=== PATIENT | female | born 1985 | race Caucasian/White ===

== ENCOUNTER 2024-02-25 13:52 | Inpatient (IN) | payer MEDICAID, SELFPAY ==
[2024-02-25] VITALS (83 sets, daily range): BP systolic 94–161; BP diastolic 60–116; PULSE 75–108; RESP 12–22; TEMP 36.9–37.6; O2SAT 95–100
--- NOTE | 2024-02-25 14:15 | RT.EKG_ITS ---
APPROVED REPORT Exam: Resting ECG Reason for Exam: left arm pain Patient Location: E HR:86 bpm ECG Measurements Heart Rate 86 AXIS VA 134 P 25 QRSd 88 QRS 26 QT 354 T 41 QTc 424 Conclusion Sinus rhythm...normal P axis, V-rate 60- 99 Consider left ventricular hypertrophy...(S V1+R V5/V6) >3.25mV Physician: sinus rhythm, no significant ST elevation or depression. No signs of STEMI.
--- NOTE | 2024-02-25 14:23 | W.ED.GENAD ---
Discharge Plan Disposition Patient Disposition: Admit to [facility] Condition: Improving Discharge Details Chief Complaint: ETOHWithdr Clinical Impression: Alcohol withdrawal, Nodule of left lung Primary Care Provider: Mayra,Local ED Provider: Nicolas Colunga Home Meds and New Rx's Prescriptions: No Action No Known Home Meds HPI General Date/Time Provider Initiated Documentation: 02/25/24 14:04. HPI Narrative: This is a pleasant 38-year-old female who denies any significant past medical history who presents today for evaluation of detox. Patient states that she has had challenges with alcohol throughout her whole life, she started drinking when she was 10 years old with her mother when she should have been going to therapy instead. She usually drinks 6 to 8 ounces of whiskey daily at baseline, however she states that over the last week she has been drinking 3-4 times this per day. Patient states that over the last few days she is drunk about 1.5 gallons of whiskey among some other beverages. Patient states that when she awoke this morning after having gone to bed drinking alcohol she noticed that she was diaphoretic, extremely shaky, twitchy, and felt extremely anxious. She then continued to drink throughout this morning up until the point that she arrived at the emergency department doors. She states that this is all that she can do to help mitigate her symptoms. She has tried to get dry in the past, and has had some notable withdrawals during those episodes. She denies history of seizures though. She denies any vomiting or diarrhea currently. She does admit to mild left-sided shoulder and chest pain that began today as well. She denies fever or chills. No tearing or ripping sensation in her chest. No pleuritic chest pain. No history of cardiac disease. She does smoke both marijuana and tobacco products. She has done cocaine in the past, the most recent episode was about a month ago. No other complaints at this time. No other modifying factors. She denies any homicidal or suicidal ideations. She states that she is here by choice and is seeking help. Related Data Home Medications Medication Instructions Recorded Confirmed Unknown [No Known Home Meds] 02/25/24 02/25/24 Allergies Allergy/AdvReac Type Severity Reaction Status Date / Time bacitracin AdvReac Intermediate Skin Rash Verified 02/25/24 14:06 [From Neosporin ([id number])] neomycin AdvReac Intermediate Skin Rash Verified 02/25/24 14:06 [From Neosporin ([id number])] polymyxin B AdvReac Intermediate Skin Rash Verified 02/25/24 14:06 [From Neosporin ([id number])] General Stated Complaint: ETOHWithdr JORGE: 3 Review of Systems All systems reviewed & are unremarkable except as noted in HPI and below Exam Narrative Exam Narrative: 1.Const: Well-nourished, Well-developed, appearing stated age 2.Eyes: PERRL, no conjunctival injection, and symmetrical lids. 3.ENT: Atraumatic external nose and ears. Moist MM. Neck: Symmetric, trachea midline, No thyromegaly. 4.CVS: +S1/S2, No murmurs or gallops. Peripheral pulses 2+ and equal in all extremities. Brisk capillary refill in all extremities. 5.RESP: Unlabored respiratory effort. Clear to auscultation bilaterally. No wheezes rales or rhonchi 6.GI: Soft, Nontender/Nondistended, No hepatosplenomegaly. No guarding or rebound. 7.MSK: Normocephalic/Atraumatic, Extremities w/o deformity or ttp No cyanosis or clubbing, Normal movement of all extremities. Patient has perceptible tremor of hands and fingertips with outstretched and resting arm. 8.Skin: Warm, Dry. No rashes or lesions. 9.Neuro: flight director II-XII grossly intact. Sensation grossly intact, no focal neurologic deficits. No asterixis. 10.Psych: (AAO) x3. Appropriate mood and affect Course Vital Signs Vital signs: Vital Signs Temperature 36.9 C 02/25/24 13:59 Pulse 104 H 02/25/24 13:59 Respiratory Rate 12 02/25/24 13:59 Blood Pressure 156/116 H 02/25/24 13:59 Pulse Oximetry 97 02/25/24 13:59 Temperature 36.9 C 02/25/24 13:59 Temperature Source Temporal Artery Scan 02/25/24 13:59 Pulse 104 H 02/25/24 13:59 Respiratory Rate 12 02/25/24 13:59 Respiratory Effort Normal, Non-Labored 02/25/24 14:09 Blood Pressure 156/116 H 02/25/24 13:59 Blood Pressure Position Sitting 02/25/24 13:59 Pulse Oximetry 97 02/25/24 13:59 Oxygen Delivery Method Room Air 02/25/24 13:59 Oxygen Flow Rate 0 02/25/24 13:59 Pain Level 0 02/25/24 13:59 Medical Decision Making This is a pleasant 38-year-old female who denies any significant past medical history who presents today for evaluation of detox. Patient states that she has had challenges with alcohol throughout her whole life, she started drinking when she was 10 years old with her mother when she should have been going to therapy instead. She usually drinks 6 to 8 ounces of whiskey daily at baseline, however she states that over the last week she has been drinking 3-4 times this per day. Patient states that over the last few days she is drunk about 1.5 gallons of whiskey among some other beverages. Patient states that when she awoke this morning after having gone to bed drinking alcohol she noticed that she was diaphoretic, extremely shaky, twitchy, and felt extremely anxious. She then continued to drink throughout this morning up until the point that she arrived at the emergency department doors. She states that this is all that she can do to help mitigate her symptoms. She has tried to get dry in the past, and has had some notable withdrawals during those episodes. She denies history of seizures though. She denies any vomiting or diarrhea currently. She does admit to mild left-sided shoulder and chest pain that began today as well. She denies fever or chills. No tearing or ripping sensation in her chest. No pleuritic chest pain. No history of cardiac disease. She does smoke both marijuana and tobacco products. She has done cocaine in the past, the most recent episode was about a month ago. No other complaints at this time. No other modifying factors. She denies any homicidal or suicidal ideations. She states that she is here by choice and is seeking help. Exam demonstrates well-appearing but anxious female, heart rate 104, mildly hypertensive. Patient has a resting tremor, no asterixis. No severe hepatomegaly. Pulses are equal bilaterally. In regards to the patient's alcohol use, she certainly is at risk for notable DTs as well as seizures. We will evaluate for electrolyte abnormalities, give a banana bag, hydrate with lactated Ringer's. I do feel that with her high potential relative risk for seizures and severe DTs that she would be a good candidate for admission especially with her notably excessive alcohol use in the past week predisposing her to significant negative complications. We will start her on phenobarbital protocol. Currently she demonstrates a CIWA between 10 and 20. However I do think that this is slightly blunted secondary to the fact that she has actively been drinking up until this point. We can escalate the phenobarbital dosing later if indicated. Will also give 50 mg of chlordiazepoxide while here to help blunt her current symptomatology. In regards to her chest pain, vascular pulses appear intact, no signs of trauma nor redness of the chest. Differential includes musculoskeletal etiology, less likely ACS, symptoms appear inconsistent clinically with PE. We will evaluate for these etiologies, monitor closely and reassess. Patient's EKG demonstrates sinus rhythm, no significant ST elevation or depression. No signs of STEMI. 6:37 PM Initial and repeat troponin have returned normal, CT scan negative for acute process however there is a 5 x 5 mm nodule in the left upper lobe. I did discuss this with both the patient, her significant other, and the hospitalist and describes the need for follow-up. Patient did have some continued anxiety even with the phenobarbital and chlordiazepoxide. We did give an additional 2 mg of Ativan which brought her to a very stable level needing no additional intervention. Laboratory workup shows minimal white count of 12, however CT of the chest showed no signs of pneumonia, urinalysis negative. Symptoms inconsistent with sepsis. D-dimer was elevated which was the reason the CTA was performed to rule out PE, however CT scan shows no evidence of PE or dissection at this time. Electrolytes stable, magnesium slightly low at 1.7, banana bag has been started. Transaminases slightly elevated with an AST of 62. Lipase normal, ammonia normal. UDS is positive for THC's. Alcohol level 119. At this stage patient is stable for admission. I did contact the hospitalist Dr. Amaral, he agrees with the assessment and plan. I have extensively reviewed the treatment plan with the patient. I have addressed all patient concerns at this time. I have also discussed the plan with the admitting physician and they agree with the current assessment and plan and have agreed to assume responsibility for the patient. All parties demonstrate verbal understanding and agreement with our assessment and plan at this time. The documentation in this chart was dictated using Dragon dictation software. Please excuse any dictation errors. FINDINGS: Pulmonary arteries: No filling defects within the pulmonary arteries are identified to suggest pulmonary embolism. Aorta: Unremarkable. No aortic aneurysm. No aortic dissection. Lungs: There is a 5 x 5 mm noncalcified nodule within the apical posterior segment of the left upper lobe near the left lung apex, as seen on image 65, series 6. Lungs otherwise clear. Pleural spaces: There are no pleural effusions present. There is no evidence of pneumothorax. Heart: Heart size is within normal limits. There is no pericardial effusion. There is no coronary artery calcification. Lymph nodes: There is no evidence of lymphadenopathy. Liver: The liver parenchyma demonstrates diffusely decreased attenuation, suggesting fatty infiltration. Bones/joints: Unremarkable. No acute fracture. Soft tissues: Unremarkable. IMPRESSION: 1. No pulmonary embolism identified. 2. 5 x 5 mm left upper lobe nodule, indeterminate. For patients at low risk (minimal or absent history of smoking and of other known risk factors), no routine follow-up is indicated. For patients at high risk (history of smoking or of other known risk factors), consider optional CT Chest at 12 months. (Reference: Marcela) 3. Mild hepatic steatosis. REFERENCES: Jimbohojosh H, et al. Guidelines for Management of Incidental Pulmonary Nodules Detected on CT Images: From the Fleischner Society 2017. Radiology. 2017;284(1):228-243. Thank you for allowing us to participate in the care of your patient. Dictated and Authenticated by: Matthew Holloway MD 02/25/2024 5:42 PM Eastern Time ([place] & [place]) Quality:SDOH Health Related Social Needs: No Data to Display Critical Care Time Critical Care Time Critical Care Time: Yes Total Critical Care Time: 45 Attestation: Upon my evaluation, this patient had a high probability of imminent or life-threatening deterioration, which required my direct attention, intervention, and personal management. I have personally provided 45 minutes of critical care time exclusive of time spent on separately billable procedures. Time includes review of laboratory data, radiology results, discussion with consultants, and monitoring for potential decompensation. Interventions were performed as documented. PFSH All Active Problems (Updated 02/25/24 @ 18:40 by Nicolas Colunga DO) Nodule of left lung (Acute) Alcohol withdrawal (Acute) Social History Smoking/Tobacco Use Status: Current every day Tobacco Type: cigarettes Smoking risk assessment performed?: Yes Alcohol Intake: current Alcohol Intake frequency: 3 or more drinks per day Alcohol type: hard liquor Drug use: Daily Substance use type: marijuana PAWSS Have you Been Recently Intoxicated or Drunk Within the Last 30 days?: Yes Have you Ever Experienced Previous Episodes of Alcohol Withdrawal?: Yes Have you ever Experienced Withdrawal Seizures?: No Have you ever Experienced Delirium Tremens(DT)s?: Yes Have you ever undergone Alcohol Rehabilitation Treatment (i.e, inpt ot outpatient treatment programs)?: Yes Have you ever Experienced Blackouts?: Yes Have you ever Combined Alcohol with other Downers within the last 90 days?: Yes Have you ever Combined Alcohol with any other Substance of Abuse during the last 90 days?: Yes Positive Blood Alcohol level on Presentation? [PCS.BAL]: Yes Evidence of Increased Autonomic Activity (i.e. HR>120, tremor, sweating, agitation, nausea)?: No Result: 8
[2024-02-25 14:41] LABS: Abs Immature Grans 0.04 10^3/uL (0.0-0.06); Absolute Basophil Count 0.06 10^3/uL (0.0-0.2); Absolute Eosinophil Count 0.02 10^3/uL (0.0-0.7); Absolute Lymphocyte Count 1.61 10^3/uL (1.2-3.4); Absolute Monocyte Count 0.84 10^3/uL (0.1-0.8); Absolute Neutrophil Count 9.46 10^3/uL (1.2-6.7); Basophils % 0.5 %; Eosinophils % 0.2 %; HCT 40.3 % (36.0-46.0); HGB 14.4 g/dL (11.2-15.7); Immature Grans % 0.3 %; Lymphocytes % 13.4 %; MCH 33.6 pg (27.0-33.0); MCHC 35.7 % (32.0-36.0); MCV 94 fL (80-95); MPV 8.9 fL (8.0-11.0); Neutrophils % 78.6 %; Platelet Count 240 10^3/uL (130-400); RBC 4.28 10^6/uL (3.93-5.22); RDW 11.9 % (11.7-14.6); RDW-SD 41.4 fL; WBC 12.03 10^3/uL (4.4-10.8)
[2024-02-25] MEDS: chlordiazePOXIDE 25 MG CAP 50 MG PO (14:45)
[2024-02-25] MEDS: Lactated Ringers 1,000 ML 1000 ML IV (14:45)
[2024-02-25 14:52] LABS: Prothrombin Time 10.2 sec (9.1-11.1)
[2024-02-25 14:53] LABS: ETHANOL BLOOD 119.9 mg/dL (<10); Magnesium 1.7 mg/dL (1.8-2.4)
[2024-02-25 14:56] LABS: Ammonia 19 umol/L (11-32)
[2024-02-25 14:58] LABS: ALT 40 U/L (14-59); AST 62 U/L (15-37); Albumin 4.4 g/dL (3.4-5.0); Alkaline Phosphatase 78 U/L (46-116); BUN 8 mg/dL (7-18); Bilirubin, Total 0.74 mg/dL (0.2-1.0); CREATININE 0.7 mg/dL (0.55-1.02); Calcium 9.1 mg/dL (8.5-10.1); Chloride 98 mmol/L (98-107); Estimated GFR 112.05 (mL/min/1.73m2); Glucose 103 mg/dL (74-106); Lipase 30 U/L (16-77); Potassium 3.9 mmol/L (3.5-5.1); Sodium 136 mmol/L (136-145); Total Protein 8.2 g/dL (6.4-8.2); Troponin I < 50 ng/L (< or =60)
[2024-02-25] MEDS: PHENobarbital 110 MG in Normal Saline 50 ML 100 MG IVPB (15:08)
[2024-02-25 15:10] LABS: PTT Activated 23.7 sec (23.6-32.8)
--- NOTE | 2024-02-25 15:15 | DI.CT_ITS ---
Exam(s) CT CHEST PE CTA EXAM: CT CHEST PE CTA CLINICAL HISTORY: left chest pain, elevated dimer. TECHNIQUE: Imaging Protocol: Axial CT angiography was performed with multi-slice acquisition and mu lti-planar reconstructions as well as axial, coronal and sagittal MIP reconstructions. CONTRAST MATERIAL: Intravenous: Omnipaque 350 Contrast volume:80 ml COMPARISON: No exams were available for comparison FINDINGS: Pulmonary Arteries: No evidence of filling defect to suggest pulmonary emboli. Tracheobronchial tree: No mucous plugging. Mediastinum and Charlette: No dominant adenopathy or fluid collection. Pulmonary parenchyma: No consolidation. 5 millimeter nodule left lung apex. Pleura: No effusion or pneumothorax. Heart: The heart is not dilated. No coronary artery calcifications are seen. Aorta: Thoracic aorta non-dilated. No dissection. Upper abdomen: No acute findings. Bones: Unremarkable for age. Tubes, Catheters, and Lines: None Soft tissues: Unremarkable. IMPRESSION: No evidence of pulmonary embolism or other acute abnormality. 5 millimeter nodule left lung apex. Single solid noncalcified nodules. ???Solid nodules smaller than 6 mm (those 5 mm or smaller) do not require routine follow-up in patients at low risk (grade 1C; strong recommendation, low- or very-low- quality evidence). (Marcela et al., 2017) RADIATION DOSE DELIVERED: Total DLP DATA REPOSITORY: All CT scans at this facility are submitted to the National Radiology Data Registry (NRDR) Dose Index Registry (DIR) with the [employer] (ACR). RADIATION OPTIMIZATION: All CT scans at this facility use at least one of these dose optimization te chniques: automated exposure control; mA and/or kV adjustment per patient size (includes targeted exa ms where dose is matched to clinical indication); or iterative reconstruction.
[2024-02-25 15:19] LABS: D-Dimer 561 ng/mlFEU (<500)
[2024-02-25 15:22] LABS: *AMPHETAMINES SCREEN URINE Negative (Negative); *BARBITURATES SCREEN URINE Negative (Negative); *BENZODIAZEPINES SCREEN URINE Negative (Negative); Cannabinoids THC Positive (Negative); Cocaine Screen,Urine Negative (Negative); METHADONE URINE SCREEN Negative (Negative); OPIATES URINE SCREEN Negative (Negative)
[2024-02-25 15:23] LABS: Tricyclic Antidepressants Negative (Negative)
[2024-02-25] MEDS: MULTIVITAMIN 10 ML, THIAMINE 100 MG, FOLIC ACID 1 MG in DEXTROSE 5%-0.45% SALINE 1,000 ML 42 ML IV (15:25)
[2024-02-25 15:29] LABS: Bilirubin Negative (Negative); Blood Negative (Negative); Clarity Sl Cloudy (Clear); Glucose Negative (Negative); Ketones Negative (Negative); Leukocyte Esterase Negative (Negative); Nitrite Negative (Negative); Urobilinogen 0.2 mg/dL (Up to 0.2)
[2024-02-25] MEDS: Normal Saline - Diluent 50 ML VIAL IJ (15:44)
[2024-02-25] MEDS: Normal Saline Flush 10 ML SYR IVP ×2 (15:44→22:51)
[2024-02-25] MEDS: Omnipaque 350 MG/ML 100 ML BTL IJ (15:45)
[2024-02-25] MEDS: LORazepam 2 MG/ML VIAL IVP (15:56)
[2024-02-25] MEDS: Nicotine 4 MG GUM CH (16:27)
--- NOTE | 2024-02-25 17:42 | DI.VRAD_ITS ---
PROCEDURE INFORMATION: Exam: CTA Chest With Contrast Exam date and time: 02/25/2024 3:48 PM Age: 38 years old Clinical indication: Other: Left chest pain, elevated dimer TECHNIQUE: Imaging protocol: Computed tomographic angiography of the chest with contrast. Exam focused on the arteries. 3D rendering (Not supervised by radiologist): MIP and/or 3D reconstructed images were created by the technologist. Contrast material: OMNIPAQUE 350; Contrast volume: 80 ml; Contrast route: INTRAVENOUS (IV); COMPARISON: No relevant prior studies available. FINDINGS: Pulmonary arteries: No filling defects within the pulmonary arteries are identified to suggest pulmonary embolism. Aorta: Unremarkable. No aortic aneurysm. No aortic dissection. Lungs: There is a 5 x 5 mm noncalcified nodule within the apical posterior segment of the left upper lobe near the left lung apex, as seen on image 65, series 6. Lungs otherwise clear. Pleural spaces: There are no pleural effusions present. There is no evidence of pneumothorax. Heart: Heart size is within normal limits. There is no pericardial effusion. There is no coronary artery calcification. Lymph nodes: There is no evidence of lymphadenopathy. Liver: The liver parenchyma demonstrates diffusely decreased attenuation, suggesting fatty infiltration. Bones/joints: Unremarkable. No acute fracture. Soft tissues: Unremarkable. IMPRESSION: 1. No pulmonary embolism identified. 2. 5 x 5 mm left upper lobe nodule, indeterminate. For patients at low risk (minimal or absent history of smoking and of other known risk factors), no routine follow-up is indicated. For patients at high risk (history of smoking or of other known risk factors), consider optional CT Chest at 12 months. (Reference: Marcela) 3. Mild hepatic steatosis. REFERENCES: Marcela Styles, et al. Guidelines for Management of Incidental Pulmonary Nodules Detected on CT Images: From the Fleischner Society 2017. Radiology. 2017;284(1):228-243. Dictated and Authenticated by: Matthew Holloway MD. Ordering:TRISTIAN Valenzuela MD
[2024-02-25 18:23] LABS: Troponin I < 50 ng/L (< or =60)
--- NOTE | 2024-02-25 19:20 | W.PM.HP.N ---
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 She does drink daily with quitting up to 1 year in the past and weeks to days at times without significant withdrawal. She has never been hospitalized for alcohol withdrawal. Recently she has had increased amounts of whiskey and had symptoms of withdrawal the morning of admission. She presently is feeling better after Librium and then phenobarbital loading dose at only 40% to be used as needed presently with the rest of her loading dose. She does have Ativan orally to take if she has anxiety without scoring on alcohol withdrawal scale. Patient insight is fair does appear to have chronic anxiety with PTSD. She is going to counseling. She was admitted to ICU for alcohol withdrawal and once cleared will be discharged with outpatient services. She already has a counselor who she sees twice weekly. She has a DNR/DNI by Fanny stated that she does not want to live until she is 88 and if a catastrophic medical event happens, she does not want interventions. Qualifiers: Complication of substance-induced condition: with unspecified complication Qualified Code(s): F10.939 - Alcohol use, unspecified with withdrawal, unspecified (2) Polysubstance abuse: Start date: 02/25/24 Status: Chronic Assessment and plan: Patient does self treatment mostly with marijuana recently having used cocaine and LSD in the past. She has never used IV drugs. (3) Tobacco abuse: Status: Chronic Assessment and plan: Nicotine patch while in the hospital with advised to stop smoking altogether in the future. She does not have any respiratory symptoms or chronic inhaler use but with slight wheeze she will be offered albuterol nebulizers as needed. (4) Nodule of left lung: Start date: 02/25/24 Status: Acute Assessment and plan: Incidental finding 5 mm nodule in the lung should be followed up as an outpatient. Smoking cessation would be best. Patient needs to establish with local PCP. History of Present Illness History of Present Illness Chief Complaint: Alcohol withdrawal Narrative: This is a 38-year-old female patient has been drinking alcohol with her mother since she was 10 years old. She stated she has had multiple childhood traumas states that she does self treat her symptoms with alcohol also has used cocaine and LSD but has never had IV drug use or smoked crack cocaine. She does snort and rarely shares devices. Patient has been in counseling recently when moving up locally. 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 She feels her landlord as abandoned her with the plans and had moved and working. She is with her partner now is very supportive. She recently increased her drinking continued with the from 1/5 of alcohol lasting her a week to drinking 3/5 of the same weekly. Did awaken the morning of admission with sweats and nausea as well as severe tremors. She did drink some alcohol which helped the symptoms but came to the hospital for alcohol withdrawal. She is a smoker and does have urges to smoke presently excepting nicotine patch. As stated she is in counseling recently and has increased the frequency because of her increased stress and poor coping. She has good insight. She does wish to be a DNR/DNI by choice and has had suicidal ideation in the past but never acted on her plans and has had no suicidal ideation recently. She seems clear on her decision. She has had withdrawals in the past but no alcohol withdrawal seizures. He reported to the ED and did receive Librium and then phenobarbital protocol with a small dose of Ativan for her anxiety at 2 mg IV which was palpable. She is doing better and will continue hospitalization in the ICU for alcohol withdrawal on the phenobarbital protocol. She has slight low magnesium but no elevation of her liver function test and will receive magnesium supplements Will IV vitamin banana bag per protocol. She is a DNR/DNI as above Review of Systems Narrative: 13 point review of systems otherwise unrevealing or stable. PFSH All Active Problems (Updated 02/25/24 @ 22:11 by Wayne Amaral) Tobacco abuse (Chronic) Polysubstance abuse (Chronic) Nodule of left lung (Acute) Alcohol withdrawal (Acute) Social History Smoking/Tobacco Use Status: Current every day Tobacco Type: cigarettes Smoking risk assessment performed?: Yes Alcohol Intake: current Alcohol Intake frequency: 3 or more drinks per day Alcohol type: hard liquor Drug use: Daily Substance use type: marijuana Housing: apartment Meds Allergies and Home Medications Allergies Allergy/AdvReac Type Severity Reaction Status Date / Time bacitracin AdvReac Intermediate Skin Rash Verified 02/25/24 14:06 [From Neosporin ([id number])] neomycin AdvReac Intermediate Skin Rash Verified 02/25/24 14:06 [From Neosporin ([id number])] polymyxin B AdvReac Intermediate Skin Rash Verified 02/25/24 14:06 [From Neosporin ([id number])] Home Medications Medication Instructions Recorded Confirmed Type Unknown [No Known Home Meds] 02/25/24 02/25/24 History Exam Narrative Exam Narrative: General: Patient appears appropriate for age, slightly flattened affect but good eye contact. Alert and oriented x 3. She is in no acute distress. HEENT: Normocephalic, pupils equal and reactive to light symmetrically, extraocular movement intact and sclera anicteric. Oral mucosa moist with clear mentation. Neck: Supple without JVD. Back: Normal posture without CVA tenderness. Lungs:Clear to auscultation. No focal rales or rhonchi. Occasional crackle with expiratory wheeze sparsely. Bronchovesicular breath sounds diffusely. Breast: Exam deferred. Heart: Regular rate and rhythm with systolic flow murmur admittedly, otherwise no gallops or rubs. Abdomen: Normal contour, soft and nontender to palpation with no palpable hepatosplenomegaly. Bowel sounds positive all quadrants. No guarding or rebound. Genitalia/rectal: Exam deferred. Extremities: No clubbing, cyanosis or pitting edema. Peripheral pulses intact. Skin: Normal color, warm and dry with multiple tattoos. Neuro: Cranial nerves II through XII gross intact, no focal motor deficits. No tremor. Psych: Flattened affect with depressed mood. Slow monotonous tone to voice. No abnormal thought processes. Remote and recent memory intact. Results Imaging Imaging Studies: Exam: CTA Chest With Contrast Exam date and time: 02/25/2024 3:48 PM Age: 38 years old Clinical indication: Other: Left chest pain, elevated dimer TECHNIQUE: Imaging protocol: Computed tomographic angiography of the chest with contrast. Exam focused on the arteries. 3D rendering (Not supervised by radiologist): MIP and/or 3D reconstructed images were created by the technologist. Contrast material: OMNIPAQUE 350; Contrast volume: 80 ml; Contrast route: INTRAVENOUS (IV); COMPARISON: No relevant prior studies available. FINDINGS: Pulmonary arteries: No filling defects within the pulmonary arteries are identified to suggest pulmonary embolism. Aorta: Unremarkable. No aortic aneurysm. No aortic dissection. Lungs: There is a 5 x 5 mm noncalcified nodule within the apical posterior segment of the left upper lobe near the left lung apex, as seen on image 65, series 6. Lungs otherwise clear. Pleural spaces: There are no pleural effusions present. There is no evidence of pneumothorax. Heart: Heart size is within normal limits. There is no pericardial effusion. There is no coronary artery calcification. Lymph nodes: There is no evidence of lymphadenopathy. Liver: The liver parenchyma demonstrates diffusely decreased attenuation, suggesting fatty infiltration. Bones/joints: Unremarkable. No acute fracture. Soft tissues: Unremarkable. IMPRESSION: 1. No pulmonary embolism identified. 2. 5 x 5 mm left upper lobe nodule, indeterminate. For patients at low risk (minimal or absent history of smoking and of other known risk factors), no routine follow-up is indicated. For patients at high risk (history of smoking or of other known risk factors), consider optional CT Chest at 12 months. (Reference: Marcela) 3. Mild hepatic steatosis. Labs 02/25/24 14:30 02/25/24 14:30 Labs: Laboratory Results - last 24 hr 02/25/24 02/25/24 02/25/24 14:30 14:39 15:00 WBC 12.03 H RBC 4.28 Hgb 14.4 Hct 40.3 MCV 94 MCH 33.6 H MCHC 35.7 RDW 11.9 Plt Count 240 MPV 8.9 Immature Gran % 0.3 Neutrophils % 78.6 Lymphocytes % 13.4 Monocytes % 7.0 Eosinophils % 0.2 Basophils % 0.5 Nucleated RBC % 0.0 Absolute Neutrophils 9.46 H Absolute Lymphocytes 1.61 Absolute Monocytes 0.84 H Absolute Eosinophils 0.02 Absolute Basophils 0.06 PT 10.2 INR 1.0 APTT 23.7 D-Dimer 561 H Sodium 136 Potassium 3.9 Chloride 98 Carbon Dioxide 25.0 Anion Gap 13.0 H BUN 8 Creatinine 0.7 Est GFR (CKD-EPI 2020) 112.05 Glucose 103 Calcium 9.1 Magnesium 1.7 L Total Bilirubin 0.74 AST 62 H ALT 40 Alkaline Phosphatase 78 Ammonia 19 Troponin I < 50 Total Protein 8.2 Albumin 4.4 Lipase 30 Urine Color Yellow Urine Clarity Sl Cloudy Urine pH 7.0 Ur Specific [place] 1.010 Urine Protein Negative Urine Ketones Negative Urine Blood Negative Urine Nitrite Negative Urine Bilirubin Negative Urine Urobilinogen 0.2 Ur Leukocyte Esterase Negative Urine Glucose Negative Urine Opiates Screen Negative Urine Methadone Screen Negative Ur Barbiturates Screen Negative Ur Tricyclics Screen Negative Ur Amphetamines Screen Negative U Benzodiazepines Scrn Negative Urine Cocaine Screen Negative Ur THC Screen Positive A Ethyl Alcohol 119.9 H 02/25/24 17:35 WBC RBC Hgb Hct MCV MCH MCHC RDW Plt Count MPV Immature Gran % Neutrophils % Lymphocytes % Monocytes % Eosinophils % Basophils % Nucleated RBC % Absolute Neutrophils Absolute Lymphocytes Absolute Monocytes Absolute Eosinophils Absolute Basophils PT INR APTT D-Dimer Sodium Potassium Chloride Carbon Dioxide Anion Gap BUN Creatinine Est GFR (CKD-EPI 2020) Glucose Calcium Magnesium Total Bilirubin AST ALT Alkaline Phosphatase Ammonia Troponin I < 50 Total Protein Albumin Lipase Urine Color Urine Clarity Urine pH Ur Specific [place] Urine Protein Urine Ketones Urine Blood Urine Nitrite Urine Bilirubin Urine Urobilinogen Ur Leukocyte Esterase Urine Glucose Urine Opiates Screen Urine Methadone Screen Ur Barbiturates Screen Ur Tricyclics Screen Ur Amphetamines Screen U Benzodiazepines Scrn Urine Cocaine Screen Ur THC Screen Ethyl Alcohol Last Vital Signs Temp 36.9 C 02/25/24 13:59 Pulse 104 H 02/25/24 19:00 Resp 12 02/25/24 13:59 BP 114/62 02/25/24 19:00 Pulse Ox 96 02/25/24 19:16 PAWSS Have you Been Recently Intoxicated or Drunk Within the Last 30 days?: Yes Have you Ever Experienced Previous Episodes of Alcohol Withdrawal?: Yes Have you ever Experienced Withdrawal Seizures?: No Have you ever Experienced Delirium Tremens(DT)s?: Yes Have you ever undergone Alcohol Rehabilitation Treatment (i.e, inpt ot outpatient treatment programs)?: Yes Have you ever Experienced Blackouts?: Yes Have you ever Combined Alcohol with other Downers within the last 90 days?: Yes Have you ever Combined Alcohol with any other Substance of Abuse during the last 90 days?: Yes Positive Blood Alcohol level on Presentation? [PCS.BAL]: Yes Evidence of Increased Autonomic Activity (i.e. HR>120, tremor, sweating, agitation, nausea)?: No Result: 8 Time Spent Time spent with Patient: >75 minutes Time was spent: preparing to see the patient(eg.review tests), obtaining and/or reviewing separately otained hiistory, ordering medications,tests, procedures, indepentently interpreting results, counseling the patient and care coordination
--- NOTE | 2024-02-25 20:06 | W.PC.ACHO ---
Registration Status: REG ER Primary Language: Preferred Language: ED Information & Data Chief Complaint ETOHWithdr 02/25/24 14:28 Triage Note patient thinks she was in 02/25/24 13:59 detox as she woke up this am ill. patient states she has been drinking from morning til night. States she has L arm pain radiating to shoulder. Most Recent Vital Signs Temperature 36.9 C 02/25/24 13:59 Temperature Source Temporal Artery Scan 02/25/24 13:59 Pulse 104 H 02/25/24 19:00 Respiratory Rate 12 02/25/24 13:59 Respiratory Effort Normal, Non-Labored 02/25/24 14:09 Blood Pressure 114/62 02/25/24 19:00 Blood Pressure Mean 86 02/25/24 18:30 Blood Pressure Position Sitting 02/25/24 13:59 Pulse Oximetry 96 02/25/24 19:16 Oxygen Delivery Method Room Air 02/25/24 13:59 Oxygen Flow Rate 0 02/25/24 13:59 Pain Level 0 02/25/24 13:59 Allergies bacitracin [From Neosporin ([id number])] Adverse Reaction (Intermediate, Verified 02/25/24 14:06) Skin Rash neomycin [From Neosporin ([id number])] Adverse Reaction (Intermediate, Verified 02/25/24 14:06) Skin Rash polymyxin B [From Neosporin ([id number])] Adverse Reaction (Intermediate, Verified 02/25/24 14:06) Skin Rash Precautions Isolation Standard precaution 02/25/24 14:09 Active Medications Generic Name Dose Route Start Last Admin Trade Name Freq PRN Reason Stop Dose Admin Multivitamins 10 ml/ Thiamine 1,011.2 mls @ 42 mls/hr 02/25/24 15:00 02/25/24 15:25 HCl 100 mg/ Folic Acid 1 mg/ IV 42 mls/hr Dextrose/Sodium Chloride Q24H MATT Administration Iohexol 100 ml 02/25/24 15:45 02/25/24 15:45 Omnipaque 350 Mg/Ml 100 Ml Btl IJ 03/26/24 23:59 100 ml DIRECTED MATT Administration Nicotine 4 mg 02/25/24 16:25 02/25/24 16:27 Nicotine 4 Mg Gum CH 4 mg Q2H PRN PRN Administration Sodium Chloride 50 ml 02/25/24 15:45 02/25/24 15:44 Normal Saline - Diluent 50 Ml Vial IJ 50 ml .FOR DI USE MATT Administration Sodium Chloride 0 ml 02/25/24 15:44 02/25/24 15:44 Normal Saline Flush 10 Ml Syr IVP 10 ml PRN PRN Administration IV IV Catheter Type [Right Hand] Peripheral IV IV Catheter Type [Right Peripheral IV Antecubital] Diet Orders Category Date Time Status Regular/Normal [DIET] Nutrition 02/26/24 Breakfast Ordered Diagnostics 02/25/24 02/25/24 02/25/24 Range/Units 19:29 17:35 15:00 WBC (4.4-10.8) 10^3/uL RBC (3.93-5.22) 10^6/uL Hgb (11.2-15.7) g/dL Hct (36.0-46.0) % MCV (80-95) fL MCH (27.0-33.0) pg MCHC (32.0-36.0) % RDW (11.7-14.6) % Plt Count (130-400) 10^3/uL MPV (8.0-11.0) fL Immature Gran % % Neutrophils % % Lymphocytes % % Monocytes % % Eosinophils % % Basophils % % Nucleated RBC % (0.0-0.3) % Absolute Neutrophils (1.2-6.7) 10^3/uL Absolute Lymphocytes (1.2-3.4) 10^3/uL Absolute Monocytes (0.1-0.8) 10^3/uL Absolute Eosinophils (0.0-0.7) 10^3/uL Absolute Basophils (0.0-0.2) 10^3/uL PT Pending (9.1-11.1) sec INR Pending (0.9-1.1) APTT (23.6-32.8) sec D-Dimer (<500) ng/mlFEU Sodium (136-145) mmol/L Potassium (3.5-5.1) mmol/L Chloride (98-107) mmol/L Carbon Dioxide (21.0-32.0) mmol/L Anion Gap (3-11) mmol/L BUN (7-18) mg/dL Creatinine (0.55-1.02) mg/dL Est GFR (CKD-EPI 2020) (mL/min/1.73m2) Glucose (74-106) mg/dL Calcium (8.5-10.1) mg/dL Magnesium (1.8-2.4) mg/dL Total Bilirubin (0.2-1.0) mg/dL AST (15-37) U/L ALT (14-59) U/L Alkaline Phosphatase (46-116) U/L Ammonia (11-32) umol/L Troponin I < 50 (< or =60) ng/L Total Protein (6.4-8.2) g/dL Albumin (3.4-5.0) g/dL Lipase (16-77) U/L TSH Pending Urine Color Yellow (Yellow) Urine Clarity Sl Cloudy (Clear) Urine pH 7.0 (5-8) Ur Specific [place] 1.010 (1.005-1.025) Urine Protein Negative (Neg-Trace) mg/dL Urine Ketones Negative (Negative) mg/dL Urine Blood Negative (Negative) Urine Nitrite Negative (Negative) Urine Bilirubin Negative (Negative) Urine Urobilinogen 0.2 (Up to 0.2) mg/dL Ur Leukocyte Esterase Negative (Negative) Urine Glucose Negative (Negative) mg/dL Urine Opiates Screen Negative (Negative) Urine Methadone Screen Negative (Negative) Ur Barbiturates Screen Negative (Negative) Ur Tricyclics Screen Negative (Negative) Ur Amphetamines Screen Negative (Negative) U Benzodiazepines Scrn Negative (Negative) Urine Cocaine Screen Negative (Negative) Ur THC Screen Positive A (Negative) Ethyl Alcohol (<10) mg/dL 02/25/24 02/25/24 Range/Units 14:39 14:30 WBC 12.03 H (4.4-10.8) 10^3/uL RBC 4.28 (3.93-5.22) 10^6/uL Hgb 14.4 (11.2-15.7) g/dL Hct 40.3 (36.0-46.0) % MCV 94 (80-95) fL MCH 33.6 H (27.0-33.0) pg MCHC 35.7 (32.0-36.0) % RDW 11.9 (11.7-14.6) % Plt Count 240 (130-400) 10^3/uL MPV 8.9 (8.0-11.0) fL Immature Gran % 0.3 % Neutrophils % 78.6 % Lymphocytes % 13.4 % Monocytes % 7.0 % Eosinophils % 0.2 % Basophils % 0.5 % Nucleated RBC % 0.0 (0.0-0.3) % Absolute Neutrophils 9.46 H (1.2-6.7) 10^3/uL Absolute Lymphocytes 1.61 (1.2-3.4) 10^3/uL Absolute Monocytes 0.84 H (0.1-0.8) 10^3/uL Absolute Eosinophils 0.02 (0.0-0.7) 10^3/uL Absolute Basophils 0.06 (0.0-0.2) 10^3/uL PT 10.2 (9.1-11.1) sec INR 1.0 (0.9-1.1) APTT 23.7 (23.6-32.8) sec D-Dimer 561 H (<500) ng/mlFEU Sodium 136 (136-145) mmol/L Potassium 3.9 (3.5-5.1) mmol/L Chloride 98 (98-107) mmol/L Carbon Dioxide 25.0 (21.0-32.0) mmol/L Anion Gap 13.0 H (3-11) mmol/L BUN 8 (7-18) mg/dL Creatinine 0.7 (0.55-1.02) mg/dL Est GFR (CKD-EPI 2020) 112.05 (mL/min/1.73m2) Glucose 103 (74-106) mg/dL Calcium 9.1 (8.5-10.1) mg/dL Magnesium 1.7 L (1.8-2.4) mg/dL Total Bilirubin 0.74 (0.2-1.0) mg/dL AST 62 H (15-37) U/L ALT 40 (14-59) U/L Alkaline Phosphatase 78 (46-116) U/L Ammonia 19 (11-32) umol/L Troponin I < 50 (< or =60) ng/L Total Protein 8.2 (6.4-8.2) g/dL Albumin 4.4 (3.4-5.0) g/dL Lipase 30 (16-77) U/L TSH Urine Color (Yellow) Urine Clarity (Clear) Urine pH (5-8) Ur Specific [place] (1.005-1.025) Urine Protein (Neg-Trace) mg/dL Urine Ketones (Negative) mg/dL Urine Blood (Negative) Urine Nitrite (Negative) Urine Bilirubin (Negative) Urine Urobilinogen (Up to 0.2) mg/dL Ur Leukocyte Esterase (Negative) Urine Glucose (Negative) mg/dL Urine Opiates Screen (Negative) Urine Methadone Screen (Negative) Ur Barbiturates Screen (Negative) Ur Tricyclics Screen (Negative) Ur Amphetamines Screen (Negative) U Benzodiazepines Scrn (Negative) Urine Cocaine Screen (Negative) Ur THC Screen (Negative) Ethyl Alcohol 119.9 H (<10) mg/dL [id number] Documentation POC Urine Test Start: 02/25/24 14:19 Freq: .Urine Test Status: Active Protocol: Activity Type Activity Date Activity User E-sign Co-sign Detail Recorded Client Recorded Date Recorded By Document 02/25/24 15:43 YIN [id number] 02/25/24 15:43 YIN Intake and Output - 24 Hour Total 02/25/24 13:52 thru 02/25/24 18:32 Intake Total 1050.8462 Balance 1050.8462 Weight 61.235 kg Intake: IV 1050.8462 Falls Risk Assessment History of Falls No History 02/25/24 14:13 Ambulatory Aids Independent 02/25/24 14:13 Tubes/Lines None 02/25/24 14:13 Gait Evaluation No gait disturbance 02/25/24 14:13 Cognition No cognitive impairment 02/25/24 14:13 Fall Total Score 0 02/25/24 14:13 Level of Risk Standard/Low Risk 02/25/24 14:13 Problems (Last Reviewed 02/25/24 @ 19:22 by Wayne Amaral) Tobacco abuse (Chronic) Polysubstance abuse (Acute) Nodule of left lung (Acute) Alcohol withdrawal (Acute) v v v v v v v v v Sending and/or Receiving Nurses: Please use comment section below to note any information pertinent to the patient hand-off not included above. Information / Comments: Pt pleasant. Has good support system. History of sobriety. Relapsed. Wants to return to sobriety. CIWA max 10. Most recent CIWA 2. Hx DT's in the past. Report received from: Familia Dhaliwal RN
[2024-02-25 21:57] LABS: TSH 5.18 uIU/Ml (0.36-3.74)
[2024-02-25] MEDS: LORazepam 1 MG TAB 2 MG PO (22:50)
[2024-02-25] MEDS: Enoxaparin 40 MG/0.4 ML SYR SC (22:50)
[2024-02-26] VITALS (32 sets, daily range): BP systolic 88–118; BP diastolic 62–87; PULSE 56–108; RESP 12–32; TEMP 36.6–37.1; O2SAT 96–99
[2024-02-26] MEDS: LORazepam 1 MG TAB 2 MG PO (05:51)
[2024-02-26] MEDS: Nicotine 14 MG/24 HR PATCH TD (05:52)
[2024-02-26 06:05] LABS: HCT 35.7 % (36.0-46.0); HGB 12.6 g/dL (11.2-15.7); MCH 33.6 pg (27.0-33.0); MCHC 35.3 % (32.0-36.0); MCV 95 fL (80-95); MPV 9.5 fL (8.0-11.0); Platelet Count 178 10^3/uL (130-400); RBC 3.75 10^6/uL (3.93-5.22); RDW 11.9 % (11.7-14.6); RDW-SD 41.7 fL; WBC 4.53 10^3/uL (4.4-10.8)
[2024-02-26 06:20] LABS: Magnesium 1.7 mg/dL (1.8-2.4)
[2024-02-26 06:26] LABS: ALT 31 U/L (14-59); AST 48 U/L (15-37); Albumin 3.2 g/dL (3.4-5.0); Alkaline Phosphatase 58 U/L (46-116); Anion Gap 9.2 mmol/L (3-11); BUN 10 mg/dL (7-18); Bilirubin, Total 1.06 mg/dL (0.2-1.0); CO2 26.8 mmol/L (21.0-32.0); CREATININE 0.6 mg/dL (0.55-1.02); Calcium 8.7 mg/dL (8.5-10.1); Chloride 103 mmol/L (98-107); Glucose 91 mg/dL (74-106); Potassium 3.6 mmol/L (3.5-5.1); Sodium 139 mmol/L (136-145); Total Protein 6.2 g/dL (6.4-8.2)
[2024-02-26] MEDS: MAGNESIUM SULFATE 2 GM/50 ML BAG IVINF (08:12)
[2024-02-26] MEDS: Normal Saline Flush 10 ML SYR IVP ×3 (08:13→23:33)
[2024-02-26] MEDS: PHENobarbital 130 MG/ML VIAL IVP ×3 (08:13→23:31)
--- NOTE | 2024-02-26 08:30 | PDOC.CMIN ---
Date of service: 02/26/24 Time of Service: 08:30 Care Management Initial Assmt Initial Assessment Reason for Hospitalization: Alcohol Withdrawal Functional Status/Living Situation Patient Presentation: Remains in ICU, pleasant in interaction, seeking support services. [facility] [place] [place] Resides with: Spouse Instrumental Activities of Daily Living (ADLs): Independent Medications Medication Management: No Issues/Barriers identified Advance Directives Advance Directives: Do you have an Advance Directive: N 02/25/24 13:59 AD On File at [facility]: N 02/25/24 13:59 Date Asked 02/25/24 02/25/24 13:59 AD Date Reviewed COLST On File at [facility] No 02/25/24 16:19 COLST Date Scanned Code Status Resuscitation Status DNR/DNI Portal Pt does not currently have a portal and education provided: Yes Insurance Coverage/Financial Issues Insurance: Self Pay: [facility] Referral ACO Member: No Care Team Visit Care Team Role Provider Type Local No Primary Care Provider NON-[facility] STAFF PHYSICIAN Nicolas Colunga, DO Emergency Provider [facility] STAFF PHYSICIAN Wayne Amaral Admit Provider NON-[facility] STAFF PHYSICIAN Attending Provider Discharge Potential Discharge Needs: PCP F/U Appt (T-Doc: [facility] Anthony) Anticipated Barriers to Discharge: Medical Status and SDOH (Insurance, PCP attainment, ETOH W/D: [facility]) Patient/Family Education Needs: Review discharge instructions, discuss Ask Me Three Transportation: Private vehicle Plan: Michelle will be treated for ETOH withdrawal, referrals completed to [facility], T-Doc appointment request and [facility] consult to be initiated as well. CM following. PFSH All Active Problems (Updated 02/26/24 @ 09:32 by Matthew Mckenzie) DVT prophylaxis (Acute) Alcohol use disorder (Acute) Anxiety disorder (Acute) Tobacco abuse (Chronic) Polysubstance abuse (Chronic) Nodule of left lung (Acute) Alcohol withdrawal (Acute) Social History Smoking/Tobacco Use Status: Current every day Tobacco Type: cigarettes Smoking risk assessment performed?: Yes Alcohol Intake: current Alcohol Intake frequency: 3 or more drinks per day Alcohol type: hard liquor Drug use: Daily Substance use type: marijuana Housing: apartment SDOH(Care Management) Screening Will the Patient Participate in the Screening?: Declined to provide Interventions Care Management Referrals: [facility] (Insurance Navigation), PCP [facility] (T-Doc Referral) and Other ([facility])
--- NOTE | 2024-02-26 09:14 | PGE_ITS ---
Date of Service Date of service: 02/26/24 Time of Service: 09:14 Assessment and Plan Assessment and plan (1) Alcohol withdrawal: Start date: 02/25/24 Status: Acute Assessment and plan: Admitted for alcohol withdrawal. Will finish phenobarbitol loading this morning, stick with this and avoid additional benzodiazepines. No history of severe withdrawal/seizures Continue withdrawal protocol Qualifiers: Complication of substance-induced condition: with unspecified complication Qualified Code(s): F10.939 - Alcohol use, unspecified with withdrawal, unspecified (2) Alcohol use disorder: Status: Acute Assessment and plan: We discussed options, she has been on disulfuram in the past. I would consider naltrexone on discharge, denies opioid use. (3) Nodule of left lung: Start date: 02/25/24 Status: Acute Assessment and plan: Incidental finding 5 mm nodule in the lung should be followed up as an outpatient. Smoking cessation would be best. Patient needs to establish with local PCP. (4) Tobacco abuse: Status: Chronic Assessment and plan: Nicotine patch while in the hospital, advised to stop smoking altogether in the future. She does not have any respiratory symptoms or chronic inhaler use but with slight wheeze on admission she was be offered albuterol nebulizers as needed. (5) Anxiety disorder: Status: Acute Assessment and plan: She endorses a long history of anxiety, depression, PTSD. She does not remember medications that have helped her, but doesn't want to be on sedating medication penitentiary. She denies history of cedric, thinks her issues are related to multiple traumas from childhood and adulthood. She does have a trauma-focused therapist. We will start SSRI, hydroxyzine prn just short term. Avoid benzos. Will need PCP f/u. Qualifiers: Anxiety disorder type: unspecified anxiety disorder Qualified Code(s): F41.9 - Anxiety disorder, unspecified (6) DVT prophylaxis: Status: Acute Assessment and plan: She is low risk per Donato score given age and ambulatory status until last night. Stop LMWH. Subjective Subjective Patient reports: no new complaints and voiding w/o difficulty; denies diarrhea, nausea, vomiting, shortness of breath or fever Interval history since last seen: Events: Given initial phenobarbitol 40% loading only. Feels okay this monring other than feeling anxious. She is interested in treatment for anxiety/depression/PTSD along with alcohol use disorder, has been using alcohol to self medicate. Had some fluids, would like to eat real food. Exam Narrative Exam Narrative: General: Patient appears appropriate for age, slightly flattened affect but good eye contact. Alert and oriented x 3. She is in no acute distress. Lungs:Clear to auscultation. No focal rales or rhonchi. Occasional crackle with expiratory wheeze sparsely. Bronchovesicular breath sounds diffusely. Heart: Regular rate and rhythm with systolic flow murmur admittedly, otherwise no gallops or rubs. Abdomen: Normal contour, soft and nontender to palpation Extremities: No clubbing, cyanosis or edema. Peripheral pulses intact. Neuro: very mild tremor with hands extended, none at rest Psych: mildly flattened affect and depressed mood, normal speech. No abnormal thought processes. Remote and recent memory intact. Objective Last Vital Signs Temp 37.1 C 02/26/24 08:40 Pulse 78 02/26/24 08:40 Resp 18 02/26/24 08:40 BP 100/72 02/26/24 06:01 Pulse Ox 96 02/26/24 08:40 Laboratory Results - last 24 hr 02/25/24 02/25/24 02/25/24 14:30 14:39 15:00 WBC 12.03 H RBC 4.28 Hgb 14.4 Hct 40.3 MCV 94 MCH 33.6 H MCHC 35.7 RDW 11.9 Plt Count 240 MPV 8.9 Immature Gran % 0.3 Neutrophils % 78.6 Lymphocytes % 13.4 Monocytes % 7.0 Eosinophils % 0.2 Basophils % 0.5 Nucleated RBC % 0.0 Absolute Neutrophils 9.46 H Absolute Lymphocytes 1.61 Absolute Monocytes 0.84 H Absolute Eosinophils 0.02 Absolute Basophils 0.06 PT 10.2 INR 1.0 APTT 23.7 D-Dimer 561 H Sodium 136 Potassium 3.9 Chloride 98 Carbon Dioxide 25.0 Anion Gap 13.0 H BUN 8 Creatinine 0.7 Est GFR (CKD-EPI 2020) 112.05 Glucose 103 Calcium 9.1 Magnesium 1.7 L Total Bilirubin 0.74 AST 62 H ALT 40 Alkaline Phosphatase 78 Ammonia 19 Troponin I < 50 Total Protein 8.2 Albumin 4.4 Lipase 30 TSH Urine Color Yellow Urine Clarity Sl Cloudy Urine pH 7.0 Ur Specific [place] 1.010 Urine Protein Negative Urine Ketones Negative Urine Blood Negative Urine Nitrite Negative Urine Bilirubin Negative Urine Urobilinogen 0.2 Ur Leukocyte Esterase Negative Urine Glucose Negative Urine Opiates Screen Negative Urine Methadone Screen Negative Ur Barbiturates Screen Negative Ur Tricyclics Screen Negative Ur Amphetamines Screen Negative U Benzodiazepines Scrn Negative Urine Cocaine Screen Negative Ur THC Screen Positive A Ethyl Alcohol 119.9 H 02/25/24 02/25/24 02/26/24 17:35 21:24 05:33 WBC 4.53 RBC 3.75 L Hgb 12.6 Hct 35.7 L MCV 95 MCH 33.6 H MCHC 35.3 RDW 11.9 Plt Count 178 MPV 9.5 Immature Gran % Neutrophils % Lymphocytes % Monocytes % Eosinophils % Basophils % Nucleated RBC % Absolute Neutrophils Absolute Lymphocytes Absolute Monocytes Absolute Eosinophils Absolute Basophils PT 10.0 INR 1.0 APTT D-Dimer Sodium 139 Potassium 3.6 Chloride 103 Carbon Dioxide 26.8 Anion Gap 9.2 BUN 10 Creatinine 0.6 Est GFR (CKD-EPI 2020) 116.30 Glucose 91 Calcium 8.7 Magnesium 1.7 L Total Bilirubin 1.06 H AST 48 H ALT 31 Alkaline Phosphatase 58 Ammonia Troponin I < 50 Total Protein 6.2 L Albumin 3.2 L Lipase TSH 5.18 H Urine Color Urine Clarity Urine pH Ur Specific [place] Urine Protein Urine Ketones Urine Blood Urine Nitrite Urine Bilirubin Urine Urobilinogen Ur Leukocyte Esterase Urine Glucose Urine Opiates Screen Urine Methadone Screen Ur Barbiturates Screen Ur Tricyclics Screen Ur Amphetamines Screen U Benzodiazepines Scrn Urine Cocaine Screen Ur THC Screen Ethyl Alcohol PAWSS Have you Been Recently Intoxicated or Drunk Within the Last 30 days?: Yes Have you Ever Experienced Previous Episodes of Alcohol Withdrawal?: Yes Have you ever Experienced Withdrawal Seizures?: No Have you ever Experienced Delirium Tremens(DT)s?: Yes Have you ever undergone Alcohol Rehabilitation Treatment (i.e, inpt ot outpatient treatment programs)?: Yes Have you ever Experienced Blackouts?: Yes Have you ever Combined Alcohol with other Downers within the last 90 days?: Yes Have you ever Combined Alcohol with any other Substance of Abuse during the last 90 days?: Yes Positive Blood Alcohol level on Presentation? [PCS.BAL]: Yes Evidence of Increased Autonomic Activity (i.e. HR>120, tremor, sweating, agitation, nausea)?: No Result: 8 Time Spent with Patient Time Spent with Patient: >50 minutes Time was spent: preparing to see the patient(eg.review tests), obtaining and/or reviewing separately otained hiistory, ordering medications,tests, procedures, referring, communicating with other health physician locums urgent care, indepentently interpreting results, counseling the patient and care coordination
[2024-02-26] MEDS: Sertraline 25 MG TAB PO (09:19)
--- NOTE | 2024-02-26 10:22 | PHA.REVIEW2 ---
Pharmacy Admission Review Admission Clinical Review Admission Pharmacy Review: DVT prophylaxis (Acute) Alcohol use disorder (Acute) Anxiety disorder (Acute) Nodule of left lung (Acute) Alcohol withdrawal (Acute) bacitracin [From Neosporin ([id number])] Adverse Reaction (Intermediate, Verified 02/25/24 14:06) Skin Rash neomycin [From Neosporin ([id number])] Adverse Reaction (Intermediate, Verified 02/25/24 14:06) Skin Rash polymyxin B [From Neosporin ([id number])] Adverse Reaction (Intermediate, Verified 02/25/24 14:06) Skin Rash Resuscitation Status Full Code Height 5 ft 1 in Weight 62.9 kg Comments Comments/Follow Ups: Patient started daily Banana bag in ED Phenobarbital alcohol withdrawl orders began in ED, not the usual 6-10mg/kg dosing protocol. Only one dose of 110mg given in ED, doses 2&3 started ~ 19 hours later (85mg each) CIWA currently zero, Highest CIWA was 10 on admission) Pharmacy Admission Review Renal Dosing Renal Dosing: BUN 10 mg/dL (7-18) 02/26/24 05:33 Creatinine 0.6 mg/dL (0.55-1.02) 02/26/24 05:33 Medications needing adjustments: Reviewed (CrCl>100ml/min) Anticoagulation Anticoagulation: Hgb 12.6 g/dL (11.2-15.7) 02/26/24 05:33 Hct 35.7 % (36.0-46.0) L 02/26/24 05:33 Plt Count 178 10^3/uL (130-400) 02/26/24 05:33 INR 1.0 (0.9-1.1) 02/25/24 21:24 Creatinine 0.6 mg/dL (0.55-1.02) 02/26/24 05:33 DVT Prophylaxis: Reviewed (Lovenox started, then stopped, likely d/t risk of GI issues, risk of bleed w/alcohol use, pt is ambulating) Relevant Labs Relevant Labs: Sodium 139 mmol/L (136-145) 02/26/24 05:33 Potassium 3.6 mmol/L (3.5-5.1) 02/26/24 05:33 Chloride 103 mmol/L (98-107) 06/23/24 05:33 Magnesium 1.7 mg/dL (1.8-2.4) L 02/26/24 05:33 Elevated D-dimer (561) Magnesium repleted IV TSH high 5.18 (no meds) DM Control DM Control: N/A Cardiac Review Cardiac Review: Troponin I < 50 ng/L (< or =60) 02/25/24 17:35 BP, HR, EF%: Reviewed (BP 112/72, HR 78) List meds needing interventions: n/a QTc Review QTc: Reviewed (QTC 424) IV to PO Switch IV Medications: Intervened (Will ask if Banana bag can be converted to oral meds day#2) Home Meds Home Med List reviewed: N/A (no home meds recorded) Current Meds Current Medication Order Review: Intervened (Keeping track of Phenobarbital doses, soft stop 717mg, hard stop 956mg (Currently rec'd: 325mg)) Comments Comments/Follow Ups: Patient started daily Banana bag in ED Phenobarbital alcohol withdrawl orders began in ED, not the usual 6-10mg/kg dosing protocol. Only one dose of 110mg given in ED, doses 2&3 started ~ 19 hours later (85mg each) CIWA currently zero, Highest CIWA was 10 on admission)
[2024-02-26] MEDS: Nicotine 21 MG/24 HR PATCH TD (18:24)
[2024-02-26] MEDS: hydrOXYzine HCL 25 MG TAB PO (23:32)
[2024-02-27] VITALS (12 sets, daily range): BP systolic 106–131; BP diastolic 69–109; PULSE 61–106; RESP 11–29; TEMP 36.6–37.3; O2SAT 97–100
[2024-02-27] MEDS: PHENobarbital 130 MG/ML VIAL IVP (06:34)
[2024-02-27 06:58] LABS: ALT 32 U/L (14-59); AST 35 U/L (15-37); Albumin 3.4 g/dL (3.4-5.0); Alkaline Phosphatase 61 U/L (46-116); Anion Gap 11.5 mmol/L (3-11); BUN 8 mg/dL (7-18); Bilirubin, Direct 0.3 mg/dL (0.0-0.2); Bilirubin, Total 0.84 mg/dL (0.2-1.0); CO2 25.5 mmol/L (21.0-32.0); CREATININE 0.7 mg/dL (0.55-1.02); Calcium 8.6 mg/dL (8.5-10.1); Chloride 103 mmol/L (98-107); Estimated GFR 112.05 (mL/min/1.73m2); Glucose 84 mg/dL (74-106); Magnesium 1.8 mg/dL (1.8-2.4); Potassium 3.5 mmol/L (3.5-5.1); Sodium 140 mmol/L (136-145); Total Protein 6.5 g/dL (6.4-8.2)
[2024-02-27] MEDS: Multivitamin TAB 1 TAB PO (08:53)
[2024-02-27] MEDS: Thiamine 100 MG TAB PO (08:53)
[2024-02-27] MEDS: Folic Acid 1 MG TAB PO (08:54)
[2024-02-27] MEDS: Normal Saline Flush 10 ML SYR IVP (08:54)
[2024-02-27] MEDS: Sertraline 25 MG TAB PO (08:54)
[2024-02-27] MEDS: hydrOXYzine HCL 25 MG TAB PO (10:30)
[2024-02-27] MEDS: Nicotine 21 MG/24 HR PATCH TD (10:31)
[2024-02-27] MEDS: cloNIDine 0.1 MG TAB PO (12:01)
--- NOTE | 2024-02-27 12:49 | W.PM.DS.N ---
Date of service: 02/27/24 Time of Service: 14:05 DS: Diagnosis Discharge Diagnosis (1) Alcohol withdrawal: Status: Acute (2) Alcohol use disorder: Status: Acute (3) Nodule of left lung: Status: Acute (4) Tobacco abuse: Status: Chronic (5) Anxiety disorder: Status: Acute (6) DVT prophylaxis: Status: Acute Discharge Plan Disposition Patient Disposition: Home Condition: Improving Discharge Details Reason For Visit: Alcohol Withdrawal Admit Date/Time: 02/25/24 19:26 Admit Provider: Wayne Amaral Attending Provider: Wayne Amaral Primary Care Provider: Mayra,Local Hospital Course Hospital Course: 38 yo F with alcohol use disorder and daily drinking, smoker, cannabis use, and anxiety disorder who presented in alcohol withdrawal. She was treated with a single dose of chlorodiazepoxide in the emergency room, then transitioned to weight-based phenobarbitol protocol. By hospital day #2, she had received close to the maximum phenobarbitol. She did not have severe withdrawal symptoms but remained very anxious, which was attributed to alcohol withdrawal along with baseline anxiety disorder as well as not smoking tobacco or cannabis here in the hospital. It was recommended she stay at least one additional night in the hospital, but due to anxiety and desire to smoke she elected to leave 02/26. Options for anxiety and depression were reviewed. She has trauma history but did not endorse bipolar history. Sertraline was started. She has been oversedated on quetiapine and trazodone in the past. Hydroxyzine was not effective here. Clonidine was also given and helped her anxiety, this was prescribed at discharge She was given NRT patch and gum as inpatient but she was not ready to try to quit smoking. Moderation of cannabis was recommended to avoid dependance making anxiety worse. Treatments for alcohol use disorder reviewed. She has had success with disulfuram in the past, and this was prescribed upon discharge. Her boyfriend was present and they agreed he would watch her take it. We are using 250mg dose given her size and lack of insurance as is less expensive. A 5mm lung nodule was incidentally noted on her CT chest. Given her smoking, repeat CT without contrast is indicated in 12 months Home Meds and New Rx's Prescriptions: New multivitamin [Multiple Vitamins] Tablet 1 tab PO QAM Qty: 0 0RF clonidine HCl 0.1 mg Tablet 0.1 mg PO TID PRN PRN (Reason: Anxiety) Qty: 50 0RF sertraline 50 mg tablet 50 mg PO DAILY Qty: 30 1RF Rx Instructions: start 1/2 tablet po daily for the first 5 days disulfiram 250 mg tablet 250 mg PO DAILY Qty: 30 1RF Discharge Instructions Instructions: Alcohol Use Disorder (DC) Additional Instructions: You can start the disulfuram this evening or tomorrow. This will make you sick if you drink alcohol. continue the sertraline, increasing the dose in 5 days you have very small lung nodule. You should repeat the lung CT scan in 12 months to make sure this isn't growing You should follow up with a new local primary post acute care nurse in the next 2 weeks. Activity:: Activity as Tolerated Equipment/Supplies:: No Equipment Needed Diet:: As Tolerated DS: Summary Time Spent with Patient providing and/or coordinating discharge services: Greater than 30 minutes Status at Discharge Functional status at discharge: independent ambulation Overall status at discharge: patient is progressing back to baseline Mental Status: mental status grossly normal Speech and Movement: speech and movement normal Mood: congruent mood and anxious mood Affect: anxious affect (mildly) Quality:SDOH Health Related Social Needs: No Data to Display Exam Narrative Exam Narrative: General: Alert and oriented x 3. She is in no acute distress. Lungs:Clear to auscultation. No focal rales or rhonchi. Heart: Regular rate and rhythm with systolic flow murmur admittedly, otherwise no gallops or rubs. Extremities: No clubbing, cyanosis or edema. Neuro: no tremor Psych: anxious mood and affect, normal speech. No abnormal thought processes. Psych Mental Status: mental status grossly normal Speech and Movement: speech and movement normal Mood: congruent mood and anxious mood Affect: anxious affect (mildly) DS: Data Vitals/I&O Vitals and I&O: Vital Signs Temperature 36.6 C 02/27/24 09:20 Temperature Source Temporal Artery Scan 02/27/24 09:20 Pulse 71 02/27/24 12:01 Pulse 76 02/27/24 12:01 Respiratory Rate 29 H 02/27/24 12:01 Respiratory Effort Normal 02/27/24 09:20 Respiratory Depth Normal 02/27/24 09:20 Respiratory Pattern Normal 02/27/24 09:20 Blood Pressure 125/83 02/27/24 12:01 Blood Pressure Mean 95 02/27/24 12:01 Blood Pressure Position Right Lateral 02/26/24 15:58 Pulse Oximetry 98 02/27/24 12:01 Oxygen Delivery Method Room Air 02/27/24 03:34 Oxygen Flow Rate 0 02/27/24 03:34 Pain Level 0 02/26/24 23:15 Intake & Output 02/26/24 02/27/24 02/27/24 23:59 11:59 23:59 Intake Total 1152.5076 / 2452.5076 Balance 1152.5076 / 2.5076 Intake: IV 1152.5076 / 2151.5076 Other: Stool Size Large Stool Characteristics Soft Data Completed and Pending Labs on day of discharge: Labs from last 24 hours 02/27/24 06:09 Sodium 140 Potassium 3.5 Chloride 103 Carbon Dioxide 25.5 Anion Gap 11.5 H BUN 8 Creatinine 0.7 Est GFR (CKD-EPI 2020) 112.05 Glucose 84 Calcium 8.6 Magnesium 1.8 Total Bilirubin 0.84 Conjugated Bilirubin 0.3 H AST 35 ALT 32 Alkaline Phosphatase 61 Total Protein 6.5 Albumin 3.4 PFSH All Active Problems (Updated 02/26/24 @ 09:32 by Matthew Mckenzie) DVT prophylaxis (Acute) Alcohol use disorder (Acute) Anxiety disorder (Acute) Tobacco abuse (Chronic) Polysubstance abuse (Chronic) Nodule of left lung (Acute) Alcohol withdrawal (Acute) Social History Smoking/Tobacco Use Status: Current every day Tobacco Type: cigarettes Smoking risk assessment performed?: Yes Alcohol Intake: current Alcohol Intake frequency: 3 or more drinks per day Alcohol type: hard liquor Drug use: Daily Substance use type: marijuana Housing: apartment Time Spent with Patient Time Spent with Patient: 70-84 minutes4 Time was spent: preparing to see the patient(eg.review tests), obtaining and/or reviewing separately otained hiistory, ordering medications,tests, procedures, referring, communicating with other health laboratory animal care veterinarian, indepentently interpreting results, counseling the patient and care coordination
--- NOTE | 2024-02-27 17:16 | PDOC.CMDIS ---
Date of service: 02/27/24 Time of Service: 17:16 LACE Index Scoring Tool Questions: Length of Stay (in days): 2 Was the patient admitted via the E.D.?: Yes E.D. Visits: 1 Answers: Total Score: 6 Risk of Readmission: Low Risk Care Management Discharge Plan Reason for Hospitalization: Alcohol withdrawal Discharge Plan: Michelle will return home. CM reviewed patient goals, Michelle identified needing to access coping skills such as THC and smoking cigarettes, that not being able to access those tools while obstaining from alcohol was just too difficult. CM provided patient education central to withdrawal process, and reviewed additional services and tools. Michelle accepted information about [employer] and her significant other wrote down the information for the online platform. Michelle reported all alcohol had been removed from her home and she felt confident in not going home and drinking and stated she has had periods of sobriety in the past; CM provided LA, strength based interaction. Michelle will follow up with [facility], [facility] and [facility] referrals provided as well for PCP and Insurance support. She will transport via private vehicle with her significant other. Patient/Family Education Needs: Review DARREL resources, community based resources, discharge instructions, patient rights, self care needs upon discharge. SDOH Health Related Social Needs: No Data to Display Care Management Referrals: [facility] (Insurance Navigation), PCP [facility] ([facility] Referral) and Other ([facility], [employer] )
== END 2024-02-27 14:40 | disposition home or self-care (01) | DRG 897 ==
LOC: ER 19:49 → ICU 20:10
PROVIDERS: Family Medicine; Admitting Provider Family Medicine; Emergency Provider Student in an Organized Health Care Education/Training Program; Visit Provider Family Medicine
DX: F10.939 Alcohol use, unspecified with withdrawal, unspecified (principal); R91.1 Solitary pulmonary nodule; F41.9 Anxiety disorder, unspecified; F17.210 Nicotine dependence, cigarettes, uncomplicated; F12.90 Cannabis use, unspecified, uncomplicated; F14.90 Cocaine use, unspecified, uncomplicated; F43.10 Post-traumatic stress disorder, unspecified; Z66 Do not resuscitate
CPT/HCPCS: 00123; 36415; 71275; 80048; 80053; 80076; 80307; 81025; 83690; 85027; 93005; 96365; 96366; 96375; 99291; J1650; 80320; 81003; 82140; 83735; 84443; 84484; 85025; 85379; 85610; 85730; 93010; 99223; 99233; 99239; J2060; J2560; J3411; J3475; J3490

== ENCOUNTER → 2024-03-09 12:30 | Outpatient (CLI) | payer MEDICAID, SELFPAY ==
--- NOTE | 2024-03-09 12:32 | DI.RAD_ITS ---
Exam(s) XR HIP PELVIS ADULT BL EXAM: XR HIP PELVIS ADULT BL CLINICAL HISTORY: M25.552 Pain in left hip, M25.551 Pain in RT hip. TECHNIQUE: 2D digital imaging was performed. COMPARISON: No exams were available for comparison FINDINGS: 3 views No evidence of pelvic nor hip fractures. No hip joint space narrowing. Lateral views reveal no oste ophytes nor joint space narrowing. Bone density normal. No osseous lesions. Sacroiliac joints appear unremarkable. IMPRESSION: No significant osseous findings in the pelvis and hips. DATA REPOSITORY: RADIATION DOSE DELIVERED:
== END ==
PROVIDERS: Visit Provider Physician Assistant Medical
DX: M25.551 Pain in right hip (principal); M25.552 Pain in left hip
CPT/HCPCS: 73521

== ENCOUNTER → 2024-04-10 00:52 | Outpatient (CLI) | payer MEDICAID, SELFPAY ==
--- NOTE | 2024-04-10 07:00 | DI.MRI_ITS ---
Exam(s) MR LOWER JOINT RT WO EXAM: MR LOWER JOINT RT WO CLINICAL HISTORY: R HIP PAIN,labral tear rt hip joint,m25.551,[id number] TECHNIQUE: Multiplanar multisequence MRI of the hip was performed. COMPARISON: No exams were available for comparison FINDINGS: MARROW:There is no evidence of fracture, bone contusion, nor avascular necrosis. There are no signif icant osseous lesions.There is no significant osseous excrescence at the femoral head-neck junction t o suggest the presence of cam-type KENDRICK. EFFUSION: There is no evidence of joint effusion. BURSAE: There is no evidence of trochanteric bursitis. There is no evidence of iliopsoas bursitis. HIP JOINT SPACE: No obvious chondral defects. No obvious articular cartilage loss. No degenerative welch barticular cysts. No osteophytes. No bone edema in the femoral head and acetabulum. There is no hyper trophy of the ligamentum teres nor signal abnormality at the fovea centralis. LABRUM: Mild intrasubstance signal abnormality in the anterior labrum but no evidence of interposed f luid signal between the labrum and bony acetabulum. No evidence of paralabral cyst. TENDONS: No evidence of tendinitis nor tendon tears. ISCHIAL TUBEROSITY/HAMSTRING: There is no abnormal intraosseous signal in the ipsilateral ischial tub erosity nor tear of the common hamstrings tendon attachment site at this level. OTHER: There is mild increased signal within the quadratus femoris muscle between the lesser tuberosi ty and the ischial tuberosity. There is also mild increased intraosseous signal in the ischial tubero sity. Findings may suggest an element of impingement syndrome. Nabothian cysts are incidental noted in the cervix. IMPRESSION: 1. No abnormal intraosseous signal in the femoral head, neck, and inter-subtrochanteric region. No ev idence of stress fracture, AVN, nor joint effusion. 2. Mild increased signal seen in the anterior labrum but not convincing for true labral tear. There i s no evidence of paralabral cyst. 3. There is mild increased signal within the quadratus femoris muscle between the lesser trochanter o f the hip and ischial tuberosity which may indicate an element of mild impingement syndrome at this l evel there is also some increased intraosseous signal in the ipsilateral right ischial tuberosity its elf and very mild increased signal within the common hamstrings attachment. DATA REPOSITORY:
== END ==
PROVIDERS: PCP Nurse Practitioner Family; Visit Provider Student in an Organized Health Care Education/Training Program
DX: S73.191A Other sprain of right hip, initial encounter (principal); M25.551 Pain in right hip
CPT/HCPCS: 73721

== ENCOUNTER 2024-04-17 19:31 | Emergency (ER) | payer MEDICAID, SELFPAY ==
--- OUTSIDE RECORDS SUMMARY | 2024-04-17 19:45 | XMS_ITS | Continuity of Care Document ---
Author Organization [place] [facility], [facility] Address [address] [place] [address] Assessment No assessment recorded. Plan of Treatment Reminders Order Date Submit Date Provider Last Modified By Organization Details Last Modified Time Details Appointments None recorded. Lab None recorded. Referral orthopedic surgeon referral 2023 [facility], [address], [place], [address], 12:07:51 Procedures None recorded. Surgeries None recorded. Imaging XR, hip, bilateral 2023 [facility], [address], [place], [address], 13:02:44 Medication Orders None recorded. Patient TargetsNo targets recorded. Patient Instructions Encounter Date Encounter Id Patient Instructions Last Modified By Organization Details Last Modified Time 03/09/2024 [id number] 1. X-rays have been ordered and will take place to the hospital today. I typically get results 2-3 hours later and we will communicate these to you when they become available and discuss further management. 2. Once results are available I will likely send referral to orthopedics for further management. I will call you to go over these in few hours. [email or web address] Not available 03/09/2024 11:51:22 Reason for Referral Orthopedic Surgeon Referral for Bilateral hip joint pain Referring Physician: Sammie Russo, Family Medicine, Encounter Date: 03/09/2024 Results Created Date Observation Date Name Description Value Unit Range Abnormal Flag LastModifiedBy Organization Detail LastModifiedTime 03/09/20 24 03/09/2024 XR, hip, bilat eral No observ ation record ed. [email or web address] Not Available 03/09/2024 14:31:37 03/09/20 24 03/09/2024 XR, hip, bilat eral Kieran carlos Name: Nelda Fermin Unit #: [id number] Loc: DI Orderi ng Provid er: Sammie Russo Accoun t #: [id number] Status : REG CLI Primar y Care Provid er: No,Loc al Date of Exam: Sex: F Admiss ion Date: : 1985 Age: 38 Exam(s ) XR HIP PELVIS ADULT BL EXAM: XR HIP PELVIS ADULT BL CLINIC AL HISTOR Y: M25.55 2 Pain in left hip, M25.55 1 Pain in RT hip. TECHNI QUE: 2D digita l imagin g was perfor med. COMPAR KRISTIN: No exams were availa ble for compar kristin FINDIN GS: 3 views No eviden ce of pelvic nor hip fractu res. No hip joint space narrow ing. Latera l views reveal no osteop hytes nor joint space narrow ing. Bone densit y normal . No osseou s lesion s. Sacroi liac joints appear unrema rkable . IMPRES SUZIE: No signif icant osseou s findin gs in the pelvis and hips. DATA REPOSI TORY: RADIAT ION DOSE DELIVE RED: Ordere d By: Sammie Russo CC: ------ ------ ------ ------ ------ ------ ------ ------ ------ ------ ------ ------ - Dictat ed By: Luis Feliz M.D. 1255 1255 Transc ribed By: Triin CANDELARIO,Rani wells 1255 This is privil eged, confid ential inform ation intend ed only for the provid er named. Any use or distri bution by any person other than this provid er is strict ly prohib ited. If you receiv e this report in error, please notify us immedi fawnly at and return the origin al report to us at the addres s above. Thank- you. [email or web address] [facility] X[facility] [address], [place], [address], 03/12/2024 13:21:53 04/10/20 24 04/10/2024 MRI imagi ng repor t Patikinjal t Name: Nelda Fermin Unit #: [id number] Loc: DI Orderi ng Provid er: Armaan Jones M.D. Accoun t #: [id number] Status : REG CLI Primar y Care Provid er: William Anthony PRORATION CLERK Date of Exam: 02/26 Sex: F Admiss ion Date: : 1985 Age: 38 Exam(s ) MR LOWER JOINT RT WO EXAM: MR LOWER JOINT RT WO CLINIC AL HISTOR Y: R HIP PAIN,l abral tear rt hip joint, m25.55 1,s73. 191a TECHNI QUE: Multip lanar multis equenc e MRI of the hip was perfor med. COMPAR KRISTIN: No exams were availa ble for compar kristin FINDIN GS: MARROW :There is no eviden ce of fractu re, bone contus ion, nor avascu lar necros is. There are no signif icant osseou s lesion s.Ther e is no signif icant osseou s excres cence at the femora l head-n lee juncti on to sugges t the presen ce of cam-ty pe KENDRICK. EFFUSI ON: There is no eviden ce of joint effusi on. BURSAE : There is no eviden ce of trocha nteric bursit is. There is no eviden ce of iliops oas bursit is. HIP JOINT SPACE: No obviou s chondr al defect s. No obviou s articu lar cartil age loss. No degene rative subart icular cysts. No osteop hytes. No bone edema in the femora l head and acetab ulum. There is no hypert rophy of the ligame ntum teres nor signal abnorm ality at the fovea centra lis. LABRUM : Mild intras ubstan ce signal abnorm ality in the anteri or labrum but no eviden ce of interp osed fluid signal betwee n the labrum and bony acetab ulum. No eviden ce of parala bral cyst. TENDON S: No eviden ce of tendin itis nor tendon tears. ISCHIA L TUBERO SITY/H AMSTRI NG: There is no abnorm al intrao sseous signal in the ipsila teral ischia l tubero sity nor tear of the common hamstr ings tendon attach ment site at this level. OTHER: There is mild increa sed signal within the quadra tus femori s muscle betwee n the lesser tubero sity and the ischia l tubero sity. There is also mild increa sed intrao sseous signal in the ischia l tubero sity. Findin gs may sugges t an elemen t of imping ement syndro me. Naboth conchita cysts are incide ntal noted in the cervix . IMPRES SUZIE: 1. No abnorm al intrao sseous signal in the femora l head, neck, and inter- subtro barak becki region . No eviden ce of stress fractu re, AVN, nor joint effusi on. 2. Mild increa sed signal seen in the anteri or labrum but not convin cing for true labral tear. There is no eviden ce of parala bral cyst. 3. There is mild increa sed signal within the quadra tus femori s muscle betwee n the lesser trocha nter of the hip and ischia l tubero sity which may indica te an elemen t of mild imping ement syndro me at this level there is also some increa sed intrao sseous signal in the ipsila teral right ischia l tubero sity itself and very mild increa sed signal within the common hamstr ings attach ment. DATA REPOSI SHERRIE: Tone granger By: Armaan Jones M.D. CC: ------ ------ ------ ------ ------ ------ ------ ------ ------ ------ ------ ------ - Dictat ed By: Luis Feliz M.D. 1525 1525 Transc ribed By: Rani Feliz MD 1525 This is privil eged, confid ential inform ation intend ed only for the provid er named. Any use or distri bution by any person other than this provid er is strict ly prohib ited. If you receiv e this report in error, please notify us immedi allie at and return the origin al report to us at the addres s above. Thank- you. INTERFACE [facility] [address], [place], [address] 04/10/2024 15:40:38 Result Notes None recorded. Problems Name Status Onset Date Resolution Date Notes Provider Name and Address Organization Details Recorded Time Bilateral hip joint pain Active [address], [place], [address], [facility] 03/09/2024 11:50:45 Problem Notes None recorded. Medical Equipment None Reported. Allergies No known drug allergies Medications Name Sig Start Date Stop Date Status Note LastModified by Organization Details LastModified Time disulfiram 250 mg tablet Take 1 tablet every day by oral route. active Not Available Not Available No t Available clonidine 0.1 mg-chlorthal idone 15 mg tablet Take by oral route. active Not Available Not Available No t Available sertraline 50 mg tablet Take 1 tablet every day by oral route. active Not Available Not Available No t Available Vitals Date Recorded Body height Body mass index (BMI) Body weight Body temperature Oxygen saturation Oxygen saturation in Arterial blood by Pulse oximetry Heart rate Respiratory rate Systolic blood pressure Diastolic blood pressure Provider Name and Address Organization Details Last Updated DateTime 4 154.94 cm 25.5 kg/m2 46699.9 7 g 98.5 [degF] 98 % 98 % 54 /min 17 /min 113 mm[Hg] 69 mm[Hg] HANH DRAKE MA [facility] 11:12:43 Social History Question Answer Notes LastModified by Organizat ion Details LastModified Time Tobacco Smoking Status Current Every Day Smoker HANH DRAKE MA [facility], [place] - [facility]. 03/09/2024 11:11:28 What Was The Date Of Your Most Recent Tobacco Screening? 03/09/2024 [email or web address] Information not available 03/09/2024 Has Tobacco Cessation Counseling Been Provided? Yes [email or web address] Information not available 03/09/2024 On What Date Was Tobacco Cessation Counseling Provided? 03/09/2024 Information not available 03/09/2024 Do You Or Have You Ever Used Any Other Forms Of Tobacco Or Nicotine? No [email or web address] Information not available 03/09/2024 Sex: Unknown Functional Status None recorded. Mental Status None recorded. Family History Nothing Reported. Medical History No medical history recorded. Gynecological HistoryNo gynecological history recorded. Obstetrics History GPAL:G 0 P 0 0 0 0 Past Encounters Encounter ID Performer Location Encounter Start Date Encounter Closed Date Diagnosis/Indication Diagnosis SNOMED-CT Code [id number] SAMMIE RUSSO PA-C [address] [place] [address] 03/09/2024 10:55:10 03/09/2024 11:51:42 Bilateral hip joint pain [id number] 00 Health Concerns Section Related Observation LastModified by Organization Detai ls LastModified Time None Recorded Concern Status LastModified by Organization Details LastModified Time None Recorded Payers Encounter Date Sequence Insurance Name Policy Number Policy Zamudio Covered Member ID Zamudio Member ID Guarantor Name 03/09/2024 1 [facility] (MEDICAID) Michelle Fermin [id number] Michelle Fermin Notes Date Note Type Note Provider Name and Address Organization Details Recorded Time 03/09/2024 text/html HPI Notes: Nelda arrington is a 38-year-old female who presents with bilateral hip pain worse on the right than left. It has been bothersome for over a year but in the last few months has progressively worsened. She recently moved to this area and is scheduled to see primary care for the first time next Tuesday. She feels like pain has gotten so bad she cannot wait. She has been managing with ibuprofen but understands she should be limiting use because of medication she is on. She does not feel that has been helpful. Does not feel that Tylenol is helpful. She has been trying to stretch. She has been trying to ride her exercise bike but wonders if she has worsening symptoms. She has not seen any skin changes. She has had no previous injuries to this area. She states it tends to be okay in the morning but then worse as the day progresses and when she is doing things such as standing in the kitchen to first cook she often gets a large amount of 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 No other joints are affected. SAMMIE RUSSO PA-C [address], [place], [address], [facility] - [facility]. 03/09/2024 15:17:05 OBGyn Episode No OBEpisode recorded.
--- OUTSIDE RECORDS SUMMARY | 2024-04-17 19:45 | XMS_ITS | Data Portability ---
Author Organization [facility], [facility] Address [address] [place] [address] Assessment No assessment recorded. Plan of Treatment Reminders Order Date Submit Date Provider Last Modified By Organization Details Last Modified Time Details Appointments None recorded. Lab None recorded. Referral orthopedic surgeon referral 2023 [facility], [address], [place], [address], 12:07:51 Procedures None recorded. Surgeries None recorded. Imaging XR, hip, bilateral 2023 [facility], [address], [place], [address], 13:02:44 Medication Orders None recorded. Patient TargetsNo targets recorded. Patient Instructions Encounter Date Encounter Id Patient Instructions Last Modified By Organization Details Last Modified Time 03/09/2024 [id number] 1. X-rays have been ordered and will [...] bilat eral No observ ation record ed. [email or web address] Not Available 03/09/2024 14:31:37 03/09/20 24 03/09/2024 XR, hip, bilat eral Kieran carlos Name: Nelda Fermin Unit #: [id number] Loc: DI Orderi ng Provid er: Sammie Russo Accoun t #: [id number] Status : REG CLI Primar [...] Feliz M.D. 1255 1255 Transc ribed By: Trini CANDELARIO,Rani wells 1255 This is privil eged, confid ential inform ation intend ed only for the provid er named. Any use or distri bution by any person other than this provid er is strict ly prohib ited. If you receiv e this report in error, please notify us immedi ately at [phone] and return the origin al report to us at the addres s above. Thank- you. [email or web address] [facility] Xray [address], [place], [address], 03/12/2024 13:21:53 04/10/20 24 04/10/2024 MRI imagi ng repor t Patien t Name: Nelda Fermin Unit #: [id number] Loc: DI Orderi ng Provid er: Armaan Jones M.D. Accoun t #: [id number] Status : REG CLI Primar y Care Provid er: William Anthony [employer]SF[employer] LIAISON Date of Exam: 02/26 Sex: F Admiss [...] common hamstr ings attach ment. DATA REPOSI TORY: Tone granger By: Armaan Jones M.D. CC: [...] report in error, please notify us immedi ately at [phone] and return the origin al report to us at the addres s above. Thank- you. INTERFACE [address] , [place], [address] 04/10/2024 15:40:38 Result Notes None recorded. Problems Name Status Onset Date Resolution Date Notes Provider Name and Address Organization Details Recorded Time Bilateral hip joint pain Active [address], [place], [address], [facility] 03/09/2024 11:50:45 Problem Notes None recorded. Procedures Surgical History None recorded. Imaging Results Imaging Date Name Status LastModified by [email or web address] attimo Details LastModified Time 03/09/2024 XR, hip, bilateral completed Information not available 03/09/2024 14:31:37 03/09/2024 XR, hip, bilateral completed [email or web address] [facility] Xray [address], [place], [address], 03/12/2024 13:21:53 04/10/2024 MRI imaging report active INTERFACE [address] , [place], [address] 04/10/2024 15:40:38 Procedure Notes None recorded. Medical Equipment None Reported. [...] and Address Organization Details Last Updated DateTime 154.94 cm 25.5 kg/m2 14012.9 7 g 98.5 [degF] 98 % 98 % 54 /min 17 /min 113 mm[Hg] 69 mm[Hg] HANH DRAKE MA [facility] 11:12:43 Social History Question Answer Notes LastModified by Organizat ion Details LastModified Time Tobacco Smoking Status Current Every Day Smoker HANH DRAKE MA [facility], [facility] 03/09/2024 11:11:28 What Was The Date Of Your Most Recent Tobacco Screening? 03/09/2024 Information not available 03/09/2024 Has Tobacco Cessation Counseling Been Provided? Yes [email or web address] Information not available 03/09/2024 On What Date Was Tobacco Cessation Counseling Provided? 03/09/2024 [email or web address] Information not available 03/09/2024 Do You Or Have You Ever Used Any Other Forms Of Tobacco Or Nicotine? No Information not available 03/09/2024 Sex: Unknown Functional Status None recorded. Mental Status None recorded. Family History Nothing Reported. Medical History No medical history recorded. Gynecological HistoryNo gynecological history recorded. Obstetrics History GPAL:G 0 P 0 0 0 0 Past Encounters Encounter ID Performer Location Encounter Start Date Encounter Closed Date Diagnosis/Indication Diagnosis SNOMED-CT Code [id number] SAMMIE RUSSO PA-C [address] [place] [address] 03/09/2024 10:55:10 03/09/2024 11:51:42 Bilateral hip joint pain [id number] 00 Health Concerns Section Related Observation LastModified by Organization Detai ls LastModified Time None Recorded Concern Status LastModified by Organization Details LastModified Time None Recorded Advance Directives Directive None Recorded Payers Encounter Date Sequence Insurance Name Policy Number Policy Zamudio Covered Member ID Zamudio Member ID Guarantor Name 03/09/2024 1 [facility] (MEDICAID) Michelle Fermin [id number] Michelle Fermin Notes Date Note Type Note [...] such as standing in the kitchen to cook vegetable she often gets a large amount of 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 No other joints are affected. [address], [place], [address], [facility], [facility]. 03/09/2024 15:17:05 OBGyn Episode No OBEpisode recorded.
[2024-04-17 19:46] VITALS: BP 165/106; PULSE 101; RESP 18; TEMP 36.6; O2SAT 98
== END 2024-04-18 10:32 | disposition left against medical advice (07) ==
LOC: ER 19:43
PROVIDERS: PCP Nurse Practitioner Family
DX: Z53.09 Procedure and treatment not carried out because of other contraindication (principal)

== ENCOUNTER 2024-04-18 09:57 | Emergency (ER) | payer MEDICAID, SELFPAY ==
[2024-04-18 10:08] VITALS: BP 133/91; PULSE 89; RESP 15; TEMP 36.3; O2SAT 98
--- NOTE | 2024-04-18 10:30 | ED.GENADUL_ITS ---
Discharge Plan Disposition Patient Disposition: Home Condition: Stable Discharge Details Clinical Impression: Alcohol use disorder Primary Care Provider: Juana Anthony ED Provider: Moncho Gleason Home Meds and New Rx's Prescriptions: No Action sertraline 50 mg tablet 75 mg PO DAILY Qty: 45 1RF clonidine HCl 0.1 mg Tablet 0.1 mg PO TID PRN PRN (Reason: Anxiety) Qty: 50 0RF Discharge Instructions Additional Instructions: - PLEASE FOLLOW UP WITH [facility] AND THE OTHER AVAILABLE OUTPATIENT RESOURCES - CAN SLOWLY DECREASE AMOUNT OF ALCOHOL CONSUMED DAILY BUT DO NOT STOP ABRUPTLY HPI General Date/Time Provider Initiated Documentation: 04/18/24 10:14 . Limitations to Documentation: no limitations . Information obtained by: patient . HPI Narrative: 38-year-old female with past medical history of alcohol abuse presents requesting hospitalization for withdrawal treatment. Patient states that she was drinking alcohol and route to the emergency department and states that she drinks daily. She states that she was recently diagnosed with a hip problem and that this is affecting her mental health. She denies any suicidality or aaron icidality. But is drinking more alcohol because of this hip problem. When asked if she was interested in sobriety she has had no she just wants to be able to walk. She reports right hip pain ongoing for several months. She states that she is scheduled to have a cortisone injection in the hip and is requesting that we do that here. She states that a few months ago she was admitted to the hospital and just wants that again. Related Data Home Medications ?Medication ?Instructions ?Recorded ?Confirmed clonidine HCl 0.1 mg tablet 0.1 mg PO TID PRN PRN Anxiety #50 02/27/24 04/18/24 tabs sertraline 50 mg tablet 75 mg (1.5 x 50 mg) PO DAILY #45 03/16/24 04/18/24 tabs Previous Rx's ?Medication ?Instructions ?Recorded clonidine HCl 0.1 mg tablet 0.1 mg PO TID PRN PRN Anxiety #50 02/27/24 tabs sertraline 50 mg tablet 75 mg (1.5 x 50 mg) PO DAILY #45 03/16/24 tabs Allergies Allergy/AdvReac Type Severity Reaction Status Date / Time nickel Allergy Rash Verified 04/18/24 10:12 bacitracin (From Neosporin AdvReac Intermediate Skin Rash Verified 04/18/24 10:12 ([id number])) neomycin (From Neosporin AdvReac Intermediate Skin Rash Verified 04/18/24 10:12 ([id number])) polymyxin B (From Neosporin AdvReac Intermediate Skin Rash Verified 04/18/24 10:12 ([id number])) General Stated Complaint: ETOHWithdr JORGE: 3 Exam Narrative Exam Narrative: Review of Systems: All systems reviewed & are unremarkable except as noted in HPI and below Well-developed, no acute distress NCAT PERRL, normal conjunctiva , no nystagmus RRR Unlabored respiratory effort Nondistended abdomen Extremities w/o deformity, no cyanosis, no edema No rashes or lesions. no focal neurologic deficits Speech clear, gait steady Appropriate mood and affect Course Vital Signs Vital signs: Vital Signs Temperature 36.3 C L 04/18/24 10:08 Pulse 89 04/18/24 10:08 Respiratory Rate 15 04/18/24 10:08 Blood Pressure 133/91 H 04/18/24 10:08 Pulse Oximetry 98 04/18/24 10:08 Temperature 36.3 C L 04/18/24 10:08 Temperature Source Temporal Artery Scan 04/18/24 10:08 Pulse 89 04/18/24 10:08 Respiratory Rate 15 04/18/24 10:08 Blood Pressure 133/91 H 04/18/24 10:08 Blood Pressure Position Sitting 04/18/24 10:08 Pulse Oximetry 98 04/18/24 10:08 Oxygen Delivery Method Room Air 04/18/24 10:08 Oxygen Flow Rate 0 04/18/24 10:08 Pain Level 8 04/18/24 10:08 Medical Decision Making Emergent evaluation of alcohol use disorder. Patient is requesting inpatient hospitalization to facilitate withdrawal. She states that this has happened recently and she got admitted to the ICU on phenobarbital and is requesting that again. I reviewed the medical record and noted that at the time, she presented with fairly significant withdrawal symptoms. However today she reports that she was drinking on the way to the hospital, her cooperates this and she has no vital sign abnormalities or clinical symptoms of withdrawal. Given that, there is no indication for inpatient treatment. I have offered [facility] recovery services to come to the emergency department to discuss outpatient resources in the community. I have noted recent orthopedic visit regarding her hip pain as well as recent primary care visit for the patient. The patient is very upset with me that I will not perform the cortisone injection. Her states that this appointment has already been scheduled with orthopedics. She also states that I am unwilling to do anything for her however I am very clearly offering the patient resources, just not hospitalization to the ICU with phenobarbital. The patient and her have decided to leave before speaking with [facility] resources. I have encouraged her to avoid drinking to excess, follow closely with primary care, and return to the emergency department with any concerns Quality:SDOH Health Related Social Needs: No Data to Display PFSH All Active Problems Insomnia (Acute) Elevated TSH (Acute) Preventative health care (Acute) Labral tear of right hip joint (Acute) Depression (Chronic) Hip pain, right (Acute) Alcohol use disorder (Acute) Anxiety disorder (Acute) Tobacco abuse (Chronic) Nodule of left lung (Acute) Medical History Polysubstance abuse Social History Smoking/Tobacco Use Status: Current every day Tobacco Type: cigarettes Smoking packs per day: 1 Smoking cigarettes per day: 20.0 Years smoked: 24 Smoking pack-years: 24.00 Smoking risk assessment performed?: Yes Alcohol Intake: current Alcohol Intake frequency: 3 or more drinks per day Alcohol type: hard liquor Drug use: Daily Substance use type: marijuana and crack/cocaine Details: smokes weed daily Housing: apartment
== END 2024-04-18 10:32 | disposition home or self-care (01) ==
PROVIDERS: Emergency Provider Emergency Medicine; PCP Nurse Practitioner Family
DX: F10.29 Alcohol dependence with unspecified alcohol-induced disorder (principal)
CPT/HCPCS: 99281; 99282

== ENCOUNTER 2024-04-19 02:04 | Inpatient (IN) | payer MEDICAID, SELFPAY ==
[2024-04-19] VITALS (10 sets, daily range): BP systolic 97–152; BP diastolic 56–104; PULSE 66–98; RESP 10–18; TEMP 36.2–37.6; O2SAT 93–100
--- NOTE | 2024-04-19 02:37 | ED.GENADUL_ITS ---
Discharge Plan Discharge Details Chief Complaint: GenMedical Primary Care Provider: Juana Anthony ED Provider: Nicolas Colunga Home Meds and New Rx's Prescriptions: No Action sertraline 50 mg tablet 75 mg PO DAILY Qty: 45 1RF clonidine HCl 0.1 mg Tablet 0.1 mg PO TID PRN PRN (Reason: Anxiety) Qty: 50 0RF HPI General Date/Time Provider Initiated Documentation: 04/19/24 02:07 . HPI Narrative: This is a 38-year-old female with a past medical history of depression, alcohol abuse, anxiety, nodule in her left lung, who presents today for alcohol detox. Patient was seen and assessed on 02/25/2024, I saw her at that time for detox, she was admitted and did well. She was sober/dry for about a month following that. Unfortunately her chronic hip pain got worse and she resorted to drinking again noticed about 2 or 3 weeks ago to help manage the pain. She did have an appointment yesterday with orthopedics which unf ortunately was missed. She does have a scheduled appointment on 04/27/2024 for cortisone injection. This evening her withdrawal symptoms continued, she states that she feels chronically nauseous, extremely anxious, shaky and jittery. She wants to detox off of alcohol. She goes through a gallon of whiskey every 4 to 5 days. She denies any IV or illicit drug use. She does admit to using marijua na and tobacco regularly. She denies any auditory or visual hallucinations. She denies any itching. She denies any homicidal or suicidal ideations. She was seen here in the emergency department earlier today but did not want any intervention at that time. No other complaints at this time. No other modifying factors. She has no history of withdrawal seizures. Related Data Home Medications ?Medication ?Instructions ?Recorded ?Confirmed clonidine HCl 0.1 mg tablet 0.1 mg PO TID PRN PRN Anxiety #50 02/27/24 04/19/24 tabs sertraline 50 mg tablet 75 mg (1.5 x 50 mg) PO DAILY #45 03/16/24 04/19/24 tabs Previous Rx's ?Medication ?Instructions ?Recorded clonidine HCl 0.1 mg tablet 0.1 mg PO TID PRN PRN Anxiety #50 02/27/24 tabs sertraline 50 mg tablet 75 mg (1.5 x 50 mg) PO DAILY #45 03/16/24 tabs Allergies Allergy/AdvReac Type Severity Reaction Status Date / Time nickel Allergy Rash Verified 04/19/24 02:12 bacitracin (From Neosporin AdvReac Intermediate Skin Rash Verified 04/19/24 02:12 ([id number])) neomycin (From Neosporin AdvReac Intermediate Skin Rash Verified 04/19/24 02:12 ([id number])) polymyxin B (From Neosporin AdvReac Intermediate Skin Rash Verified 04/19/24 02:12 ([id number])) General Stated Complaint: GenMedical JORGE: 3 Review of Systems All systems reviewed & are unremarkable except as noted in HPI and below Exam Narrative Exam Narrative: 1.Const: Well-nourished, Well-developed, appearing stated age 2.Eyes: PERRL, no conjunctival injection, and symmetrical lids. 3.ENT: Atraumatic external nose and ears. Moist MM. Neck: Symmetric, trachea midline, No thyromegaly. 4.CVS: +S1/S2, No murmurs or gallops. Peripheral pulses 2+ and equal in all extremities. Brisk capillary refill in all extremities. 5.RESP: Unlabored respiratory effort. Clear to auscultation bilaterally. No wheezes rales or rhonchi 6.GI: Soft, Nontender/Nondistended, No hepatosplenomegaly. No guarding or rebound. 7.MSK: Normocephalic/Atraumatic, Extremities w/o deformity or ttp No cyanosis or clubbing, Normal movement of all extremities 8.Skin: Warm, Dry. No rashes or lesions. 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 Sensation grossly intact, no focal neurologic deficits. 10.Psych: (AAO) x3. Anxious, jittery and nervous Course Vital Signs Vital signs: Vital Signs Temperature 36.2 C L 04/19/24 02:08 Pulse 98 H 04/19/24 02:08 Respiratory Rate 14 04/19/24 02:08 Blood Pressure 152/104 H 04/19/24 02:08 Pulse Oximetry 100 04/19/24 02:08 Temperature 36.2 C L 04/19/24 02:08 Temperature Source Skin 04/19/24 02:08 Pulse 98 H 04/19/24 02:08 Respiratory Rate 14 04/19/24 02:08 Respiratory Effort Normal 04/19/24 02:13 Blood Pressure 152/104 H 04/19/24 02:08 Blood Pressure Position Sitting 04/19/24 02:08 Pulse Oximetry 100 04/19/24 02:08 Oxygen Delivery Method Room Air 04/19/24 02:08 Oxygen Flow Rate 0 04/19/24 02:08 Pain Level 5 04/19/24 02:08 Comment r hip feel like someone is pulling my leg out of it's socket. 04/19/24 02:08 Lab/Test Results Lab/Test Results: POC- Test(urine) Negative Medical Decision Making This is a 38-year-old female with a past medical history of depressio n, alcohol abuse, anxiety, nodule in her left lung, who presents today for alcohol detox. Patient was seen and assessed on 02/25/2024, I saw her at that time for detox, she was admitted and did well. She was sober/dry for about a month following that. Unfortunately her chronic hip pain got worse and she resorted to drinking again noticed about 2 or 3 weeks ago to help manage the pain. She did have an appointment yesterday with orthopedics which unfortunately was missed. She does have a scheduled appointment on 04/27/2024 for cortisone injection. This evening her withdrawal symptoms continued, she states that she feels chronically nauseous, extremely anxious, shaky and jittery. She wants to detox off of alcohol. She goes through a gallon of whiskey every 4 to 5 days. She denies any IV or illicit drug use. She does admit to using marijuana and tobacco regularly. She denies any auditory or visual hallucinations. She denies any itching. She denies any homicidal or suicidal ideations. She was seen here in the emergency department earlier today but did not want any intervention at that time. No other complaints at this time. No other modifying factors. She has no history of withdrawal seizures. Exam demonstrates an anxious nervous appearing female. Mild tremor of the hands. No auditory or visual hallucinations. Concern for alcohol withdrawal. Pancreatitis is certainly on the differential as well as well as chronic gastritis from the alcohol intake. We will evaluate for these etiologies, rehydrate, give 2 mg of IV Ativan and chlordiazepoxide to help manage her symptoms, monitor closely and reassess. 3:50 AM Laboratory workup is returned, patient shows no white count, electrolytes stable aside for slightly low potassium at 3.2. Lipase normal. Magnesium slightly low at 1.7. Calcium minimally low at 8.4, transaminases and bilirubin normal. We have given supplemental magnesium, potassium, and thiamine. Urine drug screen positive only for THC which she admits to. Alcohol level notably elevated at 370. This is quite surprising considering her state of sobriety that she came in on and her symptoms of withdrawal that were occurring at that level. On reassessment the patient appears much more relaxed. She is resting comfortably, she had dozed off just very briefly, when she awakes her tremor has resolved, she speaks and interacts well, and has notable improvement of symptoms. However since her alcohol is still high she may still require phenobarbital secondary to her expected symptomatology as the alcohol level continues to decline. Patient is requesting admission and detox, which I do feel is reasonable. I contacted the hospitalist and discussed the case with Dr. Cordero, he accepts the patient for admission. We will start low-dose phenobarbital here. Will continue to monitor closely. I will place admission orders on his behalf. I have extensively reviewed the treatment plan with the patient. I have addressed all patient concerns at this time. I have also discussed the plan with the admitting physician and they agree with the current assessment and plan and have agreed to assume responsibility for the patient. All parties demonstrate verbal understanding and agreement with our assessment and plan at this time. The documentation in this chart was dictated using [employer] dictation software. Please excuse any dictation errors. 4:30 AM On reassessment patient is actually sleeping quite comfortably now. Alcohol level still notably elevated, however will hold the phenobarbital for the moment. Quality:SDOH Health Related Social Needs: No Data to Display PFSH All Active Problems Insomnia (Acute) Elevated TSH (Acute) Preventative health care (Acute) Labral tear of right hip joint (Acute) Depression (Chronic) Hip pain, right (Acute) Alcohol use disorder (Acute) Anxiety disorder (Acute) Tobacco abuse (Chronic) Nodule of left lung (Acute) Medical History Polysubstance abuse Social History Smoking/Tobacco Use Status: Current every day Tobacco Type: cigarettes Smoking packs per day: 1 Smoking cigarettes per day: 20.0 Years smoked: 24 Smoking pack- years: 24.00 Smoking risk assessment performed?: Yes Alcohol Intake: current Alcohol Intake frequency: 3 or more drinks per day Alcohol type: hard liquor Drug use: Daily Substance use type: marijuana and crack/cocaine Details: smokes weed daily Housing: apartment Do you feel safe at home: Yes Do you feel safe in your relationship?: Yes PAWSS Have you Been Recently Intoxicated or Drunk Within the Last 30 days?: Yes Have you Ever Experienced Previous Episodes of Alcohol Withdrawal?: Yes Have you ever Experienced Withdrawal Seizures?: No Have you ever Experienced Delirium Tremens(DT)s?: Yes Have you ever undergone Alcohol Rehabilitation Treatment (i.e, inpt ot outpatient treatment programs)?: Yes Have you ever Experienced Blackouts?: Yes Have you ever Combined Alcohol with other Downers within the last 90 days?: Yes Have you ever Combined Alcohol with any other Substance of Abuse during the last 90 days?: No Positive Blood Alcohol level on Presentation? [PCS.BAL]: Yes Evidence of Increased Autonomic Activity (i.e. HR>120, tremor, sweating, agitation, nausea)?: No Result: 6
--- OUTSIDE RECORDS SUMMARY | 2024-04-19 02:41 | XMS_ITS | Data Portability ---
Author Organization [facility], [facility] Address [address] [place] [address] Assessment No assessment recorded. Plan of Treatment Reminders Order Date Submit Date Provider Last Modified By Organization Details Last Modified Time Details Appointments None recorded. Lab None recorded. Referral orthopedic surgeon referral 2023 [facility], [address], [place], [address], 12:07:51 Procedures None recorded. Surgeries None recorded. Imaging XR, hip, bilateral 2023 [facility], [address], [place], [address], 13:02:44 Medication Orders None recorded. Patient TargetsNo targets recorded. Patient Instructions Encounter Date Encounter Id Patient Instructions Last Modified By Organization Details Last Modified Time 03/09/2024 [id number] 1. X-rays have been ordered and will [...] for Bilateral hip joint pain Referring Physician: Nita Russo, Family Medicine, Encounter Date: 03/09/2024 Results Created Date Observation Date Name Description Value Unit Range Abnormal Flag LastModifiedBy Organization Detail LastModifiedTime 03/09/20 24 03/09/2024 XR, hip, bilat eral No observ ation record ed. Not Available 04/18/2024 12:45:38 03/09/20 24 03/09/2024 XR, hip, bilat eral Kieran carlos Name: Nelda Fermin Unit #: [id number] Loc: DI Orderi ng Provid er: Nita Russo Accoun t #: [id number] Status : REG CLI Primar [...] ION DOSE DELIVE RED: Ordere d By: Nita Russo CC: ------ ------ ------ ------ ------ [...] this report in error, please notify us [email or web address] kelley at and return the origin al report to us at the addres s above. Thank- you. [email or web address] [facility] [address], [place], [address], 03/12/2024 13:21:53 Result Notes None recorded. Problems Name Status Onset Date Resolution Date Notes Provider Name and Address Organization Details Recorded Time Bilateral hip joint pain Active [address], [place], [address], [facility] 03/09/2024 11:50:45 Problem Notes None recorded. Procedures Surgical History None recorded. Imaging Results Imaging Date Name Status LastModified by Organiz ation Details LastModified Time 03/09/2024 XR, hip, bilateral completed Information not available 04/18/2024 12:45:38 03/09/2024 XR, hip, bilateral completed [email or web address] [address], [place], [address], 03/12/2024 13:21:53 Procedure Notes None recorded. Medical Equipment None [...] Updated DateTime 4 154.94 cm 25.5 kg/m2 42334.9 7 g 98.5 [degF] 98 % 98 % 54 /min 17 /min 113 mm[Hg] 69 mm[Hg] HANH DRAKE MA [facility] 11:12:43 Social History Question Answer Notes LastModified by Organizat ion Details LastModified Time Tobacco Smoking Status Current Every Day Smoker HANH DRAKE MA [facility], [place] - [facility] 03/09/2024 11:11:28 What Was The Date Of Your Most Recent Tobacco Screening? 03/09/2024 [email or web address] Information not available 03/09/2024 Has Tobacco Cessation Counseling Been Provided? Yes [email or web address] Information not available 03/09/2024 On What Date Was Tobacco Cessation Counseling Provided? 03/09/2024 [email or web address] Information not available 03/09/2024 Do You Or [...] Encounter Closed Date Diagnosis/Indication Diagnosis SNOMED-CT Code [id number] NITA RUSSO PA-C [address],[facility] [place] [address] 03/09/2024 10:55:10 03/09/2024 11:51:42 Bilateral hip joint pain [id number] 00 Health Concerns Section Related Observation LastModified by Organization Detai ls LastModified Time None Recorded Concern Status LastModified by Organization Details LastModified Time None Recorded Advance Directives Directive None Recorded Payers Encounter Date Sequence Insurance Name Policy Number Policy Zamudio Covered Member ID Zamudio Member ID Guarantor Name 03/09/2024 1 [facility] (MEDICAID) Michelleleo Fermin [id number] Michelle Fermin Notes Date Note Type Note [...] 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 No other joints are affected. NITA RUSSO PA-C [address], [place], [address], [facility]. 03/09/2024 15:17:05 OBGyn Episode No OBEpisode recorded.
--- OUTSIDE RECORDS SUMMARY | 2024-04-19 02:41 | XMS_ITS | Continuity of Care Document ---
Author Organization [place] [facility], [facility] Address [address] [place] [address] Assessment No assessment recorded. Plan of Treatment Reminders Order Date Submit Date Provider Last Modified By Organization Details Last Modified Time Details Appointments None recorded. Lab None recorded. Referral orthopedic surgeon referral 2023 [facility], [address], [place], [address], 12:07:51 Procedures None recorded. Surgeries None recorded. Imaging XR, hip, bilateral 2023 [facility], [address], [place], [address], 13:02:44 Medication Orders None recorded. Patient TargetsNo targets recorded. Patient Instructions Encounter Date Encounter Id Patient Instructions Last Modified By Organization Details Last Modified Time 03/09/2024 [id number] 1. X-rays have been ordered and will [...] bilat eral No observ ation record ed. [email or web address] Not Available 04/18/2024 12:45:38 03/09/2003/09/2024 XR, hip, bilat eral Kieran carlos Name: Nelda Fermin Unit #: [id number] Loc: DI Orderi ng Provid er: Nita Russo Accoun t #: [id number] Status : REG CLI Primar [...] this report in error, please notify us immtadeo kelley at [phone] and return the origin al report to us at the addres s above. Thank- you. [email or web address] [facility] [address], [place], [address], 03/12/2024 13:21:53 Result Notes None recorded. Problems Name Status Onset Date Resolution Date Notes Provider Name and Address Organization Details Recorded Time Bilateral hip joint pain Active [address], [place], [address], [facility] 03/09/2024 11:50:45 Problem Notes None recorded. Medical [...] Updated DateTime 4 154.94 cm 25.5 kg/m2 55348.9 7 g 98.5 [degF] 98 % 98 % 54 /min 17 /min 113 mm[Hg] 69 mm[Hg] HANH DRAKE MA [facility] 11:12:43 Social History Question Answer Notes LastModified by Organizat ion Details LastModified Time Tobacco Smoking Status Current Every Day Smoker HANH DRAKE MA null, [facility] 03/09/2024 11:11:28 What Was The Date Of Your Most Recent Tobacco Screening? 03/09/2024 [email or web address] Information not available 03/09/2024 Has Tobacco Cessation Counseling Been Provided? Yes [email or web address] Information not available 03/09/2024 On What Date Was Tobacco Cessation Counseling Provided? 03/09/2024 [email or web address] Information not available 03/09/2024 Do You Or Have You Ever Used Any Other Forms Of Tobacco Or Nicotine? No [email or web address] Information not available 03/09/2024 Sex: Unknown Functional Status None recorded. Mental Status None recorded. Family History Nothing Reported. Medical History No medical history recorded. Gynecological HistoryNo gynecological history recorded. Obstetrics History GPAL:G 0 P 0 0 0 0 Past Encounters Encounter ID Performer Location Encounter Start Date Encounter Closed Date Diagnosis/Indication Diagnosis SNOMED-CT Code [id number] NITA RUSSO PA-C [address] [place] [address] 03/09/2024 10:55:10 03/09/2024 11:51:42 Bilateral hip joint pain [id number] 00 Health Concerns Section Related Observation LastModified by Organization Detai ls LastModified Time None Recorded Concern Status LastModified by Organization Details LastModified Time None Recorded Payers Encounter Date Sequence Insurance Name Policy Number Policy Zamudio Covered Member ID Zamudio Member ID Guarantor Name 03/09/2024 1 [facility] (MEDICAID) Michelle Fermin [id number] Michelle Fermin Notes Date Note Type Note [...] 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 No other joints are affected. [address], [place], [address], [facility]. 03/09/2024 15:17:05 OBGyn Episode No OBEpisode recorded.
[2024-04-19] MEDS: Lactated Ringers 1,000 ML 1000 ML IV (02:47)
[2024-04-19] MEDS: chlordiazePOXIDE 25 MG CAP 50 MG PO (02:47)
[2024-04-19] MEDS: LORazepam 2 MG/ML VIAL IVP (02:48)
[2024-04-19 02:54] LABS: *AMPHETAMINES SCREEN URINE Negative (Negative); *BARBITURATES SCREEN URINE Negative (Negative); *BENZODIAZEPINES SCREEN URINE Negative (Negative); Cannabinoids THC Positive (Negative); Cocaine Screen,Urine Negative (Negative); METHADONE URINE SCREEN Negative (Negative); OPIATES URINE SCREEN Negative (Negative)
[2024-04-19 02:55] LABS: Tricyclic Antidepressants Negative (Negative)
[2024-04-19] MEDS: Pantoprazole 40 MG VIAL IVP (03:00)
[2024-04-19] MEDS: Ondansetron 4 MG/2 ML VIAL IVP (03:00)
[2024-04-19 03:02] LABS: Magnesium 1.7 mg/dL (1.8-2.4)
[2024-04-19 03:03] LABS: ALT 19 U/L (14-59); AST 24 U/L (15-37); Albumin 4.2 g/dL (3.4-5.0); Alkaline Phosphatase 66 U/L (46-116); BUN 6 mg/dL (7-18); CREATININE 0.7 mg/dL (0.55-1.02); Calcium 8.4 mg/dL (8.5-10.1); Chloride 102 mmol/L (98-107); Estimated GFR 112.05 (mL/min/1.73m2); Glucose 91 mg/dL (74-106); Potassium 3.2 mmol/L (3.5-5.1); Sodium 142 mmol/L (136-145); Total Protein 7.6 g/dL (6.4-8.2)
[2024-04-19 03:07] LABS: ETHANOL BLOOD 369.8 mg/dL (<10)
[2024-04-19 03:12] LABS: Abs Immature Grans 0.01 10^3/uL (0.0-0.06); Absolute Basophil Count 0.05 10^3/uL (0.0-0.2); Absolute Eosinophil Count 0.03 10^3/uL (0.0-0.7); Absolute Lymphocyte Count 4.28 10^3/uL (1.2-3.4); Absolute Monocyte Count 0.49 10^3/uL (0.1-0.8); Absolute Neutrophil Count 2.03 10^3/uL (1.2-6.7); Basophils % 0.7 %; Eosinophils % 0.4 %; HCT 39.2 % (36.0-46.0); HGB 13.9 g/dL (11.2-15.7); Immature Grans % 0.1 %; Lymphocytes % 62.1 %; MCHC 35.5 % (32.0-36.0); MCV 93 fL (80-95); MPV 8.7 fL (8.0-11.0); Monocytes % 7.1 %; Neutrophils % 29.6 %; Platelet Count 256 10^3/uL (130-400); RBC 4.21 10^6/uL (3.93-5.22); RDW 11.9 % (11.7-14.6); RDW-SD 40.6 fL; WBC 6.89 10^3/uL (4.4-10.8)
[2024-04-19 03:15] LABS: Lipase 44 U/L (16-77)
[2024-04-19] MEDS: MAGNESIUM SULFATE 2 GM/50 ML BAG IVINF (04:30)
[2024-04-19] MEDS: THIAMINE 100 MG in Normal Saline 100 ML 200 MG IVPB (05:11)
--- NOTE | 2024-04-19 06:00 | W.PC.ACHO ---
Registration Status: Primary Language: Preferred Language: ED Information & Data Chief Complaint GenMedical 04/19/24 02:43 Triage Note need to detox from alcohol. 04/19/24 02:08 pt states she has been drinking since she got upl Medical / Surgical History (Last Reviewed 04/19/24 @ 02:41 by Nicolas Colunga DO) Polysubstance abuse Most Recent Vital Signs Temperature 36.5 C 04/19/24 04:46 Temperature Source Skin 04/19/24 02:08 Pulse 84 04/19/24 04:46 Pulse Rhythm Regular 04/19/24 04:46 Respiratory Rate 18 04/19/24 04:46 Respiratory Effort Normal, Non-Labored 04/19/24 04:46 Respiratory Depth Normal 04/19/24 04:46 Respiratory Pattern Normal 04/19/24 04:46 Blood Pressure 104/71 04/19/24 04:46 Blood Pressure Mean 69 04/19/24 04:09 Blood Pressure Position Right Lateral 04/19/24 04:09 Pulse Oximetry 97 04/19/24 05:08 Oxygen Delivery Method Room Air 04/19/24 05:08 Oxygen Flow Rate 0 04/19/24 05:08 Pain Level 0 04/19/24 04:46 Comment r hip 04/19/24 02:49 Allergies nickel Allergy (Verified 04/19/24 02:12) Rash bacitracin (From Neosporin ([id number]-brw-dgprz)) Adverse Reaction (Intermediate, Verified 04/19/24 02:12) Skin Rash neomycin (From Neosporin ([id number]-lyb-ndetq)) Adverse Reaction (Intermediate, Verified 04/19/24 02:12) Skin Rash polymyxin B (From Neosporin (xzh-ubm-tbotv)) Adverse Reaction (Intermediate, Verified 04/19/24 02:12) Skin Rash IV IV Catheter Type [Right Peripheral IV Antecubital] IV Catheter Gauge [Right 20 Antecubital] Diagnostics 04/19/24 04/19/24 Range/Units 02:39 02:32 WBC 6.89 (4.4-10.8) 10^3/uL RBC 4.21 (3.93-5.22) 10^6/uL Hgb 13.9 (11.2-15.7) g/dL Hct 39.2 (36.0-46.0) % MCV 93 (80-95) fL MCH 33.0 (27.0-33.0) pg MCHC 35.5 (32.0-36.0) % RDW 11.9 (11.7-14.6) % Plt Count 256 (130-400) 10^3/uL MPV 8.7 (8.0-11.0) fL Immature Gran % 0.1 % Neutrophils % 29.6 % Lymphocytes % 62.1 % Monocytes % 7.1 % Eosinophils % 0.4 % Basophils % 0.7 % Nucleated RBC % 0.0 (0.0-0.3) % Absolute Neutrophils 2.03 (1.2-6.7) 10^3/uL Absolute Lymphocytes 4.28 H (1.2-3.4) 10^3/uL Absolute Monocytes 0.49 (0.1-0.8) 10^3/uL Absolute Eosinophils 0.03 (0.0-0.7) 10^3/uL Absolute Basophils 0.05 (0.0-0.2) 10^3/uL Sodium 142 (136-145) mmol/L Potassium 3.2 L (3.5-5.1) mmol/L Chloride 102 (98-107) mmol/L Carbon Dioxide 25.0 (21.0-32.0) mmol/L Anion Gap 15.0 H (3-11) mmol/L BUN 6 L (7-18) mg/dL Creatinine 0.7 (0.55-1.02) mg/dL Est GFR (CKD-EPI 2020) 112.05 (mL/min/1.73m2) Glucose 91 (74-106) mg/dL Calcium 8.4 L (8.5-10.1) mg/dL Magnesium 1.7 L (1.8-2.4) mg/dL Total Bilirubin 0.40 (0.2-1.0) mg/dL AST 24 (15-37) U/L ALT 19 (14-59) U/L Alkaline Phosphatase 66 (46-116) U/L Total Protein 7.6 (6.4-8.2) g/dL Albumin 4.2 (3.4-5.0) g/dL Lipase 44 (16-77) U/L Urine Opiates Screen Negative (Negative) Urine Methadone Screen Negative (Negative) Ur Barbiturates Screen Negative (Negative) Ur Tricyclics Screen Negative (Negative) Ur Amphetamines Screen Negative (Negative) U Benzodiazepines Scrn Negative (Negative) Urine Cocaine Screen Negative (Negative) Ur THC Screen Positive A (Negative) Ethyl Alcohol 369.8 H (<10) mg/dL [id number] Documentation POC Urine Test Start: 04/19/24 02:28 Freq: .Urine Test Status: Active Protocol: Activity Type Activity Date Activity User E-sign Co-sign Detail Recorded Client Recorded Date Recorded By Document 04/19/24 02:35 [email or web address] 04/19/24 02:35 PEDRO Intake and Output - 24 Hour Total 04/19/24 02:04 thru 04/19/24 05:59 Intake Total 1101 Balance 1101 Weight 61.689 kg Intake: IV 1101 Other: Urine Appearance Clear Falls Risk Assessment History of Falls Previous History 04/19/24 04:46 Contributing Factors Impairments,Medications 04/19/24 04:46 Ambulatory Aids Independent 04/19/24 04:46 Tubes/Lines None 04/19/24 04:46 Gait Evaluation No gait disturbance 04/19/24 04:46 Cognition No cognitive impairment 04/19/24 04:46 Fall Total Score 21 04/19/24 04:46 Level of Risk Standard/Low Risk 04/19/24 04:46 v v v v v v v v v Sending and/or Receiving Nurses: Please use comment section below to note any information pertinent to the patient hand-off not included above. Information / Comments: K 3.2, no repletion. Report received from: Blanca
--- NOTE | 2024-04-19 07:59 | W.PM.HP.N ---
Date of service: 04/19/24 Time of Service: 07:59 Assessment and Plan Assessment and plan (1) Alcohol withdrawal: Status: Acute Assessment and plan: Currently not scoring, sedate after lorazepam and chlorodiazepoxide. Phenobarbitol has been ordered but holding off on initiation until she starts scoring again. Used lower end of dosing as she already had some benzodiazapines. With EtOH levels on admission, I do expect her to need additional support for withdrawal. Qualifiers: Complication of substance-induced condition: with unspecified complication Qualified Code(s): F10.939 - Alcohol use, unspecified with withdrawal, unspecified (2) Alcohol use disorder: Status: Acute Assessment and plan: Recent sobriety is encouraging. She does want to get sober. Continue to work on a plan, again offer medical therapy with naloxone and/or acamprosate and possibly other adjuncts before discharge, along with behavioral and social supports. (3) Anxiety disorder: Status: Acute Assessment and plan: continue outpatient sertraline Qualifiers: Anxiety disorder type: unspecified anxiety disorder Qualified Code(s): F41.9 - Anxiety disorder, unspecified (4) Labral tear of right hip joint: Status: Acute Assessment and plan: I did not do focal exam today, but she has been evaluated by ortho. Will see if they may be willing to do injection while she is admitted once she is through withdrawal before discharge as treating pain may help support sobriety. Qualifiers: Encounter type: subsequent encounter Qualified Code(s): S73.191D - Other sprain of right hip, subsequent encounter (5) Tobacco abuse: Status: Chronic Assessment and plan: NRT prn, doesn't feel she needs it now. (6) DVT prophylaxis: Status: Acute Assessment and plan: She is low risk at this point, has been ambulatory. History of Present Illness History of Present Illness Chief Complaint: alcohol withdrawal Narrative: 38 yo F with history of alcohol use disorder with recent relapse to heavy drinking presenting with increased anxiety, nausea, shaking. She was admitted 02/24- and did well with phenobarbitol protocol and remained off alcohol for about a month. About 2 weeks ago she relapsed and has been drinking a gallon of whisky every 3-5 days since then. She was seen in the ED 04/18 and discharged, returned early this morning with worsening withdrawal symptoms. In ED she had severe anxiety, nausea, and tremors. She feels better after lorazepam and librium in the ED, calm now. Last alcohol was 04/18. She has chronic severe right hip pain, and has been seen by ortho and had MRI that showed labral tear. She feels like pain was a relapse trigger, would like to get hip injection MECHE if possible. Review of Systems All systems reviewed & are unremarkable except as noted in HPI and below Constitutional Constitutional: Denies chills, Denies fever(s) and Denies headache(s) ENT Ears, Nose, Mouth, and Throat: Denies headache(s) Gastrointestinal Gastrointestinal: Denies melena, Denies hematochezia, Denies coffee ground emesis, Reports diarrhea, Reports vomiting and Denies hematemesis Neurologic Neurologic: Denies confusion, Denies headache(s), Denies seizure-like activity and Reports tremor(s) Psychiatric Psychiatric: Reports anxiety, Denies confusion, Denies visual hallucinations and Denies hallucinations PFSH All Active Problems (Updated 04/19/24 @ 08:34 by Matthew cMkenzie) DVT prophylaxis (Acute) Alcohol withdrawal (Acute) Insomnia (Acute) Elevated TSH (Acute) Preventative health care (Acute) Labral tear of right hip joint (Acute) Depression (Chronic) Hip pain, right (Acute) Alcohol use disorder (Acute) Anxiety disorder (Acute) Tobacco abuse (Chronic) Nodule of left lung (Acute) Medical History Polysubstance abuse Social History (Updated 04/19/24 @ 08:29 by Matthew Mckenzie) Smoking/Tobacco Use Status: Current every day Tobacco Type: cigarettes Smoking packs per day: 1 Smoking cigarettes per day: 20.0 Years smoked: 24 Smoking pack-years: 24.00 Smoking risk assessment performed?: Yes Alcohol Intake: current Alcohol Intake frequency: 3 or more drinks per day Alcohol type: hard liquor Drug use: Daily Substance use type: marijuana and crack/cocaine Details: smokes weed daily Housing: apartment Do you feel safe at home: Yes Do you feel safe in your relationship?: Yes Additional Social history: Lives in [place], male friend is her main support Meds Allergies and Home Medications Allergies Allergy/AdvReac Type Severity Reaction Status Date / Time nickel Allergy Rash Verified 04/19/24 02:12 bacitracin (From Neosporin AdvReac Intermediate Skin Rash Verified 04/19/24 02:12 ([id number])) neomycin (From Neosporin AdvReac Intermediate Skin Rash Verified 04/19/24 02:12 ([id number])) polymyxin B (From Neosporin AdvReac Intermediate Skin Rash Verified 04/19/24 02:12 ([id number])) Home Medications ?Medication ?Instructions ?Recorded ?Confirmed ?Type clonidine HCl 0.1 mg tablet 0.1 mg PO TID PRN PRN Anxiety #50 02/27/24 04/19/24 Rx tabs sertraline 50 mg tablet 75 mg (1.5 x 50 mg) PO DAILY #45 03/16/24 04/19/24 Rx tabs Exam Narrative Exam Narrative: GEN: Sleepy but arousable and oriented x 4, pleasant and cooperative, gives linear history. No acute distress at rest. HEENT: Head atraumatic. Conjunctiva clear, no icterus. PEERL, EOMI. no rhinorrhea. MMM, OP benign. Neck is supple with no masses or lymphadenopathy, trachea midline LUNGS: CTAB with normal effort CV: RRR with no murmurs, gallops, or rubs. ABD: active bowel sounds, soft, nontender and nondistended. No masses. EXT: no cyanosis, clubbing, or edema MSK: No joint redness or swelling NEURO: CN 2-12 grossly intact. Normal movement of 4 extremities. Normal speech and coordination. No tremor SKIN: No rashes or open wounds. PSYCH: normal mood and affect, no hallucinations or other abnormal thought process Results Labs 04/19/24 02:39 04/19/24 02:39 Labs: Laboratory Results - last 24 hr 04/19/24 04/19/24 02:32 02:39 WBC 6.89 RBC 4.21 Hgb 13.9 Hct 39.2 MCV 93 MCH 33.0 MCHC 35.5 RDW 11.9 Plt Count 256 MPV 8.7 Immature Gran % 0.1 Neutrophils % 29.6 Lymphocytes % 62.1 Monocytes % 7.1 Eosinophils % 0.4 Basophils % 0.7 Nucleated RBC % 0.0 Absolute Neutrophils 2.03 Absolute Lymphocytes 4.28 H Absolute Monocytes 0.49 Absolute Eosinophils 0.03 Absolute Basophils 0.05 Sodium 142 Potassium 3.2 L Chloride 102 Carbon Dioxide 25.0 Anion Gap 15.0 H BUN 6 L Creatinine 0.7 Est GFR (CKD-EPI 2020) 112.05 Glucose 91 Calcium 8.4 L Magnesium 1.7 L Total Bilirubin 0.40 AST 24 ALT 19 Alkaline Phosphatase 66 Total Protein 7.6 Albumin 4.2 Lipase 44 Urine Opiates Screen Negative Urine Methadone Screen Negative Ur Barbiturates Screen Negative Ur Tricyclics Screen Negative Ur Amphetamines Screen Negative U Benzodiazepines Scrn Negative Urine Cocaine Screen Negative Ur THC Screen Positive A Ethyl Alcohol 369.8 H Last Vital Signs Temp 36.5 C 04/19/24 04:46 Pulse 84 04/19/24 04:46 Resp 18 04/19/24 04:46 BP 104/71 04/19/24 04:46 Pulse Ox 97 04/19/24 05:08 PAWSS Have you Been Recently Intoxicated or Drunk Within the Last 30 days?: Yes Have you Ever Experienced Previous Episodes of Alcohol Withdrawal?: Yes Have you ever Experienced Withdrawal Seizures?: No Have you ever Experienced Delirium Tremens(DT)s?: Yes Have you ever undergone Alcohol Rehabilitation Treatment (i.e, inpt ot outpatient treatment programs)?: Yes Have you ever Experienced Blackouts?: Yes Have you ever Combined Alcohol with other Downers within the last 90 days?: Yes Have you ever Combined Alcohol with any other Substance of Abuse during the last 90 days?: No Positive Blood Alcohol level on Presentation? [PCS.BAL]: Yes Evidence of Increased Autonomic Activity (i.e. HR>120, tremor, sweating, agitation, nausea)?: No Result: 6 Time Spent Time spent with Patient: 55-74 minutes Time was spent: preparing to see the patient(eg.review tests), obtaining and/or reviewing separately otained hiistory, ordering medications,tests, procedures, referring, communicating with other health long term care phlebotomist, indepentently interpreting results, counseling the patient and care coordination
[2024-04-19] MEDS: Potassium Chloride 20 MEQ TABCR 40 MEQ PO (09:18)
[2024-04-19] MEDS: Sertraline 50 MG TAB 75 MG PO (09:18)
[2024-04-19] MEDS: Thiamine 100 MG TAB PO (09:19)
[2024-04-19] MEDS: Folic Acid 1 MG TAB PO (09:19)
[2024-04-19] MEDS: Multivitamin TAB 1 TAB PO (09:19)
[2024-04-19] MEDS: Normal Saline Flush 10 ML SYR IVP ×2 (09:20→19:18)
--- NOTE | 2024-04-19 09:30 | PDOC.CMIN ---
Date of service: 04/19/24 Time of Service: 09:30 Care Management Initial Assmt Initial Assessment Reason for Hospitalization: ETOH withdrawal Functional Status/Living Situation Patient Presentation: Michelle was lying in bed in a darkened room when CM met with her. She admitted to having withdrawal symptoms ands cited shakiness as the worst at that time. She is on the Phenobarbital protocol. Michelle lives in a duplex with her boyfriend. 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 She has been seen by Dr. Jones and a steroid injection is planned for next week. CM asked if she would be willing to talk to a Realtime Captioner, however Michelle declined. She stated that her drinking is directly related to her pain. She drinks to numb the pain and can stop anytime. Michelle is independent at baseline and does not receive any community services. 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) Instrumental Activities of Daily Living (ADLs): Independent Medications Medication Management: No Issues/Barriers identified Physical Functioning/Mobility Assistive Device: none Advance Directives Advance Directives: Do you have an Advance Directive: N 02/25/24 13:59 AD On File at [facility]: N 02/25/24 13:59 Date Asked 04/19/24 04/19/24 04:48 AD Date Reviewed COLST On File at [facility] No 02/25/24 16:19 COLST Date Scanned Code Status Resuscitation Status Full Code Portal Pt does not currently have a portal and education provided: No Insurance Coverage/Financial Issues Insurance: Medicaid Care Team Visit Care Team Role Provider Type Juana Anthony APRN Primary Care Provider NURSE PRACTITIONER Ronnell Rowell MD Other Providers [facility] STAFF PHYSICIAN JOHNSON Dickinson Other Providers RN FOR MSM OR JOHNSON Jaramillo Other Providers PHYSICIANS ASSISTANT Solitario Cooney MD Other Providers [facility] STAFF PHYSICIAN JOHNSON Wilcox Other Providers PHYSICIANS ASSISTANT Lissette Pop Other Providers PHYSICIANS ASSISTANT Armaan Jones MD Other Providers [facility] STAFF PHYSICIAN Chris Curtis CATALYST MANUFACTURING OPERATOR Other Providers CERT REG NURSE WIND UP OPERATOR JOHNSON Sparks Other Providers PHYSICIANS ASSISTANT Nicolas Colunga DO Emergency Provider [facility] STAFF PHYSICIAN Matthew Mckenzie Admit Provider [facility] STAFF PHYSICIAN Attending Provider Discharge Potential Discharge Needs: PCP F/U Appt Anticipated Barriers to Discharge: None Identified Patient/Family Education Needs: Review discharge instructions, discuss Ask Me Three Transportation: RCT Plan: Anticipate Michelle will be discharged home with no new services when medically cleared. She will follow up with her community providers and plan of carer and transport with family. CM will follow and continue to support discharge needs. PFSH All Active Problems (Updated 04/19/24 @ 08:34 by Matthew Mckenzie) DVT prophylaxis (Acute) Alcohol withdrawal (Acute) Insomnia (Acute) Elevated TSH (Acute) Preventative health care (Acute) Labral tear of right hip joint (Acute) Depression (Chronic) Hip pain, right (Acute) Alcohol use disorder (Acute) Anxiety disorder (Acute) Tobacco abuse (Chronic) Nodule of left lung (Acute) Medical History Polysubstance abuse Social History (Updated 04/19/24 @ 08:29 by Matthew Mckenzie) Smoking/Tobacco Use Status: Current every day Tobacco Type: cigarettes Smoking packs per day: 1 Smoking cigarettes per day: 20.0 Years smoked: 24 Smoking pack-years: 24.00 Smoking risk assessment performed?: Yes Alcohol Intake: current Alcohol Intake frequency: 3 or more drinks per day Alcohol type: hard liquor Drug use: Daily Substance use type: marijuana and crack/cocaine Details: smokes weed daily Housing: apartment Do you feel safe at home: Yes Do you feel safe in your relationship?: Yes Additional Social history: Lives in [place], male friend is her main support SDOH(Care Management) Screening Will the Patient Participate in the Screening?: Yes Do you worry about having a steady place to live?: no In the past 12 months, have you had to go without electric, gas, oil or water in your home?: no Have you or anyone in your house had to go without enough food to eat?: no Has lack of transportation kept you from medical appointments or from doing things needed for daily living?: no Has anyone in your support network made you feel unsafe for any reason?: no
[2024-04-19] MEDS: Nicotine 21 MG/24 HR PATCH TD (10:23)
--- NOTE | 2024-04-19 11:54 | PHA.REVIEW2 ---
Pharmacy Admission Review Admission Clinical Review Admission Pharmacy Review: DVT prophylaxis (Acute) Alcohol withdrawal (Acute) Labral tear of right hip joint (Acute) Alcohol use disorder (Acute) Anxiety disorder (Acute) nickel Allergy (Verified 04/19/24 02:12) Rash bacitracin (From Neosporin ([id number])) Adverse Reaction (Intermediate, Verified 04/19/24 02:12) Skin Rash neomycin (From Neosporin ([id number])) Adverse Reaction (Intermediate, Verified 04/19/24 02:12) Skin Rash polymyxin B (From Neosporin ([id number])) Adverse Reaction (Intermediate, Verified 04/19/24 02:12) Skin Rash Resuscitation Status Full Code Height 5 ft 1 in Weight 61.689 kg Comments Comments/Follow Ups: Monitoring withdrawal symptoms - watch total dose of phenobarb given Pharmacy Admission Review Renal Dosing Renal Dosing: BUN 6 mg/dL (7-18) L 04/19/24 02:39 Creatinine 0.7 mg/dL (0.55-1.02) 04/19/24 02:39 Medications needing adjustments: Reviewed (CrCl 89.98 mL/min) List of meds needing interventions: Current medications are okay Anticoagulation Anticoagulation: Hgb 13.9 g/dL (11.2-15.7) 04/19/24 02:39 Hct 39.2 % (36.0-46.0) 04/19/24 02:39 Plt Count 256 10^3/uL (130-400) 04/19/24 02:39 Creatinine 0.7 mg/dL (0.55-1.02) 04/19/24 02:39 DVT Prophylaxis: Intervened (None at this time, reached out to provider. Per provider, patient does not need any.) Relevant Labs Relevant Labs: Sodium 142 mmol/L (136-145) 04/19/24 02:39 Potassium 3.2 mmol/L (3.5-5.1) L 04/19/24 02:39 Chloride 102 mmol/L (98-107) 04/19/24 02:39 Magnesium 1.7 mg/dL (1.8-2.4) L 04/19/24 02:39 Electrolytes, C-Reactive P, ESR: Reviewed (K 3.2 and Mg 1.7 - both being repleting) Cardiac Review BP, HR, EF%: Reviewed (BP and HR WNL, temp of 37.6 at 1123 today) QTc Review QTc: Reviewed (424 from 02/25/24 - most recent EKG on file) IV to PO Switch IV Medications: Reviewed Home Meds Home Med List reviewed: Reviewed Current Meds Current Medication Order Review: Intervened Comments: Added IV admission set Orders were put in for phenobarbital loading doses for alcohol withdrawal. 1st dose was set to start today at 0800. Reached out to provider to verify if they still wanted patient to receive these (got lorazepam and Librium x 1 in ED overnight). Provider asked that the orders be cancelled. All 3 orders for phenobarbital loading doses were discontinued. Provider did put in a PRN PO phenobarbital order. Soft Stop: 717mg Hard Stop: 956mg Total given: 100mg (04/19) CIWA was 6 at 0900 this morning Comments Comments/Follow Ups: Monitoring withdrawal symptoms - watch total dose of phenobarb given
[2024-04-19] MEDS: oxyCODONE 5 MG TAB PO ×2 (12:51→19:18)
--- NOTE | 2024-04-19 17:43 | W.ORTHOCONSU ---
Date of service: 04/19/24 Time of Service: 17:43 Assessment and Plan Assessment and plan (1) Labral tear of right hip joint: Status: Acute Assessment and plan: Right hip MRI done 04/10/24 report and images reviewed showing, largely reassuring, probable mild labral abnormality, which may represent a small labral tear. No concerning findings. Patient no showed her office visit with me yesterday due to alcohol abuse. Unclear surgical candidate. She has already been scheduled for image-guided right hip intraarticular corticosteroid injection on 04/27/24. Unfortunately, orthopedic surgery team cannot accommodate an injection any sooner. Hospitalist service may reach out to radiologists. Qualifiers: Encounter type: subsequent encounter Qualified Code(s): S73.191D - Other sprain of right hip, subsequent encounter (2) Amplified musculoskeletal pain: Status: Acute Assessment and plan: Likely element of amplified musculoskeletal pain given minimal MRI findings. Recommend multimodal pain control, physical therapy, weightbearing as tolerated, may avoid positions of impingement (deep hip flexion with internal rotation). PFSH All Active Problems (Updated 04/19/24 @ 17:43 by Armaan Jones MD) Amplified musculoskeletal pain (Acute) DVT prophylaxis (Acute) Alcohol withdrawal (Acute) Insomnia (Acute) Elevated TSH (Acute) Preventative health care (Acute) Labral tear of right hip joint (Acute) Depression (Chronic) Hip pain, right (Acute) Alcohol use disorder (Acute) Anxiety disorder (Acute) Tobacco abuse (Chronic) Nodule of left lung (Acute) Medical History Polysubstance abuse Social History (Updated 04/19/24 @ 08:29 by Matthew Mckenzie) Smoking/Tobacco Use Status: Current every day Tobacco Type: cigarettes Smoking packs per day: 1 Smoking cigarettes per day: 20.0 Years smoked: 24 Smoking pack-years: 24.00 Smoking risk assessment performed?: Yes Alcohol Intake: current Alcohol Intake frequency: 3 or more drinks per day Alcohol type: hard liquor Drug use: Daily Substance use type: marijuana and crack/cocaine Details: smokes weed daily Housing: apartment Do you feel safe at home: Yes Do you feel safe in your relationship?: Yes Additional Social history: Lives in [place], male friend is her main support Results Last Vital Signs Temp 97.7 F 04/19/24 15:48 Pulse 81 04/19/24 15:48 Resp 15 04/19/24 15:48 BP 113/74 04/19/24 15:48 Pulse Ox 95 04/19/24 15:48 Labs 04/19/24 02:39 04/19/24 02:39 Labs: Laboratory Results - last 24 hr 04/19/24 04/19/24 02:32 02:39 WBC 6.89 RBC 4.21 Hgb 13.9 Hct 39.2 MCV 93 MCH 33.0 MCHC 35.5 RDW 11.9 Plt Count 256 MPV 8.7 Immature Gran % 0.1 Neutrophils % 29.6 Lymphocytes % 62.1 Monocytes % 7.1 Eosinophils % 0.4 Basophils % 0.7 Nucleated RBC % 0.0 Absolute Neutrophils 2.03 Absolute Lymphocytes 4.28 H Absolute Monocytes 0.49 Absolute Eosinophils 0.03 Absolute Basophils 0.05 Sodium 142 Potassium 3.2 L Chloride 102 Carbon Dioxide 25.0 Anion Gap 15.0 H BUN 6 L Creatinine 0.7 Est GFR (CKD-EPI 2020) 112.05 Glucose 91 Calcium 8.4 L Magnesium 1.7 L Total Bilirubin 0.40 AST 24 ALT 19 Alkaline Phosphatase 66 Total Protein 7.6 Albumin 4.2 Lipase 44 Urine Opiates Screen Negative Urine Methadone Screen Negative Ur Barbiturates Screen Negative Ur Tricyclics Screen Negative Ur Amphetamines Screen Negative U Benzodiazepines Scrn Negative Urine Cocaine Screen Negative Ur THC Screen Positive A Ethyl Alcohol 369.8 H
[2024-04-19] MEDS: cloNIDine 0.1 MG TAB PO (20:39)
[2024-04-20 03:20] VITALS: BP 129/70; PULSE 74; RESP 18; TEMP 36.7; O2SAT 97
[2024-04-20] MEDS: oxyCODONE 5 MG TAB PO ×2 (03:26→09:54)
[2024-04-20 07:26] LABS: ALT 20 U/L (14-59); AST 22 U/L (15-37); Albumin 3.5 g/dL (3.4-5.0); Alkaline Phosphatase 70 U/L (46-116); Anion Gap 5.7 mmol/L (3-11); BUN 4 mg/dL (7-18); Bilirubin, Direct 0.3 mg/dL (0.0-0.2); Bilirubin, Total 1.09 mg/dL (0.2-1.0); CO2 30.3 mmol/L (21.0-32.0); CREATININE 0.6 mg/dL (0.55-1.02); Calcium 8.4 mg/dL (8.5-10.1); Chloride 100 mmol/L (98-107); Glucose 77 mg/dL (74-106); Magnesium 1.8 mg/dL (1.8-2.4); Potassium 4.2 mmol/L (3.5-5.1); Sodium 136 mmol/L (136-145); Total Protein 6.5 g/dL (6.4-8.2)
[2024-04-20] MEDS: Sertraline 50 MG TAB 75 MG PO (07:40)
[2024-04-20] MEDS: Nicotine 21 MG/24 HR PATCH TD (07:40)
[2024-04-20] MEDS: Pantoprazole 40 MG TABCR PO (07:41)
[2024-04-20] MEDS: Thiamine 100 MG TAB PO (07:41)
[2024-04-20] MEDS: Multivitamin TAB 1 TAB PO (07:41)
[2024-04-20] MEDS: Normal Saline Flush 10 ML SYR IVP (07:42)
[2024-04-20 07:49] VITALS: BP 110/84; PULSE 74; RESP 17; TEMP 36.7; O2SAT 94
--- NOTE | 2024-04-20 09:54 | PDOC.CMPRO ---
Date of service: 04/20/24 Time of Service: 09:54 SDOH(Care Management) Screening Will the Patient Participate in the Screening?: Yes Do you worry about having a steady place to live?: no In the past 12 months, have you had to go without electric, gas, oil or water in your home?: no Have you or anyone in your house had to go without enough food to eat?: no Has lack of transportation kept you from medical appointments or from doing things needed for daily living?: no Has anyone in your support network made you feel unsafe for any reason?: no
[2024-04-20] MEDS: Folic Acid 1 MG TAB PO (10:00)
[2024-04-20 11:09] VITALS: BP 108/74; PULSE 71; RESP 15; TEMP 36.3; O2SAT 94
[2024-04-20] MEDS: cloNIDine 0.1 MG TAB PO (14:28)
--- NOTE | 2024-04-20 15:13 | DSE_ITS ---
Date of service: 04/20/24 Time of Service: 15:22 DS: Diagnosis Discharge Diagnosis (1) Alcohol withdrawal: Status: Acute (2) Labral tear of right hip joint: Status: Acute (3) Amplified musculoskeletal pain: Status: Acute Discharge Plan Disposition Patient Disposition: Home Condition: Good Discharge Details Reason For Visit: etoh withdrawl Admit Date/Time: 04/19/24 03:41 Admit Provider: Matthew Mckenzie Attending Provider: Matthew Mckenzie Primary Care Provider: Juana Anthony Hospital Course Hospital Course: Patient initially presented to the hospital after relapsing and requesting assistance with alcohol withdrawal. She states that she began to drink due to pain in her hip and does have scheduled joint injection in 2 weeks as well as an orthopedic appointment in 1 week. She received p.o. phenobarbital during hospitalization and had resolution of her withdrawal symptoms. She did continue to have significant pain which responded to p.o. oxycodone. Prolonged discussion was had with the patient regarding her her firm verbalized wishes to refrain from consuming alcohol, as well as importance of not drinking given that she will be discharged with 8 doses of 5 mg oxycodone, enough to bridge her until her orthopedic appointment in 1 week. Explained to her that she should only use these and situations of severe pain, only take 1 at a time, to attempt to only use them at night if she is having difficulty sleeping, and under no circumstances that she to consume alcohol while also taking these pain medications as mixing the 2 could lead to respiratory depression, and . Patient was in total agreement of the plan, continue to verbalize that she will abstain from alcohol, and would certainly not drink and take pain medications at the same time. Home Meds and New Rx's Prescriptions: New oxycodone 5 mg Tablet 5 mg PO BID PRN PRNQty: 8 0RF Continued sertraline 50 mg tablet 75 mg PO DAILY Qty: 45 1RF clonidine HCl 0.1 mg Tablet 0.1 mg PO TID PRN PRN (Reason: Anxiety) Qty: 50 0RF Discharge Instructions Activity:: Activity as Tolerated Equipment/Supplies:: No Equipment Needed Diet:: As Tolerated Discharge Orders Discharge Orders: Discharge Order (Routine); Ordered 04/20/24 Ordered By: Mayito Hogue DS: Summary Time Spent with Patient providing and/or coordinating discharge services: Greater than 30 minutes Status at Discharge Functional status at discharge: independent ambulation Overall status at discharge: patient is back to baseline Mental Status: mental status grossly normal Speech and Movement: speech and movement normal Mood: congruent mood Affect: normal affect Quality:SDOH Health Related Social Needs: No Data to Display Exam Narrative Exam Narrative: well appearing female laying bed in no acute distress, AOx4, heart RRR, lungs CTAB, abdomen soft, non-tender, non-distended Psych Mental Status: mental status grossly normal Speech and Movement: speech and movement normal Mood: congruent mood Affect: normal affect DS: Data Vitals/I&O Vitals and I&O: Vital Signs Temperature 97.3 F L 04/20/24 11:09 Temperature Source Skin 04/20/24 11:09 Pulse 71 04/20/24 11:09 Pulse Rhythm Regular 04/20/24 08:34 Respiratory Rate 15 04/20/24 11:09 Respiratory Effort Normal, Non-Labored 04/20/24 08:34 Respiratory Depth Normal 04/20/24 08:34 Respiratory Pattern Normal 04/20/24 08:34 Blood Pressure 108/74 04/20/24 11:09 Blood Pressure Mean 69 04/19/24 04:09 Blood Pressure Position Right Lateral 04/19/24 04:09 Pulse Oximetry 94 04/20/24 11:09 Oxygen Delivery Method Room Air 04/20/24 11:09 Oxygen Flow Rate 0 04/20/24 11:09 Pain Level 8 04/20/24 09:54 Comment r hip 04/19/24 02:49 Intake & Output 04/19/24 04/20/24 04/20/24 17:59 05:59 17:59 Intake Total 300 / 300 740 / 1040 130 / 130 Balance 300 / 300 740 / 1040 130 / 130 Weight 142 lb 9.52 oz Intake: IV 60 / 60 10 / 10 Oral 240 / 240 740 / 980 120 / 120 Other: Urine Color Yellow Urine Appearance Clear Urine Odor Normal Comment pT independent in the bathroom voided in toilet pT independent in bathroom. Voiding Methods Toilet Toilet Data Completed and Pending Labs on day of discharge: Labs from last 24 hours 04/20/24 06:50 Sodium 136 Potassium 4.2 D Chloride 100 Carbon Dioxide 30.3 Anion Gap 5.7 BUN 4 L Creatinine 0.6 Est GFR (CKD-EPI 2020) 116.30 Glucose 77 Calcium 8.4 L Magnesium 1.8 Total Bilirubin 1.09 H Conjugated Bilirubin 0.3 H AST 22 ALT 20 Alkaline Phosphatase 70 Total Protein 6.5 Albumin 3.5 PFSH All Active Problems (Updated 04/19/24 @ 17:43 by Armaan Jones MD) Amplified musculoskeletal pain (Acute) DVT prophylaxis (Acute) Alcohol withdrawal (Acute) Insomnia (Acute) Elevated TSH (Acute) Preventative health care (Acute) Labral tear of right hip joint (Acute) Depression (Chronic) Hip pain, right (Acute) Alcohol use disorder (Acute) Anxiety disorder (Acute) Tobacco abuse (Chronic) Nodule of left lung (Acute) Medical History Polysubstance abuse Social History (Updated 04/19/24 @ 08:29 by Matthew Mckenzie) Smoking/Tobacco Use Status: Current every day Tobacco Type: cigarettes Smoking packs per day: 1 Smoking cigarettes per day: 20.0 Years smoked: 24 Smoking pack- years: 24.00 Smoking risk assessment performed?: Yes Alcohol Intake: current Alcohol Intake frequency: 3 or more drinks per day Alcohol type: hard liquor Drug use: Daily Substance use type: marijuana and crack/cocaine Details: smokes weed daily Housing: apartment Do you feel safe at home: Yes Do you feel safe in your relationship?: Yes Additional Social history: Lives in [place], male friend is her main support Time Spent with Patient Time Spent with Patient: <45 minutes Time was spent: preparing to see the patient(eg.review tests), obtaining and/or reviewing separately otained hiistory, ordering medications,tests, procedures, referring, communicating with other health home care consultant, indepentently interpreting results, counseling the patient and care coordination
[2024-04-20 15:27] VITALS: BP 95/71; PULSE 70; RESP 16; TEMP 36.3; O2SAT 97
--- NOTE | 2024-04-20 16:15 | PDOC.CMDIS ---
Date of service: 04/20/24 Time of Service: 16:15 LACE Index Scoring Tool Questions: Length of Stay (in days): 1 Was the patient admitted via the E.D.?: Yes E.D. Visits: 4 Answers: Total Score: 8 Risk of Readmission: Low Risk Care Management Discharge Plan Reason for Hospitalization: Labral tear of right hip joint Discharge Plan: Michelle is discharged home via private vehicle with family. Pt will follow up with her community providers and her discharge plan of care as instructed. No new services are ordered prior to her discharge. Declines referral to community supports for ETOH. Patient/Family Education Needs: Review discharge instructions, limitations, medications and plan to follow up with community providers. SDOH Health Related Social Needs: No Data to Display
== END 2024-04-20 16:22 | disposition home or self-care (01) | DRG 897 ==
LOC: ER 03:58 → MS 04:45
PROVIDERS: Admitting Provider Family Medicine; Emergency Provider Student in an Organized Health Care Education/Training Program; PCP Nurse Practitioner Family; Visit Provider Family Medicine
DX: F10.939 Alcohol use, unspecified with withdrawal, unspecified (principal); F41.9 Anxiety disorder, unspecified; F17.210 Nicotine dependence, cigarettes, uncomplicated; S73.191A Other sprain of right hip, initial encounter; M79.18 Myalgia, other site; R11.0 Nausea; G47.00 Insomnia, unspecified; R91.1 Solitary pulmonary nodule; F12.90 Cannabis use, unspecified, uncomplicated; M25.551 Pain in right hip; F19.10 Other psychoactive substance abuse, uncomplicated; X58.XXXA Exposure to other specified factors, initial encounter
CPT/HCPCS: 00123; 36415; 80048; 80053; 80076; 80307; 81025; 83690; 96361; 96374; 96375; 99285; 80320; 83735; 85025; 99222; 99238; J2060; J2405; J2470; J3411; J3475

== ENCOUNTER 2024-04-20 19:40 | Emergency (ER) | payer MEDICAID, SELFPAY ==
[2024-04-20 19:43] VITALS: BP 113/68; PULSE 95; RESP 16; TEMP 36.6; O2SAT 96
--- OUTSIDE RECORDS SUMMARY | 2024-04-20 19:44 | XMS_ITS | Data Portability ---
Author Organization [facility], [facility] Address [address] [place] [address] Assessment No assessment recorded. Plan of Treatment Reminders Order Date Submit Date Provider Last Modified By Organization Details Last Modified Time Details Appointments None recorded. Lab None recorded. Referral orthopedic surgeon referral 2023 [facility], [address], [place], [address], 12:07:51 Procedures None recorded. Surgeries None recorded. Imaging XR, hip, bilateral 2023 [facility], [address], [place], [address], 13:02:44 Medication Orders None recorded. Patient TargetsNo targets recorded. Patient Instructions Encounter Date Encounter Id Patient Instructions Last Modified By Organization Details Last Modified Time 03/09/2024 [id number] 1. X-rays have been ordered and will [...] Kieran carlos Name: Nelda Fermin Unit #: [id number] Loc: DI Orderi ng Provid er: Nita Russo Accoun t #: [id number] Status : REG CLI Primar [...] Thank- you. [email or web address] [address], [place], [address], 03/12/2024 13:21:53 Result Notes None recorded. Problems Name Status Onset Date Resolution Date Notes Provider Name and Address Organization Details Recorded Time Bilateral hip joint pain Active [address], [place], [address], [facility] 03/09/2024 11:50:45 Problem Notes None recorded. Procedures Surgical History None recorded. Imaging Results Imaging Date Name Status LastModified by Organiz ation Details LastModified Time 03/09/2024 XR, hip, bilateral completed Information not available 04/18/2024 12:45:38 03/09/2024 XR, hip, bilateral completed [email or web address] [address], [place], [address], 03/12/2024 13:21:53 Procedure Notes None recorded. Medical [...] Updated DateTime 4 154.94 cm 25.5 kg/m2 72127.9 7 g 98.5 [degF] 98 % 98 % 54 /min 17 /min 113 mm[Hg] 69 mm[Hg] HANH DRAKE MA [facility] 11:12:43 Social History Question Answer Notes LastModified by Organizat ion Details LastModified Time Tobacco Smoking Status Current Every Day Smoker HANH DRAKE [facility] [place] [facility] 03/09/2024 11:11:28 What Was The Date Of Your Most Recent Tobacco Screening? 03/09/2024 Information not available 03/09/2024 Has Tobacco Cessation Counseling Been Provided? Yes [email or web address] Information not available 03/09/2024 On What Date Was Tobacco Cessation Counseling Provided? 03/09/2024 [email or web address] Information not available 03/09/2024 Do You Or Have You Ever Used Any Other Forms Of Tobacco Or Nicotine? No [email or web address] Information not available 03/09/2024 Sex: Unknown Functional Status None recorded. Mental Status None recorded. Family History Nothing Reported. Medical History No medical history recorded. Gynecological HistoryNo gynecological history recorded. Obstetrics History GPAL:G 0 P 0 0 0 0 Past Encounters Encounter ID Performer Location Encounter Start Date Encounter Closed Date Diagnosis/Indication Diagnosis SNOMED-CT Code [id number] NITA RUSSO PA-C [address],[facility] [address] [place] [address] 03/09/2024 10:55:10 03/09/2024 11:51:42 Bilateral hip joint pain [id number] 00 Health Concerns Section Related Observation LastModified by Organization Detai ls LastModified Time None Recorded Concern Status LastModified by Organization Details LastModified Time None Recorded Advance Directives Directive None Recorded Payers Encounter Date Sequence Insurance Name Policy Number Policy Zamudio Covered Member ID Zamudio Member ID Guarantor Name 03/09/2024 1 [facility] (MEDICAID) Michelleleo Fermin [id number] Michelle Fermin Notes Date Note Type Note [...] 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 No other joints are affected. NITA RUSSO PA-C [address], [place], [address], [facility]. 03/09/2024 15:17:05 OBGyn Episode No OBEpisode recorded.
--- OUTSIDE RECORDS SUMMARY | 2024-04-20 19:44 | XMS_ITS | Continuity of Care Document ---
Author Organization [place] [facility], [facility] Address [address] [place] [address] Assessment No assessment recorded. Plan of Treatment Reminders Order Date Submit Date Provider Last Modified By Organization Details Last Modified Time Details Appointments None recorded. Lab None recorded. Referral orthopedic surgeon referral 2023 [facility], [address], [place], [address], 12:07:51 Procedures None recorded. Surgeries None recorded. Imaging XR, hip, bilateral 2023 [facility], [address], [place], [address], 13:02:44 Medication Orders None recorded. Patient TargetsNo targets recorded. Patient Instructions Encounter Date Encounter Id Patient Instructions Last Modified By Organization Details Last Modified Time 03/09/2024 [id number] 1. X-rays have been ordered and will [...] Kieran carlos Name: Nelda Fermin Unit #: [id number] Loc: DI Orderi ng Provid er: Nita Russo Accoun t #: [id number] Status : REG CLI Primar [...] error, please notify us immtadeo kelley at [phone] and return the origin al report to us at the addres s above. Thank- you. [email or web address] [facility] [address], [place], [address], 03/12/2024 13:21:53 Result Notes None recorded. Problems Name Status Onset Date Resolution Date Notes Provider Name and Address Organization Details Recorded Time Bilateral hip joint pain Active [address], [place], [address], [facility] 03/09/2024 11:50:45 Problem Notes None [...] Updated DateTime 4 154.94 cm 25.5 kg/m2 75748.9 7 g 98.5 [degF] 98 % 98 % 54 /min 17 /min 113 mm[Hg] 69 mm[Hg] HANH DRAKE MA [facility] 11:12:43 Social History Question Answer Notes LastModified by Organizat ion Details LastModified Time Tobacco Smoking Status Current Every Day Smoker HANH DRAKE MA null, [facility] 03/09/2024 11:11:28 What Was The Date Of Your Most Recent Tobacco Screening? 03/09/2024 [email or web address] Information not available 03/09/2024 Has Tobacco Cessation Counseling Been Provided? Yes Information not available 03/09/2024 On What Date Was Tobacco Cessation Counseling Provided? 03/09/2024 [email or web address] Information not available 03/09/2024 Do You Or Have You Ever Used Any Other Forms Of Tobacco Or Nicotine? No [email or web address] Information not available 03/09/2024 Sex: Unknown Functional Status None recorded. Mental Status None recorded. Family History Nothing Reported. Medical History No medical history recorded. Gynecological HistoryNo gynecological history recorded. Obstetrics History GPAL:G 0 P 0 0 0 0 Past Encounters Encounter ID Performer Location Encounter Start Date Encounter Closed Date Diagnosis/Indication Diagnosis SNOMED-CT Code [id number] NITA RUSSO PA-C [address] [place] [address] 03/09/2024 10:55:10 03/09/2024 11:51:42 Bilateral hip joint pain [id number] 00 Health Concerns Section Related Observation LastModified by Organization Detai ls LastModified Time None Recorded Concern Status LastModified by Organization Details LastModified Time None Recorded Payers Encounter Date Sequence Insurance Name Policy Number Policy Zamudio Covered Member ID Zamudio Member ID Guarantor Name 03/09/2024 1 [facility] (MEDICAID) Michelle Fermin [id number] Michelle Fermin Notes Date Note Type Note [...] 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 No other joints are affected. [address], [place], [address], [facility]. 03/09/2024 15:17:05 OBGyn Episode No OBEpisode recorded.
--- NOTE | 2024-04-20 21:17 | ED.GENADUL_ITS ---
Discharge Plan Disposition Patient Disposition: Home Discharge Details Clinical Impression: Anxiety about health, Alcohol use disorder Primary Care Provider: Juana Anthony ED Provider: Anand Locke Home Meds and New Rx's Prescriptions: No Action sertraline 50 mg tablet 75 mg PO DAILY Qty: 45 1RF oxycodone 5 mg Tablet 5 mg PO BID PRN PRNQty: 8 0RF clonidine HCl 0.1 mg Tablet 0.1 mg PO TID PRN PRN (Reason: Anxiety) Qty: 50 0RF Discharge Instructions Instructions: Alcohol Use Disorder ED, Anxiety, Adult ED Additional Instructions: At this time and after further discussion you have chosen not to have any emergency workup. We have discussed your discharge plan which includes follow- up with orthopedist and primary care provider. You may also contact the recovery coaches to further help with alcohol detox. Again if you use the provided oxycodone for your hip pain please do not drink any alcohol with this as it may cause severe respiratory depression and may lead to . If you change your mind and would like a further workup or feel that you have any emergent conditions feel free to return to the emergency department Referrals: Juana Anthony APRN [Primary Care Provider] - (As needed) Discharge Data Discharge Date/Time-TO BE ENTERED AT DEPARTURE: 04/20/24 21:29 HPI General Mode of arrival: ambulatory . Date/Time Provider Initiated Documentation: 04/20/24 20:29 . Limitations to Documentation: no limitations . Information obtained by: patient and RN notes reviewed . History of Present Illness 38 year old F presents to the emergency department with the chief complaint of Anxiety, nausea, described as moderate and similar to prior episodes, Patient started experiencing this hour(s) (2.5) and it has been now resolved. Patient did receive the following treatments prior to arrival, other (Alcohol) Related Data Home Medications ?Medication ?Instructions ?Recorded ?Confirmed clonidine HCl 0.1 mg tablet 0.1 mg PO TID PRN PRN Anxiety #50 02/27/24 04/19/24 tabs sertraline 50 mg tablet 75 mg (1.5 x 50 mg) PO DAILY #45 03/16/24 04/19/24 tabs oxycodone 5 mg tablet 5 mg PO BID PRN PRN #8 tabs 04/20/24 Previous Rx's ?Medication ?Instructions ?Recorded clonidine HCl 0.1 mg tablet 0.1 mg PO TID PRN PRN Anxiety #50 02/27/24 tabs sertraline 50 mg tablet 75 mg (1.5 x 50 mg) PO DAILY #45 03/16/24 tabs oxycodone 5 mg tablet 5 mg PO BID PRN PRN #8 tabs 04/20/24 Allergies Allergy/AdvReac Type Severity Reaction Status Date / Time nickel Allergy Rash Verified 04/19/24 02:12 bacitracin (From Neosporin AdvReac Intermediate Skin Rash Verified 04/19/24 02:12 ([id number])) neomycin (From Neosporin AdvReac Intermediate Skin Rash Verified 04/19/24 02:12 ([id number])) polymyxin B (From Neosporin AdvReac Intermediate Skin Rash Verified 04/19/24 02:12 ([id number])) General Stated Complaint: ETOHWithdr JORGE: 3 Review of Systems Constitutional Constitutional: Denies headache(s) ENT Ears, Nose, Mouth, and Throat: Denies headache(s) Cardiovascular Cardiovascular: Denies dyspnea Respiratory Respiratory: Denies cough and Denies dyspnea Gastrointestinal Gastrointestinal: Reports nausea Neurologic Neurologic: Denies headache(s), Denies convulsions and Reports tremor(s) Psychiatric Psychiatric: Reports anxiety Exam Const General: cooperative Orientation: alert, awake and oriented x3 Resp Effort & Inspection: normal respiratory effort and able to speak in complete sentences Auscultation: clear to auscultation bilaterally Cardio Rate: regular rate Rhythm: regular rhythm Heart Sounds: S1 normal and S2 normal GI Palpation: soft, no hepatosplenomegaly, not firm, no guarding, no masses, no pulsatile masses, not rigid and tender Auscultation: normal bowel sounds Neuro General: patient alert, patient awake, patient oriented x3, gait normal, moves all extremities and no focal motor deficits Cognition: normal cognition Motor: muscle tone normal throughout and no fasciculations Course Vital Signs Vital signs: Vital Signs Temperature 36.6 C 04/20/24 19:43 Pulse 95 H 04/20/24 19:43 Respiratory Rate 16 04/20/24 19:43 Blood Pressure 113/68 04/20/24 19:43 Pulse Oximetry 96 04/20/24 19:43 Temperature 36.6 C 04/20/24 19:43 Temperature Source Tympanic 04/20/24 19:43 Pulse 95 H 04/20/24 19:43 Respiratory Rate 16 04/20/24 19:43 Blood Pressure 113/68 04/20/24 19:43 Blood Pressure Position Sitting 04/20/24 19:43 Pulse Oximetry 96 04/20/24 19:43 Oxygen Delivery Method Room Air 04/20/24 19:43 Oxygen Flow Rate 0 04/20/24 19:43 Medical Decision Making Patient presenting to the emergency department significant other due to question about discharge instructions and potential for withdrawal type symptoms. Patient was admitted to the hospital 2 days ago for alcohol intoxication and withdrawal. Patient states that she has had significant withdrawal symptoms in the past and had been on a 1 week binge of alcohol intake when she was admitted. Patient was placed upon phenobarbital and was discharged after 48 hours. Had no seizure-like activity. She states when she was riding in the car she had a significant wave of nausea dizziness and feel like she was going to vomit. Patient thought that that was her going into withdrawals and did have some alcohol intake prior to arrival. Patient has not taken any of the given narcotic which was given for her hip pain which she states is why she started drinking again. Physical exam shows no tremors, stable vital signs, overall unremarkable exam with soft nontender abdomen. Discussed with patient that I do not feel that her symptoms she was experiencing today were withdrawal symptoms given the timeframe of her last drink along with medications received. I have high suspicion that her symptoms may have been anxiety or panic attack or pos sible nausea secondary to medications while riding in the car. Given patient's concern though I did offer to perform labs on patient which she refused and also patient was questioning further admission for continued detox. Did inform patient that at this time of her exam there was no bed availability but that I would be happy to contact a investment recovery technician to further support her. Patient refused this and stated that she was on a wait list to get into outpatient detox center. After thorough discussion patient refused any further workup. Did state that she felt better after speaking to me and did admit to some anxiety. Patient to continue plan of care that was discussed at discharge but she was encouraged to return for any new or significant worsening of symptoms. After discussion of diagnosis and plan of care patient has no further needs, questions, or concerns and states clear understanding to return to the emergency department for any worsening symptoms. This documentation was generated using [employer] dictation system, please disregard any oddities of phrase or misspellings. Quality:SDOH Health Related Social Needs: No Data to Display PFSH All Active Problems Anxiety about health (Acute) Amplified musculoskeletal pain (Acute) Insomnia (Acute) Elevated TSH (Acute) Preventative health care (Acute) Labral tear of right hip joint (Acute) Depression (Chronic) Hip pain, right (Acute) Alcohol use disorder (Acute) Anxiety disorder (Acute) Tobacco abuse (Chronic) Nodule of left lung (Acute) Medical History Polysubstance abuse Social History Smoking/Tobacco Use Status: Current every day Tobacco Type: cigarettes Smoking packs per day: 1 Smoking cigarettes per day: 20.0 Years smoked: 24 Smoking pack- years: 24.00 Smoking risk assessment performed?: Yes Alcohol Intake: current Alcohol Intake frequency: 3 or more drinks per day Alcohol type: hard liquor Drug use: Occasionally Substance use type: marijuana and crack/cocaine Details: smokes weed daily Housing: apartment Do you feel safe at home: Yes Do you feel safe in your relationship?: Yes Additional Social history: Lives in [place], male friend is her main support
== END 2024-04-20 21:29 | disposition home or self-care (01) ==
PROVIDERS: Emergency Provider Nurse Practitioner Family; PCP Nurse Practitioner Family
DX: F41.9 Anxiety disorder, unspecified (principal); R11.0 Nausea; Z79.899 Other long term (current) drug therapy; F10.90 Alcohol use, unspecified, uncomplicated
CPT/HCPCS: 99283

== ENCOUNTER 2024-04-20 20:00 | Outpatient (REF) | payer MEDICAID, SELFPAY ==
[2024-04-20 08:21] LABS: TSH (W/Ref FT4) 4.03 uIU/mL (0.36-3.74)
[2024-04-20 09:04] LABS: FREE T4 0.81 ng/dL (0.76-1.46)
== END 2024-04-20 20:01 | disposition home or self-care (01) ==
LOC: LBN 20:00
PROVIDERS: PCP Nurse Practitioner Family; Visit Provider Nurse Practitioner Family
DX: R79.89 Other specified abnormal findings of blood chemistry (principal)
CPT/HCPCS: 84439; 84443

== ENCOUNTER 2024-04-23 14:59 | Emergency (ER) | payer MEDICAID, SELFPAY ==
[2024-04-23 15:06] VITALS: BP 148/105; PULSE 104; RESP 14; TEMP 36.9; O2SAT 97
--- OUTSIDE RECORDS SUMMARY | 2024-04-23 15:12 | XMS_ITS | Continuity of Care Document ---
Author Organization [place] [facility] [employer] [facility], [facility] Address [address] [place] [address] Assessment No assessment recorded. Plan of Treatment Reminders Order Date Submit Date Provider Last Modified By Organization Details Last Modified Time Details Appointments None recorded. Lab None recorded. Referral orthopedic surgeon referral 2023 [facility], [address], [place], [address], 12:07:51 Procedures None recorded. Surgeries None recorded. Imaging XR, hip, bilateral 2023 [facility], [address], [place], [address], 13:02:44 Medication Orders None recorded. Patient TargetsNo targets recorded. Patient Instructions Encounter Date Encounter Id Patient Instructions Last Modified By Organization Details Last Modified Time 03/09/2024 [id number] 1. X-rays have been ordered and will [...] Kieran carlos Name: Nelda Fermin Unit #: [id number] Loc: DI Orderi ng Provid er: Nita Russo Accoun t #: [id number] Status : REG CLI Primar [...] error, please notify us immtadeo kelley at and return the origin al report to us at the addres s above. Thank- you. [email or web address] [facility] [address], [place], [address], 03/12/2024 13:21:53 Result Notes None recorded. Problems Name Status Onset Date Resolution Date Notes Provider Name and Address Organization Details Recorded Time Bilateral hip joint pain Active [address], [place], [address], [facility] 03/09/2024 11:50:45 Problem Notes None recorded. Medical [...] Updated DateTime 4 154.94 cm 25.5 kg/m2 76106.9 7 g 98.5 [degF] 98 % 98 % 54 /min 17 /min 113 mm[Hg] 69 mm[Hg] HANH DRAKE MA [facility] 11:12:43 Social History Question Answer Notes LastModified by Organizat ion Details LastModified Time Tobacco Smoking Status Current Every Day Smoker HANH DRAKE MA null, [facility] 03/09/2024 11:11:28 What Was The Date Of Your Most Recent Tobacco Screening? 03/09/2024 [email or web address] Information not available 03/09/2024 Has Tobacco Cessation Counseling Been Provided? Yes Information not available 03/09/2024 On What Date Was Tobacco Cessation Counseling Provided? 03/09/2024 [email or web address] Information not available 03/09/2024 Do You Or [...] Encounter Closed Date Diagnosis/Indication Diagnosis SNOMED-CT Code [id number] NITA RUSSO PA-C [address] [place] [address] 03/09/2024 10:55:10 03/09/2024 11:51:42 Bilateral hip joint pain [id number] 00 Health Concerns Section Related Observation LastModified by Organization Detai ls LastModified Time None Recorded Concern Status LastModified by Organization Details LastModified Time None Recorded Payers Encounter Date Sequence Insurance Name Policy Number Policy Zamudio Covered Member ID Zamudio Member ID Guarantor Name 03/09/2024 1 [facility] (MEDICAID) Michelle Fermin [id number] Michelle Fermin Notes Date Note Type Note [...] 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 No other joints are affected. [address], [place], [address], [facility]. 03/09/2024 15:17:05 OBGyn Episode No OBEpisode recorded.
--- OUTSIDE RECORDS SUMMARY | 2024-04-23 15:12 | XMS_ITS | Data Portability ---
Author Organization [facility], [facility] Address [address] [place] [address] Assessment No assessment recorded. Plan of Treatment Reminders Order Date Submit Date Provider Last Modified By Organization Details Last Modified Time Details Appointments None recorded. Lab None recorded. Referral orthopedic surgeon referral 2023 [facility], [address], [place], [address], 12:07:51 Procedures None recorded. Surgeries None recorded. Imaging XR, hip, bilateral 2023 [facility], [address], [place], [address], 13:02:44 Medication Orders None recorded. Patient TargetsNo targets recorded. Patient Instructions Encounter Date Encounter Id Patient Instructions Last Modified By Organization Details Last Modified Time 03/09/2024 [id number] 1. X-rays have been ordered and will [...] Kieran carlos Name: Nelda Fermin Unit #: [id number] Loc: DI Orderi ng Provid er: Nita Russo Accoun t #: [id number] Status : REG CLI Primar [...] Thank- you. [email or web address] [facility] [address], [place], [address], 03/12/2024 13:21:53 Result Notes None recorded. Problems Name Status Onset Date Resolution Date Notes Provider Name and Address Organization Details Recorded Time Bilateral hip joint pain Active [address], [place], [address], [facility] 03/09/2024 11:50:45 Problem Notes None recorded. Procedures Surgical History None recorded. Imaging Results Imaging Date Name Status LastModified by Organiz ation Details LastModified Time 03/09/2024 XR, hip, bilateral completed Information not available 04/18/2024 12:45:38 03/09/2024 XR, hip, bilateral completed [email or web address] [facility] [address], [place], [address], 03/12/2024 13:21:53 Procedure Notes None recorded. Medical [...] Updated DateTime 4 154.94 cm 25.5 kg/m2 56949.9 7 g 98.5 [degF] 98 % 98 % 54 /min 17 /min 113 mm[Hg] 69 mm[Hg] HANH DRAKE MA [facility] 11:12:43 Social History Question Answer Notes LastModified by Organizat ion Details LastModified Time Tobacco Smoking Status Current Every Day Smoker HANH DRAKE MA [facility], [place] - [facility] 03/09/2024 11:11:28 What Was The Date Of Your Most Recent Tobacco Screening? 03/09/2024 [email or web address] Information not available 03/09/2024 Has Tobacco Cessation Counseling Been Provided? Yes [email or web address] Information not available 03/09/2024 On What Date [...] Encounter Closed Date Diagnosis/Indication Diagnosis SNOMED-CT Code [id number] NITA RUSSO PA-C [address],[facility] [address] [place] [address] 03/09/2024 10:55:10 03/09/2024 11:51:42 Bilateral hip joint pain [id number] 00 Health Concerns Section Related Observation LastModified by Organization Detai ls LastModified Time None Recorded Concern Status LastModified by Organization Details LastModified Time None Recorded Advance Directives Directive None Recorded Payers Encounter Date Sequence Insurance Name Policy Number Policy Zamudio Covered Member ID Zamudio Member ID Guarantor Name 03/09/2024 1 [facility] (MEDICAID) Michelleleo Fermin [id number] Michelle Fermin Notes Date Note Type Note [...] 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 No other joints are affected. NITA RUSSO PA-C [address], [place], [address], [facility]. 03/09/2024 15:17:05 OBGyn Episode No OBEpisode recorded.
--- NOTE | 2024-04-23 19:31 | W.ED.GENAD ---
Discharge Plan Disposition Patient Disposition: Against Medical Advice Condition: Stable Discharge Details Clinical Impression: Alcohol use disorder Primary Care Provider: Juana Anthony ED Provider: Becca Armando Home Meds and New Rx's Prescriptions: Continued sertraline 50 mg tablet 75 mg PO DAILY Qty: 45 1RF oxycodone 5 mg Tablet 5 mg PO BID PRN PRNQty: 8 0RF clonidine HCl 0.1 mg Tablet 0.1 mg PO TID PRN PRN (Reason: Anxiety) Qty: 50 0RF Discharge Instructions Instructions: Alcohol Use Disorder (DC) HPI General Date/Time Provider Initiated Documentation: 04/23/24 19:15. HPI Narrative: This 38-year-old female with history of alcoholism, tobacco abuse presents with report of binged on alcohol since being discharged from the hospital on oxycodone for hip pain. She was admitted for 48 hours and administered phenobarb and discharged home. She has been drinking copious amounts of alcohol since that time. She is reportedly an alcoholic. She has not followed up with [facility]. They have been researching alcohol detox patient has had numerous falls secondary to being intoxicated and did not drink a handle of whiskey prior to arrival today. Patient denies any pain complaints. She denies any suicidal ideation. She is asking for readmission to the hospital. Denies any history of coagulopathy. Related Data Home Medications ?Medication ?Instructions ?Recorded ?Confirmed clonidine HCl 0.1 mg tablet 0.1 mg PO TID PRN PRN Anxiety #50 02/27/24 04/19/24 tabs sertraline 50 mg tablet 75 mg (1.5 x 50 mg) PO DAILY #45 03/16/24 04/19/24 tabs oxycodone 5 mg tablet 5 mg PO BID PRN PRN #8 tabs 04/20/24 Previous Rx's ?Medication ?Instructions ?Recorded clonidine HCl 0.1 mg tablet 0.1 mg PO TID PRN PRN Anxiety #50 02/27/24 tabs sertraline 50 mg tablet 75 mg (1.5 x 50 mg) PO DAILY #45 03/16/24 tabs oxycodone 5 mg tablet 5 mg PO BID PRN PRN #8 tabs 04/20/24 Allergies Allergy/AdvReac Type Severity Reaction Status Date / Time nickel Allergy Rash Verified 04/19/24 02:12 bacitracin (From Neosporin AdvReac Intermediate Skin Rash Verified 04/19/24 02:12 ([id number])) neomycin (From Neosporin AdvReac Intermediate Skin Rash Verified 04/19/24 02:12 ([id number])) polymyxin B (From Neosporin AdvReac Intermediate Skin Rash Verified 04/19/24 02:12 ([id number])) General Stated Complaint: ETOHWithdr JORGE: 2 Exam Narrative Exam Narrative: Alert and oriented 38-year-old female GCS 15, ambulatory with steady gait, no obvious visible evidence of head trauma, pupils equal round reactive to light and accommodation, bruises noted on shins. Course Vital Signs Vital signs: Vital Signs Temperature 36.9 C 04/23/24 15:06 Pulse 104 H 04/23/24 15:06 Respiratory Rate 14 04/23/24 15:06 Blood Pressure 148/105 H 04/23/24 15:06 Pulse Oximetry 97 04/23/24 15:06 Temperature 36.9 C 04/23/24 15:06 Temperature Source Temporal Artery Scan 04/23/24 15:06 Pulse 104 H 04/23/24 15:06 Respiratory Rate 14 04/23/24 15:06 Blood Pressure 148/105 H 04/23/24 15:06 Blood Pressure Position Sitting 04/23/24 15:06 Pulse Oximetry 97 04/23/24 15:06 Oxygen Delivery Method Room Air 04/23/24 15:06 Oxygen Flow Rate 0 04/23/24 15:06 Pain Level 0 04/23/24 15:06 Medical Decision Making 38-year-old female presenting for admission for alcohol withdrawal. We did a basic physical exam and did let the patient know that she did not meet criteria for alcohol withdrawal that we are glad to evaluate her for her falls and make sure that her blood work is okay. Patient became quite agitated and refused to stay in the hospital. She is aware that she has not been fully evaluated and at time of my assessment is ambulatory alert, oriented, and of decisional capacity. Her partner was in the room and when the patient stood to leave stated I guess relieving now. They were made aware that they have not been fully assessed and ambulated with steady gait out of the emergency department. Quality:SDOH Health Related Social Needs: No Data to Display PFSH All Active Problems (Updated 04/23/24 @ 23:02 by JOHNSON Ervin) Anxiety about health (Acute) Amplified musculoskeletal pain (Acute) Insomnia (Acute) Elevated TSH (Acute) Preventative health care (Acute) Labral tear of right hip joint (Acute) Depression (Chronic) Hip pain, right (Acute) Alcohol use disorder (Acute) Anxiety disorder (Acute) Tobacco abuse (Chronic) Nodule of left lung (Acute) Medical History Polysubstance abuse Social History Smoking/Tobacco Use Status: Current every day Tobacco Type: cigarettes Smoking packs per day: 1 Smoking cigarettes per day: 20.0 Years smoked: 24 Smoking pack-years: 24.00 Smoking risk assessment performed?: Yes Alcohol Intake: current Alcohol Intake frequency: 3 or more drinks per day Alcohol type: hard liquor Drug use: Occasionally Substance use type: marijuana and crack/cocaine Details: smokes weed daily Housing: apartment Do you feel safe at home: Yes Do you feel safe in your relationship?: Yes Additional Social history: Lives in [place], male friend is her main support
== END 2024-04-23 23:04 | disposition left against medical advice (07) ==
PROVIDERS: Emergency Provider Physician Assistant; PCP Nurse Practitioner Family
DX: F10.90 Alcohol use, unspecified, uncomplicated (principal); W19.XXXA Unspecified fall, initial encounter; Z53.21 Procedure and treatment not carried out due to patient leaving prior to being seen by health care provider
CPT/HCPCS: 99283

== ENCOUNTER 2024-04-30 22:01 | Inpatient (IN) | payer MEDICAID, SELFPAY ==
[2024-04-30 22:03] VITALS: BP 154/96; PULSE 100; RESP 20; TEMP 36.7; O2SAT 99
--- NOTE | 2024-04-30 22:14 | W.ED.GENAD ---
Discharge Plan Disposition Patient Disposition: Admit to [facility] Condition: Poor Discharge Details Clinical Impression: Alcohol dependence, Alcohol withdrawal Primary Care Provider: Juana Anthony ED Provider: Cedric Dumont [place] Meds and New Rx's Prescriptions: No Action sertraline 50 mg tablet 75 mg PO DAILY Qty: 45 1RF acamprosate 333 mg tablet,delayed release (DR/EC) 666 mg PO BID Rx Instructions: administer with mid-day and evening meals HPI General Mode of arrival: ambulatory. Date/Time Provider Initiated Documentation: 04/30/24 22:03. Information obtained by: patient, family (Significant other), RN notes reviewed and old records reviewed. HPI Narrative: Patient presenting to ED with significant other accompanying her with request for alcohol detox. Patient has had 2 admissions for alcohol detox. The first 1 occurred in February and she was able to stay sober for about a month. Second admission did not really help and she was not sober for significant amount of time. She now has an outpatient plan in regards to rehab after detox. She will be working with Kamila who she met with today. This will be the bridge until she can get into [facility] for inpatient rehab. Patient has problems with chronic right hip pain and chronic anxiety. She has, however, been drinking since the age of 10 and admits to it being a coping mechanism. She did undergo cortisone injection into the hip on Tuesday. She has been drinking all weekend. She has been drinking to try to maintain herself from going into detox. Neither outpatient or inpatient rehab can do a medical detox. She does admit to nausea, sweats, shakes, anxiety despite recently consuming alcohol this evening. Related Data Home Medications ?Medication ?Instructions ?Recorded ?Confirmed sertraline 50 mg tablet 75 mg (1.5 x 50 mg) PO DAILY #45 03/16/24 04/30/24 tabs acamprosate 333 mg tablet,delayed 666 mg PO BID 04/30/24 04/30/24 release Previous Rx's ?Medication ?Instructions ?Recorded sertraline 50 mg tablet 75 mg (1.5 x 50 mg) PO DAILY #45 03/16/24 tabs Allergies Allergy/AdvReac Type Severity Reaction Status Date / Time nickel Allergy Rash Verified 04/30/24 22:11 bacitracin (From Neosporin AdvReac Intermediate Skin Rash Verified 04/30/24 22:11 ([id number])) neomycin (From Neosporin AdvReac Intermediate Skin Rash Verified 04/30/24 22:11 ([id number])) polymyxin B (From Neosporin AdvReac Intermediate Skin Rash Verified 04/30/24 22:11 ([id number])) General Stated Complaint: ETOHWithdr JORGE: 3 Review of Systems Narrative: Per HPI Exam Narrative Exam Narrative: Const: WDWN female in NAD, anxious. VS per triage. HEENT: NC/AT. Normal facial exam. Neck: Supple. Trachea midline. Lungs: Normal respiratory effort. Lungs are clear. Cor: RRR without murmur. Good radial pulses. Neuro: A+O x 3. Normal speech, mentation. Cranial nerves II - XII grossly intact. No gross motor or sensory deficit. Ext: No C/C/E. Course Vital Signs Vital signs: Vital Signs Temperature 98.1 F 04/30/24 22:03 Pulse 100 H 04/30/24 22:03 Respiratory Rate 20 04/30/24 22:03 Blood Pressure 154/96 H 04/30/24 22:03 Pulse Oximetry 99 04/30/24 22:03 Temperature 98.1 F 04/30/24 22:03 Temperature Source Skin 04/30/24 22:03 Pulse 100 H 04/30/24 22:03 Respiratory Rate 20 04/30/24 22:03 Respiratory Effort Normal 04/30/24 22:06 Respiratory Pattern Normal 04/30/24 22:07 Blood Pressure 154/96 H 04/30/24 22:03 Blood Pressure Position Sitting 04/30/24 22:03 Pulse Oximetry 99 04/30/24 22:03 Medical Decision Making Patient presenting to ED with alcohol withdrawal and request for medical detox. Patient has been drinking over the weekend to keep yourself out of withdrawal. She has a very supportive significant other. They have in place both outpatient and plan for inpatient rehab from alcohol which she has not really had in place previously. She did have a cortisone injection on Tuesday so hopefully that helps with her hip pain. She does seem motivated to get sober and stay sober both for her significant other as well as so she can return to work. She at least is able to see at this point that her drinking has been a coping mechanism. She still seems to have some excuses but also seems ready to take responsibility at this point. Therefore, IV is established and laboratory studies obtained. EKG is obtained. Monitoring and CIWA score initiated as well as intermediate loading with phenobarbital which has worked well for her in the past. Patient's laboratory studies are unremarkable other than an alcohol level that is greater than 400. Patient has had elevated alcohol level previously with signs and symptoms of withdrawal similar to this evening. Otherwise, hemoglobin, electrolytes, liver function are fine. EKG is sinus rhythm and unchanged from previous with no acute findings. Patient has been seen and evaluated by hospitalist. I have discussed plan with hospitalist and she will be admitted for medical detox from alcohol pending discharged to outpatient rehab. Medical Records Medical records reviewed: Yes I reviewed the patient's medical records. Medical records narrative: I have reviewed her ED record, outpatient records, primary care records, inpatient admissions. Lab Data Lab results reviewed: Yes I reviewed the patient's lab results. ECG Data Attestation: I personally reviewed and interpreted this ECG (s) as follows: Prior ECG tracings: available for review Critical Care Time Critical Care Time Critical Care Time: Yes Total Critical Care Time: 60 Attestation: Upon my evaluation, this patient had a high probability of imminent or life-threatening deterioration, which required my direct attention, intervention, and personal management. I have personally provided 60 minutes of critical care time exclusive of time spent on separately billable procedures. Time includes monitoring for potential decompensation, ordering of tests and medications, review of laboratory and radiology results, discussion with consultants and documentation . Interventions were performed as documented above in procedures. PFSH All Active Problems Alcohol withdrawal (Acute) Alcohol dependence (Acute) Anxiety about health (Acute) Insomnia (Acute) Elevated TSH (Acute) Preventative health care (Acute) Labral tear of right hip joint (Acute) POCUS injection: 04/27/2024 Hip pain, right (Chronic) Alcohol use disorder (Acute) Tobacco abuse (Chronic) Nodule of left lung (Acute) Medical History Alcohol dependence Anxiety disorder Depression Social History Smoking/Tobacco Use Status: Current every day Tobacco Type: cigarettes Smoking packs per day: 1 Smoking cigarettes per day: 20.0 Years smoked: 24 Smoking pack-years: 24.00 Smoking risk assessment performed?: Yes Alcohol Intake: current Alcohol Intake frequency: 3 or more drinks per day Alcohol type: hard liquor Drug use: Daily Substance use type: marijuana and crack/cocaine Details: smokes weed daily Housing: apartment Do you feel safe at home: Yes Do you feel safe in your relationship?: Yes Additional Social history: Lives in [place], male friend is her main support PAWSS Have you Been Recently Intoxicated or Drunk Within the Last 30 days?: Yes Have you Ever Experienced Previous Episodes of Alcohol Withdrawal?: Yes Have you ever Experienced Withdrawal Seizures?: No Have you ever Experienced Delirium Tremens(DT)s?: Yes Have you ever undergone Alcohol Rehabilitation Treatment (i.e, inpt ot outpatient treatment programs)?: Yes Have you ever Experienced Blackouts?: Yes Have you ever Combined Alcohol with other Downers within the last 90 days?: No Have you ever Combined Alcohol with any other Substance of Abuse during the last 90 days?: Yes Positive Blood Alcohol level on Presentation? [PCS.BAL]: Yes Evidence of Increased Autonomic Activity (i.e. HR>120, tremor, sweating, agitation, nausea)?: Yes Result: 9
--- OUTSIDE RECORDS SUMMARY | 2024-04-30 22:25 | XMS_ITS | Continuity of Care Document ---
Author Organization [place] [facility], [facility] Address [address] [place] [address] Assessment No assessment recorded. Plan of Treatment Reminders Order Date Submit Date Provider Last Modified By Organization Details Last Modified Time Details Appointments None recorded. Lab None recorded. Referral orthopedic surgeon referral 2023 [facility], [address], [place], [address], 12:07:51 Procedures None recorded. Surgeries None recorded. Imaging XR, hip, bilateral 2023 [facility], [address], [place], [address], 13:02:44 Medication Orders None recorded. Patient TargetsNo targets recorded. Patient Instructions Encounter Date Encounter Id Patient Instructions Last Modified By Organization Details Last Modified Time 03/09/2024 [id number] 1. X-rays have been ordered and will [...] Kieran carlos Name: Nelda Fermin Unit #: [id number] Loc: DI Orderi ng Provid er: Nita Russo Accoun t #: [id number] Status : REG CLI Primar [...] error, please notify us immtadeo kelley at [phone] and return the origin al report to us at the addres s above. Thank- you. [email or web address] [facility] [address], [place], [address], 03/12/2024 13:21:53 Result Notes None recorded. Problems Name Status Onset Date Resolution Date Notes Provider Name and Address Organization Details Recorded Time Bilateral hip joint pain Active [address], [place], [address], [facility] 03/09/2024 11:50:45 Problem Notes None recorded. [...] Updated DateTime 4 154.94 cm 25.5 kg/m2 84627.9 7 g 98.5 [degF] 98 % 98 % 54 /min 17 /min 113 mm[Hg] 69 mm[Hg] HANH DRAKE MA [facility] 11:12:43 Social History Question Answer Notes LastModified by Organizat ion Details LastModified Time Tobacco Smoking Status Current Every Day Smoker HANH DRAKE MA null, [facility] 03/09/2024 11:11:28 What Was The Date Of Your Most Recent Tobacco Screening? 03/09/2024 [email or web address] Information not available 03/09/2024 Has Tobacco Cessation Counseling Been Provided? Yes [email or web address] Information not available 03/09/2024 On What Date Was Tobacco Cessation Counseling Provided? 03/09/2024 [email or web address] Information not available 03/09/2024 Do You Or [...] Encounter Closed Date Diagnosis/Indication Diagnosis SNOMED-CT Code [id number] NITA RUSSO PA-C [address] [place] [address] 03/09/2024 10:55:10 03/09/2024 11:51:42 Bilateral hip joint pain [id number] 00 Health Concerns Section Related Observation LastModified by Organization Detai ls LastModified Time None Recorded Concern Status LastModified by Organization Details LastModified Time None Recorded Payers Encounter Date Sequence Insurance Name Policy Number Policy Zamudio Covered Member ID Zamudio Member ID Guarantor Name 03/09/2024 1 [facility] (MEDICAID) Michelle Fermin [id number] Michelle Fermin Notes Date Note Type Note [...] 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 No other joints are affected. [address], [place], [address], [email or web address]. 03/09/2024 15:17:05 OBGyn Episode No OBEpisode recorded.
--- OUTSIDE RECORDS SUMMARY | 2024-04-30 22:25 | XMS_ITS | Data Portability ---
Author Organization [facility], [facility] Address [address] [place] [address] Assessment No assessment recorded. Plan of Treatment Reminders Order Date Submit Date Provider Last Modified By Organization Details Last Modified Time Details Appointments None recorded. Lab None recorded. Referral orthopedic surgeon referral 2023 [facility], [address], [place], [address], 12:07:51 Procedures None recorded. Surgeries None recorded. Imaging XR, hip, bilateral 2023 [facility], [address], [place], [address], 13:02:44 Medication Orders None recorded. Patient TargetsNo targets recorded. Patient Instructions Encounter Date Encounter Id Patient Instructions Last Modified By Organization Details Last Modified Time 03/09/2024 [id number] 1. X-rays have been ordered and will [...] Name Description Value Unit Range Abnormal Flag Note LastModifiedBy Organization Detail LastModifiedTime 03/09/20 03/09/2024 XR, hip, bilat eral No observ ation record ed. [email or web address] Not Available 2023 12:45:38 03/09/2003/09/2024 XR, hip, bilat eral Kieran carlos Name: Nelda Fermin Unit #: [id number] Loc: DI Orderi ng Provid er: Nita Russo Accoun t #: [id number] Status : REG CLI Primar [...] error, please notify us immedi ately at and return the origin al report to us at the addres s above. Thank- you. [email or web address] [facility] [address], [place], [address], 03/12/2024 13:21:53 Result Notes Documentation Provider Name and Address Organization Details Recorded Time Xr, Hip, Bilateral : Patient Name: Michelle Fermin Unit #: [id number] Loc: DI Ordering Provider: Nita Russo 4 Status: [facility] Primary Care Provider: ,[facility] Date of Exam: 03/09/24 Sex: F Admission Date: 03/09/24 : 1985 Age: 38 Exam(s) XR HIP PELVIS ADULT BL EXAM: XR HIP PELVIS ADULT BL CLINICAL HISTORY: M25.552 Pain in left hip, M25.551 Pain in RT hip. TECHNIQUE: 2D digital imaging was performed. COMPARISON: No exams were available for comparison FINDINGS: 3 views No evidence of pelvic nor hip fractures. No hip joint space narrowing. Lateral views reveal no osteophytes nor joint space narrowing. Bone density normal. No osseous lesions. Sacroiliac joints appear unremarkable. IMPRESSION: No significant osseous findings in the pelvis and hips. DATA REPOSITORY: RADIATION DOSE DELIVERED: Ordered By: Nita Russo CC: - Dictated By: Luis Feliz M.D. 03/09/24 1255 03/09/24 1255 Transcribed By: Luis Feliz MD 03/09/24 1255 This is privileged, confidential information intended only for the provider named. Any use or distribution by any person other than this provider is strictly prohibited. If you receive this report in error, please notify us immediately at [phone] and return the original report to us at the address above. Thank-you. Tiara Carpenter RN null, [facility] 03/12/2024 13:21:53 Problems Name Problem SNOMED Code Status Onset Date Resolution Date Notes Provider Name and Address Organization Details Recorded Time Bilateral hip joint pain 60586004506839 100 Active [address], [place], [address] [place] [address] 11:50:45 Problem Notes None recorded. Procedures Surgical History None recorded. Imaging Results Imaging Date Name Status LastModified by Organiz ation Details LastModified Time 03/09/2024 XR, hip, bilateral completed [email or web address] Information not available 04/18/2024 12:45:38 03/09/2024 XR, hip, bilateral completed [email or web address] [facility] [address], [place], [address], 03/12/2024 13:21:53 Procedure Notes None recorded. Medical [...] Last Updated DateTime 154.94 cm 25.5 kg/m2 85184.9 7 g 98.5 [degF] 98 % 98 % 54 /min 17 /min 113 mm[Hg] 69 mm[Hg] HANH DRAKE MA [facility] 11:12:43 Social History Question Answer Notes LastModified by Organizat ion Details LastModified Time Tobacco Smoking Status Current Every Day Smoker DANIEL AVILEZ, [facility] 03/09/2024 11:11:28 What Was The Date Of Your Most Recent Tobacco Screening? 03/09/2024 [email or web address] Information not available 03/09/2024 Has Tobacco Cessation Counseling Been Provided? Yes Information not available 03/09/2024 On What Date Was Tobacco Cessation Counseling Provided? 03/09/2024 [email or web address] Information not available 03/09/2024 Do You Or [...] Encounter Closed Date Diagnosis/Indication Diagnosis SNOMED-CT Code [id number] NITA RUSSO PA-C [address] [address] 03/09/2024 10:55:10 03/09/2024 11:51:42 Bilateral hip joint pain [id number] 00 Health Concerns Section Related Observation LastModified by Organization Detai ls LastModified Time None Recorded Concern Status LastModified by Organization Details LastModified Time None Recorded Advance Directives Directive None Recorded Payers Encounter Date Sequence Insurance Name Policy Number Policy Zamudio Covered Member ID Zamudio Member ID Guarantor Name 03/09/2024 1 [facility] (MEDICAID) Michelle Fermin [id number] Michelle Fermin Notes Date Note Type Note [...] affected. NITA RUSSO PA-C [address], [place], [address], [facility]. 03/09/2024 15:17:05 OBGyn Episode No OBEpisode recorded.
--- NOTE | 2024-04-30 22:30 | RT.EKG_ITS ---
APPROVED REPORT Exam: Resting ECG Reason for Exam: withdrawal Patient Location: E HR:99 bpm ECG Measurements Heart Rate 99 AXIS CO 132 P 29 QRSd 81 QRS 35 QT 356 T 43 QTc 458 Conclusion Sinus rhythm...normal P axis, V-rate 60- 99 Consider left ventricular hypertrophy...(S V1+R V5/V6) >3.25mV I have reviewed and interpreted ECG and agree with software generated interpretation. There are no significant changes compared to prior EKG performed on 02/25/2024 at 14:27.
--- NOTE | 2024-04-30 23:07 | HPE_ITS ---
Date of service: 04/30/24 Time of Service: 23:07 Assessment and Plan Assessment and plan (1) Alcohol withdrawal: Status: Acute Assessment and plan: High risk alcohol withdrawal, will continue phenobarb regimen. Labs all pending, will update when in. EtOH: phenobarb, will hold on further Acamprosate as this was just started today, has received only one dose, will wait until detoxed to see where this may fit into overall management Anxiety: will continue usual Zoloft Tobacco: Nicotine TD 21 with prn gum 2mg History of Present Illness History of Present Illness Chief Complaint: alcohol withdrawal Narrative: 38 female with h/o alcohol abuse, reported h/o DTs upon withdrawal, last drink while en route to ER. Patient has expressed interest and commitment to Rehab, is on waiting list at [facility], but needs to detox prior to acceptance. Presents tonight for same. Patient has been ordered for Phenobarb load, labs all pending at this time. I was asked to evaluate for admission. Review of Systems Narrative: per HPI PFSH All Active Problems Alcohol withdrawal (Acute) Alcohol dependence (Acute) Anxiety about health (Acute) Insomnia (Acute) Elevated TSH (Acute) Preventative health care (Acute) Labral tear of right hip joint (Acute) POCUS injection: 04/27/2024 Hip pain, right (Chronic) Alcohol use disorder (Acute) Tobacco abuse (Chronic) Nodule of left lung (Acute) Medical History Alcohol dependence Anxiety disorder Depression Social History Smoking/Tobacco Use Status: Current every day Tobacco Type: cigarettes Smoking packs per day: 1 Smoking cigarettes per day: 20.0 Years smoked: 24 Smoking pack- years: 24.00 Smoking risk assessment performed?: Yes Alcohol Intake: current Alcohol Intake frequency: 3 or more drinks per day Alcohol type: hard liquor Drug use: Daily Substance use type: marijuana and crack/cocaine Details: smokes weed daily Housing: apartment Do you feel safe at home: Yes Do you feel safe in your relationship?: Yes Additional Social history: Lives in [place], male friend is her main support Meds Allergies and Home Medications Allergies Allergy/AdvReac Type Severity Reaction Status Date / Time nickel Allergy Rash Verified 04/30/24 22:11 bacitracin (From Neosporin AdvReac Intermediate Skin Rash Verified 04/30/24 22:11 ([id number])) neomycin (From Neosporin AdvReac Intermediate Skin Rash Verified 04/30/24 22:11 ([id number]-[id number])) polymyxin B (From Neosporin AdvReac Intermediate Skin Rash Verified 04/30/24 22:11 (jbl-[id number])) Home Medications ?Medication ?Instructions ?Recorded ?Confirmed ?Type sertraline 50 mg tablet 75 mg (1.5 x 50 mg) PO DAILY #45 03/16/24 04/30/24 Rx tabs acamprosate 333 mg tablet,delayed 666 mg PO BID 04/30/24 04/30/24 History release Exam Narrative Exam Narrative: 154/96, 100, 36.7, 20, 99% RA. HEENT atraumatic; neck supple; lungs clear; heart tachy/regular; abdomen soft and NT w/o HSM; extremities w/o edema; neuro Ox3, lucid, moves all 4s Results Labs 04/30/24 22:39 04/30/24 22:39 Last Vital Signs Temp 36.7 C 04/30/24 22:03 Pulse 100 H 04/30/24 22:03 Resp 20 04/30/24 22:03 BP 154/96 H 04/30/24 22:03 Pulse Ox 99 04/30/24 22:03 PAWSS Have you Been Recently Intoxicated or Drunk Within the Last 30 days?: Yes Have you Ever Experienced Previous Episodes of Alcohol Withdrawal?: Yes Have you ever Experienced Withdrawal Seizures?: No Have you ever Experienced Delirium Tremens(DT)s?: Yes Have you ever undergone Alcohol Rehabilitation Treatment (i.e, inpt ot outpatient treatment programs)?: Yes Have you ever Experienced Blackouts?: Yes Have you ever Combined Alcohol with other Downers within the last 90 days?: No Have you ever Combined Alcohol with any other Substance of Abuse during the last 90 days?: Yes Positive Blood Alcohol level on Presentation? [PCS.BAL]: Yes Evidence of Increased Autonomic Activity (i.e. HR>120, tremor, sweating, agitation, nausea)?: Yes Result: 9 Time Spent Time spent with Patient: <40 minutes Time was spent: preparing to see the patient(eg.review tests), obtaining and/or reviewing separately otained hiistory, ordering medications,tests, procedures, referring, communicating with other health inspector health care facilities and indepentently interpreting results
[2024-04-30 23:59] LABS: Abs Immature Grans 0.01 10^3/uL (0.0-0.06); Absolute Basophil Count 0.04 10^3/uL (0.0-0.2); Absolute Eosinophil Count 0.01 10^3/uL (0.0-0.7); Absolute Lymphocyte Count 3.42 10^3/uL (1.2-3.4); Absolute Monocyte Count 0.62 10^3/uL (0.1-0.8); Absolute Neutrophil Count 2.29 10^3/uL (1.2-6.7); Basophils % 0.6 %; Eosinophils % 0.2 %; HCT 36.2 % (36.0-46.0); HGB 12.9 g/dL (11.2-15.7); Immature Grans % 0.2 %; Lymphocytes % 53.5 %; MCH 33.6 pg (27.0-33.0); MCHC 35.6 % (32.0-36.0); MCV 94 fL (80-95); MPV 8.7 fL (8.0-11.0); Monocytes % 9.7 %; Neutrophils % 35.8 %; Platelet Count 215 10^3/uL (130-400); RBC 3.84 10^6/uL (3.93-5.22); RDW 12.4 % (11.7-14.6); WBC 6.39 10^3/uL (4.4-10.8)
[2024-05-01] VITALS (7 sets, daily range): BP systolic 105–142; BP diastolic 60–90; PULSE 59–90; RESP 16–20; TEMP 36–37.2; O2SAT 91–99
[2024-05-01 00:07] LABS: ALT 21 U/L (14-59); AST 34 U/L (15-37); Alkaline Phosphatase 79 U/L (46-116); Anion Gap 12.2 mmol/L (3-11); BUN 2 mg/dL (7-18); Bilirubin, Total 0.18 mg/dL (0.2-1.0); CO2 24.8 mmol/L (21.0-32.0); CREATININE 0.6 mg/dL (0.55-1.02); Calcium 8.8 mg/dL (8.5-10.1); Chloride 100 mmol/L (98-107); Glucose 101 mg/dL (74-106); INR 1.1 (0.9-1.1); Lipase 49 U/L (16-77); Magnesium 1.8 mg/dL (1.8-2.4); Potassium 3.5 mmol/L (3.5-5.1); Prothrombin Time 10.9 sec (9.1-11.1); Sodium 137 mmol/L (136-145); Total Protein 7.4 g/dL (6.4-8.2)
[2024-05-01 00:08] LABS: ETHANOL BLOOD 413.3 mg/dL (<10)
[2024-05-01 00:12] LABS: HCG Qual (Serum) Negative
[2024-05-01 00:16] LABS: *AMPHETAMINES SCREEN URINE Negative (Negative); *BARBITURATES SCREEN URINE Positive (Negative); *BENZODIAZEPINES SCREEN URINE Negative (Negative); Cannabinoids THC Positive (Negative); Cocaine Screen,Urine Negative (Negative); METHADONE URINE SCREEN Negative (Negative); OPIATES URINE SCREEN Negative (Negative)
[2024-05-01 00:19] LABS: Tricyclic Antidepressants Negative (Negative)
--- NOTE | 2024-05-01 00:40 | W.PC.ACHO ---
Registration Status: Primary Language: Preferred Language: ED Information & Data Chief Complaint ETOHWithdr 04/30/24 22:14 Triage Note pt states that she is going 04/30/24 22:03 through etoh withdrawl. Last drink was 10 min ago. Medical / Surgical History (Last Reviewed 04/30/24 @ 23:11 by Wayne Mack MD) Alcohol dependence Anxiety disorder Depression Most Recent Vital Signs Temperature 36.7 C 04/30/24 22:03 Temperature Source Skin 04/30/24 22:03 Pulse 100 H 04/30/24 22:03 Respiratory Rate 20 04/30/24 22:03 Respiratory Effort Normal 04/30/24 22:06 Respiratory Pattern Normal 04/30/24 22:07 Blood Pressure 154/96 H 04/30/24 22:03 Blood Pressure Position Sitting 04/30/24 22:03 Pulse Oximetry 99 04/30/24 22:03 Allergies nickel Allergy (Verified 04/30/24 22:11) Rash bacitracin (From Neosporin (yei-ktn-[id number])) Adverse Reaction (Intermediate, Verified 04/30/24 22:11) Skin Rash neomycin (From Neosporin (gcy-lym-yuswm)) Adverse Reaction (Intermediate, Verified 04/30/24 22:11) Skin Rash polymyxin B (From Neosporin (shn-ztd-sgxxu)) Adverse Reaction (Intermediate, Verified 04/30/24 22:11) Skin Rash Precautions Isolation Standard precaution 04/30/24 22:06 IV IV Catheter Type [Right Wrist] Saline Lock IV Catheter Gauge [Right Wrist 20 ] Diet Orders Category Date Time Status Regular/Normal [DIET] Nutrition 05/01/24 Breakfast Active Diagnostics 04/30/24 04/30/24 04/30/24 Range/Units 23:43 23:16 22:50 WBC 6.39 Cancelled RBC 3.84 L Cancelled Hgb 12.9 Cancelled Hct 36.2 Cancelled MCV 94 Cancelled MCH 33.6 H Cancelled MCHC 35.6 Cancelled RDW 12.4 Cancelled Plt Count 215 Cancelled MPV 8.7 Cancelled Immature Gran % 0.2 Cancelled Neutrophils % 35.8 Cancelled Band Neutrophils % Cancelled Lymphocytes % 53.5 Cancelled Atypical Lymphs % Cancelled Monocytes % 9.7 Cancelled Eosinophils % 0.2 Cancelled Basophils % 0.6 Cancelled Metamyelocytes % Cancelled Myelocytes % Cancelled Promyelocytes % Cancelled Other Cells % Cancelled Nucleated RBC % 0.0 Cancelled Absolute Neutrophils 2.29 Cancelled Absolute Lymphocytes 3.42 H Cancelled Absolute Monocytes 0.62 Cancelled Absolute Eosinophils 0.01 Cancelled Absolute Basophils 0.04 Cancelled RBC Morphology Cancelled Polychromasia Cancelled Hypochromasia Cancelled Poikilocytosis Cancelled Basophilic Stippling Cancelled Anisocytosis Cancelled Microcytosis Cancelled Macrocytosis Cancelled Spherocytes Cancelled Tear Drop Cells Cancelled Ovalocytes Cancelled Stomatocytes Cancelled [place] Bodies Cancelled Sepideh Cells/Echinocytes Cancelled Acanthocytes (Spur) Cancelled Schistocytes Cancelled PT 10.9 Cancelled INR 1.1 Cancelled Sodium 137 Cancelled Potassium 3.5 Cancelled Chloride 100 Cancelled Carbon Dioxide 24.8 Cancelled Anion Gap 12.2 H Cancelled BUN 2 L Cancelled Creatinine 0.6 Cancelled Est GFR (CKD-EPI 2020) 116.30 Cancelled Glucose 101 Cancelled Calcium 8.8 Cancelled Magnesium 1.8 Cancelled Total Bilirubin 0.18 L Cancelled AST 34 Cancelled ALT 21 Cancelled Alkaline Phosphatase 79 Cancelled Total Protein 7.4 Cancelled Albumin 4.0 Cancelled Lipase 49 Cancelled Serum HCG, Qual Negative Cancelled Urine Opiates Screen Negative (Negative) Urine Methadone Screen Negative (Negative) Ur Barbiturates Screen Positive A (Negative) Ur Tricyclics Screen Negative (Negative) Ur Amphetamines Screen Negative (Negative) U Benzodiazepines Scrn Negative (Negative) Urine Cocaine Screen Negative (Negative) Ur THC Screen Positive A (Negative) Ethyl Alcohol 413.3 H Cancelled Intake and Output - 24 Hour Total 04/30/24 22:01 thru 05/01/24 00:17 Intake Total 51.8462 Balance 51.8462 Weight 61.235 kg Intake: IV 51.8462 Falls Risk Assessment History of Falls No History 04/30/24 22:11 Contributing Factors No Factors 04/30/24 22:11 Ambulatory Aids Independent 04/30/24 22:11 Tubes/Lines None 04/30/24 22:11 Gait Evaluation No gait disturbance 04/30/24 22:11 Cognition No cognitive impairment 04/30/24 22:11 Fall Total Score 0 04/30/24 22:11 Level of Risk Standard/Low Risk 04/30/24 22:11 Problems (Last Reviewed 04/30/24 @ 23:11 by Wayne Mack MD) Alcohol withdrawal (Acute) v v v v v v v v v Sending and/or Receiving Nurses: Please use comment section below to note any information pertinent to the patient hand-off not included above. Information / Comments: Pt had first dose of phenobarbitol in ED. Pt is pleasant, A&O x3, and ambulatory at this time. Report received from: Brittany Juárez RN
[2024-05-01] MEDS: PHENobarbital 180 MG in Normal Saline 50 ML 100 MG IVPB ×2 (02:43→05:43)
[2024-05-01] MEDS: Normal Saline Flush 10 ML SYR IVP ×3 (02:45→15:08)
[2024-05-01] MEDS: Acetaminophen 325 MG TAB 650 MG PO ×2 (08:53→17:06)
[2024-05-01] MEDS: Sertraline 50 MG TAB 75 MG PO (08:53)
--- NOTE | 2024-05-01 09:04 | INITIAL_ITS ---
Date of service: 05/01/24 Time of Service: 09:04 Care Management Initial Assmt Initial Assessment Reason for Hospitalization: Alcohol Withdrawal Functional Status/Living Situation Patient Presentation: Michelle requested to meet with CM this morning to discuss ETOH treatment options. Per pt, she had been considering going to the [facility] and wanted to talk about that and what outpatient treatment options may be available to her? Michelle shares that she recently went to [facility] and left prematurely. CM requested a consult from [facility], with patients permission. Town of Residence: [facility] Resides with: Other (boyfriend) Significant Other/Family: [facility] Employment Status: Unemployed (Currently unemployed) Instrumental Activities of Daily Living (ADLs): Independent Activities/Hobbies/SocialSupport: Painting, keeps her mind off ETOH. Medications Medication Management: No Issues/Barriers identified Physical Functioning/Mobility Assistive Device: None Advance Directives Advance Directives: Do you have an Advance Directive: N 02/25/24 13:59 AD On File at [facility]: N 02/25/24 13:59 Date Asked 04/23/24 04/23/24 15:10 AD Date Reviewed COLST On File at [facility] No 02/25/24 16:19 COLST Date Scanned Code Status Resuscitation Status Full Code Portal Pt does not currently have a portal and education provided: Yes Insurance Coverage/Financial Issues Insurance: Medicaid Financial Issues: Currently unemployed, [facility] referral placed last visit. Care Team Visit Care Team Role Provider Type Juana Anthony APRN Primary Care Provider NURSE PRACTITIONER Cedric Dumont MD Emergency Provider [facility] STAFF PHYSICIAN Wayne Mack MD Admit Provider [facility] STAFF PHYSICIAN Attending Provider Discharge Potential Discharge Needs: PCP F/U Appt and Other (Follow up with [facility] ) Anticipated Barriers to Discharge: None Identified Patient/Family Education Needs: Review discharge instructions, discuss Ask Me Three Transportation: Private vehicle Plan: Michelle is being monitored on CIWA per protocol. She met with a School Athletic Director today and is planning on restarting her Antiabuse (has RX). She was connected with [facility] last Tuesday and is planning on following up with them, when she is ready to discharge. She feels inpatient treatment is not in her best interest at this time. Transportation will be via private vehicle with a friend. CM will follow and support discharge considerations. PFSH All Active Problems (Updated 05/01/24 @ 10:33 by Judy Heredia APRN) Chronic pain (Chronic) Discharge planning issues (Acute) On deep vein thrombosis (DVT) prophylaxis (Acute) Alcohol withdrawal (Acute) Alcohol dependence (Acute) Anxiety about health (Acute) Insomnia (Acute) Elevated TSH (Acute) Preventative health care (Acute) Labral tear of right hip joint (Acute) POCUS injection: 04/27/2024 Hip pain, right (Chronic) Alcohol use disorder (Acute) Tobacco abuse (Chronic) Nodule of left lung (Acute) Medical History Alcohol dependence Anxiety disorder Depression Social History Smoking/Tobacco Use Status: Current every day Tobacco Type: cigarettes Smoking packs per day: 1 Smoking cigarettes per day: 20.0 Years smoked: 24 Smoking pack- years: 24.00 Smoking risk assessment performed?: Yes Alcohol Intake: current Alcohol Intake frequency: 3 or more drinks per day Alcohol type: hard liquor Drug use: Daily Substance use type: marijuana and crack/cocaine Details: smokes weed daily Housing: house Do you feel safe at home: Yes Do you feel safe in your relationship?: Yes Additional Social history: Lives in [place], male friend is her main support Readmission Within the Past 30 Days Yes or No: Yes Date of First Admission Date of 1st Admission: 04/19/24 Date of this Admission Date of Admission: 04/30/24 This admission was: Through ED Office Visit Since 1st Admission Have you seen your PCP in the office since discharge?: Yes Date of PCP Appointment: 04/26/24 Had an appointment Been Scheduled?: Yes Speicalist Appointments Have you seen any other specialist since your 1st Admission?: Yes Date you saw the Specialist: 04/27/24 Specialist Seen: Trent Dickinson If the patient had a VNA ordered Did the patient have a VNA order?: No ED visits How many ED visits in the past 12 months: 7 Assessment for Readmission Summary of readmission circumstances, based upon interviews: 6 ER visits in April for ETOH abuse. SDOH(Care Management) Screening Will the Patient Participate in the Screening?: Yes Do you worry about having a steady place to live?: no Problems where you live: no known problems In the past 12 months, have you had to go without electric, gas, oil or water in your home?: no Have you or anyone in your house had to go without enough food to eat?: no Has lack of transportation kept you from medical appointments or from doing things needed for daily living?: no Has anyone in your support network made you feel unsafe for any reason?: no
[2024-05-01] MEDS: Nicotine 2 MG GUM CH (09:54)
[2024-05-01] MEDS: PHENobarbital 130 MG/ML VIAL IVP (10:16)
--- NOTE | 2024-05-01 10:26 | W.PM.PROGNOT ---
Date of Service Date of service: 05/01/24 Time of Service: 14:30 Assessment and Plan Assessment and plan (1) Alcohol withdrawal: Status: Acute Assessment and plan: High risk alcohol withdrawal, will continue phenobarb regimen. Labs all pending, will update when in. EtOH: phenobarb, will hold on further Acamprosate as this was just started today, has received only one dose, will wait until detoxed to see where this may fit into overall management 2 previous admission this summer for ETOH withdrawal . She has been drinking since the age of 10 and admits to it being a coping mechanism. She has been drinking all weekend. She has been drinking to try to maintain herself from going into detox. See d/c planning point (2) Alcohol dependence: Status: Acute Assessment and plan: as above ETOH level at 413 on arrival (3) Anxiety about health: Status: Acute Assessment and plan: Continue home dose Zoloft (4) Tobacco abuse: Status: Chronic Assessment and plan: NRT: continue Nicotine TD 21 with prn gum 2mg (5) On deep vein thrombosis (DVT) prophylaxis: Status: Acute Assessment and plan: TEDs (6) Discharge planning issues: Status: Acute Assessment and plan: Discharge when medically stable CM to f/u with: -[facility] for inpatient rehab; working with Kamila who she met with yesterday (7) Chronic pain: Status: Chronic Assessment and plan: She did undergo cortisone injection into the hip on Tuesday. mentioned lack of effectiveness Scheduled Tylenol PRN Ketorolac discussed with Dr. Hogue Subjective Subjective Patient reports: no new complaints, tolerating liquids well, tolerating a regular diet, voiding w/o difficulty, bowel movement, afebrile and other (c/o tremors but none seen when purposefully moving; c/o pain to hips ); denies diarrhea, nausea, vomiting or shortness of breath Exam Narrative Exam Narrative: Constitutional The patient in in bed without acute distress HENMT: Facial structures with normal appearance Eyes: Well aligned Neuro:alert and oriented X3 , non focal Resp: Clear lung bilaterally Cardio: regular rhythm, S1, S2, no murmur, positive pedal and radial pulses GI: Abdomen is not distended, soft and non tender, bowel sounds are present Back/spine/Pelvis: normal alignment Integumentary: No skin lesions or rash on exposed skin Extremities: strength 5/5 to bilateral lower and upper extremities Psych: RASS 0, congruent mood and normal affect. Objective Last Vital Signs Temp 36.6 C 05/01/24 07:38 Pulse 87 05/01/24 07:38 Resp 18 05/01/24 07:38 BP 106/68 05/01/24 07:38 Pulse Ox 91 L 05/01/24 07:38 Laboratory Results - last 24 hr 04/30/24 04/30/24 04/30/24 22:50 23:16 23:43 WBC Cancelled 6.39 RBC Cancelled 3.84 L Hgb Cancelled 12.9 Hct Cancelled 36.2 MCV Cancelled 94 MCH Cancelled 33.6 H MCHC Cancelled 35.6 RDW Cancelled 12.4 Plt Count Cancelled 215 MPV Cancelled 8.7 Immature Gran % Cancelled 0.2 Neutrophils % Cancelled 35.8 Band Neutrophils % Cancelled Lymphocytes % Cancelled 53.5 Atypical Lymphs % Cancelled Monocytes % Cancelled 9.7 Eosinophils % Cancelled 0.2 Basophils % Cancelled 0.6 Metamyelocytes % Cancelled Myelocytes % Cancelled Promyelocytes % Cancelled Other Cells % Cancelled Nucleated RBC % Cancelled 0.0 Absolute Neutrophils Cancelled 2.29 Absolute Lymphocytes Cancelled 3.42 H Absolute Monocytes Cancelled 0.62 Absolute Eosinophils Cancelled 0.01 Absolute Basophils Cancelled 0.04 RBC Morphology Cancelled Polychromasia Cancelled Hypochromasia Cancelled Poikilocytosis Cancelled Basophilic Stippling Cancelled Anisocytosis Cancelled Microcytosis Cancelled Macrocytosis Cancelled Spherocytes Cancelled Tear Drop Cells Cancelled Ovalocytes Cancelled Stomatocytes Cancelled Graves-Gassaway Bodies Cancelled Sepideh Cells/Echinocytes Cancelled Acanthocytes (Spur) Cancelled Schistocytes Cancelled PT Cancelled 10.9 INR Cancelled 1.1 Sodium Cancelled 137 Potassium Cancelled 3.5 Chloride Cancelled 100 Carbon Dioxide Cancelled 24.8 Anion Gap Cancelled 12.2 H BUN Cancelled 2 L Creatinine Cancelled 0.6 Est GFR (CKD-EPI 2020) Cancelled 116.30 Glucose Cancelled 101 Calcium Cancelled 8.8 Magnesium Cancelled 1.8 Total Bilirubin Cancelled 0.18 L AST Cancelled 34 ALT Cancelled 21 Alkaline Phosphatase Cancelled 79 Total Protein Cancelled 7.4 Albumin Cancelled 4.0 Lipase Cancelled 49 Serum HCG, Qual Cancelled Negative Urine Opiates Screen Negative Urine Methadone Screen Negative Ur Barbiturates Screen Positive A Ur Tricyclics Screen Negative Ur Amphetamines Screen Negative U Benzodiazepines Scrn Negative Urine Cocaine Screen Negative Ur THC Screen Positive A Ethyl Alcohol Cancelled 413.3 H PAWSS Have you Been Recently Intoxicated or Drunk Within the Last 30 days?: Yes Have you Ever Experienced Previous Episodes of Alcohol Withdrawal?: Yes Have you ever Experienced Withdrawal Seizures?: No Have you ever Experienced Delirium Tremens(DT)s?: Yes Have you ever undergone Alcohol Rehabilitation Treatment (i.e, inpt ot outpatient treatment programs)?: Yes Have you ever Experienced Blackouts?: Yes Have you ever Combined Alcohol with other Downers within the last 90 days?: No Have you ever Combined Alcohol with any other Substance of Abuse during the last 90 days?: Yes Positive Blood Alcohol level on Presentation? [PCS.BAL]: Yes Evidence of Increased Autonomic Activity (i.e. HR>120, tremor, sweating, agitation, nausea)?: Yes Result: 9 Time Spent with Patient Time Spent with Patient: >50 minutes Time was spent: preparing to see the patient(eg.review tests), obtaining and/or reviewing separately otained hiistory, ordering medications,tests, procedures, referring, communicating with other health customer care coordinator, indepentently interpreting results, counseling the patient and care coordination
[2024-05-01] MEDS: Ketorolac 15 MG/ML VIAL IVP (15:08)
[2024-05-01] MEDS: LORazepam 1 MG TAB PO (17:07)
[2024-05-02] MEDS: Normal Saline Flush 10 ML SYR IVP ×2 (00:45→10:17)
[2024-05-02] MEDS: Ketorolac 15 MG/ML VIAL IVP (05:35)
[2024-05-02] MEDS: Acetaminophen 325 MG TAB 650 MG PO ×2 (05:35→10:09)
[2024-05-02 07:45] VITALS: BP 106/74; PULSE 55; RESP 18; TEMP 36.5; O2SAT 99
--- NOTE | 2024-05-02 08:59 | PDOC.CMDIS ---
Date of service: 05/02/24 Time of Service: 08:59 LACE Index Scoring Tool Questions: Length of Stay (in days): 2 Was the patient admitted via the E.D.?: Yes E.D. Visits: 7 Answers: Total Score: 9 Risk of Readmission: Low Risk Care Management Discharge Plan Reason for Hospitalization: ETOH withdrawal Discharge Plan: Michelle will discharge home via private vehicle with a friend. Pt agrees to follow up with her PCP, [facility] [address] and community supports. Declines inpatient treatment for ETOH at this time. Patient/Family Education Needs: Review discharge instructions, limitations, medications and plan to follow up with community providers and supports. Discuss ask me three and goals of self care. SDOH Health Related Social Needs: No Data to Display
--- NOTE | 2024-05-02 09:06 | W.PM.DS.N ---
Date of service: 05/02/24 Time of Service: 09:11 DS: Diagnosis Discharge Diagnosis (1) Alcohol withdrawal: Status: Acute (2) Alcohol dependence: Status: Acute (3) Anxiety about health: Status: Acute (4) Tobacco abuse: Status: Chronic (5) On deep vein thrombosis (DVT) prophylaxis: Status: Acute (6) Discharge planning issues: Status: Acute (7) Chronic pain: Status: Chronic Discharge Plan Disposition Patient Disposition: Home Condition: Improving Discharge Details Reason For Visit: alcohol withdrawal Admit Date/Time: 04/30/24 23:17 Admit Provider: Wayne Mack Attending Provider: Wayne Mack Primary Care Provider: Juana Anthony Hospital Course Hospital Course: This 38-year-old female patient with a history of alcohol abuse reported history of delirium treatments upon alcohol withdrawal, last drink reportedly taken while en route to the ED presented to the ED at [facility] on 04/30/2024 with concern for alcohol withdrawal. The patient expressed interest in commitment to rehab and is on a waiting list at [facility] but needs to be detoxed prior to acceptance. Previous presentation in early February was similar. In the ED, the patient reported 2 recent admissions for alcohol detox during the summer with the last 1 not helping. The patient was able to remain sober for 1 month after her first admission. The patient as an outpatient plan in regards to rehab after detox with plans to go to [facility] for inpatient rehab. Patient reported chronic right hip pain with cortisol injection on 04/27/2024, chronic anxiety and starting drinking around the age of 10 as a coping mechanism. The patient reported drinking the whole weekend prior to presentation to prevent withdrawal. The patient reported nausea, sweats, shakes, anxiety despite recent drink en route to the ED. Workup in the ED showed an alcohol level over 400, chemistry, liver function and CBC were unremarkable. EKG showed sinus rhythm without acute findings. The hospitalist admitted the patient to the medical surgical floor for evaluation and management of medical detox from alcohol, alcohol withdrawal pending discharge to outpatient rehab. During the stay the patient received phenobarbital as per protocol. Her home medicine regimen for anxiety was continued. The patient was treated with scheduled Tylenol and ketorolac as needed for hip pain. The patient received Nicorette gum as nicotine replacement therapy. This morning the patient verbalized that she no longer wanted to pursue inpatient treatment here at the hospital for alcohol withdrawal and would seek community help. The patient requested to have clonidine for anxiety as it was ordered for her on discharge during her February's admission. The patient will be discharged home on a short course of clonidine with follow-up with her primary care practitioner regarding continuation. The patient mentioned that her sertraline had no further refill, but upon checking with the pharmacy 1 refill was still available. The patient will need to follow-up with orthopedics regarding her hip pain; as mentioned in the orthopedics note they would call and follow-up with patient nevertheless the referral was made. Discussed with Dr. baires Home Meds and New Rx's Prescriptions: New clonidine HCl 0.1 mg tablet 0.1 mg PO TID PRNQty: 30 0RF Rx Instructions: For anxiety Continued acamprosate 333 mg tablet,delayed release (DR/EC) 666 mg PO BID Rx Instructions: administer with mid-day and evening meals sertraline 50 mg tablet 75 mg PO DAILY Qty: 45 1RF Discharge Instructions Instructions: Alcohol withdrawal Stand Alone Forms: Nursing Discharge Form Referrals: ORTHOPAEDICS,[facility] [OTHER] - (Chronic hip pain, injection of cortisol on 04/26 but c/o of ineffectiveness. Ortho notes mentioned that office will f/u with patient) Juana Anthony APRN [Primary Care Provider] - 05/11/24 8:45 am () Activity:: Activity as Tolerated Equipment/Supplies:: No Equipment Needed Diet:: heart healthy- no alcohol DS: Summary Time Spent with Patient providing and/or coordinating discharge services: Greater than 30 minutes Status at Discharge Functional status at discharge: independent ambulation Overall status at discharge: patient is back to baseline Mental Status: mental status grossly normal Speech and Movement: speech and movement normal Mood: congruent mood Affect: normal affect Quality:SDOH Health Related Social Needs: No Data to Display Exam Narrative Exam Narrative: Constitutional The patient in in bed without acute distress, no tremors, c/o of anxiety HENMT: Facial structures with normal appearance Neuro:alert and oriented X3 , non focal Resp: Clear lung bilaterally Cardio: regular rhythm, S1, S2, no murmur, positive pedal and radial pulses GI: Abdomen is not distended, soft and non tender, bowel sounds are present Integumentary: No skin lesions or rash on exposed skin Extremities:equal push/pull bilateral lower and upper extremities Psych: RASS 0, anxiuos mood and normal to anxious affect. Psych Mental Status: mental status grossly normal Speech and Movement: speech and movement normal Mood: congruent mood Affect: normal affect DS: Data Vitals/I&O Vitals and I&O: Vital Signs Temperature 36.5 C 05/02/24 07:45 Temperature Source Temporal Artery Scan 05/02/24 07:45 Pulse 55 L 05/02/24 07:45 Pulse Rhythm Regular 05/02/24 01:50 Respiratory Rate 18 05/02/24 07:45 Respiratory Effort Normal, Non-Labored 05/02/24 01:50 Respiratory Depth Normal 05/02/24 01:50 Respiratory Pattern Normal 05/02/24 01:50 Blood Pressure 106/74 05/02/24 07:45 Blood Pressure Position Sitting 04/30/24 22:03 Pulse Oximetry 99 05/02/24 07:45 Oxygen Delivery Method Room Air 05/02/24 07:45 Oxygen Flow Rate 0 05/02/24 07:45 Pain Level 9 05/02/24 07:45 Intake & Output 05/01/24 05/01/24 05/02/24 11:59 23:59 11:59 Intake Total 374.6154 / 374.6154 Balance 374.6154 / 374.6154 Weight 61.235 kg Intake: IV 154.6154 / 154.6154 Oral 220 / 220 Other: Urine Color Yellow Urine Appearance Clear Clear Clear Comment voids independently Stool Size Small Stool Characteristics Soft Voiding Methods Toilet PFSH All Active Problems (Updated 05/01/24 @ 10:33 by Judy Heredia APRN) Chronic pain (Chronic) Discharge planning issues (Acute) On deep vein thrombosis (DVT) prophylaxis (Acute) Alcohol withdrawal (Acute) Alcohol dependence (Acute) Anxiety about health (Acute) Insomnia (Acute) Elevated TSH (Acute) Preventative health care (Acute) Labral tear of right hip joint (Acute) POCUS injection: 04/27/2024 Hip pain, right (Chronic) Alcohol use disorder (Acute) Tobacco abuse (Chronic) Nodule of left lung (Acute) Medical History Alcohol dependence Anxiety disorder Depression Social History Smoking/Tobacco Use Status: Current every day Tobacco Type: cigarettes Smoking packs per day: 1 Smoking cigarettes per day: 20.0 Years smoked: 24 Smoking pack-years: 24.00 Smoking risk assessment performed?: Yes Alcohol Intake: current Alcohol Intake frequency: 3 or more drinks per day Alcohol type: hard liquor Drug use: Daily Substance use type: marijuana and crack/cocaine Details: smokes weed daily Housing: house Do you feel safe at home: Yes Do you feel safe in your relationship?: Yes Additional Social history: Lives in [place], male friend is her main support Time Spent with Patient Time Spent with Patient: >85 minutes Time was spent: preparing to see the patient(eg.review tests), obtaining and/or reviewing separately otained hiistory, ordering medications,tests, procedures, referring, communicating with other health patient care nursing assistant, indepentently interpreting results, counseling the patient and care coordination
--- NOTE | 2024-05-02 09:57 | IN_ITS ---
PT Notes Visit Reasons: alcohol withdrawal Physical Therapy Inpatient Initial Evaluation Date: 05/02/2024 Referring Doctor: Judy Heredia NP PT Orders: PT CONSULT: Safety Consult for D/C Precautions: Fall. Standard. Activity as tolerated. Patient Profile/Admitting Diagnosis: Michelle is a 38-year-old female admitted for management of EtOH withdrawal, EtOH dependence, anxiety about health, tobacco abuse, and chronic pain.. 04/10/2024 Lower extremity MRI: There is mild increased signal within the quadratus femoris muscle between the lesser trochanter of the hip and ischial tuberosity which may indicate an element of mild impingement syndrome at this level there is also some increased intraosseous signal in the ipsilateral right ischial tuberosity itself and very mild increased signal within the common hamstrings attachment. PMHX: All Active Problems Alcohol withdrawal (Acute) Alcohol dependence (Acute) Anxiety about health (Acute) Insomnia (Acute) Elevated TSH (Acute) Preventative health care (Acute) Labral tear of right hip joint (Acute) POCUS injection: 04/27/2024Hip pain, right (Chronic) Alcohol use disorder (Acute) Tobacco abuse (Chronic) Nodule of left lung (Acute) Medical History X okay they said that they send is all from his do that was I do not know what to how to respond as it is not Alcohol dependence Anxiety disorder Depression Social History/Home Situation: Lives with SO in a private residence with 2 steps to enter. Has a flight of steps to the bedroom and shower. Equipment Owned/DME: None Subjective: Had cortisone shot through R hip a month ago but has not helped. Feeling pain in L hip and back too because of overcompensation. Has not called orthopod yet about this. Trying to stop drinking. Still smokes. Objective: General Observation: resting in bed Mental Status: Alert and oriented as to person, place, time, and purpose. Able to pay attention, focus, and respond appropriately. Pain: 4-5/10 with ambulation Vital Signs: Closely monitored via tele ROM: Right Lower Extremity: Hip flexion WFL. Hip abduction WFL. Knee flexion WFL. Ankle dorsiflexion WFL. Ankle plantarflexion WFL. Left Lower Extremity: Hip flexion WFL. Hip abduction WFL. Knee flexion WFL. Ankle dorsiflexion WFL. Ankle plantarflexion WFL. Strength: Right Lower Extremity: Hip flexors 4+/5. Hip abductors 4+/5. Knee flexors 5/5. Knee extensors 4+/5. Ankle dorsiflexors 5/5. Ankle plantarflexors 5/5. Left Lower Extremity: Hip flexors 4+/5. Hip abductors 4+/5. Knee flexors 5/5. Knee extensors 4+/5. Ankle dorsiflexors 5/5. Ankle plantarflexors 5/5. Bed Mobility/Transfers: Rolling independent Supine to sit independent Sit to supine independent Sit to stand independent Stand to sit independent Bed to reclining chair independent Reclining chair to bed independent Gait: 500 feet without assistive device independent. Reported moderate pain in B hips and low back fpc through the walk. No gait impairments. No LOB. No SOB. Balance: Static Sitting: Normal Dynamic Sitting: Normal Static Standing: Good Dynamic Standing: Good Special Tests: Mobility Limitations Standardized Measure [facility] AM-PAC 6 clicks Basic Mobility Inpatient Short Form: Raw Score: 24 CMS Score: 0% deficit Informed Consent/Education: Patient was instructed in purpose of PT consult and plan of care. Agreeable to proceed with established PT POC to achieve personal goals. Assessment: Able to walk independently without an assistive device with report of moderate pain in B hips (R<<L) and low back with appropriate footwear. Received cortisone shot to R hip but patient has not felt good relief since. Advised patient to loop back with orthopedic surgeon to explore ore options and a potential OP PT referral for strengthening once pain is managed. Patient is assessed as a 56799 low complexity based on the following: History: 38-year-old female with past medical history as indicated above Examination: Demonstrable impairment in strength, balance, and mobility level with underlying impairments and functional limitations as exhibited above Presentation: Stable Decision Makin low complexity Goals: 1. Patient to report minimal pain in B hips and low back while performing ambulation activities without an assistive device to allow for safe ADL performance. Plan of Care/Treatment Plan: Patient will be trained and instructed on HEP for one to 2 more sessions and then discharge from services. Advised patient to loop back with orthopedic surgeon regarding persistent pain despite cortisone shot about a month ago. DISCHARGE RECOMMENDATIONS: [] Home with no services [] [] Home with services [specify] [] Home with outpatient PT [] [] SNF for continued rehabilitation [] [] Skilled Nursing Care [] [] SNF versus LTC based on ability to participate and progress [] [X] I would recommend OP PT but it will be ngo to have the orthopod re-examine her and decide on PT referral TREATMENT CODE/TIME: 67094 x 15 minutes for 1 unit (9:57-10:11). Thank you for the opportunity to participate in the care of this patient. Anna Villegas PT, DPT, CLT [facility] [place], [place]
[2024-05-02] MEDS: Sertraline 50 MG TAB 75 MG PO (10:10)
[2024-05-02 14:19] LABS: Anion Gap 8.3 mmol/L (3-11); BUN 10 mg/dL (7-18); CO2 25.7 mmol/L (21.0-32.0); CREATININE 0.7 mg/dL (0.55-1.02); Calcium 8.8 mg/dL (8.5-10.1); Chloride 98 mmol/L (98-107); Estimated GFR 112.05 (mL/min/1.73m2); Glucose 140 mg/dL (74-106); Potassium 3.7 mmol/L (3.5-5.1); Sodium 132 mmol/L (136-145)
== END 2024-05-02 14:13 | disposition home or self-care (01) | DRG 897 ==
LOC: ER 05-01 00:25 → MS 05-01 00:46
PROVIDERS: Nurse Practitioner Acute Care; Admitting Provider General Practice; Emergency Provider Emergency Medicine; PCP Nurse Practitioner Family; Visit Provider General Practice
DX: F10.239 Alcohol dependence with withdrawal, unspecified (principal); F17.210 Nicotine dependence, cigarettes, uncomplicated; G89.29 Other chronic pain; Y90.8 Blood alcohol level of 240 mg/100 ml or more; G47.00 Insomnia, unspecified; R91.1 Solitary pulmonary nodule; F32.A Depression, unspecified; F41.8 Other specified anxiety disorders; M25.551 Pain in right hip; F12.90 Cannabis use, unspecified, uncomplicated; F14.90 Cocaine use, unspecified, uncomplicated
CPT/HCPCS: 00123; 80048; 80053; 80307; 83690; 93005; 96365; 97161; 99291; 80320; 83735; 84703; 85025; 85610; 93010; 99222; 99233; 99239; J1885; J2560

== ENCOUNTER 2024-05-08 10:21 | Outpatient (REF) | payer MEDICAID, SELFPAY ==
--- NOTE | 2024-05-08 10:15 | PAPFT_PTH ---
PATIENT: Michelle Fermin LOC: [facility] U#:[id number] AGE/SX: 38/F ROOM: RE05/08/[address]: Blanca Hendricks DO : 1985 BED: DIS: 05/08/2024 SPEC #: [id number] RECD: 05/08/24 12:46 STATUS: SOUWilliam REQ #: [id number] ERAN: 05/08/24 10:[address]: Blanca Hendricks [facility]PT[facility] Cytology RECD BY: Becca Peterson ENTERED: 05/08/24 12:46 SP TYPE: PAPFT OTHR DR: Juana Anthony APRN Tissues: 1 - CX/ENDOCX FOR PAP SMEARS Procedures: PAP THIN PREP/UVM Screening HPV DNA PROBE Comments: [id number] (HPV 16 & 18/45)
== END 2024-05-08 10:22 | disposition home or self-care (01) ==
LOC: LBN 10:21
PROVIDERS: PCP Nurse Practitioner Family; Visit Provider Obstetrics & Gynecology
DX: Z12.4 Encounter for screening for malignant neoplasm of cervix (principal); N76.0 Acute vaginitis; R87.610 Atypical squamous cells of undetermined significance on cytologic smear of cervix (ASC-US)
CPT/HCPCS: 88142; 87624

== ENCOUNTER 2024-06-14 11:30 | Outpatient (REF) | payer MEDICAID, SELFPAY | END 2024-06-14 11:31 | disposition home or self-care (01) | LOC: LBN 11:30 | PROVIDERS: PCP Nurse Practitioner Family; Visit Provider Nurse Practitioner Family | DX: N89.8 Other specified noninflammatory disorders of vagina (principal) | CPT/HCPCS: 87480; 87510; 87660 ==

== ENCOUNTER 2024-06-22 00:27 | Outpatient (CLI) | payer MEDICAID, SELFPAY ==
--- OUTSIDE RECORDS SUMMARY | 2024-06-22 00:29 | XMS_ITS | Encounter Summary ---
Author Organization [facility] Address [facility] [place] [address] Care Team Providers Care Breast Surgeon Name Role Phone Juana Anthony Charlotte CROWE Primary Care Provider [phone] Reason for Referral * Consultation (Routine) - Authorized Specialty Diagnoses / Procedures Referred By Contjohn t Referred To Contact [facility] Diagnoses Pain in right hip Radicular low back pain Low back pain, non-specific Jazmin Marie MD [facility] [place] [address] [facility] [address] [place] [address] Referral ID Status Reason Start Date Expiration Date Visits Requested Visits Authorized [id number] Authorized Consult, Test & Treat 05/23/2024 05/23/2025 1 1 Reason for Visit * Reason Onset Date Comments Results 05/23/2024 Encounter Details Date Type Department Care Team (Late st Contact Info) Description 05/23/2024 [place] [id number] Jazmin Marie MD [facility] [place] [address] Results Social History Tobacco Use Types Packs/Day Years Used Date Smoking Tobacco: Every Day Cigarettes Alcohol Use Standard Drinks/Week Comments Not Currently 0 (1 standard drink = 0.6 oz pur e alcohol) Sex and Gender Information Value Date Recorded Sex Assigned at Not on file Gender Identity Not on file Sexual Orientation Not on file documented as of this encounter Miscellaneous Notes * Telephone Encounter - Quinn Beyer - 05/23/2024 2:58 PM EDT LVM for Michelle to discuss her spine referral further at her request. Message also sent in separate [facility] encounter to follow up. * Telephone Encounter - Yael Soares - 05/23/2024 2:56 PM EDT Patient is calling back stating she has already called [facility] pain and spine and her referral is being reviewed. She is wondering if she needs to go to [facility] or [facility]. She would also like to know what herxr results were * Telephone Encounter - Yael Soares - 05/23/2024 1:08 PM EDTSummary: xr results Who is calling? PATIENT Best call back number: [phone] Best time to call back between 8:00 am & 5:00 pm: any Can we leave a message? yes What study is patient calling about? XR Lumbar Spine 2 Or 3 Views Per [facility] the study was done: yes Per [facility] the results are final: yes Your message will be forwarded to the clinical care team for review. (Please forward this message to the appropriate pool.) documented in this encounter Plan of Treatment Upcoming Encounters Date Type Department Care Team (Late st Contact Info) Description 06/28/2024 4:00 PM EDT Office Visit Pain Management at [address] [place] [address] [facility] [place] [address] Scheduled Referrals Name Type Priority Associated Diagnoses Orde r Schedule Referral to Pain and Spine Center (Internal only) Outpatient Referral Routine Pain in right hip Radicular low back pain Low back pain, non-specific Ordered: 05/23/2024 documented as of this encounter Visit Diagnoses Diagnosis Pain in right hip Pain in joint, pelvic region and thigh Radicular low back pain Thoracic or lumbosacral neuritis or radiculitis, unspecified Low back pain, non-specific documented in this encounter Care Teams Breast Surgeon Relationship Specialty Start Date End Date Juana Anthony, AMRITA [address] [facility] [place] [address] PCP - General Family Medicine 05/18/24 documented as of this encounter
--- OUTSIDE RECORDS SUMMARY | 2024-06-22 00:29 | XMS_ITS | Encounter Summary ---
Author Organization [facility] [place] [address] Care Team Providers Care Vegetable Loader Machine Operator Name Role Phone Unavailable Primary Care Provider Unavailabl e Encounter Details Date Type Department Care Team (Late st Contact Info) Description 05/17/2024 [place]phone [place] [address] Jazmin Marie MD [facility] [address] [place] [address] Social History Tobacco Use Types Packs/Day Years Used Date Smoking Tobacco: Never Assessed Sex and Gender Information Value Date Recorded Sex Assigned at Not on file Gender Identity Not on file Sexual Orientation Not on file documented as of this encounter Miscellaneous Notes * Telephone Encounter - Sherley Aviles - 05/17/2024 2:38 PM EDT LVM for patient stating Dr. Marie would like xrays prior to apt on 05/21/24. Scheduled for 10:15at reception centre manager 3T. Left ortho call back number for any questions or concerns. documented in this encounter Plan of Treatment Upcoming Encounters Date Type Department Care Team (Late st Contact Info) Description 06/28/2024 4:00 PM EDT Office Visit Pain Management at [address] [place] [address] Hakeem Ty MD [address] [facility] [place] [address] documented as of this encounter Visit Diagnoses Not on filedocumented in this encounter
--- OUTSIDE RECORDS SUMMARY | 2024-06-22 00:29 | XMS_ITS | Encounter Summary ---
Author Organization [facility] Bhakti [place] [address] Care Team Providers Care Creative Guru Name Role Phone Unavailable Primary Care Provider Unavailabl e Encounter Details Date Type Department Care Team (Late st Contact Info) Description 04/10/2024 Ancillary Procedure Radiology Library at [facility] [place] [place] [address] Armaan Jones MD [address] [place] [address] Social History Tobacco Use Types Packs/Day Years Used Date Smoking Tobacco: Never Assessed Sex and Gender Information Value Date Recorded Sex Assigned at Not on file Gender Identity Not on file Sexual Orientation Not on file documented as of this encounter Plan of Treatment Upcoming Encounters Date Type Department Care Team (Late st Contact Info) Description 06/28/2024 4:00 PM EDT Office Visit Pain Management at [facility] [address] [place] [phone] Hakeem Ty MD 10 [facility] PHYSICAL [place] [address] documented as of this encounter Procedures Procedure Name Priority Date/Time Associated Diagnosis Comments FILM LIBRARY STORAGE ONLY MR HIP Routine 04/10/2024 12:00 AM EDT documented in this encounter Results * Film Library- Storage Only MR Hip (04/10/2024 12:00 AM EDT) Narrative [facility] - 05/08/2024 10:21 PM EDT This exam is auto-finalizing. It's purpose is for storage only. Armaan Jones MD IMG FILM LIBRARY ORD ERABLES LUIS FERNANDO ANGUIANO [place], [place] documented in this encounter Visit Diagnoses Not on filedocumented in this encounter
--- OUTSIDE RECORDS SUMMARY | 2024-06-22 00:29 | XMS_ITS | Referral Summary ---
Author Organization [facility] Address [address] [place] [address] Care Team Providers Care Solution Strategist Name Role Phone Unknown, Provider Primary Care Provider Encounters Date Type Department Care Team Description 05/09/2024 Lab Requisition [facility] Pathology & Laboratory [address] [address] Blanca Hendricks Encounter for other general examination 05/09/2024 Lab Requisition [facility] Pathology & Laboratory [address] [address] Blanca Hendricks Encounter for other general examination from Last 3 Months Social History Tobacco Use Types Packs/Day Years Used Date Smoking Tobacco: Never Assessed Sex and Gender Information Value Date Recorded Sex Assigned at Not on file Gender Identity Not on file Sexual Orientation Not on file Plan of Treatment Not on file Procedures Procedure Name Priority Date/Time Associated Diagnosis Comments PAP TEST Today 05/08/2024 10:15 EDT Encounter for other general examination HPV DNA DETECTION WITH GENOTYPING, PCR Today 05/08/2024 10:15 EDT Encounter for other general examination from Last 3 Months Results * PAP TEST (05/08/2024 10:15 EDT) Specimens A. Cervix and/or Endocervix , ThinPrep Imaging System with Manual Evaluation 05/21/2024 15:17 EDT [facility] Specimen Adequacy Satisfactory for Evaluation - transformation zone component present 05/21/2024 15:17 T [facility] General Categorization Epithelial Cell Abnormality 05/21/2024 15:17 T [facility] Descriptive Diagnosis Squamous Cell Abnormality - Atypical squamous cells, undetermined significance (ASC-US). Shift in patrick present suggestive of bacterial vaginosis. 05/21/2024 15:17 [facility] Educational Comments [facility] recommends following the ASCCP's management guidelines which may be found at www.asccp.org 05/21/2024 15:17 [facility] Attestation By the signature below, the attending physician certifies that they have personally conducted a gross and/or microscopic examination of the described specimens and rendered or confirmed the above diagnosis. 05/21/2024 15:17 [facility] at 1517 Clinical History See below 05/21/20 15:17 [facility] Performing Lab [facility] 05/21/2024 15:17 [facility] Scanned Images 05/21/2024 15:17 [facility] HPV High Risk type 16, PCR Negative 05/21/2024 15:17 [facility] HPV High Risk type 18, PCR Negative 05/21/2024 15:17 [facility] HPV Other High Risk Types, PCR Positive Positive for one of the following Other High Risk HPV types: 31,33, 35, 39, 45, 51, 52, 56, 58, 59, 66 and 68. 05/21/2024 15:17 [facility] Pap Test CERVIX UTERI STRUCTURE / Unknown 05/08/2024 10:15 EDT 05/09/2024 10:19 EDT Blanca Hendricks PATHOLOGY ORDERABLES [facility] [address] [place], [place] [id number] * (ABNORMAL) HPV DNA DETECTION WITH GENOTYPING, PCR (05/08/2024 10:15 EDT) HPV High Risk type 16, PCR Negative Negative 05/21/2024 15:17 EDT [facility] HPV High Risk type 18, PCR Negative Negative 05/21/2024 15:17 [facility] HPV other High Risk types, PCR Positive(A) Negative 05/21/2024 15:17 EDT [facility] Comment: Positive for one of the following Other High Risk HPV types: ??31,33, 35, 39, 45, 51, 52, 56, 58, 59, 66 and 68. Pap Test CERVIX UTERI STRUCTURE / Unknown 05/08/2024 10:15 EDT 05/18/2024 14:10 EDT Blanca Hendricks MICROBIOLOGY - GENER AL ORDERABLES [facility] [address] [place] [address] from Last 3 Months Care Teams Solution Strategist Relationship Specialty Start Date End Date Unknown, Provider, PCP - General 05/06/24
--- OUTSIDE RECORDS SUMMARY | 2024-06-22 00:29 | XMS_ITS | Encounter Summary ---
Author Organization [facility] Address [facility] [place] [address] Care Team Providers Care Dumper Bailer Operator Name Role Phone Gabrielle Juana Charlotte CROWE Primary Care Provider [phone] Encounter Details Date Type Department Care Team (Late st Contact Info) Description 05/21/2024 10:32 AM EDT - 05/21/2024 1:44 PM EDT Hospital Encounter XRay at [address] [place] [address] Jazmin Marie MD [facility] [place] [address] Pain in right hip Discharge Disposition: Home Social History Tobacco Use Types Packs/Day Years Used Date Smoking Tobacco: Every Day Cigarettes Alcohol Use Standard Drinks/Week Comments Not Currently 0 (1 standard drink = 0.6 oz pur e alcohol) Sex and Gender Information Value Date Recorded Sex Assigned at Not on file Gender Identity Not on file Sexual Orientation Not on file documented as of this encounter Medications at Time of Discharge Medication Sig Dispensed Refills Start Date End Date disulfiram (Antabuse) 250 mg tablet Take 250 mg by mouth daily. acamprosate DR (Campral) [address] tablet TAKE TWO TABLETS BY MOUTH THREE TIMES A DAY FOR 7 DAYS 05/16/2024 cloNIDine (Catapres) 0.1 mg tablet Take 1 tablet by mouth every 8 hours as needed for Anxiety. 05/02/2024 proGESTerone (Prometrium) 100 mg capsule TAKE ONE CAPSULE BY MOUTH EVERY DAY IN THE MORNING FOR 3 MONTHS; THEN DON'T TAKE FOR 7 DAYS THEN REPEAT CYCLE 05/09/2024 sertraline (Zoloft) 50 mg tablet Take 1 tablet by mouth daily. documented as of this encounter Plan of Treatment Upcoming Encounters Date Type Department Care Team (Late st Contact Info) Description 06/28/2024 4:00 PM EDT Office Visit Pain Management at [facility] [address] [place] [address] Hakeem Ty MD [address] PHYSICAL [place] [address] documented as of this encounter Procedures Procedure Name Priority Date/Time Associated Diagnosis Comments XR PELVIS AND HIP 2 VIEWS RIGHT Routine 05/21/2024 10:44 AM EDT Pain in right hip documented in this encounter Results * XR Pelvis and Hip 2 Views Right (05/21/2024 10:44 AM EDT) [employer] WORKSTATION ID [id number] RAD Anatomical Region Laterality Modality Pelvis, Hip Right Digital Radiogra phy Impressions 05/22/2024 9:46 PM EDT Unremarkable right hip Thank you for letting us participate in the care of this patient. ??If you are a health care provider and have any questions regarding this report, please contact the number below. ??For patients who have questions please contact the health ocular care aide that requested your imaging first. ? Narrative 05/22/2024 9:46 PM EDT EXAMINATION: XR PELVIS AND HIP 2 VIEWS RIGHT CLINICAL HISTORY: right hip pain M25.551, Pain in right hip TECHNIQUE: 3 views of the pelvis and hip(s) COMPARISON: None FINDINGS: The right hip is intact with no fracture or dislocation. ??Normal contour of the femoral head with no signs of avascular necrosis. The bilateral hip joint space are preserved, with no appreciable degeneration. The bony pelvis is intact. ??The SI joints are symmetric. ??Pubic symphysis. ??No soft tissue abnormality Procedure Note Tao June MD - 05/22/2024 EXAMINATION: XR PELVIS AND HIP 2 VIEWS RIGHT CLINICAL HISTORY: right hip pain M25.551, Pain in right hip TECHNIQUE: 3 views of the pelvis and hip(s) COMPARISON: None FINDINGS: The right hip is intact with no fracture or dislocation. Normal contourof the femoral head with no signs of avascular necrosis. The bilateral hip joint space are preserved, with no appreciabledegeneration. The bony pelvis is intact. The SI joints are symmetric. Pubic symphysis.No soft tissue abnormality IMPRESSION Unremarkable right hip Thank you for letting us participate in the care of this patient. If youare a health care provider and have any questions regarding this report,please contact the number below. For patients who have questions please contactthe health ocular care aide that requested your imaging first. Jazmin Marie MD IMG DX ORDERABL ES documented in this encounter Visit Diagnoses Diagnosis Pain in right hip Pain in joint, pelvic region and thigh documented in this encounter Care Teams Dumper Bailer Operator Relationship Specialty Start Date End Date Juana Anthony APRN [address] [place] [address] PCP - General Family Medicine 05/18/24 documented as of this encounter
--- OUTSIDE RECORDS SUMMARY | 2024-06-22 00:29 | XMS_ITS | Encounter Summary ---
Author Organization [facility] Address [facility] [place] [address] Care Team Providers Care Trains Dispatcher Supervisor Name Role Phone Unavailable Primary Care Provider Unavailabl e Encounter Details Date Type Department Care Team (Late st Contact Info) Description 05/17/2024 Orders [place] [address] Jazmin Marie MD [facility] [place] [address] Pain in right hip Social History Tobacco Use Types Packs/Day Years [...] PM EDT Office Visit Pain Management at [facility] [address] [place] [address] Hakeem Ty MD 10 [facility] [place] [address] documented as of this encounter Results * XR Pelvis and Hip 2 Views Right (05/21/2024 10:44 AM EDT) WORKSTATION ID [id number] [facility] Anatomical Region Laterality Modality Pelvis, Hip Right Digital Radiogra phy Impressions 05/22/2024 9:46 PM EDT Unremarkable right hip Thank you for letting us participate in the care of this patient. ??If you are a health care provider and have any questions regarding this report, please contact the number below. ??For patients who have questions please contact the health child care center administrator that requested your imaging first. ? Electronically signed by: Tao June MD, [facility] ([phone]), at 05/22/2024 9:46 PM Narrative 05/22/2024 9:46 PM EDT EXAMINATION: XR [...] patients who have questions please contactthe health child care center administrator that requested your imaging first. Jazmin Marie MD IMG DX ORDERABL ES documented in this encounter Visit Diagnoses Diagnosis Pain in right hip Pain in joint, pelvic region and thigh Pain in right hip Pain in joint, pelvic region and thigh documented in this encounter
--- OUTSIDE RECORDS SUMMARY | 2024-06-22 00:29 | XMS_ITS | Encounter Summary ---
Author Organization [facility] [place] [address] Care Team Providers Care Laboratory Veterinarian Name Role Phone Juana Anthony AMRITA Primary Care Provider [phone] Encounter Details Date Type Department Care Team (Late Contact Info) Description 05/30/2024 Telephone Pain Management at [facility] [place] [address] Arlette Green RN Social History Tobacco Use Types Packs/Day Years [...] encounter Miscellaneous Notes * Telephone Encounter - Arlette Green RN - 05/30/2024 1:05 PM EDT Patient called to inquire about x-ray results and wanting to be seen sooner. T/C To Patient- advised her that she needs to f/u with her PCP regarding Xray results as it was notordered by Dr. Ty and until she is seen by Dr. Ty to establish care, unable to give medical advice and she should f/u with PCP. Will ask field secretary to add to wait list to be seen sooner if possible. documented in this encounter Plan of Treatment Upcoming Encounters Date Type Department Care Team (Late st Contact Info) Description 06/28/2024 4:00 PM EDT Office [place] [address] [facility]YSICAL [place] [address] documented as of this encounter Visit Diagnoses Not on filedocumented in this encounter Care Teams Laboratory Veterinarian Relationship Specialty Start Date End Date Juana Anthony, AMRITA [address] [place] [address] PCP - General Family Medicine 05/18/24 documented as of this encounter
--- OUTSIDE RECORDS SUMMARY | 2024-06-22 00:29 | XMS_ITS | Encounter Summary ---
Author Organization [facility] Address [facility] [place] [address] Care Team Providers Care Dental Intern Name Role Phone Gabrielle Juana Charlotte CROWE Primary Care Provider [phone] Encounter Details Date Type Department Care Team (Late st Contact Info) Description 05/21/2024 1:45 PM EDT - 05/21/2024 11:59 PM EDT Hospital Encounter XRay at [address] [place] [address] Jazmin Marie MD [facility] [place] [address] Pain in right hip Discharge Disposition: Home [...] EDT Office Visit Pain Management at [facility] [address] [place] [address] Hakeem Ty MD [address] [place]ICAL [place] [address] documented as of this encounter Procedures Procedure Name Priority Date/Time Associated Diagnosis Comments XR LUMBAR SPINE 2 OR 3 VIEWS Routine 05/21/2024 1:59 PM EDT Pain in right hip documented in this encounter Results * XR Lumbar Spine 2 Or 3 Views (Generic) (05/21/2024 1:59 PM EDT) [employer] WORKSTATION ID [id number] RAD Anatomical Region Laterality Modality L-spine N/A Digital Radiogra phy Impressions 05/22/2024 9:44 PM EDT 1. ??Mild degenerative disease at L4-L5 and L5-S1. 2. ??Lumbar facet arthropathy I have personally reviewed the image(s) and the resident's interpretation and agree with the findings, Tao June MD at 05/22/2024 9:44 PM Thank you for letting us participate in the care of this patient. ??If you are a health care provider and have any questions regarding this report, please contact the number below. ??For patients who have questions please contact the health primary care sales representative that requested your imaging first. ? Electronically signed by: Tao June MD, [facility] ([phone]), at 05/22/2024 9:44 PM Narrative 05/22/2024 9:44 PM EDT EXAMINATION: XR LUMBAR SPINE 2 OR 3 VIEWS (GENERIC) CLINICAL HISTORY: Lumbar spine pain M25.551, Pain in right hip TECHNIQUE: 2 views of the lumbar spine COMPARISON: None FINDINGS: 5 nonrib-bearing lumbar type vertebral bodies. Normal spinal alignment. ??No spinal listhesis. Vertebral body heights are preserved. There is mild disc height loss and endplate osteophytes compatible with disc degeneration at L4-L5 and L5-S1. ??The remaining disc spaces are preserved. Mild facet arthropathy at L4-L5 and L5-S1. Survey: No additional calcifications. ??SI joints are symmetric. Procedure Note Tao June MD - 05/22/2024 EXAMINATION: XR LUMBAR SPINE 2 OR 3 VIEWS (GENERIC) CLINICAL HISTORY: Lumbar spine pain M25.551, Pain in right hip TECHNIQUE: 2 views of the lumbar spine COMPARISON: None FINDINGS: 5 nonrib-bearing lumbar type vertebral bodies. Normal spinal alignment. No spinal listhesis. Vertebral body heights are preserved. There is mild disc height loss and endplate osteophytes compatible withdisc degeneration at L4-L5 and L5-S1. The remaining disc spaces arepreserved. Mild facet arthropathy at L4-L5 and L5-S1. Survey: No additional calcifications. SI joints are symmetric. IMPRESSION 1. 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 2. Lumbar facet arthropathy I have personally reviewed the image(s) and the resident's interpretationand agree with the findings, Tao June MD at 05/22/2024 9:44 PM Thank you for letting us participate in the care of this patient. If youare a health care provider and have any questions regarding this report,please contact the number below. For patients who have questions please contactthe health primary care sales representative that requested your imaging first. Electronically signed by: Tao June MD, [facility]([phone]), at 05/22/2024 9:44 PM Jazmin Marie MD IMG DX ORDERABL ES documented in this encounter Visit Diagnoses Diagnosis Pain in right hip Pain in joint, pelvic region and thigh documented in this encounter Care Teams Dental Intern Relationship Specialty Start Date End Date Juana Atnhony APRN [address] [place] [address] PCP - General Family Medicine 05/18/24 documented as of this encounter
--- OUTSIDE RECORDS SUMMARY | 2024-06-22 00:29 | XMS_ITS | Encounter Summary ---
Author Organization [facility] Address [address] [place] [address] Care Team Providers Care Neon Tube Pumper Name Role Phone Unknown, Provider Primary Care Provider [phone] Encounter Details Date Type Department Care Team (Late st Contact Info) Description 05/09/2024 Lab Requisition [facility] Pathology & Laboratory Medicine - [address] [address] Blanca Hendricks [address] [place] [address] [place] [phone] Encounter for other general examination Social History Tobacco Use Types Packs/Day Years Used Date Smoking Tobacco: Never Assessed Sex and Gender Information Value Date Recorded Sex Assigned at Not on file Gender Identity Not on file Sexual Orientation Not on file documented as of this encounter Plan of Treatment Scheduled Orders Name Type Priority Associated Diagnoses Orde r Schedule PAP TEST Pathology Today Encounter for other general examination Ordered: 05/09/2024 documented as of this encounter Visit Diagnoses Diagnosis Encounter for other general examination documented in this encounter Care Teams Neon Tube Pumper Relationship Specialty Start Date End Date Unknown, ProviderMD PCP - General 05/06/24 documented as of this encounter
--- OUTSIDE RECORDS SUMMARY | 2024-06-22 00:29 | XMS_ITS | Encounter Summary ---
Author Organization [facility] Address [facility] [place] [address] Care Team Providers Care Retail Parts Pro Name Role Phone Juana Anthony APRN Primary Care Provider [phone] Encounter Details Date Type Department Care Team (Latest Contact Info) Description 05/21/2024 Travel Social History Tobacco Use Types Packs/Day Years [...] PM EDT Office Visit Pain Management at [facility] 10 [facility] [place] [address] Hakeem Ty MD [facility] [place] [address] documented as of this encounter Visit Diagnoses Not on filedocumented in this encounter Care Teams Retail Parts Pro Relationship Specialty Start Date End Date Juana Anthony APRN [address] [place] [address] PCP - General Family Medicine 05/18/24 documented as of this encounter
--- OUTSIDE RECORDS SUMMARY | 2024-06-22 00:29 | XMS_ITS | Clinical Summary ---
Author Organization [facility] Address [address] [place] [address] Care Team Providers Care Instructional Developer Name Role Phone Unknown, Provider Primary Care Provider Encounters Date Type Department Care Team Description 05/09/2024 Lab Requisition [facility] Pathology & Laboratory [address] [address] Blanca Hendricks Encounter for other general examination 05/09/2024 Lab Requisition [facility] Pathology & Laboratory [address] [address] Blanca Hendricks Encounter for other general examination from Last 3 Months Social History Tobacco Use Types Packs/Day Years Used Date Smoking Tobacco: Never Assessed Sex and Gender Information Value Date Recorded Sex Assigned at Not on file Gender Identity Not on file Sexual Orientation Not on file Plan of Treatment Health Maintenance Due Date Last Done Comments Hepatitis C Screen 1983 Hepatitis B Vaccine (1 of 3 - 19+ 3-dose series) 09/22 COVID-19 Vaccine ( season) 2024 Procedures Procedure Name Priority Date/Time Associated Diagnosis Comments PAP TEST Today 05/08/2024 10:15 EDT Encounter for other general examination HPV DNA DETECTION WITH GENOTYPING, PCR Today 05/08/2024 10:15 EDT Encounter for other general examination from Last 3 Months Results * PAP TEST (05/08/2024 10:15 EDT) Specimens A. Cervix and/or Endocervix , ThinPrep Imaging System with Manual Evaluation 05/21/2024 15:17 EDT [facility] Specimen Adequacy Satisfactory for Evaluation - transformation zone component present [facility]24 [facility] General Categorization Epithelial Cell Abnormality 05/21/2024 15:17 [facility] Descriptive Diagnosis Squamous Cell Abnormality - Atypical squamous cells, undetermined significance (ASC-US). Shift in patrick present suggestive of bacterial vaginosis. 05/21/2024 15:17 [facility] Educational Comments [facility] recommends following the ASCCP's management guidelines which may be found at www.asccp.org 05/21/2024 15:17 [facility] Attestation By the signature below, the attending physician certifies that they have personally conducted a gross and/or microscopic examination of the described specimens and rendered or confirmed the above diagnosis. 05/21/2024 15:17 [facility] at 1517 Clinical History See below 05/21/20 15:17 [facility] Performing Lab [facility] 05/21/2024 15:17 [facility] Scanned Images 05/21/2024 15:17 [facility] HPV High Risk type 16, PCR Negative 05/21/2024 15:17 [facility] HPV High Risk type 18, PCR Negative 05/21/2024 15:17 [facility] HPV Other High Risk Types, PCR Positive Positive for one of the following Other High Risk HPV types: 31,33, 35, 39, 45, 51, 52, 56, 58, 59, 66 and 68. 05/21/2024 15:17 [facility] Pap Test CERVIX UTERI STRUCTURE / Unknown 05/08/2024 10:15 EDT 05/09/2024 10:19 EDT Blanca Hendricks PATHOLOGY ORDERABLES [facility] [address] [place] [address] * (ABNORMAL) HPV DNA DETECTION WITH GENOTYPING, PCR (05/08/2024 10:15 EDT) HPV High Risk type 16, PCR Negative Negative 05/21/2024 15:17 EDT [facility] HPV High Risk type 18, PCR Negative Negative 05/21/2024 15:17 EDT [facility] HPV other High Risk types, PCR Positive(A) Negative 05/21/2024 15:17 EDT [facility] Comment: Positive for one of the following Other High Risk HPV types: ??31,33, 35, 39, 45, 51, 52, 56, 58, 59, 66 and 68. Pap Test CERVIX UTERI STRUCTURE / Unknown 05/08/2024 10:15 EDT 05/18/2024 14:10 EDT Blanca Hendricks MICROBIOLOGY - [facility] AL ORDERABLES [facility] [address] [place] [address] from Last 3 Months Care Teams Instructional Developer Relationship Specialty Start Date End Date Unknown, Provider, PCP - General 05/06/24
--- OUTSIDE RECORDS SUMMARY | 2024-06-22 00:29 | XMS_ITS | Encounter Summary ---
Author Organization [facility] [place] [address] Care Team Providers Care Fisheries Officer Name Role Phone Juana Anthony APRN Primary Care Provider [phone] Encounter Details Date Type Department Care Team (Late st Contact Info) Description 05/23/2024 Telephone [place] [phone] None None Social History Tobacco Use Types Packs/Day Years [...] encounter Miscellaneous Notes * Telephone Encounter - Tressa Beck - 05/24/2024 9:21 AM EDT Sent message to Mary to triage via secure chat. * Telephone Encounter - SandraelmerNarcisa dove - 05/23/2024 1:01 PM EDT CLINIC PHONE COVERAGE: Reason for Call: Appointment Scheduling PCP: Juana Anthony APRN / Treating provider: none Message: Michelle called and is requesting to schedule a New Patient Visit Referral in eDH?: Yes Reason for referral: 719.45 (ICD-9-CM) - M25.551 (ICD-10-CM) - Pain in right hip Advised Caller may take 5-7 Business day to review referral: Yes DO NOT SEND FOR SYMPTOMS, REFER PATIENT TO REFERRING PROVIDER! Caller Name (If other than patient): self Relationship to Patient (if other than self): Patient Callback number: [phone] Best time you are available: Any Route Per Clinic Coverage Page documented in this encounter Plan of Treatment Upcoming Encounters Date Type Department Care Team (Late st Contact Info) Description 06/28/2024 4:00 PM EDT Office Visit Pain Management at [address] [place] [address] Hakeem Ty MD [address] [facility]YSICAL MED[facility] [place] [address] documented as of this encounter Visit Diagnoses Not on filedocumented in this encounter Care Teams Fisheries Officer Relationship Specialty Start Date End Date Juana Anthony APRN [address] [place] [address] PCP - General Family Medicine 05/18/24 documented as of this encounter
--- OUTSIDE RECORDS SUMMARY | 2024-06-22 00:29 | XMS_ITS | Encounter Summary ---
Author Organization [facility] Address [address] [place] [address] Care Team Providers Care Music Researcher Name Role Phone Unknown, Provider Primary Care Provider Encounter Details Date Type Department Care Team (Late st Contact Info) Description 05/09/2024 Lab Requisition [facility] Pathology & Laboratory Medicine - [address] [id number] Blanca Hendricks [address] [place] [address] [place] [address] Encounter for other general examination Social History Tobacco Use Types Packs/Day Years Used Date Smoking Tobacco: Never Assessed Sex and Gender Information Value Date Recorded Sex Assigned at Not on file Gender Identity Not on file Sexual Orientation Not on file documented as of this encounter Plan of Treatment Not on file documented as of this encounter Procedures Procedure Name Priority Date/Time Associated Diagnosis Comments PAP TEST Today 05/08/2024 10:15 EDT Encounter for other general examination HPV DNA DETECTION WITH GENOTYPING, PCR Today 05/08/2024 10:15 EDT Encounter for other general examination documented in this encounter Results * (ABNORMAL) HPV DNA DETECTION WITH GENOTYPING, PCR (05/08/2024 10:15 EDT) HPV High Risk type 16, PCR Negative Negative 05/21/2024 15:17 EDT [facility] HPV High Risk type 18, PCR Negative Negative 05/21/2024 15:17 EDT [facility] HPV other High Risk types, PCR Positive(A) Negative 05/21/2024 15:17 EDT [facility] Comment: Positive for one of the following Other High Risk HPV types: ??31,33, 35, 39, 45, 51, 52, 56, 58, 59, 66 and 68. Pap Test CERVIX UTERI STRUCTURE / Unknown 05/08/2024 10:15 EDT 05/18/2024 14:10 EDT Blanca Hendricks MICROBIOLOGY - GENER AL ORDERABLES [facility] [address] [place] [address] * PAP TEST (05/08/2024 10:15 EDT) Specimens A. Cervix and/or Endocervix , ThinPrep Imaging System with Manual Evaluation 05/21/2024 15:17 [facility] Specimen Adequacy Satisfactory for Evaluation - transformation zone component present 05/21/2024 15:17 [facility] General Categorization Epithelial Cell Abnormality 05/21/2024 15:17 [facility] Descriptive Diagnosis Squamous Cell Abnormality - Atypical squamous cells, undetermined significance (ASC-US). Shift in patrick present suggestive of bacterial vaginosis. 05/21/2024 15:17 [facility] Educational Comments [facility] recommends following the ASCCP's management guidelines which [...] [facility] Performing Lab [facility] 05/21/2024 15:17 [facility] Scanned Images 05/21/2024 15:17 [facility] HPV High Risk type 16, PCR Negative 05/21/2024 15:17 [facility] HPV High Risk type 18, PCR Negative 05/21/2024 15:17 EDT [facility] HPV Other High Risk Types, PCR Positive Positive for one of the following Other High Risk HPV types: 31,33, 35, 39, 45, 51, 52, 56, 58, 59, 66 and 68. 05/21/2024 15:17 EDT [facility] Pap Test CERVIX UTERI STRUCTURE / Unknown 05/08/2024 10:15 EDT 05/09/2024 10:19 EDT Blanca Hendricks PATHOLOGY ORDERABLES [facility] [address] [place] [address] documented in this encounter Visit Diagnoses Diagnosis Encounter for other general examination documented in this encounter Care Teams Music Researcher Relationship Specialty Start Date End Date Unknown, Provider, PCP - General 05/06/24 documented as of this encounter
--- OUTSIDE RECORDS SUMMARY | 2024-06-22 00:29 | XMS_ITS | Encounter Summary ---
Author Organization [facility] [place] [address] Care Team Providers Care Library Circulation Department Chief Name Role Phone Juana Anthony APRN Primary Care Provider [phone] Encounter Details Date Type Department Care Team (Late st Contact Info) Description 05/23/2024 Telephone [place] [phone] Unknown None Social History Tobacco Use Types Packs/Day [...] encounter Miscellaneous Notes * Telephone Encounter - Nancy Hawthorne - 05/23/2024 3:55 PM EDT CLINIC PHONE COVERAGE: Reason for Call: Questions regarding MRI PCP: Juana Anthony APRN / Treating provider: Unknown Message: Patient called and and is asking if an MRI is something she should be getting. Callback number: [phone] Best time you are available: Any documented in this encounter Plan of Treatment Upcoming Encounters Date Type Department Care Team (Late st Contact Info) Description 06/28/2024 4:00 PM EDT Office [place] [address] Hakeem Ty MD [facility]YSICAL MEDICINE [place] [address] documented as of this encounter Visit Diagnoses Not on filedocumented in this encounter Care Teams Library Circulation Department Chief Relationship Specialty Start Date End Date Juana Anthony APRN [address] [place] [address] PCP - General Family Medicine 05/18/24 documented as of this encounter
--- OUTSIDE RECORDS SUMMARY | 2024-06-22 00:29 | XMS_ITS | Clinical Summary ---
Author Organization [facility] Address [facility] [place] [address] Care Team Providers Care Tack Coverer Name Role Phone Juaan Anthony Charlotte CROWE Primary Care Provider [phone] Allergies Active Allergy Reactions Criticality Noted Date Comments [id number]-Rmnikndea 2023 Nickel 05/21/2024 Medications Medication Sig Dispensed Refills Start Date End Date Status disulfiram (Antabuse) 250 mg tablet Take 250 mg by mouth daily. Active acamprosate DR (Campral) [address] tablet TAKE TWO TABLETS BY MOUTH THREE TIMES A DAY FOR 7 DAYS 05/16/2024 Active cloNIDine (Catapres) 0.1 mg tablet Take 1 tablet by mouth every 8 hours as needed for Anxiety. 05/02/2024 Active proGESTerone (Prometrium) 100 mg capsule TAKE ONE CAPSULE BY MOUTH EVERY DAY IN THE MORNING FOR 3 MONTHS; THEN DON'T TAKE FOR 7 DAYS THEN REPEAT CYCLE 05/09/2024 Active sertraline (Zoloft) 50 mg tablet Take 1 tablet by mouth daily. Active Encounters Date Type Department Care Team Description 05/30/2024 Telephone Pain Management at [facility] [place] [phone] Arlette Green RN 05/23/2024 Telephone [place] [address] Unknown 05/23/2024 [place] [address] Jazmin Marie MD Results 05/23/2024 Telephone [facility] at [facility] [place] [address] None 05/21/2024 1:45 PM EDT - 05/21/2024 11:59 PM EDT Hospital Encounter XRay at [address] [place] [address] Jazmin Marie MD Pain in right hip Discharge Disposition: Home 05/21/2024 11:00 AM EDT Office Visit Orthopaedics at [facility] [place] [address] Jazmin Marie MD Pain in right hip 05/21/2024 10:32 AM EDT - 05/21/2024 1:44 PM EDT Hospital Encounter XRay at [address] [place] [address] Jazmin Marie MD Pain in right hip Discharge Disposition: Home 05/21/2024 Travel 05/17/2024 Telephone Orthopaedics at [facility] [place] [address] Jazmin Marie MD 05/17/2024 Orders Only Orthopaedics at [facility] [place] [address] Jazmin Marie MD Pain in right hip 04/10/2024 Ancillary Procedure Radiology Library at [facility] [place] [address] Armaan Jones MD from Last 3 Months Social History Tobacco Use Types Packs/Day Years Used Date Smoking Tobacco: Every Day Cigarettes Tobacco Cessation:Ready to Q uit: Not Asked; Counseling Given: Not Answered Alcohol Use Standard Drinks/Week Comments Not Currently 0 (1 standard drink = 0.6 oz pur e alcohol) Sex and Gender Information Value Date Recorded Sex Assigned at Not on file Gender Identity Not on file Sexual Orientation Not on file Last Filed Vital Signs Vital Sign Reading Time Taken Comments Blood Pressure - - Pulse - - Temperature - - Respiratory Rate - - Oxygen Saturation - - Inhaled Oxygen Concentration - - Weight 63.5 kg (140 lb) 05/21/2024 11:09 AM EDT Height 154.9 cm (5' 1) 05/21/2024 11:09 AM EDT Body Mass Index 26.45 05/21/2024 11:09 AM EDT Plan of Treatment Upcoming Encounters Date Type Department Care Team (Late st Contact Info) Description 06/28/2024 4:00 PM EDT Office Visit Pain Management at [address] [place] [phone] Hakeem Ty MD [address] PHYSICAL MEDIC[place] [address] Health Maintenance Due Date Last Done Comments Pneumococcal Vaccine: At-Risk 5-64yrs (1 of 2 - PCV) 0 1989 HIV screen 2001 Hepatitis C Screening 2001 Lipid Screening 2001 Hepatitis B vaccine (0-59 yrs) (1) 2002 Tetanus/Diphtheria/Pertussis Vaccines (1 - Tdap) 09/22 HPV test 2013 PAP Smear 2013 Breast Cancer Share Decision Needed 2023 Breast Cancer screening 2023 Diabetes Screening (HgbA1C or Glucose) 2023 Covid-19 Vaccine (1 - season) 2024 Influenza (Flu) vaccine (1 o f 1 - Influenza standard series) 05/06/2024 Procedures Procedure Name Priority Date/Time Associated Diagnosis Comments XR LUMBAR SPINE 2 OR 3 VIEWS Routine 05/21/2024 1:59 PM EDT Pain in right hip XR PELVIS AND HIP 2 VIEWS RIGHT Routine 05/21/2024 10:44 AM EDT Pain in right hip FILM LIBRARY STORAGE ONLY MR HIP Routine 04/10/2024 12:00 AM EDT from Last 3 Months Results * XR Lumbar Spine 2 Or 3 Views (Generic) (05/21/2024 1:59 PM EDT) [employer] WORKSTATION ID [id number] RAD Anatomical Region Laterality Modality L-spine N/A [...] who have questions please contact the health skin care consultant that requested your imaging first. ? Narrative 05/22/2024 9:44 PM EDT EXAMINATION: XR [...] patients who have questions please contactthe health skin care consultant that requested your imaging first. Jazmin Marie MD IMG DX ORDERABL ES * XR Pelvis and Hip 2 Views Right (05/21/2024 10:44 AM EDT) WORKSTATION ID [id number] RAD Anatomical Region Laterality Modality Pelvis, Hip Right Digital Radiogra phy Impressions 05/22/2024 9:46 PM EDT Unremarkable right hip Thank you for letting us participate in the care of this patient. ??If you are a health care provider and have any questions regarding this report, please contact the number below. ??For patients who have questions please contact the health skin care consultant that requested your imaging first. ? Narrative [...] patients who have questions please contactthe health skin care consultant that requested your imaging first. Jazmin Marie MD IMG DX ORDERABL ES * Film Library- Storage Only MR Hip (04/10/2024 12:00 AM EDT) Narrative RAD - 05/08/2024 10:21 PM EDT This exam is auto-finalizing. It's purpose is for storage only. Armaan Jones MD [facility] [place]M LIBRARY ORD ERABLES [facility] [place] from Last 3 Months Care Teams Tack Coverer Relationship Specialty Start Date End Date Juana Anthony APRN [address] [place] [address] PCP - General Family Medicine 05/18/24
--- OUTSIDE RECORDS SUMMARY | 2024-06-22 00:29 | XMS_ITS | Encounter Summary ---
[place] [address] Care Team Providers Care Pole Classifier Name Role Phone Gabrielle Juana Charlotte CROWE Primary Care Provider [phone] Reason for Referral * Consultation (Routine) - Closed Specialty Diagnoses / Procedures Referred By Contac t Referred To Contact [facility] Diagnoses Pain in right hip Chanda Gordon MD [facility] [address] [place] [address] [facility] [place] [address] Referral ID Status Reason Start Date Expiration Date V isits Requested Visits Authorized [id number] Closed Consult, Test & Treat 05/21/2024 05/21/2025 1 1 * Physical Therapy (Routine) - Authorized Specialty Diagnoses / Procedures Referred By Contac t Referred To Contact Physical Therapy Diagnoses Pain in right hip Chanda Gordon MD [facility] [address] [place] [address] Referral ID Status Reason Start Date Expiration Date Visits Requested Visits Authorized [id number] Authorized Evaluate and Treat 05/21/2024 11/17/2024 12 12 Reason for Visit * Reason Comments Establish Care ?XR R HIP PAIN 2ND OPINION * Consultation (Routine) - Closed Specialty Diagnoses / Procedures Referred By Rayne carlos Referred To Contact Orthopaedics Diagnoses Labral tear of right hip joint Self mail [facility] [address] [place] [address] Referral ID Status Reason Start Date Expiration Date V isits Requested Visits Authorized [id number] Closed Consult, Test & Treat PCP Updated and/or Approved 05/04/2024 05/04/2025 1 1 Encounter Details Date Type Department Care Team (Late st Contact Info) Description 05/21/2024 11:00 AM EDT Office [place] [address] Jazmin Marie MD [facility] [address] [place] [address] Pain in right hip Social History Tobacco [...] on file documented as of this encounter Last Filed Vital Signs Vital Sign Reading Time Taken Comments Blood Pressure - - Pulse - - Temperature - - Respiratory Rate - - Oxygen Saturation - - Inhaled Oxygen Concentration - - Weight 63.5 kg (140 lb) 05/21/2024 11:09 AM EDT Height 154.9 cm (5' 1) 05/21/2024 11:09 AM EDT Body Mass Index 26.45 05/21/2024 11:09 AM EDT documented in this encounter Progress Notes * Chanda Gordon MD - 05/21/2024 11:00 AM EDT Images from the original note were not included. Arthroplasty History/Previous Hip Surgery: None Chief Complaint: Chief Complaint Patient presents with Establish Care ?XR R HIP PAIN 2ND OPINION This patient was referred from Self mail I.D.: Michelle Fermin is a 38 y.o. year old female being seen today to discuss her right hip. Her history and physical exam were reviewed in detail. Patient comes in today complaining of about 1 year of progressive right hip pain, most severe and progressive in the last 3 months. She describes spasm-like pain in her right anterior thigh musculature at night particularly the worst. She also describes a feeling like her right hip is giving way sometimes. She has been seen at [facility] orthopedics for which she had a corticosteroid injection that appears to have been intra-articular in the hip joint was administered 3 weeks ago which provided no pain relief for her. She describes her symptomsto be worse at night and is uncomfortable trying to sleep with any sort of positioning. Does also re port a lot of tightness in her low back as well. She has tried naproxen, multiple NSAIDs, gabapentin, all without relief. She has no known history of spinal disease or prior spine MRI. Is an active smoker, 1 pack/day. 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 Denies heart or lung disease, denies diabetes. ASSOCIATED DIAGNOSES: She does not reports problems with the contralateral hip, does not report problems with the ipsilateral knee and does have a history of spine or back issues. ALLERGIES Allergies Allergen Reactions Usunzwrl-Rwrztddjkq-Xbzoigwcy Nickel Allergies to metals: none known. SOCIAL HISTORY: reports that she has been smoking cigarettes. She does not have any smokeless tobacco history on file. She reports that she does not currently use alcohol. She reports current drug use. Drug: Marijuana. 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 VITALS: BP Readings from Last 1 Encounters: No data found for BP Pulse Readings from Last 1 Encounters: No data found for Pulse Height: 154.9 cm (5' 1) Weight: 63.5 kg (140 lb) Body mass index is 26.45 kg/m??. PHYSICAL EXAM: Constitution: Patient sits in the clinic today in no apparent distress. The patient is alert and oriented x 3. Appearance is age-appropriate, affect is similarly appropriate. I have made the following determinations: Hip Exam: Right Prior surgery on this joint: No Leg length: Longer leg: equal Limb Length discrepancy: 0cm Motion: Flexion contracture: 0 Total degrees of Flexion:80 Total degrees of Abduction:40 Total degrees of Ext Rotation: 40 Total degrees of Internal Rotation: 15 Gait Abnormality: Normal Skin Integrity: Normal Pulses Palpable: Right PT: Yes Right DP:Yes Motor/Sensory: Right Distal Motor: Normal Distal Sensory: Normal Hip Abductors: 5 Trendelenburg test: negative Radiographic evidence of joint damage:[0= normal; 1=minimal ; 2= some osteophytes , some narrowing ; 3= moderate osteophytes, significant narrowing, mild deformity; 4= large osteophytes, marked narrowing, obvious deformity]: 1= minimal. No significant evidence of osteoarthritis or joint space narrowing. 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 Questionnaire Responses: 05/21/2024 General Health, Prior Treatments, PreExisting Condition, Health Habits, About You PROMIS-10 General Health Fair PROMIS-10 Quality of Life Fair PROMIS-10 Physical Health Fair PROMIS-10 Mental Health Fair PROMIS-10 Social Activity Good PROMIS-10 Everyday Activities A little PROMIS-10 Pain 10 - Worst Imaginable Pain PROMIS-10 Fatigue Mild PROMIS-10 Social Roles Fair PROMIS-10 Anxious or Depressed Sometimes PROMIS PHYSICAL SCORE (range 16-68) 32.4 PROMIS MENTAL SCORE (range 21-68) 38.8 Treatments Tried Heat and ice therapy Over the counter anti-inflammatory drugs (e.g Advil, Aspirin, Aleve) Prescribed anti-inflammatory drugs Injection of steroids or cortisone FERMÍN CRUZ Scores 36.36 THOMAS Grade 1 Alzheimers or dementia No Cirrohosis or liver disease No HIV/AIDS No Pain in more than one joint in legs No Back or neck pain Yes Heart attack No Heart failure No Unclog/bypass leg arteries No Stroke, blood clot, TIA No Asthma No Emphysema, chronic bronchities, or COPD No Stomach ulcers/peptic ulcer disease No Diabetes No Poor kidney function No Rheumatic condtions No Cancer No Weight (lbs) 140 Height (feet) 5 feet Height (Inches) 1 BMI 26.45 (Overweight) Ever used tobacco products Yes Tobacco frequency Daily or almost daily WHO - Tobacco Advice 6 (You are at risk of health and other problems from your current pattern of tobacco use.) Ever used alcoholic beverages Yes Alcohol frequency Daily or almost daily WHO - Alcohol Advice 6 (You are at risk of health and other problems from your current pattern of alcohol use.) Live Alone No Marital situation Living with significant other Schooling Some high school, but did not graduate Combined Household Income Prefer not to answer # People Supported 2 [place], , No, not [place]// Race White Health Literacy Quite a bit Currently working No Not working because: Not working due to disability Multiple values from one day are sorted in reverse-chronological order 05/21/2024 Orthope[facility] HOOS JR Scores 36.36 05/21/2024 Spine [facility] Response HOOS JR Scores 36.36 ASSESSMENT AND PLAN: Ms. Fermin is a 38 y.o. year old female with continued right hip pain without significant osteoarthritis and referred right lower extremity pain in setting of possible radicular lumbar spine pain. Her symptoms received no relief from intraarticular corticosteroid injection and unfortunately continues to have right lower extremity pain that radiates down entire leg which leads me to believe at this time her pain is not related to intraarticular hip pathology but more likely from radicular spine pain in nature. Recommendations: - Referral to PT given low back pain, radicular leg symptoms and tight hamstrings - XR Lumbar Spine - Referral to pain and spine center for consideration of multimodality pain control including possible corticosteroid injections Chanda Gordon MD --- I had the pleasure of evaluating Michelle Fermin in clinic in conjunction with Dr. Gordon. I have seenthe patient and reviewed the history/physical and I agree with the details as written. The assessment and plan were formulated in discussion with me and I agree with them as documented. Ms. Fermin is a 38 y.o. year old female with right lower extremity pain which is most consistent with lumbar spine pathology based on history and physical examination. Provocative physical exam maneuvers for hip joint pathology were negative today. The quality of her pain is consistent with that oflumbar radiculopathy, likely L3 or L4. My independent personal review of the imaging studies demonstrate preserved bilateral hip joint spaces with evidence of borderline acetabular dysplasia (slight femoral head under-coverage, lateral center edge angle ~25 degrees). MRI of the right hip demonstrates above stated findings, no labral tear appreciated. Given that the patient's pain appears to be coming for her back rather than her hip, we will plan to refer her to our colleagues at the [facility] for further management. AP and lateral lumbar spine XRs were ordered today to establish a diagnostic baseline; some loss of disc height at L4-5 was noted without evidence of spondylolysis or listhesis. Patient was also given a referral to physical therapy to help with back/core strengthening and care of the back. All questions were answered. 40 minutes were spent in chart review, [id number] time and coordination of care with the patient. Jazmin Marie MD Department of Orthopaedic Surgery, Hip & [place] [address] [email or web address] documented in this encounter Plan of Treatment Upcoming Encounters Date Type Department Care Team (Late st Contact Info) Description 06/28/2024 4:00 PM EDT Office Visit Pain Management at [facility] [address] [facility] [place] [address] Hakeem Ty MD [address] PHYSICAL MEDICINE [place] [address] Scheduled Referrals Name Type Priority Associated Diagnoses Orde r Schedule Referral to Physical Therapy Outpatient Referral Routine Pain in right hip Ordered: 05/21/2024 Referral to [facility] Center (Internal only) Outpatient Referral Routine Pain in right hip Ordered: 05/21/2024 documented as of this encounter Results * XR Lumbar Spine 2 Or 3 Views (Generic) (05/21/2024 1:59 PM EDT) [employer] WORKSTATION ID [id number] RAD Anatomical Region Laterality Modality L-spine N/A [...] who have questions please contact the health school child care attendant that requested your imaging first. ? Narrative [...] patients who have questions please contactthe health school child care attendant that requested your imaging first. Jazmin Marie MD IMG DX ORDERABL ES documented in this encounter Visit Diagnoses Diagnosis Pain in right hip Pain in joint, pelvic region and thigh Pain in right hip Pain in joint, pelvic region and thigh documented in this encounter Care Teams Pole Classifier Relationship Specialty Start Date End Date Juana Anthony APRN [address] [place] [address] PCP - General Family Medicine 05/18/24 documented as of this encounter
--- NOTE | 2024-06-22 07:15 | DI.MRI_ITS ---
Exam(s) MR LUMBAR SPINE WO EXAM: MR LUMBAR SPINE WO CLINICAL HISTORY: back pain radicular,ddd,lumbar facet arthropathy,m51.36,m47.816. TECHNIQUE: Multiplanar multisequence MRI of the Lumbar spine was performed. COMPARISON: CR XR LUMBAR SPINE 2 OR 3 VIEWS (GENERIC) from 05/21/2024 FINDINGS: Bones: The last intervertebral disc space is designated the L5/S1 level for the numbering purpose of this examination. The vertebral body heights are well maintained. Alignment is satisfactory. Endpla te degenerative signal changes are seen at L4-5 and L5-S1. Cord: The conus tip ends at the T12 level. It is of normal size and signal intensity. T12-L1: No disc herniations or bulges are present. No central spinal canal or neural foraminal stenos is. L1-2: No disc herniations or bulges are present. No central spinal canal or neural foraminal stenosis . L2-3: No disc herniations or bulges are present. No central spinal canal or neural foraminal stenosis . L3-4: No disc herniations or bulges are present. No central spinal canal or neural foraminal stenosis . L4-5: There is a diffuse disc bulge. Degenerative changes of the facets are seen, left greater than right. Moderate right and moderately severe left neural foraminal stenosis is present. L5-S1: There is a mild diffuse disc bulge. Mild degenerative changes are seen at the facets. No tyra tral spinal canal stenosis is seen.There is moderate right and mild left neural foraminal stenosis. Soft tissues: The visualized SI joints and sacrum are well maintained. The paraspinal soft tissues ar e unremarkable. IMPRESSION: Degenerative changes seen in the lumbar spine at L4-5 and L5-S1 causing bilateral neural foraminal st enosis as described above. DATA REPOSITORY:
== END 2024-06-22 00:47 ==
LOC: DI 00:27
PROVIDERS: PCP Nurse Practitioner Family; Visit Provider Nurse Practitioner Family
DX: M47.816 Spondylosis without myelopathy or radiculopathy, lumbar region
CPT/HCPCS: 72148

== ENCOUNTER 2024-08-22 09:26 | Emergency (ER) | payer MEDICAID, SELFPAY ==
--- NOTE | 2024-08-22 09:57 | ED.GENADUL_ITS ---
Discharge Plan Discharge Details Chief Complaint: PsychEval Clinical Impression: Alcohol use disorder Primary Care Provider: Juana Anthony ED Provider: Ivan Booth Home Meds and New Rx's Prescriptions: No Action clonidine HCl 0.1 mg tablet 0.1 mg PO TID PRNQty: 30 0RF Patient Comments: states taking NO meds. Rx Instructions: For anxiety HPI General Date/Time Provider Initiated Documentation: 08/22/24 09:29 . Limitations to Documentation: no limitations . Information obtained by: patient . History of Present Illness 38 year old F presents to the emergency department with the chief complaint of chronic pain, alcohol abuse, described as severe, Patient started experiencing this year(s) (2) and it has been constant. No relieving factors improve symptom(s), No exacerbating factors reported . Patient notes denies fever/chills, nausea/vomiting and shortness of breath. Patient did receive the following treatments prior to arrival, none Related Data Home Medications ?Medication ?Instructions ?Recorded ?Confirmed clonidine HCl 0.1 mg tablet 0.1 mg PO TID PRN #30 tabs 05/02/24 08/22/24 Previous Rx's ?Medication ?Instructions ?Recorded clonidine HCl 0.1 mg tablet 0.1 mg PO TID PRN #30 tabs 05/02/24 Allergies Allergy/AdvReac Type Severity Reaction Status Date / Time nickel Allergy Rash Verified 08/22/24 09:42 bacitracin (From Neosporin AdvReac Intermediate Skin Rash Verified 08/22/24 09:42 ([id number])) neomycin (From Neosporin AdvReac Intermediate Skin Rash Verified 08/22/24 09:42 ([id number])) polymyxin B (From Neosporin AdvReac Intermediate Skin Rash Verified 08/22/24 09:42 ([id number])) General Stated Complaint: PsychEval JORGE: 2 Review of Systems All systems reviewed & are unremarkable except as noted in HPI and below Constitutional Constitutional: Denies chills and Denies fever(s) Cardiovascular Cardiovascular: Denies chest pain and Denies dyspnea Respiratory Respiratory: Denies cough and Denies dyspnea Gastrointestinal Gastrointestinal: Denies abdominal pain and Denies vomiting Psychiatric Psychiatric: Reports anxiety and Reports depression Endocrine Endocrine: Denies cold intolerance Exam Const General: no acute distress Orientation: alert HENMT Head: normal to inspection Ears: external ears normal General nose exam: external nose normal Mouth: moist mucous membranes Eyes General: appearance normal, both eyes and all related structures Neck Neck: normal visual inspection Resp Effort & Inspection: normal respiratory effort and able to speak in complete sentences Cardio Rate: regular rate Skin General skin exam: no rashes or lesions noted Neuro General: patient alert and patient oriented x3 Extrem General: normal to inspection Psych Affect: sad Attitude: cooperative Course Lab/Test Results Lab/Test Results: Laboratory Tests Range/Units 08/22/24 09:44 Serum HCG, Qual Cancelled Medical Decision Making 38-year-old female with a history of chronic alcohol abuse and chronic back pain comes in with continued alcohol abuse and depression due to her alcohol use and chronic pain. She is alert and oriented x 4 on arrival but does have a heavy smell of alcohol and will intermittently slurred her words. She has no signs of trauma to her head. She is intermittently tearful during exam. When asked if she has thoughts of self-harm or wanting to kill herself she is moving her extremities equally, no abdominal tenderness. I suspect. She is intoxicated and also has chronic pain and substance abuse issues which is worsening her depression. Will check to tox screen and monitor until Sober enough to speak with mental health. she also notes she uses marijuana but denies any IV drug use Labs show EtOH of 434 otherwise unremarkable labs. She will have to be clinically sober for she can talk with mental health. Will continue to observe until this can happen. She has had alcohol withdrawal symptoms in the past including seizures so will place on scheduled Librium hopefully help prevent severe alcohol withdrawal. Patient has remained stable, will be signed out to oncoming provider until alcohol level is 0 for her to talk to mental health. Differential Diagnosis Differential Diagnosis: Substance abuse, chronic pain, depression Medical Records Medical records reviewed: Yes I reviewed the patient's medical records. Lab Data Lab results reviewed: Yes I reviewed the patient's lab results. Quality:SDOH Health Related Social Needs: No Data to Display PFSH All Active Problems (Updated 08/22/24 @ 15:28 by Ivan Booth MD) Urinary incontinence (Acute) Bacterial vaginosis (Acute) Vaginal discharge (Acute) Lumbar facet arthropathy (Acute 05/22/24) Degenerative disc disease, lumbar (Acute 05/22/24) Mild, L4-5 and L5-S1 Well woman exam with routine gynecological exam (Acute) Chronic pain (Chronic) Alcohol dependence (Acute) Anxiety about health (Acute) Insomnia (Acute) Elevated TSH (Acute) Preventative health care (Acute) Labral tear of right hip joint (Acute) POCUS injection: 04/27/2024 Hip pain, right (Chronic) Alcohol use disorder (Acute) Nodule of left lung (Acute) Medical History Alcohol withdrawal Tobacco abuse Alcohol dependence Anxiety disorder Depression Social History Smoking/Tobacco Use Status: Current every day Tobacco Type: cigarettes Smoking packs per day: 1 Smoking cigarettes per day: 20.0 Years smoked: 24 Smoking pack- years: 24.00 Smoking risk assessment performed?: Yes Alcohol Intake: current Alcohol Intake frequency: 3 or more drinks per day Alcohol type: hard liquor Drug use: Daily Substance use type: marijuana and crack/cocaine Details: smokes weed daily, 1/2 gallon of whiskey a day from time wakes to go to bed Housing: house Do you feel safe at home: Yes Do you feel safe in your relationship?: Yes Additional Social history: Lives in [place], male friend is her main support Female Reproductive History Menstrual Age of Menarche: 11 Duration of menses: 3-5 days control method: none History History 1 Para Hx # Term Pregnancies Multiple births Hx # Pregnancies Ectopic pregnancies AB induced 1 Hx Number of Living Children AB spontaneous
--- OUTSIDE RECORDS SUMMARY | 2024-08-22 09:57 | XMS_ITS | Referral Summary ---
Author Organization [facility] Address [address] [place] [address] Care Team Providers Care Anesthesia Resident Name Role Phone Unknown, Provider Primary Care Provider Unava ilable Social History Tobacco Use Types Packs/Day Years Used Date Smoking Tobacco: Never Assessed Comments Unknown Sex and Gender Information Value Date Recorded Sex Assigned at Not on file Legal Sex Female 10:14 EDT Gender Identity Not on file Sexual Orientation Not on file Plan of Treatment Not on file Insurance MEDICAID [place] [facility] Address: [address] [address] Care Teams Anesthesia Resident Relationship Specialty Start Date End Date Unknown, Provider, PCP - General 05/06/24
--- OUTSIDE RECORDS SUMMARY | 2024-08-22 09:57 | XMS_ITS | Encounter Summary ---
Author Organization [facility] Address [address] [place] [address] Care Team Providers Care Administrative Services Director Name Role Phone Unknown, Provider Primary Care Provider Unava ilable Encounter Details Date Type Department Care Team (Late st Contact Info) Description 05/09/2024 Lab Requisition [facility] Pathology & Laboratory Medicine - [facility] [address] [place] [address] Blanca Hendricks [address] [place] [address] [place] [id number] Encounter for other general examination Social History [...] examination documented in this encounter Care Teams Administrative Services Director Relationship Specialty Start Date End Date Unknown, Provider, PCP - General 05/06/24 documented as of this encounter
--- OUTSIDE RECORDS SUMMARY | 2024-08-22 09:57 | XMS_ITS | Encounter Summary ---
Author Organization [place] [address] Care Team Providers Care Nanotechnology Engineering Technician Name Role Phone Juana Anthony Charlotte CROWE Primary Care Provider [phone] Reason for Referral * Diagnostic Test (Routine) - Closed Specialty Diagnoses / Procedures Referred By Contac t Referred To Contact Radiology Diagnoses Urinary incontinence, unspecified type Spondylosis of cervical region without myelopathy or radiculopathy Procedures MRI Brain wo Contrast Hakeem Ty MD 10 [facility] PHYSICAL MEDICINE [place] [address] [facility] Rad Mri [address] [place] [address] Referral ID Status Reason Start Date Expiration Date V isits Requested Visits Authorized [id number] Closed Specialty Service Requested 07/19/2024 01/16/2026 1 1 Reason for Visit * Reason Comments Follow-up Cervical MRI Encounter Details Date Type Department Care Team (Late st Contact Info) Description 07/19/2024 1:00 PM EST Office Visit Pain Management at [facility] [address] [place] [address] Hakeem Ty MD 10 [facility]IC[facility] [place] [address] Radiculopathy of lumbar region; Chronic pain syndrome; Urinary incontinence, unspecified type; Spondylosis of cervical region without myelopathy or radiculopathy Social History Tobacco Use Types Packs/Day Years Used Date Smoking Tobacco: Every Day Cigarettes Passive Smoke Exposure: Past Smokeless Tobacco: Never Passive Exposure Comments:ch ildhood Alcohol Use Standard Drinks/Week Comments Not Currently 0 (1 standard drink = 0.6 oz pur e alcohol) Sex and Gender Information Value Date Recorded Sex Assigned at Not on file Gender Identity Not on file Sexual Orientation Not on file documented as of this encounter Patient Instructions * Patient Instructions* Pooja Rowe RN - 07/19/2024 1:00 PM EST Images from the original note were not included. HOME EXERCISE PROGRAM Please perform exercises within your pain tolerance. If you have questions or concerns with the exercises, please contact the clinic at [phone] and ask to speak to the Laboratory Operations Coordinator, Jenny. HEP HEP- Cervical ROM STRETCHES Created by Jenny Ayon ATC, [facility] Feb 17, 2021 View videos at [email or web address] CERVICAL RETRACTION 1 CHIN TUCK Slowly draw your head back so that your ears line up with your shoulders. Video # [id number] Repeat Hold Complete Perform 10 Times 5 Seconds 1 Set 3 Times a Day CERVICAL ROTATION Turn your head towards the side, then return back to looking straight ahead. Repeat on the oppositeside. Video # [id number] Repeat Hold Complete Perform 4 Times 20 Seconds 1 Set 3 Times a Day CERVICAL SIDE BEND Repeat 4 Times Tilt your head towards the side, then return Hold 20 Seconds back to looking straight ahead. (Be sure to Complete 1 Set keep you eyes and nose pointed straight ahead the entire time). Perform on both sides. Perform 3 Times a Day Video # [id number] CERVICAL FLEXION Tilt your head downwards, then return back to looking straight ahead. Video # [id number] Repeat Hold Complete Perform 4 Times 20 Seconds 1 Set 3 Times a Day CERVICAL EXTENSION Tilt your head upwards, then return back to looking straight ahead. Video # [id number] Repeat Hold Complete Perform 4 Times 20 Seconds 1 Set 3 Times a Day Right Trapezius Stretch Begin by sitting up straight. Rotate your head toward the right. While holding this rotation, side bend the head to the left, bringing the left ear toward the left shoulder. Apply gentle downward pressure to the head with your left arm. You will feel this stretch on the right side of your neck. Repeat Hold Complete Perform 3 Times 20 Seconds 1 Set 3 Times a Day Left Trapezius Stretch Repeat 3 Times Begin by sitting up straight. Rotate your chin toward your left shoulder.Keeping this rotation, side bend to the right, with your right ear coming toward your right shoulder.Gently grab your head with your right arm and apply slight pressure. You will feel this stretch down the left side of your neck. Hold Complete Perform 20 Seconds 1 Set 3 Times a day LOW BACK PAIN Please only do exercises that you do comfortably. If an exercise causes you pain, please stop. If you become too sore to complete your next session of the day, please cut the exercises in half, do only half the repetitions and half the amount of sets. If you have any questions regarding the exercises please call the clinic at [phone], and ask to speak with the Laboratory Operations Coordinator, Jenny. POSTERIOR PELVIC TILT Lie on your back on a firm surface with knees comfortably bent (top picture). Then flatten back against the table while roney abdominal muscles as if pulling belly button toward ribs (bottom picture). Repeat 10 Times Hold 5 Seconds Complete 3 Sets Perform 1 Time Daily BRIDGE BRIDGING While lying on your back with knees bent, tighten your lower abdominals, squeeze your buttocks and then raise your buttocks off the floor/bed as creating a Bridge with your body. Hold and then lower yourself and repeat. VIDEO: [id number] Repeat 10 Times Hold 2 Seconds Complete 3 Sets Perform 1 Time Daily CAT AND CAMEL While on your hands and knees in a crawl position, raise up your back and arch it towards the ceiling like an angry cat. Next return to a lowered position and arch your back the opposite direction. VIDEO: [id number] Repeat 5 Times Hold 5 Seconds Complete 3 Sets Perform 1 Time Daily SEATED PELVIC TILT While in a seated position, arch your low back and then flatten it, repeatedly. Your pelvis should tilt forward and back during the movement. Move through a comfortable range of motion. VIDEO: [id number] Repeat 10 Times Hold 5 Seconds Complete 1 Sets Perform 3 Times Daily STANDING HAMSTRING STRETCH Start by standing and prop your foot of the affected leg on a chair or a step. Next, slowly lean forward until a stretch is felt behind your knee/thigh. Bend through your hips and not your spine. Hold, then return to starting position and repeat. VIDEO: [id number] Repeat 3 Times Hold 30 Seconds Complete 1 Sets Perform 2 Times Daily STANDING BENT KNEE QUAD STRETCH With a chair behind you, bend the knee and place one foot on the chair. If no stretch is felt, bend down with the other knee (dip) until a stretch is felt. Repeat 3 Times Hold 30 Seconds Complete 1 Sets Perform 2 Times Daily View videos at [email or web address] documented in this encounter Progress Notes * Hakeem Ty MD - 07/19/2024 1:00 PM EST Chief Complaint Patient presents with Follow-up Cervical MRI Michelle Fermin is a 38 y.o. female who is being seen in follow-up after Cervical MRI done on 07/16 . Current Pain Management Regimen: To recap from last visit, The pain is located low back and began over a year ago around February 2024 it became much worse as the result of 20 years as a residential pain / no specific injury. The pain does radiate to the right ankle anteriorly . Pain quality is described as sharp, shooting, aching, numb, prickly, electric, dull, cramping, tingling, and pulling and is 7/10 in intensity. She reports the pain occurs recurrent and is severe. Since this pain began it has increased. Activities of normaldaily living and movement in general aggravate the pain and is relieved by sitting,squatting and bending forward. Her MRI of the cervical spine came back and did not demonstrate any evidence of cervical cord impingement. There is neuroforaminal impingement at C5-6 worse on the left due to combination of facet arthropathy and a disc bulge. She is not really describing radicular pain. She denies any loss of bowel control. Urinary incontinence is still slightly present but improved. For this reason I am going to check an MRI of the brain without gadolinium to be complete. I also recommend her primary care physician refer her to urology for a more complete urological evaluation regarding her incontinence. She reports the pain is 4/10 and is dull and achy and is constant. She reports the pain does radiate to right ankle. She has has started PT at [facility] and reports pain is more mild now FINDINGS: Straightening of the normal cervical lordosis. Moderate loss of disc height at C6-C7 where there is reactive endplate marrow edema and anterior endplate osteophytes. Vertebral body heights are maintained. No aggressive marrow lesion. The cervical cord is normal in signal and morphology. Visualized posterior fossa is unremarkable. Prevertebral soft tissues are normal. Findings by individual level: C2-C3: No significant spinal canal or neural foraminal stenosis. C3-C4: No significant spinal canal or neural foraminal stenosis. C4-C5: No significant spinal canal or neural foraminal stenosis. C5-C6: Mild disc bulge with no significant spinal canal or neural foraminal stenosis. C6-C7: Mild disc bulge with facet and uncovertebral joint arthropathy resulting in moderate left and mild right neural foraminal stenosis. No significant spinal canal stenosis. C7-T1: No significant spinal canal or neural foraminal stenosis. IMPRESSION Degenerative disc disease, mild disc bulge, along with uncovertebral and facet joint arthropathy at C6-C7 resulting in moderate left and mild right neural foraminal stenosis. No significant spinal canal narrowing. Review of Systems: Constitutional Denies fevers, chills, night sweats HEENT Denies new hearing or vision problems or headaches. Cardiovascular Denies chest pain, palpitations. Respiratory Denies cough, SOB. GI Denies constipation, denies diarrhea, denies N/V, black stools. deniesdysuria, denies urine retention. Musculoskeletal Denies other joint pains, except as otherwise noted see HPI for further details Neurologic Denies other loss of sensation, see HPI. Sleep within normal limit. Psychiatric Describes mood as Normal. Denies suicidal ideation. Hematologic Denies anticoagulant use, easy bruising. Physical Exam: No data found. CONSTITUTION: Well nourished , well developed, no acute distress, well-tended appearance, appears about reported age, normal body habitus, no obvious deformities present HEAD: Cranium: Inspection: Atraumatic, normocephalic Face: Inspection: No facial lesions EYES: Conjunctiva: Conjunctiva normal Sclera: Sclera white Eyelids/Occular Adnexa: Eyelid appearance normal, no exudates present, eye moisture level normal EARS, NOSE, MOUTH, EARS: External Ears: Auricle appearance normal bilaterally, external auditory canal appearance within normal limits Hearing: intact to conversational voice both ears Nose: External nose: Appearance normal Oral Cavity: Lips: Lip appearance normal Tongue: Tongue appearance normal NECK: Neck: Normal appearance, no masses or tenderness, trachea midline Range of Motion: Range of motion within normal limits with normal function limits RESPIRATORY: Respiratory effort: Breathing unlabored Auscultation of Lungs: Clear with normal breathing sounds throughout, negative rales, wheezes or rhonchi CARDIOVASCULAR: Heart: Ausculation of Heart: Regular rate and rhythm, S1, S2, no murmurs, rubs or gallops GASTROENTEROLOGY: Abdominal Examination: Abdomen non tender to palpation, tone normal without rigidity or guarding, no masses present, abdominal contour scaphoid Lymphatic: Neck: No lymphadenopathy present MUSCULOSKELETAL: Cervical Spine: Range of Motion: Decreased in all planes Palpation: Muscle guarding present Lumbosacral Spine: Range of Motion: Decreased in all planes Palpation: Muscle guarding present Gait and Station: Normal gait and station SKIN AND SUBCUTANEOUS: General Inspection: Without rash or lesion NEUROLOGIC: Cranial Nerves: Cranial nerves 2-12 unremarkable Mental Status Examination: unremarkable Motor Examination: 5/5 strength in all four extremities in all muscle groups Reflexes: 2+ deep tendon reflexes symmetric, biceps, triceps, brachioradialis, knees and ankles bilaterally, down going toes bilaterally, Marquez sign negative bilaterally, no long tract signs seen Sensation: Normal sensation in all cervical and lumbosacral dermatomes, exam normal all four extremities PSYCHIATRIC: Mood and Affect: Mood normal. affect appropriate Assessment/Plan: Michelle was seen today for follow-up . Diagnoses and all orders for this visit: Radiculopathy of lumbar region Chronic pain syndrome Urinary incontinence, unspecified type Spondylosis of cervical region without myelopathy or radiculopathy Check MRI of the brain, home exercise program consisting of cervical and lumbar stabilization exercises with myofascial stretches were given which she should do daily. She is currently in physical therapy for her low back which she should continue. I would ask her primary care physician to considerreferral to [facility] at [facility] for evaluation for urinary incontinence. I will see her after 6 weeks of home exercises, sooner problems arise. If the MRI of her brain shows abnormalities, I will see her back sooner. All of the patient's questions were answered and she is in agreement with the plan, and was appreciative of today's visit. documented in this encounter Plan of Treatment Upcoming Encounters Date Type Department Care Team (Late st Contact Info) Description 09/13/2024 1:20 PM EST [place] [address] Lizzeth Fernandez APRN [facility] [place] [address] 09/13/2024 4:30 PM EST Office Visit Pain Management at [address] [address] Hakeem Ty MD 10 [facility] PHYSICAL MEDICINE [place] [address] documented as of this encounter Results * MRI Brain wo Contrast (07/31/2024 3:03 PM EST) [email or web address] WORKSTATION ID [id number] [facility] Anatomical Region Laterality Modality Head Magnetic Resonan ce Impressions 08/01/2024 4:04 AM EST Unremarkable examination, other than mild paranasal sinus disease. Thank you for letting us participate in the care of this patient. ??If you are a health care provider and have any questions regarding this report, please contact the number below. ??For patients who have questions please contact the health critical care nurse practitioner that requested your imaging first. ? Electronically signed by: Rehan Olivares MD, [facility] ([phone]), at 08/01/2024 4:04 AM Narrative 08/01/2024 4:04 AM EST EXAMINATION: MRI BRAIN WO CONTRAST CLINICAL HISTORY: urinary incontinence dx with no cervical myelopathy seen R32, Unspecified urinary incontinence - M47.812, Spondylosis without myelopathy or radiculopathy, cervical region (History as entered by ordering provider in the order requisition) TECHNIQUE: MRI of the brain performed without intravenous contrast administration. COMPARISON: None FINDINGS: No acute intracranial hemorrhage, infarct, mass effect identified. Parenchymal appears unremarkable, other than nonspecific tiny RIGHT cerebellar T2/FLAIR hyperintense focus. Central flow voids of the principal intracranial arteries and major dural venous sinuses appear maintained. Mild mucosal thickening in the LEFT maxillary antrum, anterior ethmoid air cells, and LEFT frontal sinus. Procedure Note Rehan Olivares MD - 08/01/2024 EXAMINATION: MRI BRAIN WO CONTRAST CLINICAL HISTORY: urinary incontinence dx with no cervical myelopathyseen R32, Unspecified urinary incontinence - M47.812, Spondylosis withoutmyelopathy or radiculopathy, cervical region (History as entered by ordering provider in the order requisition) TECHNIQUE: MRI of the brain performed without intravenous contrast administration. COMPARISON: None FINDINGS: No acute intracranial hemorrhage, infarct, mass effect identified.Parenchymal appears unremarkable, other than nonspecific tiny RIGHT cerebellarT2/FLAIR hyperintense focus. Central flow voids of the principal intracranialarteries and major dural venous sinuses appear maintained. Mild mucosal thickeningin the LEFT maxillary antrum, anterior ethmoid air cells, and LEFT frontalsinus. IMPRESSION Unremarkable examination, other than mild paranasal sinus disease. Thank you for letting us participate in the care of this patient. If youare a health care provider and have any questions regarding this report,please contact the number below. For patients who have questions please contactthe health critical care nurse practitioner that requested your imaging first. Electronically signed by: Rehan Olivares [facility]([phone]), at 08/01/2024 4:04 AM Hakeem Mak MD IMG MRI ORDERABLES documented in this encounter Visit Diagnoses Diagnosis Radiculopathy of lumbar region Thoracic or lumbosacral neuritis or radiculitis, unspecified Chronic pain syndrome Urinary incontinence, unspecified type Spondylosis of cervical region without myelopathy or radiculopathy Cervical spondylosis without myelopathy Urinary incontinence, unspecified type Spondylosis of cervical region without myelopathy or radiculopathy Cervical spondylosis without myelopathy documented in this encounter Care Teams Nanotechnology Engineering Technician Relationship Specialty Start Date End Date Juana Anthony, ROOFING FOREMAN [address] [place] [address] PCP - General Family Medicine 05/18/24 documented as of this encounter
--- OUTSIDE RECORDS SUMMARY | 2024-08-22 09:57 | XMS_ITS | Encounter Summary ---
Author Organization [facility] [place] [address] Care Team Providers Care Rn Case Management Name Role Phone Gabrielle Juana Charlotte CROWE Primary Care Provider [phone] Reason for Referral * Diagnostic Test (Routine) - Closed Specialty Diagnoses / Procedures Referred By Contac t Referred To Contact Radiology Diagnoses Urinary incontinence, unspecified type Spondylosis of cervical region without myelopathy or radiculopathy Procedures MRI Brain wo Contrast Hakeem Ty MD [address] [place] [address] [facility] Rad Mri [address] [place] [phone] Referral ID Status Reason Start Date Expiration Date V isits Requested Visits Authorized [id number] Closed Specialty Service Requested 07/19/2024 01/16/2026 1 1 Reason for Visit * Diagnostic Test (Routine) - Closed Specialty Diagnoses / Procedures Referred By Contac t Referred To Contact Radiology Diagnoses Urinary incontinence, unspecified type Spondylosis of cervical region without myelopathy or radiculopathy Procedures MRI Brain wo Contrast Hakeem Ty MD [address] [place] [address] [facility] Rad Mri [address] [place] [phone] Referral ID Status Reason Start Date Expiration Date V isits Requested Visits Authorized [id number] Closed Specialty Service Requested 07/19/2024 01/16/2026 1 1 Encounter Details Date Type Department Care Team (Latest Contact Info) Description 07/31/2024 2:19 PM EST - 07/31/2024 11:59 PM EST Hospital Encounter Radiology MRI at [facility] [place] [address] Hakeem Ty MD 10 [facility] PHYSICAL MEDICINE [place] [address] Urinary incontinence, unspecified type; Spondylosis of cervical region without myelopathy or radiculopathy Discharge Disposition: Home Social History Tobacco Use [...] Sig Dispensed Refills Start Date End Date cloNIDine (Catapres) 0.1 mg tablet Take 1 tablet by mouth every 8 hours as needed for Anxiety. 05/02/2024 documented as of this encounter Plan of Treatment Upcoming Encounters Date Type Department Care Team (Late st Contact Info) Description 09/13/2024 1:20 PM EST [place] [address] Lizzeth Fernandez APRN [facility] [place] [address] 09/13/2024 4:30 PM EST Office Visit Pain Management at [facility] [place] [phone] Hakeem Ty MD 10 [facility] PHYSICAL MEDICINE [place] [address] documented as of this encounter Procedures Procedure Name Priority Date/Time Associated Diagnosis Comments MRI BRAIN WO CONTRAST Routine 07/31/2024 3:03 PM EST Urinary incontinence, unspecified type Spondylosis of cervical region without myelopathy or radiculopathy documented in this encounter Results * MRI Brain wo Contrast (07/31/2024 3:03 PM EST) WORKSTATION ID [id number] RAD Anatomical Region Laterality Modality Head Magnetic Resonan ce Impressions 08/01/2024 4:04 AM EST Unremarkable examination, other than mild paranasal sinus disease. Thank you for letting us participate in the care of this patient. ??If you are a health care provider and have any questions regarding this report, please contact the number below. ??For patients who have questions please contact the health resident care manager rn that requested your imaging first. ? Electronically signed by: Rehan Olivares MD, [facility] ([phone]), at 08/01/2024 4:04 AM Narrative 08/01/2024 4:04 [...] patients who have questions please contactthe health resident care manager rn that requested your imaging first. Electronically signed by: Rehan Olivares MD, [facility]([phone]), at 08/01/2024 4:04 AM Hakeem Mak MD IMG MRI ORDERABLES documented in this encounter Visit Diagnoses Diagnosis Urinary incontinence, unspecified type Spondylosis of cervical region without myelopathy or radiculopathy Cervical spondylosis without myelopathy documented in this encounter Care Teams Rn Case Management Relationship Specialty Start Date End Date Juana Anthony, BLACK TOP SPREADER MACHINE OPERATOR [address] [place] [address] PCP - General Family Medicine 05/18/24 documented as of this encounter
--- OUTSIDE RECORDS SUMMARY | 2024-08-22 09:57 | XMS_ITS | Encounter Summary ---
Author Organization [facility] [address] [place] [address] Care Team Providers Care Wool Dyer Name Role Phone Juana Anthony APRN Primary Care Provider [phone] Encounter Details Date Type Department Care Team (Latest Contact Info) Description 07/31/2024 Travel Social History Tobacco Use Types Packs/Day [...] 1:20 PM EST Office [place] [address] Lizzeth Fernandez APRN [facility] [place] [address] 09/13/2024 4:30 PM EST Office Visit Pain Management at [address] [place] [phone] Hakeem Ty MD PHYSICAL MEDICINE [place] [address] documented as of this encounter Visit Diagnoses Not on filedocumented in this encounter Care Teams Wool Dyer Relationship Specialty Start Date End Date Juana Anthony APRN [address] [place] [address] PCP - General Family Medicine 05/18/24 documented as of this encounter
--- OUTSIDE RECORDS SUMMARY | 2024-08-22 09:57 | XMS_ITS | Encounter Summary ---
Author Organization [facility] [address] [place] [address] Care Team Providers Care Cryptographer Name Role Phone Juana Anthony APRN Primary Care Provider [phone] Encounter Details Date Type Department Care Team (Latest Contact Info) Description 07/19/2024 Travel Social History Tobacco Use Types Packs/Day [...] 1:20 PM EST Office [place] [address] Lizzeth Fernandez APRN [facility] [address] 09/13/2024 4:30 PM EST Office Visit Pain Management at [address] [place] [phone] Hakeem Ty MD PHYSICAL [place] [address] documented as of this encounter Visit Diagnoses Not on filedocumented in this encounter Care Teams Cryptographer Relationship Specialty Start Date End Date Juana Anthony APRN [address] [place] [address] PCP - General Family Medicine 05/18/24 documented as of this encounter
--- OUTSIDE RECORDS SUMMARY | 2024-08-22 09:57 | XMS_ITS | Encounter Summary ---
Author Organization [facility] [address] Care Team Providers Care Combat Systems Officer Name Role Phone Juana Anthony APRN Primary Care Provider Encounter Details Date Type Department Care Team (Latest Contact Info) Description 06/28/2024 Travel Social History Tobacco Use Types Packs/Day [...] 1:20 PM EST [place] [address] Lizzeth Fernandez APRN [facility] [place] [address] 09/13/2024 4:30 PM EST Office Visit Pain Management at [address] [place] [phone] Hakeem Ty MD [facility] [place] [address] documented as of this encounter Visit Diagnoses Not on filedocumented in this encounter Care Teams Combat Systems Officer Relationship Specialty Start Date End Date Juana Anthony APRN [address] [place] [address] PCP - General Family Medicine 05/18/24 documented as of this encounter
--- OUTSIDE RECORDS SUMMARY | 2024-08-22 09:57 | XMS_ITS | Encounter Summary ---
[place] [address] Care Team Providers Care Potato Chip Cooker Machine Name Role Phone Juana Anthony Charlotte CROWE Primary Care Provider [phone] Reason for Referral * Consultation (Routine) - Authorized Specialty Diagnoses / Procedures Referred By Contac t Referred To Contact Urology Diagnoses Urinary incontinence, unspecified type Neurogenic bladder Hakeem Ty MD [address] PHYSICAL MEDIC[place] [address] [facility] [place] [address] Referral ID Status Reason Start Date Expiration Date Visits Requested Visits Authorized [id number] Authorized Consult, Test & Treat 06/28/2024 06/28/2025 1 1 * Diagnostic Test (Routine) - Closed Specialty Diagnoses / Procedures Referred By Contac t Referred To Contact Radiology Diagnoses Osteoarthritis of cervical spine with myelopathy Procedures MRI Cervical Spine wo Contrast (Generic) Hakeem Ty MD [address] PHYSICAL MEDIC[place] [address] [facility] [address] [place] [address] Referral ID Status Reason Start Date Expiration Date V isits Requested Visits Authorized [id number] Closed Specialty Service Requested 06/28/2024 12/27/2025 1 1 Reason for Visit * Reason Comments Establish Care Pain Management Low Back Pain and Ri ght Leg Pain * Consultation (Routine) - Closed Specialty Diagnoses / Procedures Referred By Rayne carlos Referred To Contact [facility] Diagnoses Pain in right hip Radicular low back pain Low back pain, non-specific Frank, Jazmin Giordano MD [facility] [place] [address] [facility] Pain Management [address] [place] [address] Referral ID Status Reason Start Date Expiration Date V isits Requested Visits Authorized [id number] Closed Consult, Test & Treat 05/23/2024 05/23/2025 1 1 Encounter Details Date Type Department Care Team (Late st Contact Info) Description 06/28/2024 4:00 PM EDT Office Visit Pain Management at [facility] [address] [place] [address] Hakeem Ty MD [address] [facility] PHYSICAL MED[place] [address] Osteoarthritis of cervical spine with myelopathy (Primary Dx); Radiculopathy of lumbar region; Chronic pain syndrome; Medication management; Urinary incontinence, unspecified type; Neurogenic bladder Social History Tobacco Use Types Packs/Day Years Used Date Smoking Tobacco: Every Day Cigarettes Passive Smoke Exposure: Past Smokeless Tobacco: Never Tobacco Cessation:Ready to Q uit: Not Asked; Counseling Given: Not Answered Passive Exposure Comments:childhood Alcohol Use Standard Drinks/Week Comments Not Currently 0 (1 standard drink = 0.6 oz pur e alcohol) Sex and Gender Information Value Date Recorded Sex Assigned at Not on file Gender Identity Not on file Sexual Orientation Not on file documented as of this encounter Last Filed Vital Signs Vital Sign Reading Time Taken Comments Blood Pressure 135/82 06/28/2024 3:52 PM EDT Pulse 66 06/28/2024 3:52 PM EDT Temperature - - Respiratory Rate - - Oxygen Saturation 100% 06/28/2024 3:52 PM EDT Inhaled Oxygen Concentration - - Weight 63.5 kg (140 lb) 06/28/2024 3:52 PM EDT Height 154.9 cm (5' 1) 06/28/2024 3:52 PM EDT Body Mass Index 26.45 06/28/2024 3:52 PM EDT documented in this encounter Progress Notes * Hakeem Ty MD - 06/28/2024 4:00 PM EDT Chief Complaint Patient presents with [facility] Pain Management Low Back Pain and Right Leg Pain Michelle Fermin is a 38 y.o. year old female presents to the pain clinic for initial consultationat the request of Jazmin Marie for evaluation of Low back pain with right-sided radiculopathy . Per Stacy patient will request for the image to be pushed into pacs HPI: The pain is located low back and began over a year ago around February 2024 it became much worse as theresult of 20 years as a residential pain / no specific injury. The pain does radiate to the right ankle anteriorly . Pain quality is described as sharp, shooting, aching, numb, prickly, electric, dull, cramping, tingling, and pulling and is 7/10 in intensity. She reports the pain occurs recurrent and is severe. Since this pain began it has increased. Activities of normal daily living and movementin general aggravate the pain and is relieved by sitting,squatting and bending forward. She reports as the day progresses the pain gets worse good upon rising.She feels like all pain and nerve meds she has been given have had no appreciable beneftit. She also complains of intermittent urinary incontinence over the last month or so where she will dribble urine. She has also had some neck pain. She denies loss of bowel control. She is able to senseher bladder is full. She has not had an MRI of the brain, cervical or thoracic spine and has not had a urological evaluation. She has had an intra-articular hip injection on the right which did nothing for her pain. It appears she has used naltrexone but not at low doses for treatment of an alcoholuse disorder. She has tried gabapentin but only 300 mg p.o. every 12 hours. I am having her sign a record release so I can get records from her primary care physician to see what medications have been tried and failed. It does not appear that she has tried zonisamide, Lyrica, low-dose naltrexone, tizanidine, baclofen, mexiletine. She has not had epidural steroid injections. She does have pain in her right leg radiating down to her feet. The pain has been going on for 3 months or so. She has tried conservative treatment with physical therapy. She has had an MRI of the lumbar spine but not elsewhere on her neural axis. She comes for further evaluation and treatment. She complains of pain in an S1 distribution on the right. Pt at [facility] weekly started at the beginning June 2024. Contract Status: She does not have a documented opioid contract. Information Reviewed: I have reviewed the referring provider records and any associated images and tests available. Review of Systems: Constitutional Denies fevers, chills, night sweats HEENT Denies new hearing or vision problems or headaches. Cardiovascular Denies chest pain, palpitations. Respiratory Denies cough, SOB. GI Denies constipation, denies diarrhea, denies N/V, black stools. Denies dysuria, denies urine retention. Musculoskeletal Denies other joint pains, except as otherwise noted see HPI for further details Neurologic Denies other loss of sensation, see HPI. Sleep within normal limit. Psychiatric Describes mood as Normal. Denies suicidal ideation. Hematologic Denies anticoagulant use, easy bruising. Physical Exam: Patient Vitals for the past 24 hrs: Pulse BP SpO2 06/28/24 1552 66 135/82 100 % CONSTITUTION: Well nourished , well developed, no [...] of Motion: Decreased in all planes Palpation: No muscle guarding present Lumbosacral Spine: Range of Motion: Decreased in all planes with increased pain with sidebending to the left Palpation: Muscle guarding present in the low lumbar paraspinals on the right Gait and Station: Normal gait and station SKIN AND SUBCUTANEOUS: General Inspection: Without rash or lesion NEUROLOGIC: Cranial Nerves: Cranial nerves 2-12 unremarkable Mental Status Examination: unremarkable Motor Examination: 5/5 strength in all four extremities in all muscle groups Reflexes: 2+ deep tendon reflexes symmetric, biceps, triceps, brachioradialis, knees and ankles bilaterally, down going toes bilaterally, Marquez sign negative on the right, equivocal on the left. Nolong track signs otherwise are seen Sensation: Normal sensation in all cervical and lumbosacral dermatomes, exam normal all four extremities PSYCHIATRIC: Mood and Affect: Mood normal. affect appropriate Assessment/Plan: Michelle was seen today for establish care and pain management. Diagnoses and all orders for this visit: Osteoarthritis of cervical spine with myelopathy - Cancel: MRI Cervical Spine wo Contrast (Generic); Future - MRI Cervical Spine wo Contrast (Generic); Future Radiculopathy of lumbar region Chronic pain syndrome Medication management - Comprehensive metabolic panel Non-fasting; Future Urinary incontinence, unspecified type Neurogenic bladder I recommend an epidural steroid injection at L5-S1 on the right for her right lower extremity radicular pain but more importantly I recommend an MRI of her cervical spine looking for cervical myelopathy. The finding of the positive Ana's on the left is somewhat concerning. More concerning is her complaints of urinary incontinence. I will place an order for urological evaluation, check a CMP in preparation for potential medication prescriptions and order the epidural steroid injection. I reviewed the associated risks of the injection procedure and steroids in detail including but not limited to weight gain, bone thinning, psychosis, infection, nerve damage, seizures, cardiac arrest, CSFleak which will cause spinal headache, gastric ulcerations are also a possibility, finally there isnew evidence that the risk of spinal infection is 2.5 X higher if a spinal surgery is performed within 6 months of an epidural steroid injection at that level although the risk % is very low. I discussed that if she receives good pain relief following the injection, the procedure can be performed up to 3 times per year. I do not recommend sooner do to the increased risk of developing systemic steroid complications. She understands and wishes to proceed. I would like to see her back after the MRI of the cervical spine is done. I believe it is unsafe to wait until after 6 weeks of physical therapy are done given her urinary complaints. If the MRI of the cervical spine is unrevealing, we will then order an MRI of the brain and potentially the thoracic spine. Any abnormalities will need to befollowed up by the appropriate surgical specialties if a surgical lesion is present or by neurologyif a nonsurgical lesion is found. Patient is in agreement with this plan. I have reviewed the referring provider records and any associated images and tests available. She is in agreement with the above plan. All of the patient's questions were answered and she was appreciative of today's visit. Jazmin Giuliana Marie thank you for allowing me to participate in the care of your patient. For further details, please see the above note. documented in this encounter Plan of Treatment Upcoming Encounters Date Type Department Care Team (Late st Contact Info) Description 09/13/2024 1:20 PM EST [place] [address] Lizzeth Fernandez APRN [facility] [place] [address] 09/13/2024 4:30 PM EST Office Visit Pain Management at [address] [place] [phone] Hakeem Ty MD [address] PHYSICAL [place]IC[place] [address] Scheduled Referrals Name Type Priority Associated Diagnoses Orde r Schedule Referral to Urology Outpatient Referral Routine Urinary incontinence, unspecified type Neurogenic bladder Ordered: 06/28/2024 documented as of this encounter Results * MRI Cervical Spine wo Contrast (Generic) (07/16/2024 6:15 PM EST) [employer] Signature WORKSTATION ID [id number] RAD Anatomical Region Laterality Modality C-spine Magnetic Resonan ce Impressions 07/17/2024 3:32 PM EST Degenerative disc disease, mild disc bulge, along with uncovertebral and facet joint arthropathy at C6-C7 resulting in moderate left and mild right neural foraminal stenosis. No significant spinal canal narrowing. I have personally reviewed the image(s) and the resident's interpretation and agree with the findings, Wayne Lees at 07/17/2024 3:32 PM Thank you for letting us participate in the care of this patient. ??If you are a health care provider and have any questions regarding this report, please contact the number below. ??For patients who have questions please contact the health healthcare insurance sales agent that requested your imaging first. ? Electronically signed by: LUIS FERNANDO Mendez [facility] ([phone]), at 07/17/2024 3:32 PM Narrative 07/17/2024 3:32 PM EST EXAMINATION: MRI CERVICAL SPINE WO CONTRAST (GENERIC) CLINICAL HISTORY: cervical myelopathy intermittent urinary incontinece M47.12, Other spondylosis with myelopathy, cervical region TECHNIQUE: MRI of the cervical spine performed without intravenous contrast administration. COMPARISON: None FINDINGS: Straightening of the normal cervical lordosis. [...] significant spinal canal or neural foraminal stenosis. Procedure Note Wayne Lees MD - 07/17/2024 EXAMINATION: MRI CERVICAL SPINE WO CONTRAST (GENERIC) CLINICAL HISTORY: cervical myelopathy intermittent urinary incontinece M47.12, Other spondylosis with myelopathy, cervical region TECHNIQUE: MRI of the cervical spine performed without intravenous contrastadministration. COMPARISON: None FINDINGS: Straightening of the normal cervical lordosis. Moderate loss of discheight at C6-C7 where there is reactive endplate marrow edema and anteriorendplate osteophytes. Vertebral body heights are maintained. No aggressive marrowlesion. The cervical cord is normal in signal and morphology. Visualized posteriorfossa is unremarkable. Prevertebral soft tissues are normal. Findings by individual level: C2-C3: No significant spinal canal or neural foraminal stenosis. C3-C4: No significant spinal canal or neural foraminal stenosis. C4-C5: No significant spinal canal or neural foraminal stenosis. C5-C6: Mild disc bulge with no significant spinal canal or neuralforaminal stenosis. C6-C7: Mild disc bulge with facet and uncovertebral joint arthropathyresulting in moderate left and mild right neural foraminal stenosis. No significantspinal canal stenosis. C7-T1: No significant spinal canal or neural foraminal stenosis. IMPRESSION Degenerative disc disease, mild disc bulge, along with uncovertebral andfacet joint arthropathy at C6-C7 resulting in moderate left and mild rightneural foraminal stenosis. No significant spinal canal narrowing. I have personally reviewed the image(s) and the resident's interpretationand agree with the findings, Wayne Lees at 07/17/2024 3:32 PM Thank you for letting us participate in the care of this patient. If youare a health care provider and have any questions regarding this report,please contact the number below. For patients who have questions please contactthe health healthcare insurance sales agent that requested your imaging first. Hakeem Mak MD IMG MRI ORDERABLES * (ABNORMAL) Comprehensive metabolic panel Non-fasting (06/28/2024 4:51 PM EDT) Glucose 96 65 - 199 mg/dL 06/28/2024 5:53 PM EDT [facility] Comment:Glucose Concentratio n >=200 mg/dL plus symptoms is consistent with Diabetes Mellitus. Blood Urea Nitrogen 9 8 - 18 mg/dL 06/28/2024 5:53 PM EDT [facility] Creatinine 0.69(L) 0.70 - 1.20 mg/dL 06/28/2024 5:53 PM EDT [facility] Sodium 136 135 - 145 mMol/L 06/28/2024 5:53 PM EDT [facility] Potassium 3.7 3.5 - 5.0 mMol/L 06/28/2024 5:53 PM EDT [facility] Chloride 99 98 - 107 mMol/L 06/28/2024 5:53 PM EDT [facility] Carbon Dioxide 28 22 - 31 mMol/L 06/28/2024 5:53 PM EDT [facility] Anion Gap 9 5 - 15 mMol/L 06/28/2024 5:53 PM EDT [facility] Calcium 9.7 8.5 - 10.5 mg/dL 06/28/2024 5:53 PM EDT [facility] Protein, Total 6.8 6.1 - 8.0 g/dL 06/28/2024 5:53 PM EDT [facility] Albumin 4.2 3.2 - 5.2 g/dL 06/28/2024 5:53 PM EDT [facility] Aspartate Aminotransferase 14 <=30 unit/L 06/28/2024 5:53 PM EDT [facility] Alanine Aminotransferase 10 0 - 30 unit/L 06/28/2024 5:53 PM EDT [facility] Alkaline Phosphatase 60 35 - 105 unit/L 06/28/2024 5:53 PM EDT [facility] Bilirubin, Total 0.3 <=1.3 mg/dL 06/28/2024 5:53 PM EDT [facility] Est Glomerular Filtration Rate - Female 113 mL/min/1. 73 m?? 06/28/2024 5:53 PM EDT [facility] Comment: This patient's estimated GFR was calculated using the 2020 CKD-EPI equation. The estimated GFR can vary from the measured GFR by up to 30% in the absence of rapidly changing kidney function. Assessment of the estimated GFR is not appropriate when creatinine concentrations are rapidly changing. For clinical situations in which a more precise estimate of GFR is necessary, consider alternative methods of GFR estimation such as a 24-hour urine creatinine clearance. Assignment of CKD stage 1 - 5 for patients with an eGFR near the transition point between stages may be based on clinical assessment of muscle mass and symptoms in addition to eGFR. Link: eGFR Calculator [employer] Fasting Status No 06/28/2024 5:53 PM T [facility] Blood VENOUS BLOOD SPECIMEN / Unknown Venipuncture / Unknown 06/28/2024 4:51 PM EDT 06/28/2024 4:51 PM EDT Hakeem Mak MD CHEMISTRY ORDERABLE S Performing Organization Address City/State/[facility] Co de Phone Number [facility] [address] [place] [address] documented in this encounter Visit Diagnoses Diagnosis Osteoarthritis of cervical spine with myelopathy- Primary Radiculopathy of lumbar region Thoracic or lumbosacral neuritis or radiculitis, unspecified Chronic pain syndrome Medication management Encounter for long-term (current) use of other medications Urinary incontinence, unspecified type Neurogenic bladder Neurogenic bladder, NOS Osteoarthritis of cervical spine with myelopathy documented in this encounter Care Teams Potato Chip Cooker Machine Relationship Specialty Start Date End Date Juana Anthony APRN [address] [place] [address] PCP - General Family Medicine 05/18/24 documented as of this encounter
--- OUTSIDE RECORDS SUMMARY | 2024-08-22 09:57 | XMS_ITS | Clinical Summary ---
Author Organization [facility] Address [facility] [place] [address] Care Team Providers Care Oracle Financials Consultant Name Role Phone Gabrielle Juana Charlotte CROWE Primary Care Provider [phone] Allergies Active Allergy Reactions Criticality Noted Date Comments Sxwexsml-Dtcsyhwxta-Lgrioagun 2023 Nickel 05/21/2024 Medications Medication Sig Dispensed Refills Start Date End Date Status cloNIDine (Catapres) 0.1 mg tablet Take 1 tablet by mouth every 8 hours as needed for Anxiety. 05/02/2024 Active Active Problems Problem Noted Date Diagnosed Date Pain of both hip joints 03/09/2024 Encounters Date Type Department Care Team Description 07/31/2024 2:19 PM EST - 07/31/2024 11:59 PM EST Hospital Encounter Radiology MRI at [facility] [place] [address] Hakeem Ty MD Urinary incontinence, unspecified type; Spondylosis of cervical region without myelopathy or radiculopathy Discharge Disposition: Home 07/31/2024 Travel 07/19/2024 1:00 PM EST Office Visit Pain Management at [facility] [place] [address] Hakeem Ty MD Radiculopathy of lumbar region; Chronic pain syndrome; Urinary incontinence, unspecified type; Spondylosis of cervical region without myelopathy or radiculopathy 07/19/2024 Travel 07/16/2024 5:14 PM EST - 07/16/2024 11:59 PM EST Hospital Encounter Radiology MRI at [facility] [place] [address] Hakeem Ty MD Osteoarthritis of cervical spine with myelopathy Discharge Disposition: Home 07/16/2024 Travel 06/28/2024 4:45 PM EDT Laboratory Appointment Laboratory at [facility] [place] [address] Medication management 06/28/2024 4:00 PM EDT Office Visit Pain Management at [facility] [place] [address] Hakeem Ty MD Osteoarthritis of cervical spine with myelopathy (Primary Dx); Radiculopathy of lumbar region; Chronic pain syndrome; Medication management; Urinary incontinence, unspecified type; Neurogenic bladder 06/28/2024 Travel 06/22/2024 Ancillary Procedure Radiology Library at [facility] [place] [address] Juana Anthony APRN 05/30/2024 Telephone Pain Management at [facility] [place] [address] Arlette Green RN 05/23/2024 Telephone [facility] [place] [address] Unknown 05/23/2024 [place] [address] Jazmin Marie MD Results 05/23/2024 Telephone [facility] [place] [address] None from Last 3 Months Social History Tobacco [...] Mass Index 26.45 06/28/2024 3:52 PM EDT Plan of Treatment Upcoming Encounters Date Type Department Care Team (Late st Contact Info) Description 09/13/2024 1:20 PM EST [place] [address] Lizzeth Fernandez APRN [facility] [place] [address] 09/13/2024 4:30 PM EST Office Visit Pain Management at [facility] [address] [place] [address] Hakeem Ty MD 10 [facility] PHYSICAL [place] [address] Health Maintenance Due Date Last Done Comments Pneumococcal Vaccine: At-Risk 5-64yrs (1 of 2 - PCV) 0 1989 HIV screen 2001 Hepatitis C Screening 2001 Lipid Screening 2001 Hepatitis B vaccine (0-59 yrs) (1) 2002 Tetanus/Diphtheria/Pertussis Vaccines (1 - Tdap) 09/22 HPV test 2013 PAP Smear 2013 Breast Cancer Share Decision Needed 2023 Breast Cancer screening 2023 Covid-19 Vaccine ( - season) 2024 Influenza (Flu) vaccine (1 o f 1 - Influenza standard series) 05/06/2024 Diabetes Screening (HgbA1C or Glucose) 06/28/2027 Procedures Procedure Name Priority Date/Time Associated Diagnosis Comments MRI BRAIN WO CONTRAST Routine 07/31/2024 3:03 PM EST Urinary incontinence, unspecified type Spondylosis of cervical region without myelopathy or radiculopathy MRI CERVICAL SPINE WO CONTRAST Routine 07/16/2024 6:15 PM EST Osteoarthritis of cervical spine with myelopathy COMPREHENSIVE METABOLIC PANEL Routine 06/28/2024 4:51 PM EDT Medication management FILM LIBRARY STORAGE ONLY MR SPINE Routine 06/22/2024 12:00 AM EDT MRI/MRA SCAN 06/22/2024 12:00 AM EDT from Last 3 Months Results * MRI Brain wo Contrast (07/31/2024 3:03 PM EST) [employer] WORKSTATION ID [id number] RAD Anatomical Region Laterality Modality Head Magnetic Resonan ce Impressions 08/01/2024 4:04 AM EST Unremarkable examination, other than mild paranasal sinus disease. Thank you for letting us participate in the care of this patient. ??If you are a health care provider and have any questions regarding this report, please contact the number below. ??For patients who have questions please contact the health director long term care that requested your imaging first. ? Electronically signed by: Rehna Olivares MD, [facility] ([phone]), at 08/01/2024 4:04 AM Narrative 08/01/2024 4:04 [...] patients who have questions please contactthe health director long term care that requested your imaging first. Electronically signed by: Rehan Olivares MD, [facility]([phone]), at 08/01/2024 4:04 AM Hakeem Mak MD IMG MRI ORDERABLES * MRI Cervical Spine wo Contrast (Generic) (07/16/2024 6:15 PM EST) WORKSTATION ID [id number] RAD Anatomical Region Laterality Modality C-spine Magnetic [...] who have questions please contact the health director long term care that requested your imaging first. ? Narrative 07/17/2024 3:32 PM EST EXAMINATION: MRI [...] patients who have questions please contactthe health director long term care that requested your imaging first. Hakeem Mak MD [facility] MRI ORDERABLES * (ABNORMAL) Comprehensive metabolic panel [...] - 107 mMol/L 06/28/2024 5:53 PM EDT [facility] Carbon Dioxide 28 22 - 31 mMol/L 06/28/2024 5:53 PM EDT [facility] Anion Gap 9 5 - 15 mMol/L 06/28/2024 5:53 PM EDT [facility] Calcium 9.7 8.5 - 10.5 mg/dL 06/28/2024 5:53 PM EDT [facility] Protein, Total 6.8 6.1 - 8.0 g/dL 06/28/2024 5:53 PM EDT [facility] Albumin 4.2 3.2 - 5.2 g/dL 06/28/2024 5:53 PM EDT [facility] Aspartate Aminotransferase 14 <=30 unit/L 06/28/2024 5:53 PM EDT [facility] Alanine Aminotransferase 10 0 - 30 unit/L 06/28/2024 5:53 PM EDT [facility] Alkaline Phosphatase 60 35 - 105 unit/L 06/28/2024 5:53 PM EDT [facility] Bilirubin, Total 0.3 <=1.3 mg/dL 06/28/2024 5:53 PM EDT [facility] Est Glomerular Filtration Rate - Female 113 mL/min/1. 73 m?? 06/28/2024 5:53 PM EDT [facility] Comment: This patient's estimated GFR was [...] Foundation Fasting Status No 06/28/2024 5:53 PM EDT [facility] Blood VENOUS BLOOD SPECIMEN / Unknown Venipuncture / Unknown 06/28/2024 4:51 PM EDT 06/28/2024 4:51 PM EDT Hakeem Mak MD CHEMISTRY ORDERABLE S Performing Organization Address [facility]/ZIP Co de Phone Number [facility] [address] [place] [address] * Scan Doc: MRI/MRA (06/22/2024 12:00 AM EDT) Anatomical Region Laterality Modality Other Narrative 06/22/2024 12:00 AM EDT Ordered by an unspecified provider. Scanning Provider MEDIA MGR SCAN EXT O RDR/RSLT * Film Library- Storage Only MR Spine (06/22/2024 12:00 AM EDT) Narrative [facility] - 06/23/2024 4:04 AM EDT This exam is auto-finalizing. It's purpose is for storage only. Juana Anthony APRN IMG FILM LIBRARY ORD ERABLES Performing Organization Address City/[facility]/ZIP Co de Phone Number [place], [place] from Last 3 Months Care Teams [employer] Consultant Relationship Specialty Start Date End Date Juana Anthony APRN [address] [facility] [address] [place] [address] PCP - General Family Medicine 05/18/24
--- OUTSIDE RECORDS SUMMARY | 2024-08-22 09:57 | XMS_ITS | Encounter Summary ---
Author Organization [facility] Address [facility] [address] [address] Care Team Providers Care Railroad Inspector Name Role Phone Jhonankit Juana Ankit CROWE Primary Care Provider [phone] Encounter Details Date Type Department Care Team (Latest Contact Info) Description 06/28/2024 4:45 PM EDT Laboratory Appointment Laboratory at [facility] [place] [address] Medication management Social History Tobacco Use Types Packs/Day Years [...] 1:20 PM EST Office Visit Urology at [place] [address] Lizzeth Fernandez APRN [facility] [place] [address] 09/13/2024 4:30 PM EST Office Visit Pain Management at [facility] [place] [phone] Hakeem Ty MD 10 [facility] PHYSICAL MEDIC[facility] AND REHAB [place], [place] [phone] documented as of this encounter Procedures Procedure Name Priority Date/Time Associated Diagnosis Comments COMPREHENSIVE METABOLIC PANEL Routine 06/28/2024 4:51 PM EDT Medication management documented in this encounter Results * (ABNORMAL) Comprehensive metabolic panel Non-fasting (06/28/2024 4:51 PM EDT) Glucose 96 65 - 199 mg/dL 06/28/2024 5:53 PM EDT [facility] Comment:Glucose Concentratio n >=200 mg/dL plus symptoms is consistent with Diabetes Mellitus. Blood Urea Nitrogen 9 8 - 18 mg/dL 06/28/2024 5:53 PM T [facility] Creatinine 0.69(L) 0.70 - 1.20 mg/dL 06/28/2024 5:53 PM EDT [facility] Sodium 136 135 - 145 mMol/L 06/28/2024 5:53 PM T [facility] Potassium 3.7 3.5 - 5.0 mMol/L 06/28/2024 5:53 PM T [facility] Chloride 99 98 - 107 mMol/L 06/28/2024 5:53 PM EDT [facility] Carbon Dioxide 28 22 - 31 mMol/L 06/28/2024 5:53 PM T [facility] Anion Gap 9 5 - 15 mMol/L 06/28/2024 5:53 PM T [facility] Calcium 9.7 8.5 - 10.5 mg/dL 06/28/2024 5:53 PM T [facility] Protein, Total 6.8 6.1 - 8.0 g/dL 06/28/2024 5:53 PM T [facility] Albumin 4.2 3.2 - 5.2 g/dL 06/28/2024 5:53 PM T [facility] Aspartate Aminotransferase 14 <=30 unit/L 06/28/2024 5:53 PM T [facility] Alanine Aminotransferase 10 0 - 30 unit/L 06/28/2024 5:53 PM T [facility] Alkaline Phosphatase 60 35 - 105 unit/L 06/28/2024 5:53 PM T [facility] Bilirubin, Total 0.3 <=1.3 mg/dL 06/28/2024 5:53 PM EDT [facility] Est Glomerular Filtration Rate - Female 113 mL/min/1. 73 m?? 06/28/2024 5:53 PM EDT [facility] Comment: This patient's estimated GFR [...] Fasting Status No 06/28/2024 5:53 PM EDT [facility] Blood VENOUS BLOOD SPECIMEN / Unknown Venipuncture / Unknown 06/28/2024 4:51 PM EDT 06/28/2024 4:51 PM EDT Hakeem Mak MD CHEMISTRY ORDERABLE S [facility] [address] [place] [address] documented in this encounter Visit Diagnoses Diagnosis Medication management Encounter for long-term (current) use of other medications documented in this encounter Care Teams Railroad Inspector Relationship Specialty Start Date End Date Juana Anthony APRN [address] [place] [address] PCP - General Family Medicine 05/18/24 documented as of this encounter
--- OUTSIDE RECORDS SUMMARY | 2024-08-22 09:57 | XMS_ITS | Encounter Summary ---
Author Organization [facility] Address [address] [place] [address] Care Team Providers Care Link Fabric Machine Operator Name Role Phone Unknown, Provider Primary Care Provider Alexandro ilmery Encounter Details Date Type Department Care Team (Late st Contact Info) Description 05/09/2024 Lab Requisition [facility] [address] [place] [address] Blanca Hendricks [address] [place] [address] [place] [id number] Encounter for other general examination Social History [...] 16, PCR Negative Negative 05/21/2024 15:17 EDT [facility] HPV High Risk type 18, PCR Negative Negative 05/21/2024 15:17 EDT [facility] HPV other High Risk types, PCR Positive(A) Negative 05/21/2024 15:17 EDT [facility] Comment: Positive for one of the following Other High Risk HPV types: ??31,33, 35, 39, 45, 51, 52, 56, 58, 59, 66 and 68. Pap Test CERVIX UTERI STRUCTURE / Unknown 05/08/2024 10:15 EDT 05/18/2024 14:10 EDT us Blanca Eladio MICROBIOLOGY - GENERAL ORDERABLE S Final Result [facility] [address] [place], [place] [id number] * PAP TEST (05/08/2024 10:15 EDT) Specimens A. Cervix and/or Endocervix , ThinPrep Imaging System with Manual Evaluation 05/21/2024 15:17 [facility] Specimen Adequacy Satisfactory for Evaluation - transformation zone component present 05/21/2024 15:17 [facility] General Categorization Epithelial Cell Abnormality 05/21/2024 15:17 [facility] Descriptive Diagnosis Squamous Cell Abnormality - Atypical squamous cells, undetermined significance (ASC-US). Shift in patrick present suggestive of bacterial vaginosis. 05/21/2024 15:17 [facility] Educational Comments [facility] recommends following the ASCCP's management guidelines which may be found at www.asccp.org 05/21/2024 15:17 [facility] Attestation By the signature below, the attending physician certifies that they have personally conducted a gross and/or microscopic examination of the described specimens and rendered or confirmed the above diagnosis. 05/21/2024 15:17 [facility] at 1517 Clinical History See below 05/21/20 15:17 [facility] Performing Lab [facility] 05/21/2024 15:17 [facility] Scanned Images 05/21/2024 15:17 [facility] HPV High Risk type 16, PCR Negative 05/21/2024 15:17 [facility] HPV High Risk type 18, PCR Negative 05/21/2024 15:17 EDT [facility] HPV Other High Risk Types, PCR Positive Positive for one of the following Other High Risk HPV types: 31,33, 35, 39, 45, 51, 52, 56, 58, 59, 66 and 68. 05/21/2024 15:17 EDT [facility] Pap Test CERVIX UTERI STRUCTURE / Unknown 05/08/2024 10:15 EDT 05/09/2024 10:19 EDT Blanca Hendricks PATHOLOGY ORDERABLES Final Resul t [facility] [address] [place] [address] documented in this encounter Visit Diagnoses Diagnosis Encounter for other general examination documented in this encounter Care Teams Link Fabric Machine Operator Relationship Specialty Start Date End Date Unknown, Provider, PCP - General 05/06/24 documented as of this encounter
--- OUTSIDE RECORDS SUMMARY | 2024-08-22 09:57 | XMS_ITS | Encounter Summary ---
Author Organization [facility] Bhakti [address] [address] Care Team Providers Care Plant Reliability Engineer Name Role Phone Juana Anthony APRN Primary Care Provider [phone] Encounter Details Date Type Department Care Team (Late st Contact Info) Description 06/22/2024 Ancillary Procedure Radiology Library at [facility] [place] [address] Juana Anthony APRN [address] [place] [address] Social History Tobacco Use Types Packs/Day Years [...] 1:20 PM EST Office Visit Urology at [facility] [place] [address] [facility] [place] [address] 09/13/2024 4:30 PM EST Office Visit Pain Management at [address] [place] [phone] Hakeem Ty MD [address] [facility] [place] [address] documented as of this encounter Procedures Procedure Name Priority Date/Time Associated Diagnosis Comments FILM LIBRARY STORAGE ONLY MR SPINE Routine 06/22/2024 12:00 AM EDT documented in this encounter Results * Film Library- Storage Only MR Spine (06/22/2024 12:00 AM EDT) Narrative [facility] - 06/23/2024 4:04 AM EDT This exam is auto-finalizing. It's purpose is for storage only. Juana Anthony APRN IMMorro FILM LIBRARY ORD ERABLES Performing Organization Address City/State/[facility] Co de Phone Number [place], [place] documented in this encounter Visit Diagnoses Not on filedocumented in this encounter Care Teams Plant Reliability Engineer Relationship Specialty Start Date End Date Juana Anthony APRN [address] [place] [address] PCP - General Family Medicine 05/18/24 documented as of this encounter
--- OUTSIDE RECORDS SUMMARY | 2024-08-22 09:57 | XMS_ITS | Encounter Summary ---
Author Organization [facility] [address] [address] Care Team Providers Care Meringuer Name Role Phone Juana Anthony APRN Primary Care Provider [phone] Encounter Details Date Type Department Care Team (Latest Contact Info) Description 07/16/2024 Travel Social History Tobacco Use Types Packs/Day [...] 1:20 PM EST [place] [address] Lizzeth Fernandez APRN [facility] [address] 09/13/2024 4:30 PM EST Office Visit Pain Management at [address] [place] [phone] Hakeem Ty MD [facility] [place] [address] documented as of this encounter Visit Diagnoses Not on filedocumented in this encounter Care Teams Meringuer Relationship Specialty Start Date End Date Juana Anthony APRN [address] [place] [address] PCP - General Family Medicine 05/18/24 documented as of this encounter
--- OUTSIDE RECORDS SUMMARY | 2024-08-22 09:57 | XMS_ITS | Clinical Summary ---
Author Organization [facility] Address [address] [place] [address] Care Team Providers Care Space Operations Officer Name Role Phone Unknown, Provider Primary Care [...] - 19+ 3-dose series) 09/22 COVID-19 Vaccine (2023- season) 2024 Insurance MEDICAID [place] Care Teams Space Operations Officer Relationship Specialty Start Date End Date Unknown, Provider, PCP - General 05/06/24
--- OUTSIDE RECORDS SUMMARY | 2024-08-22 09:57 | XMS_ITS | Encounter Summary ---
Author Organization [facility] [place] [address] Care Team Providers Care Patient Clerical Assistant Name Role Phone Juana Anthony Charlotte CROWE Primary Care Provider [phone] Reason for Referral * Diagnostic Test (Routine) - Closed Specialty Diagnoses / Procedures Referred By Contac t Referred To Contact Radiology Diagnoses Osteoarthritis of cervical spine with myelopathy Procedures MRI Cervical Spine wo Contrast (Generic) Hakeem Ty MD [address] [place] [address] [facility] Rad Mri [address] [place] [address] Referral ID Status Reason Start Date Expiration Date V isits Requested Visits Authorized [id number] Closed Specialty Service Requested 06/28/2024 12/27/2025 1 1 Reason for Visit * Diagnostic Test (Routine) - Closed Specialty Diagnoses / Procedures Referred By Contac t Referred To Contact Radiology Diagnoses Osteoarthritis of cervical spine with myelopathy Procedures MRI Cervical Spine wo Contrast (Generic) Hakeem Ty MD [address] [place] [address] [facility] Rad Mri [address] [place] [address] Referral ID Status Reason Start Date Expiration Date V isits Requested Visits Authorized [id number] Closed Specialty Service Requested 06/28/2024 12/27/2025 1 1 Encounter Details Date Type Department Care Team (Latest Contact Info) Description 07/16/2024 5:14 PM EST - 07/16/2024 11:59 PM EST Hospital Encounter Radiology MRI at [facility] [address] [place] [phone] Hakeem Ty MD 10 [facility] PHYSICAL [place] [address] Osteoarthritis of cervical spine with myelopathy Discharge Disposition: Home Social History Tobacco Use [...] 1:20 PM [place] [address] Lizzeth Fernandez APRN [facility] [place] [address] 09/13/2024 4:30 PM EST Office Visit Pain Management at [facility] [address] [place] [address] Hakeem Ty MD 10 [facility] PHYSICAL [place] [address] documented as of this encounter Procedures Procedure Name Priority Date/Time Associated Diagnosis Comments MRI CERVICAL SPINE WO CONTRAST Routine 07/16/2024 6:15 PM EST Osteoarthritis of cervical spine with myelopathy documented in this encounter Results * MRI Cervical Spine wo Contrast (Generic) (07/16/2024 6:15 PM EST) WORKSTATION ID [id number] RAD Anatomical Region Laterality Modality C-spine Magnetic [...] who have questions please contact the health career development engineer that requested your imaging first. ? Electronically signed by: LUIS FERNANDO Mendez [facility] ([phone]), at 07/17/2024 3:32 PM Narrative 07/17/2024 3:32 [...] patients who have questions please contactthe health career development engineer that requested your imaging first. Hakeem Mak MD IMG MRI ORDERABLES documented in this encounter Visit Diagnoses Diagnosis Osteoarthritis of cervical spine with myelopathy documented in this encounter Care Teams Patient Clerical Assistant Relationship Specialty Start Date End Date Juana Anthony, AMRITA [address] [place] [address] PCP - General Family Medicine 05/18/24 documented as of this encounter
--- OUTSIDE RECORDS SUMMARY | 2024-08-22 09:58 | XMS_ITS | Encounter Summary ---
[facility] [place] [address] Care Team Providers Care School Age Program Teacher Name Role Phone Juana Anthony APRN Primary Care Provider [phone] Encounter Details Date Type Department Care Team (Late st Contact Info) Description 05/23/2024 Telephone [facility] [place] [address] Unknown None Social History Tobacco Use Types [...] something she should be getting. Callback number: [phone] Best time you are available: Any documented in this encounter Plan of Treatment Upcoming Encounters Date Type Department Care Team (Late st Contact Info) Description 09/13/2024 1:20 PM EST [place] [address] Lizzeth Fernandez APRN [facility] [place] [address] 09/13/2024 4:30 PM EST Office Visit Pain Management at [facility] 10 [place] [address] Hakeem Ty MD 10 [facility] [place] [address] documented as of this encounter Visit Diagnoses Not on filedocumented in this encounter Care Teams School Age Program Teacher Relationship Specialty Start Date End Date Juana Anthony APRN [address] [place] [address] PCP - General Family Medicine 05/18/24 documented as of this encounter
--- OUTSIDE RECORDS SUMMARY | 2024-08-22 09:58 | XMS_ITS | Encounter Summary ---
Author Organization [facility] [place] [address] Care Team Providers Care Marketing Outreach Coordinator Name Role Phone Unavailable Primary Care Provider Unavailabl e Encounter Details Date Type Department Care Team (Late st Contact Info) Description 04/10/2024 Ancillary Procedure Radiology Library at [facility] [place] [address] Armaan Jones MD [address] [place], [place] [address] Social History Tobacco Use Types Packs/Day Years [...] 1:20 PM EST Office [place] [phone] Lizzeth Fernandez APRN [facility] [place] [address] 09/13/2024 4:30 PM EST Office Visit Pain Management at 10 [place] [address] Hakeem Ty MD 10 PHYSICAL MED[place] [place] [address] documented as of this encounter Procedures Procedure Name Priority Date/Time Associated Diagnosis Comments FILM LIBRARY STORAGE ONLY MR HIP Routine 04/10/2024 12:00 AM EDT documented in this encounter Results * Film Library- Storage Only MR Hip (04/10/2024 12:00 AM EDT) Narrative SILVIO - 05/08/2024 10:21 PM EDT This exam is auto-finalizing. It's purpose is for storage only. Armaan Jones MD G FILM LIBRARY ORD ERABLES [place], [place] documented in this encounter Visit Diagnoses Not on filedocumented in this encounter
--- OUTSIDE RECORDS SUMMARY | 2024-08-22 09:58 | XMS_ITS | Encounter Summary ---
[place] [address] Care Team Providers Care Manager Renewable Energy Name Role Phone Gabrielle Juana Charlotte CROWE Primary Care Provider [phone] Reason for Referral * Consultation (Routine) - Closed Specialty Diagnoses / Procedures Referred By Contac t Referred To Contact Pain and Spine Center Diagnoses Pain in right hip Chanda Gordon MD [facility] [place] [address] [facility] [place] [address] Referral ID Status Reason Start Date Expiration Date V isits Requested Visits Authorized [id number] Closed Consult, Test & Treat 05/21/2024 05/21/2025 1 1 * Physical Therapy (Routine) - Authorized Specialty Diagnoses / Procedures Referred By Contac t Referred To Contact Physical Therapy Diagnoses Pain in right hip Chanda Gordon MD [facility] [place] [address] Referral ID Status Reason Start Date Expiration Date Visits Requested Visits Authorized [id number] Authorized Evaluate and Treat 05/21/2024 11/17/2024 12 12 Reason for Visit * Reason Comments Establish Care ?XR R HIP PAIN 2ND OPINION * Consultation (Routine) - Closed Specialty Diagnoses / Procedures Referred By Rayne carlos Referred To Contact Orthopaedics Diagnoses Labral tear of right hip joint Self mail [facility] [address] [place] [address] Referral ID Status Reason Start Date Expiration Date V isits Requested Visits Authorized [id number] Closed Consult, Test & Treat PCP Updated and/or Approved 05/04/2024 05/04/2025 1 1 Encounter Details Date Type Department Care Team (Late st Contact Info) Description 05/21/2024 11:00 AM EDT Office [place] [address] Jazmin Marie MD [facility] [place] [address] Pain in right hip Social [...] way sometimes. She has been seen at [facility] orthopedics for which she had a corticosteroid [...] smoker, 1 pack/day. 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 Denies heart or lung disease, denies diabetes. ASSOCIATED DIAGNOSES: She does not reports problems with the contralateral hip, does not report problems with the ipsilateral knee and does have a history of spine or back issues. ALLERGIES Allergies Allergen Reactions Bjvngxym-Uhwxlhnumf-Ueakyythf Nickel Allergies to metals: none known. SOCIAL HISTORY: reports that she has been smoking cigarettes. She does not have any smokeless tobacco history on file. She reports that she does not currently use alcohol. She reports current drug use. Drug: Marijuana. 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 Jazmin Marie MD Department of Orthopaedic Surgery, [place] [address] [email or web address] documented in this encounter Plan of Treatment Upcoming Encounters Date Type Department Care Team (Late st Contact Info) Description 09/13/2024 1:20 PM EST Office [place] [address] Lizzeth Fernandez APRN [facility] [place] [address] 09/13/2024 4:30 PM EST Office Visit Pain Management at [facility] 10 [place] [address] Hakeem Ty MD 10 [facility] PHYSICAL [place] [address] Scheduled Referrals Name Type Priority Associated Diagnoses Orde r Schedule Referral to Physical Therapy Outpatient Referral Routine Pain in right hip Ordered: 05/21/2024 Referral to Pain and Spine Center (Internal only) Outpatient Referral Routine Pain in right hip Ordered: 05/21/2024 documented as of this encounter Results * XR Lumbar Spine 2 Or 3 Views (Generic) (05/21/2024 1:59 PM EDT) WORKSTATION ID [id number] [facility] Anatomical Region Laterality Modality L-spine N/A Digital [...] who have questions please contact the health daycare provider that requested your imaging first. ? Narrative [...] patients who have questions please contactthe health daycare provider that requested your imaging first. Jazmin Marie MD IMG DX ORDERABL ES documented in this encounter Visit Diagnoses Diagnosis Pain in right hip Pain in joint, pelvic region and thigh Pain in right hip Pain in joint, pelvic region and thigh documented in this encounter Care Teams Manager Renewable Energy Relationship Specialty Start Date End Date Juana Anthony, AM[address]ITA [address] [place] [address] PCP - General Family Medicine 05/18/24 documented as of this encounter
--- OUTSIDE RECORDS SUMMARY | 2024-08-22 09:58 | XMS_ITS | Encounter Summary ---
Author Organization [facility] [place] [address] Care Team Providers Care Patient Transition Specialist Name Role Phone Juana Anthony APRN Primary Care Provider [phone] Encounter Details Date Type Department Care Team [...] 1:20 PM EST Office [place] [address] Lizzeth Fernandez APRN [facility] [place] [address] 09/13/2024 4:30 PM EST Office Visit Pain Management at [facility] [address] [place] [address] Hakeem Ty MD [address] [facility] [place] [address] documented as of this encounter Visit Diagnoses Not on filedocumented in this encounter Care Teams Patient Transition Specialist Relationship Specialty Start Date End Date Juana Anthony APRN [address] [place] [address] PCP - General Family Medicine 05/18/24 documented as of this encounter
--- OUTSIDE RECORDS SUMMARY | 2024-08-22 09:58 | XMS_ITS | Encounter Summary ---
Author Organization [facility] [place] [address] Care Team Providers Care Lining Scrubber Name Role Phone Unavailable Primary Care Provider Unavailabl e Encounter Details Date Type Department Care Team (Late st Contact Info) Description 05/17/2024 Orders [place] [phone] Jazmin Marie MD [facility] [address] [place] [address] Pain in right hip Social History Tobacco [...] 1:20 PM [place] [phone] Lizzeth Fernandez APRN [facility] [place] [address] 09/13/2024 4:30 PM EST Office Visit Pain Management at 10 [place] [address] Hakeem Ty MD PHYSICAL MEDICINE [place] [address] documented as of this encounter Results * XR Pelvis and Hip 2 Views Right (05/21/2024 10:44 AM EDT) WORKSTATION ID [id number] RAD Anatomical Region Laterality Modality Pelvis, Hip Right Digital Radiogra phy Impressions 05/22/2024 9:46 PM EDT Unremarkable right hip Thank you for letting us participate in the care of this patient. ??If you are a health care provider and have any questions regarding this report, please contact the number below. ??For patients who have questions please contact the health care partner that requested your imaging first. ? Narrative [...] symphysis. ??No soft tissue abnormality Procedure Note Toa June MD - 05/22/2024 EXAMINATION: XR PELVIS [...] patients who have questions please contactthe health care partner that requested your imaging first. Jazmin Marie MD IMG DX ORDERABL ES documented in this encounter Visit Diagnoses Diagnosis Pain in right hip Pain in joint, pelvic region and thigh Pain in right hip Pain in joint, pelvic region and thigh documented in this encounter
--- OUTSIDE RECORDS SUMMARY | 2024-08-22 09:58 | XMS_ITS | Encounter Summary ---
Author Organization [place] [address] Care Team Providers Care Assembly Riveter Name Role Phone Juana Anthony AMRITA Primary Care Provider [phone] Encounter Details Date Type Department Care Team (Late Contact Info) Description 05/30/2024 Telephone Pain Management at [facility] 10 [facility] [place] [address] Arlette Green RN Social History Tobacco Use [...] she should f/u with PCP. Will ask medical secretary teacher to add to wait list to be seen sooner if possible. documented in this encounter Plan of Treatment Upcoming Encounters Date Type Department Care Team (Late st Contact Info) Description 09/13/2024 1:20 PM EST [place] [address] Lizzeth Fernandez APRN [facility] [place] [address] 09/13/2024 4:30 PM EST Office Visit Pain Management at [facility] 10 [facility] [place] [address] Hakeem Ty MD 10 [facility] [place] [address] documented as of this encounter Visit Diagnoses Not on filedocumented in this encounter Care Teams Assembly Riveter Relationship Specialty Start Date End Date Juana Anthony APRN [address] [place] [address] PCP - General Family Medicine 05/18/24 documented as of this encounter
--- OUTSIDE RECORDS SUMMARY | 2024-08-22 09:58 | XMS_ITS | Encounter Summary ---
Author Organization [facility] [place] [address] Care Team Providers Care Manager Zone Name Role Phone Juana Anthony APRN Primary Care Provider [phone] Encounter Details Date Type Department Care Team (Late st Contact Info) Description 05/23/2024 Telephone [facility] [place] [address] None None Social History Tobacco Use Types [...] (if other than self): Patient Callback number: [phone] Best time you are available: Any Route Per Clinic Coverage Page documented in this encounter Plan of Treatment Upcoming Encounters Date Type Department Care Team (Late st Contact Info) Description 09/13/2024 1:20 PM EST Office [place] [address] Lizzeth Fernandez APRN [facility] [place] [address] 09/13/2024 4:30 PM EST Office Visit [facility] at [facility] [place] [address] Hakeem Ty MD [address] [facility]YS[facility]IC[facility] [place] [address] documented as of this encounter Visit Diagnoses Not on filedocumented in this encounter Care Teams Manager Zone Relationship Specialty Start Date End Date Juana Anthony APRN [address] [place] [address] PCP - General Family Medicine 05/18/24 documented as of this encounter
--- OUTSIDE RECORDS SUMMARY | 2024-08-22 09:58 | XMS_ITS | Encounter Summary ---
Author Organization [facility] Address [facility] [place] [address] Care Team Providers Care Fiscal Manager Name Role Phone Jhonankit Juana Ankit CROWE Primary Care Provider [phone] Encounter Details Date Type Department Care Team (Late st Contact Info) Description 05/21/2024 1:45 PM EDT - 05/21/2024 11:59 PM EDT Hospital Encounter XRay at [address] [place] [address] Jazmin Marie MD [facility] [place] [address] Pain in right hip Discharge Disposition: Home [...] 8 hours as needed for Anxiety. 05/02/2024 disulfiram (Antabuse) 250 mg tablet Take 250 mg by mouth daily. 06/28/[address] (Campral) [address] tablet TAKE TWO TABLETS BY MOUTH THREE TIMES A DAY FOR 7 DAYS 05/16/2024 06/28/2024 proGESTerone (Prometrium) 100 mg capsule TAKE ONE CAPSULE BY MOUTH EVERY DAY IN THE MORNING FOR 3 MONTHS; THEN DON'T TAKE FOR 7 DAYS THEN REPEAT CYCLE 05/09/2024 06/28/2024 sertraline (Zoloft) 50 mg tablet Take 1 tablet by mouth daily. 06/28/2024 documented as of this encounter Plan of Treatment Upcoming Encounters Date Type Department Care Team (Late st Contact Info) Description 09/13/2024 1:20 PM EST [place] [address] Lizzeth Fernandez APRN [facility] [place] [address] 09/13/2024 4:30 PM EST Office Visit Pain Management at [facility] [address] [place] [phone] Hakeem Ty MD [address] [facility] [place] [address] documented as of this encounter Procedures Procedure Name Priority Date/Time Associated Diagnosis Comments XR LUMBAR SPINE 2 OR 3 VIEWS Routine 05/21/2024 1:59 PM EDT Pain in right hip documented in this encounter Results * XR Lumbar Spine 2 Or 3 Views (Generic) (05/21/2024 1:59 PM EDT) Jobydu Signature WORKSTATION ID [id number] [facility] Anatomical Region Laterality Modality L-spine N/A Digital [...] who have questions please contact the health nurse care manager that requested your imaging first. ? Narrative [...] patients who have questions please contactthe health nurse care manager that requested your imaging first. Jazmin Marie MD IMG DX ORDERABL ES documented in this encounter Visit Diagnoses Diagnosis Pain in right hip Pain in joint, pelvic region and thigh documented in this encounter Care Teams Fiscal Manager Relationship Specialty Start Date End Date Juana Anthony, AMRITA [address] [place] [address] PCP - General Family Medicine 05/18/24 documented as of this encounter
--- OUTSIDE RECORDS SUMMARY | 2024-08-22 09:58 | XMS_ITS | Encounter Summary ---
Author Organization [facility] Address [facility] [place] [address] Care Team Providers Care Housing Management Representative Name Role Phone Jhonankit Juana Ankit CROWE Primary Care Provider [phone] Encounter Details Date Type Department Care Team (Late st Contact Info) Description 05/21/2024 10:32 AM EDT - 05/21/2024 1:44 PM EDT Hospital Encounter XRay at [address] [place] [address] Jazmin Marie MD [facility] [place] [address] Pain in right hip Discharge Disposition: Home [...] 1:20 PM EST [place] [address] Lizzeth Fernandez APRN [facility] [address] 09/13/2024 4:30 PM EST Office Visit Pain Management at [facility] 10 [place] [address] Hakeem Ty MD 10 [facility] PHYSICAL [place] [address] documented as of this encounter Procedures Procedure Name Priority Date/Time Associated Diagnosis Comments XR PELVIS AND HIP 2 VIEWS RIGHT Routine 05/21/2024 10:44 AM EDT Pain in right hip documented in this encounter Results * XR Pelvis and Hip 2 Views Right (05/21/2024 10:44 AM EDT) AppTrigger WORKSTATION ID [id number] [facility] Anatomical Region Laterality Modality Pelvis, Hip Right Digital Radiogra phy Impressions 05/22/2024 9:46 PM EDT Unremarkable right hip Thank you for letting us participate in the care of this patient. ??If you are a health care provider and have any questions regarding this report, please contact the number below. ??For patients who have questions please contact the health career counselor that requested your imaging first. ? Narrative [...] who have questions please contactthe health career counselor that requested your imaging first. Jazmin Marie MD IMG DX ORDERABL ES documented in this encounter Visit Diagnoses Diagnosis Pain in right hip Pain in joint, pelvic region and thigh documented in this encounter Care Teams Housing Management Representative Relationship Specialty Start Date End Date Juana Anthony APRN [address] [place] [address] PCP - General Family Medicine 05/18/24 documented as of this encounter
--- OUTSIDE RECORDS SUMMARY | 2024-08-22 09:58 | XMS_ITS | Encounter Summary ---
Author Organization [facility] Address [facility] [place] [address] Care Team Providers Care Sheet Tailer Name Role Phone Juana Anthony Charlotte CROWE Primary Care Provider [phone] Reason for Referral * Consultation (Routine) - Closed Specialty Diagnoses / Procedures Referred By Contac t Referred To Contact [facility] Diagnoses Pain in right hip Radicular low back pain Low back pain, non-specific Jazmin Marie MD [facility] [place] [address] [facility] [address] [place] [address] Referral ID Status Reason Start Date Expiration Date V isits Requested Visits Authorized [id number] Closed Consult, Test & Treat 05/23/2024 05/23/2025 1 1 Reason for Visit * Reason Onset Date Comments Results 05/23/2024 Encounter Details Date Type Department Care Team (Late st Contact Info) Description 05/23/2024 Telephone [place] [phone] Jazmin Marie MD [facility] [place] [address] Results Social History Tobacco Use Types Packs/Day [...] her request. Message also sent in separate [facility] encounter to follow up. * Telephone Encounter - Yael Soares - 05/23/2024 2:56 PM EDT Patient is calling back stating she has already called [facility] pain and spine and her referral is being reviewed. She is wondering if she needs to go to [facility] or [facility]. She would also like to know what herxr results were * Telephone Encounter - Yael Soares - 05/23/2024 1:08 PM EDTSummary: xr results Who is calling? PATIENT Best call back number: [phone] Best time to call back between 8:00 [...] 1:20 PM EST Office [place] [address] Lizzeth Fernandez APRN [facility] [place] [address] 09/13/2024 4:30 PM EST Office Visit Pain Management at [address] [place] [address] Hakeem Ty MD [place] [address] Scheduled Referrals Name Type Priority Associated Diagnoses [...] non-specific documented in this encounter Care Teams Sheet Tailer Relationship Specialty Start Date End Date Juana Anthony APRN [address] [place] [address] PCP - General Family Medicine 05/18/24 documented as of this encounter
--- OUTSIDE RECORDS SUMMARY | 2024-08-22 09:58 | XMS_ITS | Encounter Summary ---
Author Organization [facility] [place] [address] Care Team Providers Care Technology Lead Name Role Phone Unavailable Primary Care Provider Unavailabl e Encounter Details Date Type Department Care Team (Late st Contact Info) Description 05/17/2024 [place]phone [place] [phone] Jazmin Marie MD [facility] [address] ORTHOPAEDIC SURGERY [place], [place] [id number] Social History Tobacco Use Types Packs/Day Years [...] to apt on 05/21/24. Scheduled for 10:15at office coordinator receptionist 3T. Left ortho call back number for any questions or concerns. documented in this encounter Plan of Treatment Upcoming Encounters Date Type Department Care Team (Late st Contact Info) Description 09/13/2024 1:20 PM EST [place] [phone] Lizzeth Fernandez APRN [facility] [place] [address] 09/13/2024 4:30 PM EST Office Visit Pain Management at [address] [place] [phone] Hakeem Ty MD [facility] [place] [address] documented as of this encounter Visit Diagnoses Not on filedocumented in this encounter
[2024-08-22 10:01] LABS: Bilirubin Negative (Negative); Blood Negative (Negative); Clarity Clear (Clear); Glucose Negative (Negative); Ketones Negative (Negative); Leukocyte Esterase Negative (Negative); Nitrite Negative (Negative); Specific Gravity <= 1.005 (1.005-1.025); Urobilinogen 0.2 mg/dL (Up to 0.2)
[2024-08-22 10:06] LABS: Abs Immature Grans 0.03 10^3/uL (0.0-0.06); Absolute Basophil Count 0.07 10^3/uL (0.0-0.2); Absolute Eosinophil Count 0.06 10^3/uL (0.0-0.7); Absolute Lymphocyte Count 2.52 10^3/uL (1.2-3.4); Absolute Monocyte Count 0.68 10^3/uL (0.1-0.8); Absolute Neutrophil Count 5.66 10^3/uL (1.2-6.7); Basophils % 0.8 %; Eosinophils % 0.7 %; HGB 14.2 g/dL (11.2-15.7); Immature Grans % 0.3 %; Lymphocytes % 27.9 %; MCH 33.3 pg (27.0-33.0); MCHC 35.5 % (32.0-36.0); MCV 94 fL (80-95); MPV 8.5 fL (8.0-11.0); Monocytes % 7.5 %; Neutrophils % 62.8 %; Platelet Count 262 10^3/uL (130-400); RBC 4.27 10^6/uL (3.93-5.22); RDW 12.7 % (11.7-14.6); RDW-SD 43.8 fL; WBC 9.02 10^3/uL (4.4-10.8)
[2024-08-22 10:16] LABS: *AMPHETAMINES SCREEN URINE Negative (Negative); *BARBITURATES SCREEN URINE Negative (Negative); *BENZODIAZEPINES SCREEN URINE Negative (Negative); Cannabinoids THC Negative (Negative); Cocaine Screen,Urine Negative (Negative); METHADONE URINE SCREEN Negative (Negative); OPIATES URINE SCREEN Negative (Negative)
[2024-08-22 10:19] LABS: Tricyclic Antidepressants Negative (Negative)
[2024-08-22 10:39] LABS: ALT 13 U/L (14-59); AST 29 U/L (15-37); Albumin 4.3 g/dL (3.4-5.0); Alkaline Phosphatase 68 U/L (46-116); BUN 7 mg/dL (7-18); Bilirubin, Total 0.44 mg/dL (0.2-1.0); CREATININE 0.6 mg/dL (0.55-1.02); Calcium 8.8 mg/dL (8.5-10.1); Chloride 103 mmol/L (98-107); Glucose 90 mg/dL (74-106); Potassium 3.6 mmol/L (3.5-5.1); Sodium 140 mmol/L (136-145); TSH (W/Ref FT4) 1.73 uIU/mL (0.36-3.74); Total Protein 7.7 g/dL (6.4-8.2)
[2024-08-22 10:40] LABS: ETHANOL BLOOD 434.1 mg/dL (<10)
[2024-08-22 10:41] VITALS: BP 150/106; PULSE 105; O2SAT 98
[2024-08-22] MEDS: LORazepam 1 MG TAB PO ×2 (10:42→19:25)
[2024-08-22 10:43] LABS: Salicylate < 2.8 mg/dL (<2.8)
[2024-08-22 10:44] LABS: Acetaminophen < 2 ug/mL (10-30)
[2024-08-22 11:20] VITALS: BP 143/97; PULSE 100; RESP 20; O2SAT 99
[2024-08-22] MEDS: chlordiazePOXIDE 25 MG CAP 50 MG PO ×3 (11:24→20:10)
--- NOTE | 2024-08-22 15:49 | PDOC.MHCN ---
Date of service: 08/22/24 Time of Service: 15:51 PHQ-9 Over the last 2 weeks, how often have you been bothered by any of the following problems? 1. Little interest or pleasure in doing things: nearly every day 2. Feeling down, depressed, or hopeless: nearly every day 3. Trouble falling or staying asleep, or sleeping too much: nearly every day 4. Feeling tired or having little energy: nearly every day 5. Poor appetite or overeating: nearly every day 6. Feeling bad about yourself - or that you are a failure or have let yourself and your family down: nearly every day 7. Trouble concentrating on things, such as reading the newspaper or watching television: nearly every day 8. Moving or speaking so slowly that other people could have noticed? - Or the opposite - being so fidgety or restless that you have been moving around a lot more than usual: more than half the days 9. Thoughts that you would be better off or of hurting yourself in some way: nearly every day Total score: 26 If you checked off any problems, how difficult have these problems made it for you to do your work, take care of things at home, or get along with other people?: somewhat difficult Source: Developed by Drs. Cedric Aragon, Marilia Quintero, Obdulio Keyes and colleagues, with an educational evelyn from [employer]. Suicide Severity Rate CSSRS Have you wished you were or wished you could go to sleep and not wake up?: Yes Have you actually had any thoughts of killing yourself?: Yes CSSRS2 Have you been thinking about how you might do this?: No Have you had these thoughts and had some intention of acting on them?: No Have you started to work out or worked out the details of how to kill yourself? Do you intend to carry out this plan?: No CSSRS3 Have you ever done anything, started to do anything or prepared to do anything to end your life?: Yes CSSRS4 Was this within the past three months?: No Screening Score Total Score: 6 Screening: Positive Mental Health Emergency Note Release [facility] release signed:: Yes Reason for Visit The client is not known to this clinician or this agency outside of a call last night to ES. She and her fianc? met with this clinician this am at her request for evaluation and support. The client reported one previous hospitalization in [place] 6-7 years ago. She is seen by her therapist, Tyrese Mcpherson twice weekly on Tuesday and mornings via telehealth. 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 Since moving she has struggled to even leave her home for the past 6 months. This was a brief check in as the client arrived to the ED and was initially assessed on 08.21. In the last 2 weeks has the pt presented for ES prior to today?: Unknown Client Information Client is: New Well Housed: Yes Non Suicidal Self Injury Current: No History: No Safety Risk/Harm to Self or Others Current Ideation to Harm Self or Others: No Risk: Does risk to harm exist?: yes. Access to means: No. Risk: Moderate Risk Duty to warn indicated: No Asssessment/Mental Status Appearance: Well groomed Attitude: Cooperative Behavior: Unremarkable Speech: Normal Affect: Cogruent with mood Mood: Depressed and Anxious Thought process: Goal directed Hallucinations: No Delusions: No Attention: Unremarkable Perception: Not impaired Orientation: Fully orientated Memory: Intact Insight: Good Judgement: Fair Neurovegetative Symptoms Sleep: No change Appetitie: Decrease Interests: Decrease Energy: Decrease Libido: Not applicable Substance Use: Intoxication (.434) Drug Issues: Dependence (THC) Do you use nicotine?: Yes Have you used substances in the last 7 days?: yes, daily all day long for ETOH Additional Issues: Assaultive/Threatening Behavior: No Medical Concerns: No Client engaged in active self harm w/weapon: No Threatening to run away: No Child reported abuse/neglect: No Voluntarily presenting for services: Yes Domestic violence is a concern: No Extreme Psychosis or extreme behavior is present: Yes Impression The client is a 38-year-old, single, female who uses She/Her pronouns and presents for assessment well groomed. She is unemployed and has no income coming in. She reported a history of diagnosis like, PTSD, anxiety and depression. She said she has always been independent and self sufficient. She completed the 10th grade. All underrepresented identifiers were honored during this assessment. The client stated that she is also an alcoholic and drinks a 1/2 gallon of whisky in 3-4 days. She had an odor of ETOH this am. She reported that she also uses THC daily which she finds helpful. She identified her longest period of sobriety has been one month. She reported that she was encouraged to drink as a coping skill at the age of 10 by her step-mother whom she said she lived with after her mother abandoned her. The c Plan/Disposition Recommended Disposition: Hospitalization facilities contacted. Plan: The client will remain in he ED and assessed daily pending acceptance. On 08.21 a discussion was had about substance abuse treatment and she was not open to that option due to past experiences. No other's are appropriate at this time. Person reported agreement to plan: Yes Facilities contacted if Applicable [facility] Not accepted, Other [facility] Not accepted, Other [facility] Not accepted, Other, [facility] Not accepted, Other [facility] Not accepted, Other Reports/communication Outcome discussed with: ED/Personnel
[2024-08-22] MEDS: Nicotine 2 MG GUM CH (18:17)
--- NOTE | 2024-08-22 18:36 | PDOC.CMSAFE ---
Date of service: 08/22/24 Time of Service: 18:36 Care Management Safety Plan Status Status: Voluntary Safety Plan Safety Plan: VOLUNTARY FOR INPATIENT PSYCHIATRIC STABILIZATION.? Patient is appropriate in all interactions since arriving at [facility]; Pt has demonstrated appropriate coping and communication skills, has articulated his or her needs and concerns and is fully engaged during staff interactions. Safety plan has been established with patient, and care team, to adhere to patient goals, identify restrictions based on behavioral status, address nutrition, and determine allowed personal belongings, tools for hygiene and personal care. Determine level of activity including ambulation, level of supervision, visitors, and determine privileges based on behaviors and level of engagement by pt. VOLUNTARY SAFETY PLAN: 1. Will remain on suicide precautions, in paper clothes 2. Will remain in Zone B under direct supervision of one-on-one staff at all times provided by [employer]; NAINA, BATON TEACHER deputy coroner. 3. May have paper cups, plates, finger foods as well as a cardboard spoon with which to eat meals. 4. Follow [facility] Management of the Admitted Behavioral Health Patient policy. 5. Shower available in Zone B without restriction. 6. Personal belongings-soft items permitted at RN discretion. 7. Visitors-none at this time. 8. Activities: soft cart items approved per RN discretion. 9.? Bathroom available in Zone B without restriction. 10. Phone: limited to [facility] cordless phone at RN discretion. Due to VOLUNTARY status, if patient wishes to leave [facility], staff will contact [facility] Crisis Screener ([phone]) and Chief Power Dispatcher ([phone]) as soon as possible. In the event of elopement, notify [facility] Police ([phone]).
[2024-08-22 19:40] VITALS: BP 132/83; PULSE 87; RESP 18; TEMP 36; O2SAT 98
--- NOTE | 2024-08-22 21:11 | W.EDPROG ---
Date of service: 08/22/24 Time of Service: 21:12 Medical Decision Making Patient was signed out to me pending reevaluation once her alcohol metabolic level was 0. Patient has remained hemodynamically stable. She is sleeping currently. Goal will be to reevaluate at around midnight / 1 AM to see if the patient remains suicidal. Patient on chlordiazepoxide, however dosing was stopped in the morning. She will need to be reevaluated for potential withdrawal symptoms at that time as well. Patient will be signed out to my colleague for reassessment and mental health evaluation. Quality:SDOH Health Related Social Needs: No Data to Display Discharge Plan Discharge Details Chief Complaint: PsychEval Clinical Impression: Alcohol use disorder Primary Care Provider: Juana Anthony ED Provider: Nicolas Colunga Home Meds and New Rx's Prescriptions: No Action clonidine HCl 0.1 mg tablet 0.1 mg PO TID PRNQty: 30 0RF Patient Comments: states taking NO meds. Rx Instructions: For anxiety
[2024-08-23] VITALS: BP 111/78; PULSE 89; RESP 18; TEMP 36.9; O2SAT 98
[2024-08-23] MEDS: LORazepam 1 MG TAB 2 MG PO (00:14)
--- NOTE | 2024-08-23 02:57 | W.EDPROG ---
Date of service: 08/22/24 Time of Service: 22:15 Medical Decision Making This patient was signed out to me. Please see previous notes for H&P and initial eval. In brief, 38yo F with depression and ETOH intoxiation/abuse, medically cleared, pending voluntary placement. Librium to prevent withdrawal CIWA at ~0000 of 7. Pt reports significant anxiety; given dose of PO ativan for this. Continues to feel depressed and wants mental health treatment; no SI/HI/AH/VH. After Ativan did go back to sleep and appeared to rest comfortably overnight. Will be signed out to oncoming physician, plan remains as above. Quality:SDOH Health Related Social Needs: No Data to Display Discharge Plan Discharge Details Chief Complaint: PsychEval Clinical Impression: Alcohol use disorder Primary Care Provider: Juana Anthony ED Provider: Latanya Talamantes Home Meds and New Rx's Prescriptions: No Action clonidine HCl 0.1 mg tablet 0.1 mg PO TID PRNQty: 30 0RF Patient Comments: states taking NO meds. Rx Instructions: For anxiety
[2024-08-23 03:30] VITALS: BP 131/75; PULSE 76; RESP 18; TEMP 36.5; O2SAT 100
[2024-08-23] MEDS: chlordiazePOXIDE 25 MG CAP 50 MG PO ×2 (03:45→09:38)
[2024-08-23] MEDS: Nicotine 2 MG GUM CH (06:54)
[2024-08-23] MEDS: Nicotine 14 MG/24 HR PATCH TD (07:18)
[2024-08-23] MEDS: LORazepam 1 MG TAB PO ×2 (07:18→12:29)
[2024-08-23 09:42] VITALS: BP 132/84; PULSE 100; RESP 16; TEMP 36.6; O2SAT 100
--- NOTE | 2024-08-23 11:45 | W.EDPROG ---
Date of service: 08/23/24 Time of Service: 11:45 Medical Decision Making Care was signed out by Dr. Samaniego, please see her documentation regarding prior ED course. Plan at signout was to await mental health reassessment, possible transfer to [facility]. Patient noted to have CIWA score of 6 this morning. She was given Ativan for anxiety. She is taking Librium as prescribed every 6. Patient now resting comfortably. I spoke with PRODUCT DEVELOPMENT MANAGER Sanchez at [facility], discussed ED presentation course, she will accept the patient in transfer. Quality:SDOH Health Related Social Needs: No Data to Display Discharge Plan Disposition Patient Disposition: Psychiatric Hospital/Unit Specific Psychiatric Facility: [facility] Condition: Serious Discharge Details Chief Complaint: PsychEval Clinical Impression: Alcohol use disorder, Depression Primary Care Provider: Juana Anthony ED Provider: Reyes Tse Home Meds and New Rx's Prescriptions: No Action clonidine HCl 0.1 mg tablet 0.1 mg PO TID PRNQty: 30 0RF Patient Comments: states taking NO meds. Rx Instructions: For anxiety
== END 2024-08-23 13:11 ==
PROVIDERS: Emergency Medicine; Emergency Provider Student in an Organized Health Care Education/Training Program; PCP Nurse Practitioner Family
DX: F10.120 Alcohol abuse with intoxication, uncomplicated (principal); F32.A Depression, unspecified; F17.210 Nicotine dependence, cigarettes, uncomplicated; Y90.8 Blood alcohol level of 240 mg/100 ml or more
CPT/HCPCS: 00123; 36415; 80053; 80307; 96127; 99285; 80320; 80329; 81003; 84443; 84703; 85025

== ENCOUNTER 2024-08-31 04:50 | Emergency (ER) | payer MEDICAID, SELFPAY ==
[2024-08-31] VITALS (148 sets, daily range): BP systolic 112–173; BP diastolic 72–116; PULSE 94–131; RESP 11–33; TEMP 36.9–37.1; O2SAT 91–99
--- OUTSIDE RECORDS SUMMARY | 2024-08-31 04:55 | XMS_ITS | Referral Summary ---
Author Organization [facility] Address [address] [place] [address] Care Team Providers Care Senior Sql Server Dba Name Role Phone Unknown, Provider Primary Care Provider Unava ilable Social History Tobacco Use Types Packs/Day Years Used Date Smoking Tobacco: Never Assessed Comments Unknown Sex and Gender Information Value Date Recorded Sex Assigned at Not on file Legal Sex Female 10:14 EDT Gender Identity Not on file Sexual Orientation Not on file Plan of Treatment Not on file Insurance MEDICAID [place] [facility] Address: [address] [address] Care Teams Senior Sql Server Dba Relationship Specialty Start Date End Date Unknown, Provider, PCP - General 05/06/24
--- OUTSIDE RECORDS SUMMARY | 2024-08-31 04:55 | XMS_ITS | Encounter Summary ---
Author Organization [facility] Address [address] [place] [address] Care Team Providers Care Glass Calibrator Name Role Phone Unknown, Provider Primary Care Provider Alexandro ilmery Encounter Details Date Type Department Care Team (Late st Contact Info) Description 05/09/2024 Lab Requisition [facility] Pathology & Laboratory Medicine - [facility] [address] [place] [address] Blanca Hendricks [address] [place] [address] [place] [phone] Encounter for other general examination Social History [...] 16, PCR Negative Negative 05/21/2024 15:17 EDT [facility] HPV High Risk type 18, PCR Negative Negative 05/21/2024 15:17 EDT [facility] HPV other High Risk types, PCR Positive(A) Negative 05/21/2024 15:17 EDT [facility] Comment: Positive for one of the following Other High Risk HPV types: ??31,33, 35, 39, 45, 51, 52, 56, 58, 59, 66 and 68. Pap Test CERVIX UTERI STRUCTURE / Unknown 05/08/2024 10:15 EDT 05/18/2024 14:10 EDT us Blanca Eladio MICROBIOLOGY - GENERAL ORDERABLE S Final Result [facility] [address] [place], [place] [id number] * PAP TEST (05/08/2024 10:15 EDT) Specimens A. Cervix and/or Endocervix , ThinPrep Imaging System with Manual Evaluation 05/21/2024 15:17 [facility] Specimen Adequacy Satisfactory for Evaluation - transformation zone component present 05/21/2024 15:17 [facility] General Categorization Epithelial Cell Abnormality 05/21/2024 15:17 [facility] Descriptive Diagnosis Squamous Cell Abnormality - Atypical squamous cells, undetermined significance (ASC-US). Shift in patrick present suggestive of bacterial vaginosis. 05/21/2024 15:17 [facility] Educational Comments [facility] recommends following the ASCCP's management guidelines which may be found at www.asccp.org 05/21/2024 15:17 [facility] Attestation By the signature below, the attending physician certifies that they have personally conducted a gross and/or microscopic examination of the described specimens and rendered or confirmed the above diagnosis. 05/21/2024 15:17 [facility] at 1517 Clinical History See below 05/21/20 15:17 [facility] Performing Lab [facility] 05/21/2024 15:17 [facility] Scanned Images 05/21/2024 15:17 [facility] HPV High Risk type 16, PCR Negative 05/21/2024 15:17 [facility] HPV High Risk type 18, PCR Negative 05/21/2024 15:17 EDT [facility] HPV Other High Risk Types, PCR Positive Positive for one of the following Other High Risk HPV types: 31,33, 35, 39, 45, 51, 52, 56, 58, 59, 66 and 68. 05/21/2024 15:17 EDT [facility] Pap Test CERVIX UTERI STRUCTURE / Unknown 05/08/2024 10:15 EDT 05/09/2024 10:19 EDT Blanca Hendricks PATHOLOGY ORDERABLES Final Resul t [facility] [address] [place] [address] documented in this encounter Visit Diagnoses Diagnosis Encounter for other general examination documented in this encounter Care Teams Glass Calibrator Relationship Specialty Start Date End Date Unknown, Provider, PCP - General 05/06/24 documented as of this encounter
--- OUTSIDE RECORDS SUMMARY | 2024-08-31 04:55 | XMS_ITS | Encounter Summary ---
Author Organization [facility] Address [facility] [place] [address] Care Team Providers Care Wic Site Coordinator Name Role Phone Gabrielle Juana Porter APRN Primary Care Provider [phone] Encounter Details Date Type Department Care Team [...] 1:20 PM EST [place] [address] Lizzeth Bedoya APRN [facility] [place] [address] 09/13/2024 4:30 PM EST Office Visit Pain Management at [address] [place] [phone] Hakeem Ty MD PHYSICAL MEDICINE [place] [address] documented as of this encounter Visit Diagnoses Not on filedocumented in this encounter Care Teams Wic Site Coordinator Relationship Specialty Start Date End Date Juana Anthony, AMRITA [address] [place] [address] PCP - General Family Medicine 05/18/24 documented as of this encounter
--- OUTSIDE RECORDS SUMMARY | 2024-08-31 04:55 | XMS_ITS | Encounter Summary ---
Author Organization [facility] [place] [address] Care Team Providers Care Ski Base Trimmer Name Role Phone Gabrielle Juana Porter APRN Primary Care Provider [phone] Encounter Details Date Type Department Care Team [...] 1:20 PM EST [place] [address] [facility] [place] [address] 09/13/2024 4:30 PM EST Office Visit Pain Management at [address] [place] [phone] Hakeem Ty MD PHYSICAL MEDICINE [place] [address] documented as of this encounter Visit Diagnoses Not on filedocumented in this encounter Care Teams Ski Base Trimmer Relationship Specialty Start Date End Date Juana Anthony, AMRITA [address] [facility] [place] [address] PCP - General Family Medicine 05/18/24 documented as of this encounter
--- OUTSIDE RECORDS SUMMARY | 2024-08-31 04:55 | XMS_ITS | Encounter Summary ---
Author Organization [facility] Address [facility] [address] [place] [address] Care Team Providers Care Quality Measurement Specialist Name Role Phone Jhonankit Juana Ankit CROWE Primary Care Provider [phone] Encounter Details Date Type Department Care Team (Latest Contact Info) Description 06/28/2024 4:45 PM EDT Laboratory Appointment Laboratory [place] [address] Medication management Social History Tobacco [...] 1:20 PM EST Office Visit Urology at [facility] [place] [address] Lizzeth Bedoya APRN [facility] [place] [address] 09/13/2024 4:30 PM EST Office Visit Pain Management [place] [address] Hakeem Ty MD [facility] PHYSICAL [place] [address] documented as of this encounter Procedures Procedure Name Priority Date/Time Associated Diagnosis Comments COMPREHENSIVE METABOLIC PANEL Routine 06/28/2024 4:51 PM EDT Medication management documented in this encounter Results * (ABNORMAL) Comprehensive metabolic panel Non-fasting (06/28/2024 4:51 PM EDT) Glucose 96 65 - 199 mg/dL 06/28/2024 5:53 PM EDT [facility] Comment:Glucose Concentratio n >=200 mg/dL plus symptoms is consistent with Diabetes Mellitus. Blood Urea Nitrogen 9 8 - 18 mg/dL 06/28/2024 5:53 PM EDT [facility] Creatinine 0.69(L) 0.70 - 1.20 mg/dL 06/28/2024 5:53 PM EDT [facility] Sodium 136 135 - 145 mMol/L 06/28/2024 5:53 PM EDT [facility] Potassium 3.7 3.5 - 5.0 mMol/L 06/28/2024 5:53 PM EDT [facility] Chloride 99 98 - 107 mMol/L 06/28/2024 5:53 PM EDT [facility] Carbon Dioxide 28 22 - 31 mMol/L 06/28/2024 5:53 PM EDT [facility] Anion Gap 9 5 - 15 mMol/L 06/28/2024 5:53 PM EDT [facility] Calcium 9.7 8.5 - 10.5 mg/dL 06/28/2024 5:53 PM EDT [facility] Protein, Total 6.8 6.1 - 8.0 g/dL 06/28/2024 5:53 PM EDT [facility] Albumin 4.2 3.2 - 5.2 g/dL 06/28/2024 5:53 PM EDT [facility] Aspartate Aminotransferase 14 <=30 unit/L 06/28/2024 5:53 PM EDT [facility] Alanine Aminotransferase 10 0 - 30 unit/L 06/28/2024 5:53 PM EDT [facility] Alkaline Phosphatase 60 35 - 105 unit/L 06/28/2024 5:53 PM EDT [facility] Bilirubin, Total 0.3 <=1.3 mg/dL 06/28/2024 5:53 PM EDT [facility] Est Glomerular Filtration Rate - Female 113 mL/min/1. 73 m?? 06/28/2024 5:53 PM EDT [facility] Comment: This patient's estimated GFR was [...] Fasting Status No 06/28/2024 5:53 PM EDT [facility] Blood VENOUS BLOOD SPECIMEN / Unknown Venipuncture / Unknown 06/28/2024 4:51 PM EDT 06/28/2024 4:51 PM EDT Hakeem Mak MD CHEMISTRY ORDERABLE S [facility] [address] [place] [address] documented in this encounter Visit Diagnoses Diagnosis Medication management Encounter for long-term (current) use of other medications documented in this encounter Care Teams Quality Measurement Specialist Relationship Specialty Start Date End Date Juana Anthony APRN [address] [place] [address] PCP - General Family Medicine 05/18/24 documented as of this encounter
--- OUTSIDE RECORDS SUMMARY | 2024-08-31 04:55 | XMS_ITS | Encounter Summary ---
Author Organization [facility] [place] [address] Care Team Providers Care Core Rescuer Name Role Phone Gabrielle Juana Charlotte CROWE Primary Care Provider [phone] Reason for Referral * Diagnostic Test (Routine) - Closed Specialty Diagnoses / Procedures Referred By Contac t Referred To Contact Radiology Diagnoses Urinary incontinence, unspecified type Spondylosis of cervical region without myelopathy or radiculopathy Procedures MRI Brain wo Contrast Hakeem Ty MD [address] [place] [address] [facility] [address] [place] [phone] Referral ID Status Reason Start Date Expiration Date V isits Requested Visits Authorized [id number] Closed Specialty Service Requested 07/19/2024 01/16/2026 1 1 Reason for Visit * Diagnostic Test (Routine) - Closed Specialty Diagnoses / Procedures Referred By Contac t Referred To Contact Radiology Diagnoses Urinary incontinence, unspecified type Spondylosis of cervical region without myelopathy or radiculopathy Procedures MRI Brain wo Contrast Hakeem Ty MD [address] [place] [address] [facility] [address] [place] [phone] Referral ID Status Reason Start Date Expiration Date V isits Requested Visits Authorized [id number] Closed Specialty Service Requested 07/19/2024 01/16/2026 1 1 Encounter Details Date Type Department Care Team (Latest Contact Info) Description 07/31/2024 2:19 PM EST - 07/31/2024 11:59 PM EST Hospital Encounter Radiology MRI at [place] [place] [address] Hakeem Ty MD 10 [facility] PHYSICAL [place] [address] Urinary incontinence, unspecified type; Spondylosis of cervical [...] 1:20 PM [place] [address] Lizzeth Bedoya APRN [facility] [place] [address] 09/13/2024 4:30 PM EST Office Visit Pain Management at [place] [phone] Hakeem Ty MD 10 [facility] PHYSICAL [place] [address] documented as of this encounter Procedures Procedure Name Priority Date/Time Associated Diagnosis Comments MRI BRAIN WO CONTRAST Routine 07/31/2024 3:03 PM EST Urinary incontinence, unspecified type Spondylosis of cervical region without myelopathy or radiculopathy documented in this encounter Results * MRI Brain wo Contrast (07/31/2024 3:03 PM EST) WORKSTATION ID [id number] RAD Anatomical Region Laterality Modality Head Magnetic Resonan ce Impressions 08/01/2024 4:04 AM EST Unremarkable examination, other than mild paranasal sinus disease. Thank you for letting us participate in the care of this patient. ??If you are a health care provider and have any questions regarding this report, please contact the number below. ??For patients who have questions please contact the health lawn care technician that requested your imaging first. ? Narrative 08/01/2024 4:04 AM EST EXAMINATION: MRI [...] patients who have questions please contactthe health lawn care technician that requested your imaging first. Hakeem Mak MD IMG MRI ORDERABLES documented in this encounter Visit Diagnoses Diagnosis Urinary incontinence, unspecified type Spondylosis of cervical region without myelopathy or radiculopathy Cervical spondylosis without myelopathy documented in this encounter Care Teams Core Rescuer Relationship Specialty Start Date End Date Juana Anthony, AMRITA [address] [place] [address] PCP - General Family Medicine 05/18/24 documented as of this encounter
--- OUTSIDE RECORDS SUMMARY | 2024-08-31 04:55 | XMS_ITS | Encounter Summary ---
Author Organization [facility] [place] [address] Care Team Providers Care Pararescue Craftsman Name Role Phone Juana Anthony Charlotte CROWE Primary Care Provider [phone] Reason for Referral * Diagnostic Test (Routine) - Closed Specialty Diagnoses / Procedures Referred By Contac t Referred To Contact Radiology Diagnoses Osteoarthritis of cervical spine with myelopathy Procedures MRI Cervical Spine wo Contrast (Generic) Hakeem Ty MD [address] [place] [address] [facility] [address] [place] [address] Referral ID Status Reason Start Date Expiration Date V isits Requested Visits Authorized [id number] Closed Specialty Service Requested 06/28/2024 12/27/2025 1 1 Reason for Visit * Diagnostic Test (Routine) - Closed Specialty Diagnoses / Procedures Referred By Contac t Referred To Contact Radiology Diagnoses Osteoarthritis of cervical spine with myelopathy Procedures MRI Cervical Spine wo Contrast (Generic) Hakeem Ty MD [address] [place] [address] [facility] [address] [place] [address] Referral ID Status Reason Start Date Expiration Date V isits Requested Visits Authorized [id number] Closed Specialty Service Requested 06/28/2024 12/27/2025 1 1 Encounter Details Date Type Department Care Team (Latest Contact Info) Description 07/16/2024 5:14 PM EST - 07/16/2024 11:59 PM EST Hospital Encounter Radiology MRI at [facility] [place] [phone] Hakeem Ty MD 10 [facility] PHYSICAL [place] [address] Osteoarthritis of cervical spine with myelopathy Discharge [...] 1:20 PM [place] [address] Lizzeth Bedoya, AMRITA [facility] [place] [address] 09/13/2024 4:30 PM EST Office Visit Pain Management at [facility] [address] [place] [address] Hakeem Ty MD 10 [facility] PHYSICAL [place] [address] documented as of this encounter Procedures Procedure Name Priority Date/Time Associated Diagnosis Comments MRI CERVICAL SPINE WO CONTRAST Routine 07/16/2024 6:15 PM EST Osteoarthritis of cervical spine with myelopathy documented in this encounter Results * MRI Cervical Spine wo Contrast (Generic) (07/16/2024 6:15 PM EST) [employer] Signature WORKSTATION ID [id number] RAD Anatomical Region Laterality Modality C-spine Magnetic [...] who have questions please contact the health managed care coordinator that requested your imaging first. ? Electronically signed by: LUIS FERNANDO [facility] ([phone]), at 07/17/2024 3:32 PM Narrative 07/17/2024 3:32 [...] patients who have questions please contactthe health managed care coordinator that requested your imaging first. Electronically signed by: Wayne Lees [facility]([phone]), at 07/17/2024 3:32 PM Hakeem Mak MD IMG MRI ORDERABLES documented in this encounter Visit Diagnoses Diagnosis Osteoarthritis of cervical spine with myelopathy documented in this encounter Care Teams Pararescue Craftsman Relationship Specialty Start Date End Date Juana Anthony, AMRITA [address] [place] [address] PCP - General Family Medicine 05/18/24 documented as of this encounter
--- OUTSIDE RECORDS SUMMARY | 2024-08-31 04:55 | XMS_ITS | Encounter Summary ---
Author Organization [facility] Address [address] [place] [address] Care Team Providers Care Border Police Name Role Phone Unknown, Provider Primary Care Provider Unava ilable Encounter Details Date Type Department Care Team (Late st Contact Info) Description 05/09/2024 Lab Requisition [facility] - [facility] [address] [place] [address] Blanca Hendricks [address] [place] [address] [place] [phone] Encounter for other general examination Social History [...] examination documented in this encounter Care Teams Border Police Relationship Specialty Start Date End Date Unknown, Provider, PCP - General 05/06/24 documented as of this encounter
--- OUTSIDE RECORDS SUMMARY | 2024-08-31 04:55 | XMS_ITS | Encounter Summary ---
Author Organization [facility] [place] [address] Care Team Providers Care Client Service And Consulting Manager Name Role Phone Juana Anthony Charlotte CROWE Primary Care Provider [phone] Reason for Referral * Diagnostic Test (Routine) - Closed Specialty Diagnoses / Procedures Referred By Contac t Referred To Contact Radiology Diagnoses Urinary incontinence, unspecified type Spondylosis of cervical region without myelopathy or radiculopathy Procedures MRI Brain wo Contrast Hakeem Ty MD 10 [facility] PHYSICAL MEDIC[place] [address] [facility] [address] [place] [address] Referral ID Status Reason Start Date Expiration Date V isits Requested Visits Authorized [id number] Closed Specialty Service Requested 07/19/2024 01/16/2026 1 1 Reason for Visit * Reason Comments Follow-up Cervical MRI Encounter Details Date Type Department Care Team (Late st Contact Info) Description 07/19/2024 1:00 PM EST Office Visit Pain Management at [facility] [address] [place] [address] Hakeem Ty MD 10 [facility] [place] [address] Radiculopathy of lumbar region; Chronic [...] the exercises, please contact the clinic at [phone] and ask to speak to the Sound Technician, Jenny. HEP HEP- Cervical ROM STRETCHES Created by Jenny Ayon ATC, [facility] Feb 17, 2021 View videos at [email or web address] CERVICAL RETRACTION 1 CHIN TUCK Slowly draw your head back so that your ears line up with your shoulders. Video # [id number] Repeat Hold Complete Perform 10 Times 5 Seconds 1 Set 3 Times a Day CERVICAL ROTATION Turn your head towards the side, then return back to looking straight ahead. Repeat on the oppositeside. Video # [id number] Repeat Hold Complete Perform 4 Times 20 [...] Perform 3 Times a Day Video # [id number] CERVICAL FLEXION Tilt your head downwards, then return back to looking straight ahead. Video # [id number] Repeat Hold Complete Perform 4 Times 20 Seconds 1 Set 3 Times a Day CERVICAL EXTENSION Tilt your head upwards, then return back to looking straight ahead. Video # [id number] Repeat Hold Complete Perform 4 Times 20 [...] the exercises please call the clinic at [phone], and ask to speak with the Sound Technician, Jenny. POSTERIOR PELVIC TILT Lie on your [...] and then lower yourself and repeat. VIDEO: [id number] Repeat 10 Times Hold 2 Seconds Complete [...] through a comfortable range of motion. VIDEO: [id number] Repeat 10 Times Hold 5 Seconds Complete [...] Perform 2 Times Daily View videos at [email or web address] documented in this encounter Progress Notes * [...] ankle. She has has started PT at [facility] and reports pain is more mild now [...] physician to considerreferral to Latanya Bo at [facility] for evaluation for urinary incontinence. I will [...] 1:20 PM EST Office Visit Urology at [facility] [place] [address] Lizzeth Bedoya APRN [facility] [place] [address] 09/13/2024 4:30 PM EST Office Visit Pain Management at [address] [address] Hakeem Ty MD 10 [facility] PHYSICAL MEDICINE [place] [address] documented as of this encounter Results * MRI Brain wo Contrast (07/31/2024 3:03 PM EST) [employer] WORKSTATION ID [id number] [facility] Anatomical Region Laterality Modality Head Magnetic Resonan ce Impressions 08/01/2024 4:04 AM EST Unremarkable examination, other than mild paranasal sinus disease. Thank you for letting us participate in the care of this patient. ??If you are a health care provider and have any questions regarding this report, please contact the number below. ??For patients who have questions please contact the health career placement services counselor that requested your imaging first. ? Electronically signed by: Rehan Olivares MD, [facility] ([phone]), at 08/01/2024 4:04 AM Narrative 08/01/2024 4:04 [...] who have questions please contactthe health career placement services counselor that requested your imaging first. Hakeem Mak [...] myelopathy documented in this encounter Care Teams Client Service And Consulting Manager Relationship Specialty Start Date End Date Juana Anthony, SUPERVISOR SPECIAL EDUCATION [address] [place] [address] PCP - General Family Medicine 05/18/24 documented as of this encounter
--- OUTSIDE RECORDS SUMMARY | 2024-08-31 04:55 | XMS_ITS | Clinical Summary ---
Author Organization [facility] Address [facility] [place] [address] Care Team Providers Care Marine Designer Name Role Phone Gabrielle Juana Charlotte CROWE Primary Care Provider Allergies Active Allergy Reactions Criticality Noted Date Comments Aobyrzuc-Dthnjvptrr-Lmaprpqai 2023 Nickel 05/21/2024 Medications Medication Sig Dispensed [...] PM EST Hospital Encounter Radiology MRI at [facility] [place] [address] Hakeem Ty MD Urinary incontinence, unspecified type; Spondylosis of cervical region without myelopathy or radiculopathy Discharge Disposition: Home 07/31/2024 Travel 07/19/2024 1:00 PM EST Office Visit Pain Management at [facility] [place] [address] Hakeem Ty MD Radiculopathy of lumbar region; Chronic pain syndrome; Urinary incontinence, unspecified type; Spondylosis of cervical region without myelopathy or radiculopathy 07/19/2024 Travel 07/16/2024 5:14 PM EST - 07/16/2024 11:59 PM EST Hospital Encounter Radiology MRI at [facility] [place] [address] Hakeem Ty MD Osteoarthritis of cervical spine with myelopathy Discharge Disposition: Home 07/16/2024 Travel 06/28/2024 4:45 PM EDT Laboratory Appointment Laboratory at [facility] [place] [address] Medication management 06/28/2024 4:00 PM EDT Office Visit Pain Management at [facility] [place] [address] Hakeem Ty MD Osteoarthritis of cervical spine with myelopathy (Primary Dx); Radiculopathy of lumbar region; Chronic pain syndrome; Medication management; Urinary incontinence, unspecified type; Neurogenic bladder 06/28/2024 Travel 06/22/2024 Ancillary Procedure Radiology Library at [facility] [place] [address] Juana Anthony APRN from Last 3 Months Social History Tobacco [...] EST [place] [address] Lizzeth Bedoya APRN [facility] [place] [address] 09/13/2024 4:30 PM EST Office Visit Pain Management at [facility] [address] [place] [phone] Hakeem Ty MD [address] PHYSICAL MEDICINE [place] [address] Health Maintenance Due Date Last Done Comments HIV screen 2001 Hepatitis C Screening 2001 Lipid Screening 2001 Hepatitis B vaccine (0-59 yrs) (1) 2002 Pneumococcal Vaccine: At-Risk 5-64yrs (1 of 2 - PCV) 0 2002 Tetanus/Diphtheria/Pertussis Vaccines (1 - Tdap) 09/22 [...] Contrast (07/31/2024 3:03 PM EST) WORKSTATION ID [id number] RAD Anatomical Region Laterality Modality Head Magnetic [...] signed by: Rehan Olivares MD, [facility] ([phone]), at 08/01/2024 4:04 AM Narrative 08/01/2024 4:04 [...] signed by: Rehan Olivares MD, [facility]([phone]), at 08/01/2024 4:04 AM Hakeem Mak MD IMG MRI ORDERABLES * MRI Cervical Spine wo Contrast (Generic) (07/16/2024 6:15 PM EST) WORKSTATION ID [id number] RAD Anatomical Region Laterality Modality C-spine Magnetic [...] requested your imaging first. Hakeem Mak MD [facility] ORDERABLES * (ABNORMAL) Comprehensive metabolic panel Non-fasting (06/28/2024 4:51 PM EDT) [facility] Signature Glucose 96 65 - 199 mg/dL 06/28/2024 5:53 PM EDT [facility] Comment:Glucose Concentratio n >=200 mg/dL plus symptoms is consistent with Diabetes Mellitus. Blood Urea Nitrogen 9 8 - 18 mg/dL 06/28/2024 5:53 PM EDT [facility] Creatinine 0.69(L) 0.70 - 1.20 mg/dL 06/28/2024 5:53 PM EDT [facility] Sodium 136 135 - 145 mMol/L 06/28/2024 5:53 PM EDT [facility] Potassium 3.7 3.5 - 5.0 mMol/L 06/28/2024 5:53 PM T [facility] Chloride 99 98 - 107 mMol/L 06/28/2024 5:53 PM T [facility] Carbon Dioxide 28 22 - 31 mMol/L 06/28/2024 5:53 PM T [facility] Anion Gap 9 5 - 15 mMol/L 06/28/2024 5:53 PM T [facility] Calcium 9.7 8.5 - 10.5 mg/dL 06/28/2024 5:53 PM [facility] Protein, Total 6.8 6.1 - 8.0 g/dL 06/28/2024 5:53 PM T [facility] Albumin 4.2 3.2 - 5.2 g/dL 06/28/2024 5:53 PM [facility] Aspartate Aminotransferase 14 <=30 unit/L 06/28/2024 5:53 PM [facility] Alanine Aminotransferase 10 0 - 30 unit/L 06/28/2024 5:53 PM [facility] Alkaline Phosphatase 60 35 - 105 unit/L 06/28/2024 5:53 PM [facility] Bilirubin, Total 0.3 <=1.3 mg/dL 06/28/2024 5:53 PM [facility] Est Glomerular Filtration Rate - Female 113 mL/min/1. 73 m?? 06/28/2024 5:53 PM [facility] Comment: This patient's estimated GFR [...] Foundation Fasting Status No 06/28/2024 5:53 PM [facility] Blood VENOUS BLOOD SPECIMEN / Unknown Venipuncture / Unknown 06/28/2024 4:51 PM EDT 06/28/2024 4:51 PM EDT Hakeem Mak MD CHEMISTRY ORDERABLE S Performing Organization Address City/[facility] [[email or web address]] Co de Phone Number [facility] [address] [place] [address] * Scan Doc: MRI/MRA (06/22/2024 12:00 AM EDT) Anatomical Region Laterality Modality Other Narrative 06/22/2024 12:00 AM EDT Ordered by an unspecified provider. Scanning Provider MEDIA MGR SCAN EXT O RDR/RSLT * Film Library- Storage Only MR Spine (06/22/2024 12:00 AM EDT) Narrative [facility] - 06/23/2024 4:04 AM EDT This exam is auto-finalizing. It's purpose is for storage only. Juana Anthony APRN IMG FILM LIBRARY ORD ERABLES Performing Organization Address [facility] [[email or web address]] Co de Phone Number [place], [place] from Last 3 Months Care Teams Marine Designer Relationship Specialty Start Date End Date Juana Anthony APRN [address] [place] [address] PCP - General Family Medicine 05/18/24
--- OUTSIDE RECORDS SUMMARY | 2024-08-31 04:55 | XMS_ITS | Encounter Summary ---
Author Organization [facility] [place] [address] Care Team Providers Care Switch Operator Name Role Phone Gabrielle Juana Porter APRN Primary Care Provider [phone] Encounter Details Date Type Department Care Team [...] 1:20 PM EST Office [place] [address] Lizzeth Bedoya APRN [facility] [place] [address] 09/13/2024 4:30 PM EST Office Visit Pain Management at [address] [place] [phone] Hakeem Ty MD PHYSICAL [place] [address] documented as of this encounter Visit Diagnoses Not on filedocumented in this encounter Care Teams Switch Operator Relationship Specialty Start Date End Date Juana Anthony, AMRITA [address] [facility] [place] [address] PCP - General Family Medicine 05/18/24 documented as of this encounter
--- OUTSIDE RECORDS SUMMARY | 2024-08-31 04:55 | XMS_ITS | Clinical Summary ---
Author Organization [facility] Address [address] [place] [address] Care Team Providers Care Door Closer Mechanic Name Role Phone Unknown, Provider Primary Care [...] season) 2024 Insurance MEDICAID [place] Care Teams Door Closer Mechanic Relationship Specialty Start Date End Date Unknown, Provider, PCP - General 05/06/24
--- OUTSIDE RECORDS SUMMARY | 2024-08-31 04:56 | XMS_ITS | Encounter Summary ---
Author Organization [facility] [place] [address] Care Team Providers Care Electronic Typesetting Machine Operator Name Role Phone Juana Anthony AMRITA Primary Care Provider [phone] Encounter Details Date Type Department Care Team (Late Contact Info) Description 05/30/2024 Telephone Pain Management at [facility] [address] [facility] [place] [phone] Arlette Green RN Social History Tobacco Use [...] she should f/u with PCP. Will ask service secretary to add to wait list to be seen sooner if possible. documented in this encounter Plan of Treatment Upcoming Encounters Date Type Department Care Team (Late st Contact Info) Description 09/13/2024 1:20 PM [place] [address] Lizzeth Bedoya APRN [facility] [place] [address] 09/13/2024 4:30 PM EST Office Visit Pain Management at [facility] [address] [facility] [place] [address] Hakeem Ty MD 10 [facility] PHYSICAL [place] [address] documented as of this encounter Visit Diagnoses Not on filedocumented in this encounter Care Teams Electronic Typesetting Machine Operator Relationship Specialty Start Date End Date Juana Anthony APRN [address] [place] [address] PCP - General Family Medicine 05/18/24 documented as of this encounter
--- OUTSIDE RECORDS SUMMARY | 2024-08-31 04:56 | XMS_ITS | Encounter Summary ---
Author Organization [facility], [facility] [place] [address] Care Team Providers Care Media Buyer Name Role Phone Unavailable Primary Care Provider Unavailabl e Encounter Details Date Type Department Care Team (Late st Contact Info) Description 05/17/2024 Telephone [place] [phone] Jazmin Marie MD [facility] [place] [address] Social History Tobacco Use Types Packs/Day Years [...] to apt on 05/21/24. Scheduled for 10:15at immunology specialist 3T. Left ortho call back number for any questions or concerns. documented in this encounter Plan of Treatment Upcoming Encounters Date Type Department Care Team (Late st Contact Info) Description 09/13/2024 1:20 PM EST Office [place] [phone] Lizzeth Bedoya APRN [facility] [place] [address] 09/13/2024 4:30 PM EST Office Visit Pain Management at [address] [place] [phone] Hakeem Ty MD PHYSICAL MEDICINE [place] [address] documented as of this encounter Visit Diagnoses Not on filedocumented in this encounter
--- OUTSIDE RECORDS SUMMARY | 2024-08-31 04:56 | XMS_ITS | Encounter Summary ---
Author Organization [facility] Address [facility] [place] [address] Care Team Providers Care Final Installer Inspector Name Role Phone Gabrielle Juana Porter APRN Primary Care Provider [phone] Encounter Details Date Type Department Care Team [...] 1:20 PM EST Office [place] [address] Lizzeth Bedoya APRN [facility] [place] [address] 09/13/2024 4:30 PM EST Office Visit Pain Management at 10 [place] [address] Hakeem Ty MD [facility] [place] [address] documented as of this encounter Visit Diagnoses Not on filedocumented in this encounter Care Teams Final Installer Inspector Relationship Specialty Start Date End Date Juana Anthony, AMRITA [address] [facility] [place] [address] PCP - General Family Medicine 05/18/24 documented as of this encounter
--- OUTSIDE RECORDS SUMMARY | 2024-08-31 04:56 | XMS_ITS | Encounter Summary ---
Author Organization [facility] [place] [address] Care Team Providers Care Crisis Nurse Name Role Phone Unavailable Primary Care Provider Unavailabl e Encounter Details Date Type Department Care Team (Late st Contact Info) Description 04/10/2024 Ancillary Procedure Radiology Library at [facility] [place] [address] Armaan Jones MD [address] [place] [address] Social History Tobacco Use Types Packs/Day Years [...] 1:20 PM EST [place] [address] Lizzeth Bedoya APRN [facility] [place] [address] 09/13/2024 4:30 PM EST Office Visit Pain Management at [address] [place] [address] Hakeem Ty MD 10 PHYSICAL [place]INE [place] [address] documented as of this encounter Procedures Procedure [...] Jones MD G FILM LIBRARY ORD ERABLES [place], [place] documented in this encounter Visit Diagnoses Not on filedocumented in this encounter
--- OUTSIDE RECORDS SUMMARY | 2024-08-31 04:56 | XMS_ITS | Encounter Summary ---
Author Organization [facility] Address [facility] [place] [address] Care Team Providers Care License Examiner Name Role Phone Jhonankit Juana Ankit CROWE Primary Care Provider [phone] Encounter Details Date Type Department Care Team (Late st Contact Info) Description 05/21/2024 10:32 AM EDT - 05/21/2024 1:44 PM EDT Hospital Encounter XRay at [address] [place] [address] Jazmin Marie MD [facility] [place] [address] Pain in right hip Discharge Disposition: Home [...] 1:20 PM EST Office [place] [address] Lizzeth Bedoya APRN [facility] [place] [address] 09/13/2024 4:30 PM EST Office Visit Pain Management at [facility] [address] [place] [address] Hakeem Ty MD 10 [facility] [place]ICAL [place] [address] documented as of this encounter Procedures Procedure Name Priority Date/Time Associated Diagnosis Comments XR PELVIS AND HIP 2 VIEWS RIGHT Routine 05/21/2024 10:44 AM EDT Pain in right hip documented in this encounter Results * XR Pelvis and Hip 2 Views Right (05/21/2024 10:44 AM EDT) [employer] WORKSTATION ID [id number] [facility] Anatomical Region Laterality Modality Pelvis, Hip Right Digital Radiogra phy Impressions 05/22/2024 9:46 PM EDT Unremarkable right hip Thank you for letting us participate in the care of this patient. ??If you are a health care provider and have any questions regarding this report, please contact the number below. ??For patients who have questions please contact the health rn managed care that requested your imaging first. ? [...] patients who have questions please contactthe health rn managed care that requested your imaging first. Jazmin Marie MD IMG DX ORDERABL ES documented in this encounter Visit Diagnoses Diagnosis Pain in right hip Pain in joint, pelvic region and thigh documented in this encounter Care Teams License Examiner Relationship Specialty Start Date End Date Juana Anthony APRN [address] [place] [address] PCP - General Family Medicine 05/18/24 documented as of this encounter
--- OUTSIDE RECORDS SUMMARY | 2024-08-31 04:56 | XMS_ITS | Encounter Summary ---
[place] [address] Care Team Providers Care Tufting Machine Fixer Name Role Phone Gabrielle Juana Charlotte CROWE Primary Care Provider [phone] Reason for Referral * Consultation (Routine) - Closed Specialty Diagnoses / Procedures Referred By Contac t Referred To Contact [facility] and Spine Center Diagnoses Pain in right hip Chanda Gordon MD [facility] [place] [address] [facility] [place] [address] Referral ID Status Reason Start Date Expiration Date V isits Requested Visits Authorized [id number] Closed Consult, Test & Treat 05/21/2024 05/21/2025 1 1 * Physical Therapy (Routine) - Authorized Specialty Diagnoses / Procedures Referred By Contac t Referred To Contact Physical Therapy Diagnoses Pain in right hip Chanda Gordon MD [facility] [place] [address] Referral ID Status Reason Start Date Expiration Date Visits Requested Visits Authorized [id number] Authorized Evaluate and Treat 05/21/2024 11/17/2024 12 12 Reason for Visit * Reason Comments Establish Care ?XR R HIP PAIN 2ND OPINION * Consultation (Routine) - Closed Specialty Diagnoses / Procedures Referred By Rayne carlos Referred To Contact Orthopaedics Diagnoses Labral tear of right hip joint Self mail [facility] Orthopa[facility] [address] [place] [address] Referral ID Status Reason Start Date Expiration Date V isits Requested Visits Authorized [id number] Closed Consult, Test & Treat PCP Updated and/or Approved 05/04/2024 05/04/2025 1 1 Encounter Details Date Type Department Care Team (Late st Contact Info) Description 05/21/2024 11:00 AM EDT Office [place] [address] Jazmin Marie MD [facility] [place] [address] Pain in right hip Social [...] way sometimes. She has been seen at [facility] orthopedics for which she had a corticosteroid [...] smoker, 1 pack/day. 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 Denies heart or lung disease, denies diabetes. ASSOCIATED DIAGNOSES: She does not reports problems with the contralateral hip, does not report problems with the ipsilateral knee and does have a history of spine or back issues. ALLERGIES Allergies Allergen Reactions Taaqwzaa-Mnptubhian-Largqclfg Nickel Allergies to metals: none known. SOCIAL HISTORY: reports that she has been smoking cigarettes. She does not have any smokeless tobacco history on file. She reports that she does not currently use alcohol. She reports current drug use. Drug: Marijuana. 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 Jazmin Marie MD Department of Orthopaedic Surgery, Hip & [place] [address] [email or web address] documented in this encounter Plan of Treatment Upcoming Encounters Date Type Department Care Team (Late st Contact Info) Description 09/13/2024 1:20 PM EST [place] [address] Lizzeth Bedoya APRN [facility] [place] [address] 09/13/2024 4:30 PM EST Office Visit Pain Management at [facility] 10 [place] [address] Hakeem Ty MD 10 [facility] PHYSICAL [place] [address] Scheduled Referrals Name Type Priority Associated Diagnoses Orde r Schedule Referral to Physical Therapy Outpatient Referral Routine Pain in right hip Ordered: 05/21/2024 Referral to [facility] Sp[facility] Center (Internal only) Outpatient Referral Routine Pain in right hip Ordered: 05/21/2024 documented as of this encounter Results * XR Lumbar Spine 2 Or 3 Views (Generic) (05/21/2024 1:59 PM EDT) WORKSTATION ID [id number] [facility] Anatomical Region Laterality Modality L-spine N/A Digital [...] who have questions please contact the health respite care provider that requested your imaging first. ? Electronically signed by: Tao June MD, [facility] ([phone]), at 05/22/2024 9:44 PM Narrative 05/22/2024 9:44 [...] patients who have questions please contactthe health respite care provider that requested your imaging first. Electronically signed by: Tao June MD, [facility]([phone]), at 05/22/2024 9:44 PM Jazmin Marie MD IMG DX ORDERABL ES documented in this encounter Visit Diagnoses Diagnosis Pain in right hip Pain in joint, pelvic region and thigh Pain in right hip Pain in joint, pelvic region and thigh documented in this encounter Care Teams Tufting Machine Fixer Relationship Specialty Start Date End Date Juana Anthony, AMRITA [address] [place] [address] PCP - General Family Medicine 05/18/24 documented as of this encounter
--- OUTSIDE RECORDS SUMMARY | 2024-08-31 04:56 | XMS_ITS | Encounter Summary ---
Author Organization [facility] Address [facility] [place] [address] Care Team Providers Care Sales Hunter Name Role Phone Jhonankit Juana Ankit CROWE Primary Care Provider [phone] Encounter Details Date Type Department Care Team (Late st Contact Info) Description 05/21/2024 1:45 PM EDT - 05/21/2024 11:59 PM EDT Hospital Encounter XRay at [address] [place] [address] Jazmin Marie MD [facility] [place] [address] Pain in right hip Discharge Disposition: Home [...] 1:20 PM EST Office [place] [address] Lizzeth Bedoya APRN [facility] [place] [address] 09/13/2024 4:30 PM EST Office Visit Pain Management at [facility] 10 [facility] [place] [address] Hakeem Ty MD 10 [facility] PHYSICAL [place] [address] documented as of this encounter Procedures Procedure Name Priority Date/Time Associated Diagnosis Comments XR LUMBAR SPINE 2 OR 3 VIEWS Routine 05/21/2024 1:59 PM EDT Pain in right hip documented in this encounter Results * XR Lumbar Spine 2 Or 3 Views (Generic) (05/21/2024 1:59 PM EDT) [employer] Signature WORKSTATION ID [id number] [facility] Anatomical Region Laterality Modality L-spine N/A Digital [...] who have questions please contact the health gericare aide teacher that requested your imaging first. ? Electronically signed by: Tao June MD, [facility] ([phone]), at 05/22/2024 9:44 PM Narrative 05/22/2024 9:44 [...] patients who have questions please contactthe health gericare aide teacher that requested your imaging first. Electronically signed by: Tao June MD, [facility]([phone]), at 05/22/2024 9:44 PM Jazmin Marie MD IMG DX ORDERABL ES documented in this encounter Visit Diagnoses Diagnosis Pain in right hip Pain in joint, pelvic region and thigh documented in this encounter Care Teams Sales Hunter Relationship Specialty Start Date End Date Juana Anthony, BUSINESS LIAISON MANAGER [address] [place] [address] PCP - General Family Medicine 05/18/24 documented as of this encounter
--- OUTSIDE RECORDS SUMMARY | 2024-08-31 04:56 | XMS_ITS | Encounter Summary ---
Author Organization [facility] Address [facility] [place] [address] Care Team Providers Care Chemical Research Technician Name Role Phone Juana Anthony Charlotte CROWE Primary Care Provider [phone] Reason for Referral * Consultation (Routine) - Closed Specialty Diagnoses / Procedures Referred By Contac t Referred To Contact Pain and Spine Center Diagnoses Pain in right hip Radicular low back pain Low back pain, non-specific Jazmin Marie MD [facility] [place] [address] [facility] Pain [facility] [address] [place] [address] Referral ID Status Reason Start Date Expiration Date V isits Requested Visits Authorized [id number] Closed Consult, Test & Treat 05/23/2024 05/23/2025 1 1 Reason for Visit * Reason Onset Date Comments Results 05/23/2024 Encounter Details Date Type Department Care Team (Late st Contact Info) Description 05/23/2024 Telephone [place] [address] Jazmin Marie MD [facility] [place] [address] Results Social History Tobacco Use Types Packs/Day [...] her request. Message also sent in separate [facility] encounter to follow up. * Telephone Encounter - Yael Soares - 05/23/2024 2:56 PM EDT Patient is calling back stating she has already called [facility] pain [facility] and her referral is being reviewed. She is wondering if she needs to go to [facility] or [facility]. She would also like to know what herxr results were * Telephone Encounter - Yael Soares - 05/23/2024 1:08 PM EDTSummary: xr results Who is calling? PATIENT Best call back number: [phone] Best time to call back between 8:00 [...] 1:20 PM EST Office [place] [address] Lizzeth Bedoya APRN [facility] [place] [address] 09/13/2024 4:30 PM EST Office Visit Pain Management at [address] [place] [address] Hakeem Ty MD PHYSICAL [place]IC[place] [address] Scheduled Referrals Name Type Priority Associated Diagnoses [...] non-specific documented in this encounter Care Teams Chemical Research Technician Relationship Specialty Start Date End Date Juana Anthony APRN [address] [place] [address] PCP - General Family Medicine 05/18/24 documented as of this encounter
--- OUTSIDE RECORDS SUMMARY | 2024-08-31 04:56 | XMS_ITS | Encounter Summary ---
Author Organization [facility] [place] [address] Care Team Providers Care Overhead Cleaner Name Role Phone Juana Anthony APRN Primary Care Provider [phone] Encounter Details Date Type Department Care Team (Late st Contact Info) Description 05/23/2024 Telephone [place] [address] Unknown None Social History Tobacco Use Types [...] something she should be getting. Callback number: [phone] Best time you are available: Any documented in this encounter Plan of Treatment Upcoming Encounters Date Type Department Care Team (Late st Contact Info) Description 09/13/2024 1:20 PM EST [place] [address] Lizzeth Bedoya APRN [facility] [address] 09/13/2024 4:30 PM EST Office Visit Pain Management at [facility] 10 [place] [address] Hakeem Ty MD [address] [facility] PHYSICAL [place] [address] documented as of this encounter Visit Diagnoses Not on filedocumented in this encounter Care Teams Overhead Cleaner Relationship Specialty Start Date End Date Juana Anthony APRN [address] [place] [address] PCP - General Family Medicine 05/18/24 documented as of this encounter
--- OUTSIDE RECORDS SUMMARY | 2024-08-31 04:56 | XMS_ITS | Encounter Summary ---
Author Organization [facility] Address [facility] [place] [address] Care Team Providers Care Detective Homicide Squad Name Role Phone Unavailable Primary Care Provider Unavailabl e Encounter Details Date Type Department Care Team (Late st Contact Info) Description 05/17/2024 Orders [place] [address] Jazmin Marie MD [facility] [place] [address] Pain in right hip Social History Tobacco [...] 1:20 PM EST [place] [address] Lizzeth Bedoya APRN [facility] [place] [address] 09/13/2024 4:30 PM EST Office Visit Pain Management at [address] [place] [address] Hakeem Ty MD PHYSICAL [place] [address] documented as of this encounter Results * XR Pelvis and Hip 2 Views Right (05/21/2024 10:44 AM EDT) WORKSTATION ID [id number] [facility] Anatomical Region Laterality Modality Pelvis, Hip Right Digital Radiogra phy Impressions 05/22/2024 9:46 PM EDT Unremarkable right hip Thank you for letting us participate in the care of this patient. ??If you are a health care provider and have any questions regarding this report, please contact the number below. ??For patients who have questions please contact the health healthcare prof that requested your imaging first. ? Electronically signed by: Tao June MD, [facility] ([phone]), at 05/22/2024 9:46 PM Narrative 05/22/2024 9:46 [...] who have questions please contactthe health healthcare prof that requested your imaging first. Electronically signed by: Tao June MD, [facility]([phone]), at 05/22/2024 9:46 PM Jazmin Marie MD IMG DX ORDERABL ES documented in this encounter Visit Diagnoses Diagnosis Pain in right hip Pain in joint, pelvic region and thigh Pain in right hip Pain in joint, pelvic region and thigh documented in this encounter
--- OUTSIDE RECORDS SUMMARY | 2024-08-31 04:56 | XMS_ITS | Encounter Summary ---
[place] [address] Care Team Providers Care Apprenticeship Representative Name Role Phone Juana Anthony Charlotte CROWE Primary Care Provider [phone] Reason for Referral * Consultation (Routine) - Authorized Specialty Diagnoses / Procedures Referred By Contac t Referred To Contact Urology Diagnoses Urinary incontinence, unspecified type Neurogenic bladder Hakeem Ty MD [address] PHYSICAL MED[place]INE [place] [address] [facility] [place] [address] Referral ID Status Reason Start Date Expiration Date Visits Requested Visits Authorized [id number] Authorized Consult, Test & Treat 06/28/2024 06/28/2025 1 1 * Diagnostic Test (Routine) - Closed Specialty Diagnoses / Procedures Referred By Contac t Referred To Contact Radiology Diagnoses Osteoarthritis of cervical spine with myelopathy Procedures MRI Cervical Spine wo Contrast (Generic) Hakeem Ty MD [address] PHYSICAL MEDICINE [place] [address] [facility] Rad Mri [address] [place] [address] Referral ID Status Reason Start Date Expiration Date V isits Requested Visits Authorized [id number] Closed Specialty Service Requested 06/28/2024 12/27/2025 1 1 Reason for Visit * Reason Comments Establish Care Pain Management Low Back Pain and Ri ght Leg Pain * Consultation (Routine) - Closed Specialty Diagnoses / Procedures Referred By Rayne carlos Referred To Contact [facility] Diagnoses Pain in right hip Radicular low back pain Low back pain, non-specific Frank, Jazmin Giordano MD [facility] [address] [place] [address] [facility] Pain Management [address] [place] [address] Referral ID Status Reason Start Date Expiration Date V isits Requested Visits Authorized [id number] Closed Consult, Test & Treat 05/23/2024 05/23/2025 1 1 Encounter Details Date Type Department Care Team (Late st Contact Info) Description 06/28/2024 4:00 PM EDT Office Visit Pain Management at [facility] [address] [place] [address] Hakeem Ty MD 10 [facility] PHYSICAL MEDIC[place] [address] Osteoarthritis of cervical spine with [...] PM EDT Chief Complaint Patient presents with [facility] Care Pain Management Low Back Pain and [...] distribution on the right. Pt at [facility] weekly started at the beginning June 2024. [...] 1:20 PM EST [place] [address] Lizzeth Bedoya APRN [facility] [place] [address] 09/13/2024 4:30 PM EST Office Visit Pain Management at [facility] [address] [place] [phone] Hakeem Ty MD [address] PHYSICAL MEDICINE [place] [address] Scheduled Referrals Name Type Priority Associated Diagnoses Orde r Schedule Referral to Urology Outpatient Referral Routine Urinary incontinence, unspecified type Neurogenic bladder Ordered: 06/28/2024 documented as of this encounter Results * MRI Cervical Spine wo Contrast (Generic) (07/16/2024 6:15 PM EST) Donews WORKSTATION ID [id number] RAD Anatomical Region Laterality Modality C-spine Magnetic [...] who have questions please contact the health veterinarian laboratory animal care that requested your imaging first. ? Electronically signed by: LUIS FERNANDO Mendez [facility] ([phone]), at 07/17/2024 3:32 PM Narrative 07/17/2024 3:32 [...] patients who have questions please contactthe health veterinarian laboratory animal care that requested your imaging first. Hakeem Mak MD IMG MRI ORDERABLES * (ABNORMAL) Comprehensive metabolic panel Non-fasting (06/28/2024 4:51 PM EDT) Glucose 96 65 - 199 mg/dL 06/28/2024 5:53 PM EDT [facility] Comment:Glucose Concentratio n >=200 mg/dL plus symptoms is consistent with Diabetes Mellitus. Blood Urea Nitrogen 9 8 - 18 mg/dL 06/28/2024 5:53 PM EDT [facility] Creatinine 0.69(L) 0.70 - 1.20 mg/dL 06/28/2024 5:53 PM EDT [facility] Sodium 136 135 - 145 mMol/L 06/28/2024 5:53 PM EDT [facility] Potassium 3.7 3.5 - 5.0 mMol/L 06/28/2024 5:53 PM EDT [facility] Chloride 99 98 - 107 mMol/L 06/28/2024 5:53 PM EDT [facility] Carbon Dioxide 28 22 - 31 mMol/L 06/28/2024 5:53 PM EDT [facility] Anion Gap 9 5 - 15 mMol/L 06/28/2024 5:53 PM EDT [facility] Calcium 9.7 8.5 - 10.5 mg/dL 06/28/2024 5:53 PM EDT [facility] Protein, Total 6.8 6.1 - 8.0 g/dL 06/28/2024 5:53 PM EDT [facility] Albumin 4.2 3.2 - 5.2 g/dL 06/28/2024 5:53 PM EDT [facility] Aspartate Aminotransferase 14 <=30 unit/L 06/28/2024 5:53 PM EDT [facility] Alanine Aminotransferase 10 0 - 30 unit/L 06/28/2024 5:53 PM EDT [facility] Alkaline Phosphatase 60 35 - 105 unit/L 06/28/2024 5:53 PM EDT [facility] Bilirubin, Total 0.3 <=1.3 mg/dL 06/28/2024 5:53 PM EDT [facility] Est Glomerular Filtration Rate - Female 113 mL/min/1. 73 m?? 06/28/2024 5:53 PM EDT [facility] Comment: This patient's estimated GFR [...] Fasting Status No 06/28/2024 5:53 PM T [facility] Blood VENOUS BLOOD SPECIMEN / Unknown Venipuncture / Unknown 06/28/2024 4:51 PM EDT 06/28/2024 4:51 PM EDT Hakeem Mak MD CHEMISTRY ORDERABLE S [facility] [address] [place] [address] documented in this encounter Visit Diagnoses Diagnosis Osteoarthritis of cervical spine with myelopathy- Primary Radiculopathy of lumbar region Thoracic or lumbosacral neuritis or radiculitis, unspecified Chronic pain syndrome Medication management Encounter for long-term (current) use of other medications Urinary incontinence, unspecified type Neurogenic bladder Neurogenic bladder, NOS Osteoarthritis of cervical spine with myelopathy documented in this encounter Care Teams Apprenticeship Representative Relationship Specialty Start Date End Date Juana Anthony APRN [address] [place] [address] PCP - General Family Medicine 05/18/24 documented as of this encounter
--- OUTSIDE RECORDS SUMMARY | 2024-08-31 04:56 | XMS_ITS | Encounter Summary ---
Author Organization [facility] [place] [address] Care Team Providers Care Grating Machine Operator Name Role Phone Juana Anthony APRN Primary Care Provider [phone] Encounter Details Date Type Department Care Team [...] 1:20 PM [place] [address] Lizzeth Bedoya APRN [facility] [place] [address] 09/13/2024 4:30 PM EST Office Visit Pain Management at [facility] [address] [place] [phone] Hakeem Ty MD [address] [facility] [place] [address] documented as of this encounter Visit Diagnoses Not on filedocumented in this encounter Care Teams Grating Machine Operator Relationship Specialty Start Date End Date Juana Anthony APRN [address] [place] [address] PCP - General Family Medicine 05/18/24 documented as of this encounter
--- OUTSIDE RECORDS SUMMARY | 2024-08-31 04:56 | XMS_ITS | Encounter Summary ---
Author Organization [place] [address] Care Team Providers Care Solar Energy Consultant And Designer Name Role Phone Juana Anthony APRN Primary Care Provider [phone] Encounter Details Date Type Department Care Team (Late st Contact Info) Description 05/23/2024 Telephone [facility] [place] [phone] None None Social History Tobacco Use Types [...] via secure chat. * Telephone Encounter - Sandraelmerderrell Narcisa - 05/23/2024 1:01 PM EDT CLINIC PHONE [...] (if other than self): Patient Callback number: [phone] Best time you are available: Any Route Per Clinic Coverage Page documented in this encounter Plan of Treatment Upcoming Encounters Date Type Department Care Team (Late st Contact Info) Description 09/13/2024 1:20 PM EST Office [place] [address] Lizzeth Bedoya APRN [facility] [address] 09/13/2024 4:30 PM EST Office Visit Pain Management at [facility] [address] [facility] [place] [phone] Hakeem Ty MD [address] [facility] [place] [address] documented as of this encounter Visit Diagnoses Not on filedocumented in this encounter Care Teams Solar Energy Consultant And Designer Relationship Specialty Start Date End Date Juana Anthony APRN [address] [place] [address] PCP - General Family Medicine 05/18/24 documented as of this encounter
--- OUTSIDE RECORDS SUMMARY | 2024-08-31 04:56 | XMS_ITS | Encounter Summary ---
Author Organization [facility] [place] [address] Care Team Providers Care Theater Company Producer Name Role Phone Juana Anthony APRN Primary Care Provider [phone] Encounter Details Date Type Department Care Team (Late st Contact Info) Description 06/22/2024 Ancillary Procedure Radiology Library at [facility] [place] [address] Juana Anthony, AMRITA [address] [place] [id number] Social History Tobacco Use Types Packs/Day Years [...] 1:20 PM EST Office Visit Urology at [facility] [place] [address] Lizzeth Bedoya APRN [facility] [place] [address] 09/13/2024 4:30 PM EST Office Visit Pain Management at [address] [place] [phone] Hakeem Ty MD [address] PHYSICAL MEDICINE [place] [address] documented as of this encounter Procedures Procedure Name Priority Date/Time Associated Diagnosis Comments FILM LIBRARY STORAGE ONLY MR SPINE Routine 06/22/2024 12:00 AM EDT documented in this encounter Results * Film Library- Storage Only MR Spine (06/22/2024 12:00 AM EDT) Narrative [facility] - 06/23/2024 4:04 AM EDT This exam is auto-finalizing. It's purpose is for storage only. Juana Anthony APRN IMMorro FILM LIBRARY ORD ERABLES Performing Organization Address City/State/[facility] Co de Phone Number [place], [place] documented in this encounter Visit Diagnoses Not on filedocumented in this encounter Care Teams Theater Company Producer Relationship Specialty Start Date End Date Juana Anthony APRN [address] [place] [address] PCP - General Family Medicine 05/18/24 documented as of this encounter
--- NOTE | 2024-08-31 05:00 | RT.EKG_ITS ---
APPROVED REPORT Exam: Resting ECG Reason for Exam: sob Patient Location: E HR:128 bpm ECG Measurements Heart Rate 128 AXIS NE 133 P 42 QRSd 86 QRS 23 QT 324 T 24 QTc 474 Conclusion Sinus tachycardia...rate> [address] segment or T wave abnormalitites to suggest occlusive PA
[2024-08-31 05:33] LABS: Abs Immature Grans 0.01 10^3/uL (0.0-0.06); Absolute Basophil Count 0.04 10^3/uL (0.0-0.2); Absolute Eosinophil Count 0.04 10^3/uL (0.0-0.7); Absolute Lymphocyte Count 2.27 10^3/uL (1.2-3.4); Absolute Monocyte Count 0.79 10^3/uL (0.1-0.8); Absolute Neutrophil Count 4.45 10^3/uL (1.2-6.7); Basophils % 0.5 %; Eosinophils % 0.5 %; HGB 13.7 g/dL (11.2-15.7); Immature Grans % 0.1 %; Lymphocytes % 29.9 %; MCH 33.2 pg (27.0-33.0); MCHC 35.1 % (32.0-36.0); MCV 94 fL (80-95); MPV 8.8 fL (8.0-11.0); Monocytes % 10.4 %; Neutrophils % 58.6 %; Platelet Count 252 10^3/uL (130-400); RBC 4.13 10^6/uL (3.93-5.22); RDW 12.8 % (11.7-14.6); RDW-SD 44.7 fL
[2024-08-31 05:51] LABS: ALT 18 U/L (14-59); AST 36 U/L (15-37); Alkaline Phosphatase 74 U/L (46-116); Anion Gap 11.5 mmol/L (3-11); BUN 4 mg/dL (7-18); Bilirubin, Total 0.19 mg/dL (0.2-1.0); CO2 28.5 mmol/L (21.0-32.0); CREATININE 0.7 mg/dL (0.55-1.02); Calcium 8.5 mg/dL (8.5-10.1); Chloride 101 mmol/L (98-107); Estimated GFR 112.05 (mL/min/1.73m2); Glucose 111 mg/dL (74-106); Magnesium 1.8 mg/dL (1.8-2.4); Potassium 3.6 mmol/L (3.5-5.1); Sodium 141 mmol/L (136-145); Total Protein 7.5 g/dL (6.4-8.2); Troponin I 5 ng/L (<or=51)
[2024-08-31 05:57] LABS: *AMPHETAMINES SCREEN URINE Negative (Negative); *BARBITURATES SCREEN URINE Negative (Negative); *BENZODIAZEPINES SCREEN URINE Positive (Negative); Cannabinoids THC Positive (Negative); Cocaine Screen,Urine Negative (Negative); METHADONE URINE SCREEN Negative (Negative); OPIATES URINE SCREEN Negative (Negative)
[2024-08-31 05:58] LABS: Tricyclic Antidepressants Negative (Negative)
[2024-08-31] MEDS: Ondansetron O.D.T. 4 MG TABEF PO (06:02)
--- NOTE | 2024-08-31 06:23 | W.ED.GENAD ---
Discharge Plan Discharge Details Chief Complaint: ETOHWithdr Clinical Impression: Alcohol intoxication, Suicidal ideation Primary Care Provider: Juana Anthony ED Provider: Latanya Talamantes Home Meds and New Rx's Prescriptions: No Action clonidine HCl 0.1 mg tablet 0.1 mg PO TID PRNQty: 30 0RF Patient Comments: states taking NO meds. Rx Instructions: For anxiety HPI General Mode of arrival: EMS. Date/Time Provider Initiated Documentation: 08/31/24 05:28. Limitations to Documentation: no limitations. Information obtained by: patient and EMS. HPI Narrative: 38yo F with hx ETOH withdrawal (no hx withdrawal seizures) and depression presenting requesting alcohol detox and mental health help. Recently discharged from [facility]. Since getting home about a week ago has been drinking 'all day every day'. Called the suicide hotline this evening with passive SI; in the past has overdosed on sleeping pills. Denies intent at this time. 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 Otherwise in her usual state of health with no fevers, chills, rash, nausea, vomiting, abdominal pain, chest pain, shortness of breath, or other concerns. Related Data Home Medications ?Medication ?Instructions ?Recorded ?Confirmed clonidine HCl 0.1 mg tablet 0.1 mg PO TID PRN #30 tabs 05/02/24 08/22/24 Previous Rx's ?Medication ?Instructions ?Recorded clonidine HCl 0.1 mg tablet 0.1 mg PO TID PRN #30 tabs 05/02/24 Allergies Allergy/AdvReac Type Severity Reaction Status Date / Time nickel Allergy Rash Verified 08/22/24 09:42 bacitracin (From Neosporin AdvReac Intermediate Skin Rash Verified 08/22/24 09:42 ([id number])) neomycin (From Neosporin AdvReac Intermediate Skin Rash Verified 08/22/24 09:42 ([id number])) polymyxin B (From Neosporin AdvReac Intermediate Skin Rash Verified 08/22/24 09:42 ([id number])) General Stated Complaint: ETOHWithdr JORGE: 3 Review of Systems Narrative: see HPI Exam Narrative Exam Narrative: General: Alert, well appearing, well nourished, tearful. Clinically intoxicated. Head: Normocephalic, atraumatic Neck: Trachea midline, ?Neck supple. ENT: ?MMM.? No oropharygeal lesions or exudate. Cardiac: ?RRR, no murmurs appreciated Resp: No respiratory distress. CTAB. Abd: ?Soft, non-distended, nontender : ?No suprapubic tenderness. No CVA tenderness. Extremities: ?No deformities.? No peripheral edema. Neurologic: GCS 15. ? Moves all extremities freely against gravity Psych: Calm, cooperative, tearful.? Well groomed.? Mood bad, affect congruent.? Speech with normal volume, rate, rythym and tone. Linear and goal directed.? SI, denies plan. Denies HI/AH/VH. ? Does not appear to be responding to internal stimuli. Course Vital Signs Vital signs: Vital Signs Temperature 37.1 C 08/31/24 04:54 Pulse 131 H 08/31/24 04:54 Respiratory Rate 20 08/31/24 04:54 Blood Pressure 160/116 H 08/31/24 04:54 Pulse Oximetry 97 08/31/24 04:54 Temperature 37.1 C 08/31/24 04:54 Temperature Source Temporal Artery Scan 08/31/24 04:54 Pulse 131 H 08/31/24 04:54 Pulse 112 H 08/31/24 05:20 Respiratory Rate 13 08/31/24 05:20 Respiratory Pattern Normal 08/31/24 05:02 Blood Pressure 160/116 H 08/31/24 04:54 Blood Pressure Position Sitting 08/31/24 04:54 Pulse Oximetry 94 08/31/24 05:20 Oxygen Delivery Method Room Air 08/31/24 04:54 Oxygen Flow Rate 0 08/31/24 04:54 Pain Level 10 08/31/24 04:54 Lab/Test Results Lab/Test Results: Laboratory Tests Range/Units 08/31/24 08/31/24 08/31/24 05:22 05:30 06:26 WBC (4.4-10.8) 10^3/uL 7.60 RBC (3.93-5.22) 10^6/uL 4.13 Hgb (11.2-15.7) g/dL 13.7 Hct (36.0-46.0) % 39.0 MCV (80-95) fL 94 MCH (27.0-33.0) pg 33.2 H MCHC (32.0-36.0) % 35.1 RDW (11.7-14.6) % 12.8 Plt Count (130-400) 10^3/uL 252 MPV (8.0-11.0) fL 8.8 Immature Gran % % 0.1 Neutrophils % % 58.6 Lymphocytes % % 29.9 Monocytes % % 10.4 Eosinophils % % 0.5 Basophils % % 0.5 Nucleated RBC % (0.0-0.3) % 0.0 Absolute Neutrophils (1.2-6.7) 10^3/uL 4.45 Absolute Lymphocytes (1.2-3.4) 10^3/uL 2.27 Absolute Monocytes (0.1-0.8) 10^3/uL 0.79 Absolute Eosinophils (0.0-0.7) 10^3/uL 0.04 Absolute Basophils (0.0-0.2) 10^3/uL 0.04 Sodium (136-145) mmol/L 141 Potassium (3.5-5.1) mmol/L 3.6 Chloride (98-107) mmol/L 101 Carbon Dioxide (21.0-32.0) mmol/L 28.5 Anion Gap (3-11) mmol/L 11.5 H BUN (7-18) mg/dL 4 L Creatinine (0.55-1.02) mg/dL 0.7 Est GFR (CKD-EPI 2020) (mL/min/1.73m2) 112.05 Glucose (74-106) mg/dL 111 H Calcium (8.5-10.1) mg/dL 8.5 Magnesium (1.8-2.4) mg/dL 1.8 Total Bilirubin (0.2-1.0) mg/dL 0.19 L AST (15-37) U/L 36 ALT (14-59) U/L 18 Alkaline Phosphatase (46-116) U/L 74 Troponin I (<or=51) ng/L 5 Cancelled Total Protein (6.4-8.2) g/dL 7.5 Albumin (3.4-5.0) g/dL 4.0 Urine Opiates Screen (Negative) Negative Urine Methadone Screen (Negative) Negative Ur Barbiturates Screen (Negative) Negative Ur Tricyclics Screen (Negative) Negative Ur Amphetamines Screen (Negative) Negative U Benzodiazepines Scrn (Negative) Positive A Urine Cocaine Screen (Negative) Negative Ur THC Screen (Negative) Positive A Range/Units 08/31/24 08:26 WBC (4.4-10.8) 10^3/uL RBC (3.93-5.22) 10^6/uL Hgb (11.2-15.7) g/dL Hct (36.0-46.0) % MCV (80-95) fL MCH (27.0-33.0) pg MCHC (32.0-36.0) % RDW (11.7-14.6) % Plt Count (130-400) 10^3/uL MPV (8.0-11.0) fL Immature Gran % % Neutrophils % % Lymphocytes % % Monocytes % % Eosinophils % % Basophils % % Nucleated RBC % (0.0-0.3) % Absolute Neutrophils (1.2-6.7) 10^3/uL Absolute Lymphocytes (1.2-3.4) 10^3/uL Absolute Monocytes (0.1-0.8) 10^3/uL Absolute Eosinophils (0.0-0.7) 10^3/uL Absolute Basophils (0.0-0.2) 10^3/uL Sodium (136-145) mmol/L Potassium (3.5-5.1) mmol/L Chloride (98-107) mmol/L Carbon Dioxide (21.0-32.0) mmol/L Anion Gap (3-11) mmol/L BUN (7-18) mg/dL Creatinine (0.55-1.02) mg/dL Est GFR (CKD-EPI 2020) (mL/min/1.73m2) Glucose (74-106) mg/dL Calcium (8.5-10.1) mg/dL Magnesium (1.8-2.4) mg/dL Total Bilirubin (0.2-1.0) mg/dL AST (15-37) U/L ALT (14-59) U/L Alkaline Phosphatase (46-116) U/L Troponin I (<or=51) ng/L Cancelled Total Protein (6.4-8.2) g/dL Albumin (3.4-5.0) g/dL Urine Opiates Screen (Negative) Urine Methadone Screen (Negative) Ur Barbiturates Screen (Negative) Ur Tricyclics Screen (Negative) Ur Amphetamines Screen (Negative) U Benzodiazepines Scrn (Negative) Urine Cocaine Screen (Negative) Ur THC Screen (Negative) POC- Test(urine) Negative Medical Decision Making 38yo F with hx ETOH withdrawal (no hx withdrawal seizures) and depression presenting requesting alcohol detox and mental health help. Passive SI at this time, no intent. Hypertensive and tachycardiac on arrival to 130's, vital signs otherwise reassuring. HR Improved to 110's without intervention. I am not suspicious for delirium tremens at this time. Initial CIWA 2. Labs reviewed as below, CBC reassuring with no leukocytosis or anemia, CMP with actionable abnormalities, troponin was ordered erroneously and was normal. ETOH 336 (was 434 on most recent prior visit). Awaiting tylenol/salicylate. Plan for scheduled librium, [facility] eval when sober. Will be signed out to oncoming physician, plan remains as above. Lab Data Lab results reviewed: Yes I reviewed the patient's lab results. Labs: Laboratory Tests Range/Units 08/31/24 08/31/24 08/31/24 05:22 05:23 05:30 WBC (4.4-10.8) 10^3/uL 7.60 RBC (3.93-5.22) 10^6/uL 4.13 Hgb (11.2-15.7) g/dL 13.7 Hct (36.0-46.0) % 39.0 MCV (80-95) fL 94 MCH (27.0-33.0) pg 33.2 H MCHC (32.0-36.0) % 35.1 RDW (11.7-14.6) % 12.8 Plt Count (130-400) 10^3/uL 252 MPV (8.0-11.0) fL 8.8 Immature Gran % % 0.1 Neutrophils % % 58.6 Lymphocytes % % 29.9 Monocytes % % 10.4 Eosinophils % % 0.5 Basophils % % 0.5 Nucleated RBC % (0.0-0.3) % 0.0 Absolute Neutrophils (1.2-6.7) 10^3/uL 4.45 Absolute Lymphocytes (1.2-3.4) 10^3/uL 2.27 Absolute Monocytes (0.1-0.8) 10^3/uL 0.79 Absolute Eosinophils (0.0-0.7) 10^3/uL 0.04 Absolute Basophils (0.0-0.2) 10^3/uL 0.04 Sodium (136-145) mmol/L 141 Potassium (3.5-5.1) mmol/L 3.6 Chloride (98-107) mmol/L 101 Carbon Dioxide (21.0-32.0) mmol/L 28.5 Anion Gap (3-11) mmol/L 11.5 H BUN (7-18) mg/dL 4 L Creatinine (0.55-1.02) mg/dL 0.7 Est GFR (CKD-EPI 2020) (mL/min/1.73m2) 112.05 Glucose (74-106) mg/dL 111 H Calcium (8.5-10.1) mg/dL 8.5 Magnesium (1.8-2.4) mg/dL 1.8 Total Bilirubin (0.2-1.0) mg/dL 0.19 L AST (15-37) U/L 36 ALT (14-59) U/L 18 Alkaline Phosphatase (46-116) U/L 74 Troponin I (<or=51) ng/L 5 Total Protein (6.4-8.2) g/dL 7.5 Albumin (3.4-5.0) g/dL 4.0 Urine Opiates Screen (Negative) Negative Urine Methadone Screen (Negative) Negative Ur Barbiturates Screen (Negative) Negative Ur Tricyclics Screen (Negative) Negative Ur Amphetamines Screen (Negative) Negative U Benzodiazepines Scrn (Negative) Positive A Urine Cocaine Screen (Negative) Negative Ur THC Screen (Negative) Positive A Ethyl Alcohol (<10) mg/dL 336.0 H Range/Units 08/31/24 08/31/24 06:26 08:26 WBC (4.4-10.8) 10^3/uL RBC (3.93-5.22) 10^6/uL Hgb (11.2-15.7) g/dL Hct (36.0-46.0) % MCV (80-95) fL MCH (27.0-33.0) pg MCHC (32.0-36.0) % RDW (11.7-14.6) % Plt Count (130-400) 10^3/uL MPV (8.0-11.0) fL Immature Gran % % Neutrophils % % Lymphocytes % % Monocytes % % Eosinophils % % Basophils % % Nucleated RBC % (0.0-0.3) % Absolute Neutrophils (1.2-6.7) 10^3/uL Absolute Lymphocytes (1.2-3.4) 10^3/uL Absolute Monocytes (0.1-0.8) 10^3/uL Absolute Eosinophils (0.0-0.7) 10^3/uL Absolute Basophils (0.0-0.2) 10^3/uL Sodium (136-145) mmol/L Potassium (3.5-5.1) mmol/L Chloride (98-107) mmol/L Carbon Dioxide (21.0-32.0) mmol/L Anion Gap (3-11) mmol/L BUN (7-18) mg/dL Creatinine (0.55-1.02) mg/dL Est GFR (CKD-EPI 2020) (mL/min/1.73m2) Glucose (74-106) mg/dL Calcium (8.5-10.1) mg/dL Magnesium (1.8-2.4) mg/dL Total Bilirubin (0.2-1.0) mg/dL AST (15-37) U/L ALT (14-59) U/L Alkaline Phosphatase (46-116) U/L Troponin I (<or=51) ng/L Cancelled Cancelled Total Protein (6.4-8.2) g/dL Albumin (3.4-5.0) g/dL Urine Opiates Screen (Negative) Urine Methadone Screen (Negative) Ur Barbiturates Screen (Negative) Ur Tricyclics Screen (Negative) Ur Amphetamines Screen (Negative) U Benzodiazepines Scrn (Negative) Urine Cocaine Screen (Negative) Ur THC Screen (Negative) Ethyl Alcohol (<10) mg/dL Quality:SDOH Health Related Social Needs: No Data to Display PFSH All Active Problems (Updated 08/31/24 @ 07:55 by Latanya Talamantes MD) Suicidal ideation (Acute) Alcohol intoxication (Acute) Depression (Chronic) Urinary incontinence (Acute) Bacterial vaginosis (Acute) Vaginal discharge (Acute) Lumbar facet arthropathy (Acute 05/22/24) Degenerative disc disease, lumbar (Acute 05/22/24) Mild, L4-5 and L5-S1 Well woman exam with routine gynecological exam (Acute) Chronic pain (Chronic) Alcohol dependence (Acute) Anxiety about health (Acute) Insomnia (Acute) Elevated TSH (Acute) Preventative health care (Acute) Labral tear of right hip joint (Acute) POCUS injection: 04/27/2024 Hip pain, right (Chronic) Alcohol use disorder (Acute) Nodule of left lung (Acute) Medical History Alcohol withdrawal Tobacco abuse Alcohol dependence Anxiety disorder Depression Social History Smoking/Tobacco Use Status: Current every day Tobacco Type: cigarettes Smoking packs per day: 1 Smoking cigarettes per day: 20.0 Years smoked: 24 Smoking pack-years: 24.00 Smoking risk assessment performed?: Yes Alcohol Intake: current Alcohol Intake frequency: 3 or more drinks per day Alcohol type: hard liquor Drug use: Daily Substance use type: marijuana and crack/cocaine Details: smokes weed daily, 1/2 gallon of whiskey a day from time wakes to go to bed Housing: house Do you feel safe at home: Yes Do you feel safe in your relationship?: Yes Additional Social history: Lives in [place], male friend is her main support Female Reproductive History Menstrual Age of Menarche: 11 Duration of menses: 3-5 days control method: none History History 1 Para Hx # Term Pregnancies Multiple births Hx # Pregnancies Ectopic pregnancies AB induced 1 Hx Number of Living Children AB spontaneous PAWSS Have you Been Recently Intoxicated or Drunk Within the Last 30 days?: Yes Have you Ever Experienced Previous Episodes of Alcohol Withdrawal?: Yes Have you ever Experienced Withdrawal Seizures?: Yes Have you ever Experienced Delirium Tremens(DT)s?: Yes Have you ever undergone Alcohol Rehabilitation Treatment (i.e, inpt ot outpatient treatment programs)?: Yes Have you ever Experienced Blackouts?: Yes Have you ever Combined Alcohol with other Downers within the last 90 days?: Yes Have you ever Combined Alcohol with any other Substance of Abuse during the last 90 days?: Yes Positive Blood Alcohol level on Presentation? [PCS.BAL]: Yes Evidence of Increased Autonomic Activity (i.e. HR>120, tremor, sweating, agitation, nausea)?: Yes Result: 10
[2024-08-31] MEDS: chlordiazePOXIDE 25 MG CAP PO ×4 (07:54→18:33)
--- NOTE | 2024-08-31 08:02 | ED.PROG_ITS ---
Date of service: 08/31/24 Time of Service: 08:02 Medical Decision Making Care assumed from off going provider. Patient is a 38-year-old female with chronic alcohol abuse and history of severe alcohol withdrawal syndrome. Presenting with suicidal ideation. Currently intoxicated. Plan for reassessment with clinical sobriety and evaluation by mental health services. 929 On my evaluation, patient was sleeping comfortably, she did wake up to chat with me feels like she is ready to talk to mental health services. I gave her a CIWA of 2. I do not appreciate significant symptoms of withdrawal. She is slightly tachycardic. Offered food and water but she declines. 1040 NK here to evaluate patient, but they are requesting an alcohol level. Will send. 1440 Repeat alcohol down to 87. Will have [facility] evaluate. 1620 patient being evaluated by [facility]. Final disposition pending their evaluation. Quality:SDOH Health Related Social Needs: No Data to Display Discharge Plan Discharge Details Chief Complaint: ETOHWithdr Clinical Impression: Alcohol intoxication, Suicidal ideation Primary Care Provider: Juana Anthony ED Provider: Moncho Gleason Home Meds and New Rx's Prescriptions: No Action clonidine HCl 0.1 mg tablet 0.1 mg PO TID PRNQty: 30 0RF Patient Comments: states taking NO meds. Rx Instructions: For anxiety
[2024-08-31 08:14] LABS: Acetaminophen < 2 ug/mL (10-30); Salicylate < 2.8 mg/dL (<2.8)
[2024-08-31] MEDS: Normal Saline 1,000 ML 1000 ML IV (09:55)
[2024-08-31] MEDS: ALPRAZolam 0.5 MG TAB 1 MG PO (10:58)
[2024-08-31 11:17] LABS: ETHANOL BLOOD 182.7 mg/dL (<10)
[2024-08-31 14:56] LABS: ETHANOL BLOOD 87.1 mg/dL (<10)
--- NOTE | 2024-08-31 16:39 | CMSP_ITS ---
Date of service: 08/31/24 Time of Service: 16:39 Care Management Safety Plan Status Status: Interim Reason for Wait Reason for Wait: Assessment/Screening Safety Plan Safety Plan: VOLUNTARY FOR INPATIENT PSYCHIATRIC STABILIZATION.? Patient is appropriate in all interactions since arriving at [facility]; Pt has demonstrated appropriate coping and communication skills, has articulated his or her needs and concerns and is fully engaged during staff interactions. Michelle screened positive for SI in initial assessment by nursing; she has been medically cleared after a period of observation, and is awaiting assessment by [facility]. Safety plan in place; will huddle with staff tomorrow, if patient remains for voluntary psychiatric treatment. Safety plan has been established with patient, and care team, to adhere to patient goals, identify restrictions based on behavioral status, address nutrition, and determine allowed personal belongings, tools for hygiene and pers onal care. Determine level of activity including ambulation, level of supervision, visitors, and determine privileges based on behaviors and level of engagement by pt. VOLUNTARY SAFETY PLAN: 1. Will remain on suicide precautions, in paper clothes 2. Will remain in Zone B under direct supervision of one-on-one staff at all times provided by [employer]; [employer]INA, DEEP TISSUE MASSAGE THERAPIST high school social studies tutor. 3. May have paper cups, plates, finger foods as well as a cardboard spoon with which to eat meals. 4. Follow [facility] Management of the Admitted Behavioral Health Patient policy. 5. Shower available in Zone B without restriction. 6. Personal belongings-soft items permitted at RN discretion. 7. Visitors- at RN discretion. 8. Activities: soft cart items approved per RN discretion. 9.? Bathroom available in Zone B without restriction. 10. Phone: limited to [facility] cordless phone at RN discretion. Due to VOLUNTARY status, if patient wishes to leave [facility], staff will contact [facility] Crisis Screener ([phone]) and Expressive Art Therapist ([phone]) as soon as possible. In the event of elopement, notify [place] [employer] ([phone]). Patient is currently voluntarily at [facility] and seeking inpatient admission when a bed becomes available. [facility] Frontline Translator/Interpreter will continue seeking placement. Please contact the Expressive Art Therapist ([phone]) and [facility] Translator/Interpreter ([phone]) for any needed changes in the Safety Plan. Safety plan has been provided to interdepartmental care team.
--- NOTE | 2024-08-31 16:39 | PDOC.CMSAFE ---
Date of service: 08/31/24 Time of Service: 16:39 Care Management Safety Plan Status Status: Interim Reason for Wait Reason for Wait: Assessment/Screening Safety Plan Safety Plan: VOLUNTARY FOR INPATIENT PSYCHIATRIC STABILIZATION.? Patient is appropriate in all interactions since arriving at [facility]; Pt has demonstrated appropriate coping and communication skills, has articulated his or her needs and concerns and is fully engaged during staff interactions. Michelle screened positive for SI in initial assessment by nursing; she has been medically cleared after a period of observation, and is awaiting assessment by [facility]. Safety plan in place; will huddle with staff tomorrow, if patient remains for voluntary psychiatric treatment. Safety plan has been established with patient, and care team, to adhere to patient goals, identify restrictions based on behavioral status, address nutrition, and determine allowed personal belongings, tools for hygiene and personal care. Determine level of activity including ambulation, level of supervision, visitors, and determine privileges based on behaviors and level of engagement by pt. VOLUNTARY SAFETY PLAN: 1. Will remain on suicide precautions, in paper clothes 2. Will remain in Zone B under direct supervision of one-on-one staff at all times provided by [employer]; NAINA, ONLINE MERCHANDISING COORDINATOR transition advisor. 3. May have paper cups, plates, finger foods as well as a cardboard spoon with which to eat meals. 4. Follow [facility] Management of the Admitted Behavioral Health Patient policy. 5. Shower available in Zone B without restriction. 6. Personal belongings-soft items permitted at RN discretion. 7. Visitors- at RN discretion. 8. Activities: soft cart items approved per RN discretion. 9.? Bathroom available in Zone B without restriction. 10. Phone: limited to [facility] cordless phone at RN discretion. Due to VOLUNTARY status, if patient wishes to leave [facility], staff will contact [facility] Crisis Screener ([phone]) and Textile Screen Printer ([phone]) as soon as possible. In the event of elopement, notify [place] [employer] ([phone]). Patient is currently voluntarily at [facility] and seeking inpatient admission when a bed becomes available. [facility] Frontline Student Affairs Dean will continue seeking placement. Please contact the Textile Screen Printer ([phone]) and [facility] Student Affairs Dean ([phone]) for any needed changes in the Safety Plan. Safety plan has been provided to interdepartmental care team.
--- NOTE | 2024-08-31 16:54 | ED.PROG_ITS ---
Date of service: 08/31/24 Time of Service: 16:55 Medical Decision Making I received signout for this patient from Dr. Dupree. At this point we are awaiting a mental health evaluation. The patient had subsequently been evaluated in at this point the patient is not having any suicidal thoughts or homicidal ideation therefore she would not be appropriate for inpatient psychiatric hospitalization. The patient did not want to go to rehab also but eager to stop alcohol use. The patient does have a history of alcohol withdrawal without seizures and in the past has required hospitalization with phenobarbital drip. The patient had withdrawal score assessed in the ED and her most recent CIWA score is 1-2 max per Jose Armando SHEA close at 1655. Her most recent alcohol level was in the 80s 2 hours prior. It is reassuring that her CIWA score is still low. Typically CIWA score of under 8 does not require medica tions however I would still recommend this at this point. Patient had received Librium in the emergency department while waiting mental health eval and even Xanax. I will continue Librium on an outpatient basis. Prescription will be sent to her preferred pharmacy. At this point the patient is ready to go home. She does not wish to go to rehab facilities or detox facilities but again is quite eager to stay sober. She did have relief with the Librium so she will get another dose now and a dose to go. A prescription of Librium is to be sent to her preferred pharmacy. She is asked to follow-up closely with her primary care doctor as well and urged to return to the emergency department immediately with any worsening symptoms or any other concerns. Quality:SDOH Health Related Social Needs: No Data to Display Discharge Plan Disposition Patient Disposition: Home Condition: Stable Discharge Details Clinical Impression: Alcohol intoxication, Suicidal ideation Primary Care Provider: Juana Anthony ED Provider: Joan Andino Home Meds and New Rx's Prescriptions: New chlordiazepoxide HCl 25 mg capsule 25 mg PO TID PRN7 Days Qty: 21 0RF No Action clonidine HCl 0.1 mg tablet 0.1 mg PO TID PRNQty: 30 0RF Patient Comments: states taking NO meds. Rx Instructions: For anxiety Discharge Instructions Instructions: Alcohol Use Disorder (DC), Chlordiazepoxide, Alcohol Intoxication ED Additional Instructions: Please follow-up with your PCP. Take the librium, one tablet by mouth every 8 hours for withdrawal symptoms. Please return to the Emergency Department with any worsening symptoms or any other concerns, in particular, if you feel that the prescribed Librium is ineffective in controling your withdrawal symptoms, please have a low threshold to return to the Emergency Deparment.
== END 2024-08-31 18:35 | disposition home or self-care (01) ==
PROVIDERS: Emergency Medicine; Student in an Organized Health Care Education/Training Program; Emergency Provider Emergency Medicine; PCP Nurse Practitioner Family
DX: F10.939 Alcohol use, unspecified with withdrawal, unspecified (principal); R45.851 Suicidal ideations; F32.A Depression, unspecified
CPT/HCPCS: 00123; 36415; 80053; 80307; 81025; 93005; 96360; 99284; 80320; 80329; 83735; 84484; 85025; 93010

== ENCOUNTER 2025-05-22 17:21 | Outpatient (REF) | payer MEDICAID, SELFPAY ==
--- NOTE | 2025-05-22 16:00 | PAPFT_PTH ---
PATIENT: Michelle Fermin LOC: [facility] U#:[id number] AGE/SX: 39/F ROOM: RE05/22/[address]: Blanca Hendricks DO : 1985 BED: DIS: 05/22/2025 SPEC #: [id number] RECD: 05/22/25 18:19 STATUS: GURVINDER REQ #: [id number] ERAN: 05/22/25 16:[address]: Blanca Hendricks DEPT: [facility] Cytology RECD BY: Becca Peterson ENTERED: 05/22/25 18:19 SP TYPE: PAPFT OTHR DR: Juana Anthony APRN Tissues: 1 - CX/ENDOCX FOR PAP SMEARS Procedures: PAP THIN PREP/UVM Screening HPV DNA PROBE Comments: [id number] (HPV 16 & 18/45)
== END 2025-05-22 17:22 | disposition home or self-care (01) ==
LOC: LBN 17:21
PROVIDERS: PCP Nurse Practitioner Family; Visit Provider Obstetrics & Gynecology
DX: Z12.4 Encounter for screening for malignant neoplasm of cervix (principal)
CPT/HCPCS: 88142; 87624

== ENCOUNTER 2025-06-03 03:31 | Outpatient (CLI) | payer MEDICAID, SELFPAY ==
--- NOTE | 2025-06-03 12:15 | DI.MAMMO_ITS ---
Exam(s) MAMMO SCREENING EXAM: MAMMO SCREENING CLINICAL HISTORY: screening. TECHNIQUE: Bilateral full field digital CC and MLO mammographic images were obtained with 3D tomosynthesis and utilizing computer aided detection (CAD). COMPARISON: Prior mammograms were reviewed. FINDINGS: There are 2 nodules in the right breast measuring up to 6-7 mm and located 6 cm in from the nipple on the MLO view. There is a 6 x 4 mm nodule in the lateral aspect of the left breast located 6 cm in from the nipple, lateral of center on the CC view. Spot compression view recommended In left breast there is also nodular density located lateral of the nipple measuring approximately 6 x 5 mm, approximately 6 cm in from the nipple on CC view. Spot compression view recommended There are no malignant-appearing microcalcification groups in either breast. There is no significant architectural distortion nor skin thickening-retraction. IMPRESSION: Small bilateral nodules as described above. Bilateral spot compression view is and bilateral breast ultrasound recommended. BI-RADS Category 0 - Incomplete: Need additional imaging evaluation Breast Density - Category B - There are scattered areas of fibroglandular density. Breast density Category C or D implies that the patient has dense breast tissue. Dense breast tissue can make it harder to find cancer on a mammogram. Dense breast tissue is also associated with an increased risk of breast cancer. This information about the result of the mammogram report was provided to the patient to raise their awareness. Use this report when you speak with the patient about their risks for breast cancer, which includes their family history. At that time, you may recommend additional screening tests (Ultrasound or MRI) as these tests may add significant information. A negative radiographic report should not delay biopsy if a dominant or clinically suspicious mass is present. Up to ten percent of cancers are not identified on mammography. A negative report may reinforce clinical impression. Adenosis and dense breasts may obscure an underlying neoplasm. False positive reports average 6 to 10%. Patient will receive a letter notifying them of these results.
== END 2025-06-03 03:51 ==
LOC: DI 03:31
PROVIDERS: PCP Nurse Practitioner Family; Visit Provider Obstetrics & Gynecology
DX: Z12.31 Encounter for screening mammogram for malignant neoplasm of breast (principal)
CPT/HCPCS: 77063; 77067

== ENCOUNTER 2025-06-06 04:33 | Outpatient (CLI) | payer MEDICAID, SELFPAY ==
--- NOTE | 2025-06-06 | DI.US_ITS ---
Exam(s) US BREAST LT COMPLETE US BREAST RT COMPLETE MG MAMMO SCREEN CALL BACK BI EXAM: MG MAMMO SCREEN CALL BACK BI AND BILATERAL COMPLETE BREAST ULTRASOUND CLINICAL HISTORY: F/U ABNL MAMMO, R92.8,2 NODULES RT BREAST,2 NODULES LT BREAST,. TECHNIQUE: BILATERAL spot mammographic images obtained with 3D tomosynthesisand utilizing computer aided detection (CAD). . Complete BILATERAL breast Ultrasound was also performed, including all 4 quadrants, the retroareolar region, and the ipsilateral axilla. COMPARISON: Prior mammograms were reviewed. This additional imaging was performed due to findings described on the recent BASELINE screening mammogram of 06/03/2025. FINDINGS: DIAGNOSTIC MAMMOGRAM: Additional mammographic views performed todayto not dissipate the nodules. \ We proceeded with ultrasound COMPLETE BILATERAL BREAST ULTRASOUND: Ultrasound performed today reveals a few bilateral microcysts. These correspond to the findings on the mammogram. At the 10 o'clock position the right breast there are 2 microcysts measuring 5 and 4 mm. There are no solid lesions in the right breast. At the 2 o'clock position of the left breast there is a solitary 4 mm microcyst which corresponds to the finding on the mammogram. There are no solid lesions in the left breast. Scanning of the bilateral axillary regions reveals no significant adenopathy. IMPRESSION: 1. Benign findings. There are bilateral microcysts which correspond to the findings on the recent screening mammogram. 2. There are no solid lesions seen in either breast. Appropriate follow-up is to keep this patient on a yearly mammogram schedule, with earlier imaging if a self detected breast change is noted. The patient was informed of these findings and recommendations by myself prior to leaving the department today. BI-RADS Category 2 - Benign Findings Breast Density - Category B - There are scattered areas of fibroglandular density. Breast density Category C or D implies that the patient has dense breast tissue. Dense breast tissue can make it harder to find cancer on a mammogram. Dense breast tissue is also associated with an increased risk of breast cancer. This information about the result of the mammogram report was provided to the patient to raise their awareness. Use this report when you speak with the patient about their risks for breast cancer, which includes their family history. At that time, you may recommend additional screening tests (Ultrasound or MRI) as these tests may add significant information. A negative radiographic report should not delay biopsy if a dominant or clinically suspicious mass is present. Up to ten percent of cancers are not identified on mammography. A negative report may reinforce clinical impression. Adenosis and dense breasts may obscure an underlying neoplasm. False positive reports average 6 to 10%. Patient will receive a letter notifying them of these results.
== END 2025-06-06 04:53 ==
LOC: DI 04:33
PROVIDERS: PCP Nurse Practitioner Family; Visit Provider Obstetrics & Gynecology
DX: Z12.31 Encounter for screening mammogram for malignant neoplasm of breast (principal); N62 Hypertrophy of breast
CPT/HCPCS: 76642; 77063; 77067

== ENCOUNTER 2025-06-21 11:50 | Outpatient (REF) | payer MEDICAID, SELFPAY ==
--- NOTE | 2025-06-21 10:30 | ENDO_PTH ---
PATIENT: Michelle Fermin LOC: N U#:[id number] AGE/SX: 39/F ROOM: RE06/21/[address]: Blanca Hendricks DO : 1985 BED: DIS: 06/21/2025 SPEC #: [id number] RECD: 06/21/25 12:09 STATUS: GURVINDER RE #: [id number] ERAN: 06/21/25 10:[address]: Blanca Hendricks DEPT: Surgical Specimen RECD BY: Becca Peterson ENTERED: 06/21/25 12:10 SP TYPE: Endo OTHR DR: Juana Anthony APRN Tissues: 1 - ENDOCERVICAL BX/CURRETTE 2 - CERVICAL BIOPSY Procedures: GROSS AND MICRO LEVEL 4 Comments: [id number]
== END 2025-06-21 11:51 | disposition home or self-care (01) ==
LOC: LBN 11:50
PROVIDERS: PCP Nurse Practitioner Family; Visit Provider Obstetrics & Gynecology
DX: R87.613 High grade squamous intraepithelial lesion on cytologic smear of cervix (HGSIL) (principal)
CPT/HCPCS: 88305